=== PATIENT | female | born 1955 | race African-American/Black ===

== ENCOUNTER 2017-06-09 20:14 | Inpatient (IN) | payer MEDICARE ==
[2017-06-09] MEDS ORDERED: Morphine 4 MG/ML VIAL ONE (21:43)
[2017-06-09 21:50] LABS: ALT (SGPT) 18 U/L (8-55); AST (SGOT) 21 U/L (5-34); Alkaline Phosphatase 216 U/L (40-150); Anion Gap 16 mmol/L (10-20); BUN (Urea Nitrogen) 85 mg/dL (9.8-20.1); Bilirubin, Total 3.2 mg/dL (0.2-1.2); Calc. Creatinine Clearance 0 mL/min (70-130); Calcium 9.6 mg/dL (7.8-10.44); Carbon Dioxide 24 mmol/L (23-31); Chloride 103 mmol/L (98-107); Estimated GFR-MDRD 16; Globulin 4.7 g/dL (2.4-3.5); Protein, Total 8.6 g/dL (6.0-8.3)
[2017-06-09 21:51] LABS: #Eosinphils 0.1 thou/uL (0.0-0.7); #Monocytes 0.4 thou/uL (0.11-0.59); #Neutrophils 2.1 thou/uL (1.40-6.50); %Basophils 0.8 % (0.0-1.0); %Eosinophils 2.9 % (0.0-10.0); %Lymphocytes 26.6 % (21.0-51.0); %Monocytes 11.9 % (0.0-10.0); Anisocytosis MODERATE=16-30 cells (100X) (0-5/hpf); Hematocrit 32.1 % (36.0-47.0); Hypochromia SLIGHT = 6-15 cells (100X) (0-5/hpf); Mean Platelet Volume 11.9 fL (7.4-10.4); Microcytosis SLIGHT = 6-15 cells (100X) (0-5/hpf); Red Blood Cell (RBC) Count 3.53 mill/uL (4.20-5.40); Schistocytes SLIGHT = 2-5 cells (100X) (0-1/hpf); Tear Drops SLIGHT = 2-5 cells (100X) (0-1/hpf); White Blood Cell (WBC) Count 3.7 thou/uL (4.8-10.8)
--- NOTE | 2017-06-09 22:45 | CT ---
CT OF ABDOMEN AND PELVIS: Date: 06/09/17 COMPARISON: 04/22/14. HISTORY: Congestive heart failure, renal failure, lower abdominal pain and pelvic pain for 2 weeks. TECHNIQUE: Serial axial CT imaging is obtained at 5 mm intervals from the lung bases through pubic symphysis wit hout contrast. Coronal reformatted imaging obtained. FINDINGS: The lack of contrast media limits assessment of the imaged viscera, bowel, vascular structures, and f or lymphadenopathy. There is diffuse anasarca noted, with skin thickening and subcutaneous fat stranding seen throughout the imaged abdomen and pelvis, new when compared to the prior exam. There is a small new right pleura l effusion. There is increased linear and interstitial density in bilateral lung bases which may sign cole edema or infectious pneumonitis. The gallbladder is surgically absent. The liver demonstrates stable enlargement. The pancreas appears atrophic. Neither kidney is obstructed. Adrenal glands appear grossly unremarkable. There is new small volume free fluid in the pelvic cul-de-sac. There is new free fluid in the lower p marilyn. There is also new free fluid in the bilateral paracolic gutters and left upper quadrant. Limited assessment of the bowel demonstrates no evidence for obstruction. Osseous structures demonstrate no acute findings. There is lower lumbar spine facet hypertrophic agudelo ge and there are scattered degenerative changes with disc space narrowing and osteophyte formation se en throughout the imaged spine. The limited noncontrast enhanced appearance of the appendix appears grossly unremarkable. IMPRESSION: Interval development of anasarca with diffuse nonspecific ascites and new small right pleural effusio n. Linear density in the lung bases suggests interstitial pulmonary edema. POS: [facility]
[2017-06-09 23:22] LABS: Troponin I 0.045 ng/mL (< 0.028)
[2017-06-10] MEDS ORDERED: Nitroglycerin 2% Ointment 1 INCH/1 GM Packet ONE (01:04)
[2017-06-10] MEDS ORDERED: Furosemide 40 MG/4 ML VIAL ONE (01:04)
[2017-06-10 01:44] LABS: Troponin I 0.054 ng/mL (< 0.028)
[2017-06-10] MEDS ORDERED: Ondansetron HCl/PF 4 MG/2 ML Vial IVP PRN (03:23)
[2017-06-10] MEDS ORDERED: Ondansetron ODT 4 MG TAB SL PRN (03:23)
[2017-06-10] MEDS ORDERED: Acetaminophen 325 MG TAB PO PRN (03:23)
[2017-06-10 03:59] VITALS: BMI 51.7
[2017-06-10 04:58] LABS: Troponin I 0.036 ng/mL (< 0.028)
[2017-06-10] MEDS ORDERED: Ondansetron ODT 4 MG TAB PO PRN (07:23)
[2017-06-10] MEDS ORDERED: Zolpidem Tartrate 5 MG TAB PO PRN (07:23)
--- NOTE | 2017-06-10 08:14 | HP ---
PRIMARY CARE PROVIDER: Laura Aldrich, in [place] CHIEF COMPLAINT: Throbbing pain in right flank. HISTORY OF PRESENT ILLNESS: The patient referred to the [facility] by [facility]. The patient states she has had right flank pain. She described it as coming from her right mid back around into her right lower quadrant. She describes it as a throbbing and pulling pain, constant for 2 weeks, worse with motion. She has had no nausea or vomiting, no diarrhea. She has had constipation, which she relates to an impaction. This has resolved. She has had no fever o r chills. PAST MEDICAL HISTORY: Pertinent for hypertension; chronic kidney disease, stage 3; diastolic heart f ailure; gastroesophageal reflux disease. CURRENT MEDICATIONS: Lasix 80 mg in the morning and 40 in the evening, gabapentin 200 mg at bedtime, Coreg 3.125 mg twice a day, Flexeril 10 mg t.i.d. p.r.n., Nexium 40 mg a day, Lipitor 40 mg a day, a mlodipine 10 mg a day, aspirin 81 mg a day. ALLERGIES: No known drug allergies. PAST SURGICAL HISTORY: Cholecystectomy, tubal ligation, and . SOCIAL HISTORY: No alcohol, tobacco, or recreational drug use. CODE STATUS: Full. Surrogate decision maker not named at this time. FAMILY HISTORY: Positive for hypertension. No coronary artery disease. REVIEW OF SYSTEMS: General: She has a little dizziness at times. No headache or fainting. Eyes: She says she has had a history of retinal bleeding. She has cataracts and her vision is poor. Ears, nose, and throat: No ear pain or drainage. No nasal bleeding. No trouble swallowing. Cardiac: N o chest pain, orthopnea, or paroxysmal nocturnal dyspnea. Respiratory: She has chronic dyspnea on e xertion. She has been doing better since Dr. Frazier raised her Lasix to a total of 120 mEq a day from 80 mg a day. No wheezing, no cough. Gastrointestinal: See present illness. Genitourinary: She ma kes urine. No blood, no pain. 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 She has a variety of aches and pains, but her prominent pain now is the right flank pain. Neurological: No strokes, seizures, or focal weakness. Psychiatric: No anxiety or depression. Ski n: No bruises, bleeding, or rash. Heme/Lymph: No tender or swollen lymph nodes in axilla, inguinal , or cervical area. PHYSICAL EXAMINATION: GENERAL: She is an alert, cooperative, pleasant lady. VITAL SIGNS: Blood pressure was elevated at 163/80, temperature 98.4, pulse 80, respirations 20, O2 saturation 94% on room air. EXAMINATION OF HEAD, EYES, EARS, NOSE, AND THROAT: Pupils equal, reactive, and round. Extraocular m ovements are intact. Sclerae white. Tympanic membranes clear. Nose clear. Oral mucous membranes a re clear. Dental hygiene is fair. NECK: Supple, without jugular venous distention, adenopathy, or thyromegaly. CHEST: Clear to auscultation and percussion. HEART: Had a regular rate and rhythm. First and second heart sounds are clear. There are no apprec iated murmurs or gallops. ABDOMEN: Soft, bowel sounds are normal. There is no hepatosplenomegaly, no mass, no rebound. No te nderness. no bruits. EXTREMITIES: Reveal no cyanosis or clubbing. She does have 2-3+ stasis edema. SKIN: Warm and dry without bruises or rash. HEME/LYMPH: No tender or swollen lymph nodes in axilla, inguinal, or cervical area. PULSES: Carotid, radial, and femoral pulses were palpable and symmetric. Pedal pulses were obscured by edema. NEUROLOGICAL: Cranial nerves II-XII were intact. Moved all extremities. Toes downgoing. IMAGING: EKG: Regular sinus rhythm, poor R-wave progression in the precordial leads, no acute ST-T segment changes, reviewed by me. Abdominal CT: Small pleural effusions, gallbladder absent, and no hydronephrosis, no acute abnormality, reviewed by meTyron M.D. LABORATORY DATA: White count 3.7, hemoglobin 9.8, platelet count 194,000. Creatinine 3.58 and BUN 8 5. Electrolytes balanced. Bilirubin elevated at 3.2, alkaline phosphatase 216, BNP 1049, troponins 0.05 and 0.04. ADMITTING DIAGNOSES: 1. Right flank pain, probably musculoskeletal. 2. Chronic kidney disease, stage 3. 3. Hypertension. 4. Chronic diastolic heart failure. 5. Dyslipidemia. 6. Anemia of chronic kidney disease. PLAN: 1. Observation basis. 2. Selected home medicines. 3. LS spine x-ray. 4. Abdominal ultrasound. 5. Urinalysis to look for blood in her urine.
[2017-06-10 08:20] LABS: Bilirubin Negative (Negative); Blood, Urine Negative (Negative); Glucose, Urine (Dipstick) Negative (Negative); Ketone, Urine Negative (Negative); Nitrite Negative (Negative); Protein, Urine (Dipstick) 30 mg/dL (Neg-Trace); Urobilinogen 0.2 mg/dL (0.2-1.0)
[2017-06-10 08:23] LABS: Bacteria/HPF None Seen HPF (None Seen); Hyaline Casts/LPF 0-3 HYALINE CAST LPF (0-3 Hyaline); Squamous Epithelial 0-3 HPF (0-3); WBC/HPF 0-3 HPF (0-3)
[2017-06-10 09:09] LABS: RBC/HPF 0-3 HPF (0-3)
--- NOTE | 2017-06-10 10:17 | ULT ---
ABDOMINAL ULTRASOUND: HISTORY: Right flank pain. FINDINGS: The patient is post cholecystectomy. The aorta and IVC are not visualized due to overlying bowel gas . The liver is slightly enlarged measuring up to 20 cm. The liver is homogeneous with no mass identifi ed. The common duct is within normal range at 5 mm. The spleen is upper normal size at 12 cm. Both kidneys are imaged and appear unremarkable. No hydronephrosis. Pancreas is obscured. A tiny amount of free fluid is seen in Morison's pouch region. IMPRESSION: 1. Post-cholecystectomy. 2. Mild hepatomegaly. 3. Tiny amount of free fluid noted in the upper abdomen. POS: [facility]
--- NOTE | 2017-06-10 10:42 | RAD ---
LUMBAR SPINE THREE VIEWS: HISTORY: Flank pain. FINDINGS: The lumbar vertebrae maintain height. There are mild to moderate degenerative changes noted. Osteop hytes from the lumbar vertebrae are seen. There is slight anterolisthesis at L4-L5. There is loss o f disk space at L5-S1. Facet hypertrophy is noted throughout. Slight curvature to the left, in the mid lumbar spine, with apex at L3. IMPRESSION: Mild to moderate degenerative changes, as described. POS: [facility]
[2017-06-10] MEDS: HYDROcodone/Acetaminophen 7.5/325 mg Tablet PO PRN (14:03)
[2017-06-10] MEDS ORDERED: Cyclobenzaprine 10 MG TAB PO PRN (17:03)
[2017-06-10] MEDS: Furosemide 40 MG TAB PO SCH (19:26)
[2017-06-10] MEDS: Gabapentin 100 MG CAP PO SCH (20:34)
[2017-06-10] MEDS: Carvedilol 3.125 MG TAB PO SCH (20:34)
[2017-06-11] MEDS ORDERED: hydrOXYzine 25 MG TAB PO PRN (00:26)
[2017-06-11] MEDS ORDERED: cloNIDine 0.1 MG TAB PO PRN (00:26)
[2017-06-11] MEDS ORDERED: Amlodipine 10 MG TAB PO SCH (00:30)
[2017-06-11] MEDS: HYDROcodone/Acetaminophen 7.5/325 mg Tablet PO PRN (06:15)
[2017-06-11 08:04] LABS: Oxyhemoglobin 94.2 % (94.0-97.0); Sodium 140 mmol/L (135-148)
[2017-06-11 08:05] LABS: Mode 2L NC; Modified Allen's Test POSITIVE; Vent NO
[2017-06-11] MEDS: Carvedilol 3.125 MG TAB PO SCH ×2 (08:21→21:04)
[2017-06-11] MEDS: Furosemide 80 MG TAB PO SCH (08:21)
[2017-06-11] MEDS: Atorvastatin Calcium 40 MG TAB PO SCH (08:21)
--- NOTE | 2017-06-11 09:15 | PDOC.PN ---
- Subjective Encounter Start Date: 06/11/17 Encounter Start Time: 09:13 Subjective: sleepy but arousable - Objective Resuscitation Status: Resuscitation Status FULL:Full Resuscitation MAR Reviewed: Yes Vital Signs & Weight: Vital Signs (12 hours) Temp Pulse Resp BP Pulse Ox 06/11/17 08:23 66 12 138/69 97 06/11/17 08:00 97.7 F 66 12 06/11/17 07:03 97.7 F 75 20 132/73 100 06/11/17 04:14 97.9 F 75 18 153/81 H 92 L 06/11/17 00:43 90 06/10/17 23:22 98.4 F 90 18 179/84 H 94 L Weight Weight 247 lb I&O: 06/10/17 06/11/17 06/12/17 06:59 06:59 06:59 Intake Total 90 1040 Output Total 2450 Balance 90 -1410 Result Diagrams: 06/09/17 21:16 06/09/17 21:16 Additional Labs: Accuchecks 06/10/17 11:33 POC Glucose 148 H Phys Exam - Physical Examination Constitutional: NAD Neck: no JVD bilat rales Cardiovascular: RRR, no significant murmur Gastrointestinal: soft, non-tender, positive bowel sounds Musculoskeletal: edema present Dx/Plan (1) Acute respiratory failure with hypercapnia Code(s): J96.02 - ACUTE RESPIRATORY FAILURE WITH HYPERCAPNIA Status: Acute (2) Acute on chronic diastolic (congestive) heart failure Code(s): I50.33 - ACUTE ON CHRONIC DIASTOLIC (CONGESTIVE) HEART FAILURE Status : Acute (3) Acute on chronic kidney failure Code(s): N17.9 - ACUTE KIDNEY FAILURE, UNSPECIFIED; N18.9 - CHRONIC KIDNEY DISEASE, UNSPECIFIED Status: Acute Qualifiers: Chronic kidney disease stage: stage 4 (severe) (4) Anemia Code(s): D64.9 - ANEMIA, UNSPECIFIED Status: Chronic Qualifiers: Anemia type: unspecified type Qualified Code(s): D64.9 - Anemia, unspecified (5) CAD (coronary artery disease) Code(s): I25.10 - ATHSCL HEART DISEASE OF [place] CORONARY ARTERY W/O ANG PCTRS Status: Chronic Qualifiers: Coronary Disease-Associated Artery/Lesion type: [place] artery [place] vs. transplanted heart: [place] heart Associated angina: without angina Qualified Code(s): I25.10 - Atherosclerotic heart disease of [place] coronary artery without angina pectoris (6) DM2 (diabetes mellitus, type 2) Status: Chronic Qualifiers: Diabetes mellitus complication status: with kidney complications Chronic kidney disease stage: stage 4 (severe) (7) Dyslipidemia Code(s): E78.5 - HYPERLIPIDEMIA, UNSPECIFIED Status: Chronic (8) Hypertension Code(s): I10 - ESSENTIAL (PRIMARY) HYPERTENSION Status: Chronic Qualifiers: Hypertension type: essential hypertension Qualified Code(s): I10 - Essential (primary) hypertension - Plan DC all sedatives -: rpt cbc, bmp -: DC all sedatives * .
[2017-06-11 09:30] LABS: Hematocrit 24.9 % (36.0-47.0); Mean Platelet Volume 9.8 fL (7.4-10.4); Red Blood Cell (RBC) Count 2.76 mill/uL (4.20-5.40); White Blood Cell (WBC) Count 3.2 thou/uL (4.8-10.8)
[2017-06-11 09:45] LABS: Band 4 % (5-11); Bite Cells SLIGHT = 2-5 cells (100X) (0-1/hpf); Neutrophil 59 % (42-75); Polychromasia SLIGHT = 2-3 cells (100X) (0-2/hpf); Schistocytes MODERATE= 6-15 cells (100X) (0-1/hpf)
[2017-06-11 09:52] LABS: Anion Gap 12 mmol/L (10-20); BUN (Urea Nitrogen) 79 mg/dL (9.8-20.1); Calc. Creatinine Clearance 36 mL/min (70-130); Calcium 9.1 mg/dL (7.8-10.44); Carbon Dioxide 25 mmol/L (23-31); Chloride 104 mmol/L (98-107); Estimated GFR-MDRD 20
[2017-06-11 10:55] LABS: Fibrinogen 315 mg/dL (253-463)
[2017-06-11 10:56] LABS: PTT 31.7 SEC (22.9-36.1); Prothrombin Time 15.6 SEC (12.0-14.7)
[2017-06-11] MEDS: Gabapentin 100 MG CAP PO SCH (21:04)
[2017-06-11] MEDS: Furosemide 40 MG TAB PO SCH (21:04)
[2017-06-12] MEDS: Acetaminophen 325 MG TAB PO PRN ×2 (00:44→09:16)
[2017-06-12] MEDS: Amlodipine 10 MG TAB PO SCH (09:12)
[2017-06-12] MEDS: Furosemide 80 MG TAB PO SCH (09:13)
[2017-06-12] MEDS: Carvedilol 3.125 MG TAB PO SCH ×2 (09:13→20:45)
[2017-06-12] MEDS: Atorvastatin Calcium 40 MG TAB PO SCH (09:13)
--- NOTE | 2017-06-12 10:05 | PDOC.PN ---
- Subjective Encounter Start Date: 06/12/17 Encounter Start Time: 10:00 Subjective: ok, no sob - Objective MAR Reviewed: Yes Vital Signs & Weight: Vital Signs (12 hours) Temp Pulse Resp BP BP Pulse Ox 06/12/17 08:01 97.9 F 67 20 157/70 H 100 06/12/17 03:34 98.3 F 74 14 144/65 H 96 06/11/17 23:38 98.2 F 76 18 138/79 93 L Weight Weight 247 lb 9.6 oz I&O: 06/11/17 06/12/17 06/13/17 06:59 06:59 06:59 Intake Total 1190 Output Total 650 Balance 540 Result Diagrams: 06/11/17 10:39 06/11/17 09:22 Phys Exam - Physical Examination Constitutional: NAD Neck: no JVD Respiratory: clear to auscultation bilateral Cardiovascular: RRR, no significant murmur Gastrointestinal: soft, positive bowel sounds Musculoskeletal: edema present Dx/Plan (1) Acute respiratory failure with hypercapnia Code(s): J96.02 - ACUTE RESPIRATORY FAILURE WITH HYPERCAPNIA Status: Acute (2) Acute on chronic diastolic (congestive) heart failure Code(s): I50.33 - ACUTE ON CHRONIC DIASTOLIC (CONGESTIVE) HEART FAILURE Status : Acute (3) Acute on chronic kidney failure Code(s): N17.9 - ACUTE KIDNEY FAILURE, UNSPECIFIED; N18.9 - CHRONIC KIDNEY DISEASE, UNSPECIFIED Status: Acute Qualifiers: Chronic kidney disease stage: stage 4 (severe) (4) Anemia Code(s): D64.9 - ANEMIA, UNSPECIFIED Status: Chronic Qualifiers: Anemia type: unspecified type Qualified Code(s): D64.9 - Anemia, unspecified (5) CAD (coronary artery disease) Code(s): I25.10 - ATHSCL HEART DISEASE OF [place] CORONARY ARTERY W/O ANG PCTRS Status: Chronic Qualifiers: Coronary Disease-Associated Artery/Lesion type: [place] artery [place] vs. transplanted heart: [place] heart Associated angina: without angina Qualified Code(s): I25.10 - Atherosclerotic heart disease of [place] coronary artery without angina pectoris (6) DM2 (diabetes mellitus, type 2) Status: Chronic Qualifiers: Diabetes mellitus complication status: with kidney complications Chronic kidney disease stage: stage 4 (severe) (7) Dyslipidemia Code(s): E78.5 - HYPERLIPIDEMIA, UNSPECIFIED Status: Chronic (8) Hypertension Code(s): I10 - ESSENTIAL (PRIMARY) HYPERTENSION Status: Chronic Qualifiers: Hypertension type: essential hypertension Qualified Code(s): I10 - Essential (primary) hypertension - Plan anemia adverse, rpt cbc, cmp * .
[2017-06-12 10:37] LABS: #Eosinphils 0.1 thou/uL (0.0-0.7); #Monocytes 0.4 thou/uL (0.11-0.59); #Neutrophils 1.6 thou/uL (1.40-6.50); %Basophils 0.3 % (0.0-1.0); %Eosinophils 3.2 % (0.0-10.0); %Lymphocytes 31.8 % (21.0-51.0); Hematocrit 26.6 % (36.0-47.0); Red Blood Cell (RBC) Count 2.95 mill/uL (4.20-5.40); White Blood Cell (WBC) Count 3.2 thou/uL (4.8-10.8)
[2017-06-12 10:55] LABS: ALT (SGPT) 10 U/L (8-55); AST (SGOT) 13 U/L (5-34); Alkaline Phosphatase 191 U/L (40-150); Anion Gap 11 mmol/L (10-20); BUN (Urea Nitrogen) 74 mg/dL (9.8-20.1); Bilirubin, Total 2.8 mg/dL (0.2-1.2); Calc. Creatinine Clearance 35 mL/min (70-130); Calcium 8.9 mg/dL (7.8-10.44); Carbon Dioxide 27 mmol/L (23-31); Chloride 102 mmol/L (98-107); Estimated GFR-MDRD 19; Globulin 4.1 g/dL (2.4-3.5); Protein, Total 7.5 g/dL (6.0-8.3)
[2017-06-12 12:13] LABS: Bite Cells SLIGHT = 2-5 cells (100X) (0-1/hpf); Hypochromia SLIGHT = 6-15 cells (100X) (0-5/hpf); Polychromasia SLIGHT = 2-3 cells (100X) (0-2/hpf); Schistocytes MODERATE= 6-15 cells (100X) (0-1/hpf)
[2017-06-12] MEDS: Calcium Carbonate 500 MG ChewTAB PO SCH ×2 (15:48→20:46)
[2017-06-12] MEDS: Furosemide 40 MG TAB PO SCH (20:45)
[2017-06-12] MEDS: Gabapentin 100 MG CAP PO SCH (20:45)
[2017-06-12] MEDS: Docusate 100 MG CAP PO SCH (20:45)
[2017-06-13 04:28] VITALS: TEMP 97.7
--- NOTE | 2017-06-13 08:18 | DIS ---
TRANSFER OF CARE NOTE PRIMARY CARE PHYSICIAN: Tom Ayala DATE OF DISCHARGE: 06/13/2017 DISCHARGE DISPOSITION: Home. FINAL DIAGNOSES: 1. Left flank pain, musculoskeletal. 2. Chronic respiratory failure. 3. Hypercapnic. 4. Diabetes mellitus type 2 with chronic kidney disease stage 3. 5. Diastolic heart failure. 6. Hypertension. 7. Gastroesophageal reflux disease. DISCHARGE MEDICATIONS: Same as her home medicines, Lasix 80 mg in the morning and 40 in the evening, gabapentin 200 mg at bedtime, Coreg 3.125 mg twice a day, Lipitor 40 mg a day, aspirin 81 mg a day, amlodipine 10 mg. ALLERGIES: No known drug allergies. PENDING AT THE TIME OF DISCHARGE: Nothing. CODE STATUS: Full. DIET: Diabetic with no added salt. HOSPITAL COURSE: The patient referred from the Emergency Department with what was reported to be rig ht abdominal pain, but it was freely right flank pain. Abdominal CT noncontrast was unrevealing. Ab dominal ultrasound was unrevealing. LS spine films showed mild degenerative changes. The patient wa s a little lethargic on 06/11/2017. Blood gas showed a mild elevation of CO2 and a normal pH of 7.37 . Other pertinent laboratories, white count 3.7, hemoglobin 9.8, platelet count 194,000. Chemistries; her creatinine ranged from 3.58 to 2.87 with chronic kidney disease stage 3/4 numbers. The patient i s doing well. We attempted to get her into rehab for her pain, but she declined. Currently her opal l signs are stable. I checked her O2 sat this morning, it is 95 on room air. Her cardiorespiratory exam is unremarkable. She is being discharged home. CONSULTATIONS: None. PROCEDURES: None. FOLLOWUP: Follow up recommended with Laura Aldrich in 1 week.
[2017-06-13] MEDS: Atorvastatin Calcium 40 MG TAB PO SCH (08:56)
[2017-06-13] MEDS: Docusate 100 MG CAP PO SCH ×2 (08:56→09:02)
[2017-06-13] MEDS: Carvedilol 3.125 MG TAB PO SCH (09:00)
[2017-06-13] MEDS: Amlodipine 10 MG TAB PO SCH ×2 (09:00→09:01)
[2017-06-13] MEDS: Furosemide 80 MG TAB PO SCH (09:01)
[2017-06-13 09:02] VITALS: BP 135/72
[2017-06-13] MEDS: Calcium Carbonate 500 MG ChewTAB PO SCH (09:02)
== END 2017-06-13 11:38 | disposition home or self-care (01) | DRG 291 ==
LOC: ERS 20:14 → 2SW 06-10 00:11 → OBSVTOIN 06-11 13:06 → 2NO 06-12 17:44
PROVIDERS: ADMIT Internal Medicine; ATTEND Internal Medicine
DX: I11.0 Hypertensive heart disease with heart failure (principal); J96.22 Acute and chronic respiratory failure with hypercapnia; E11.22 Type 2 diabetes mellitus with diabetic chronic kidney disease; N17.9 Acute kidney failure, unspecified; I50.33 Acute on chronic diastolic (congestive) heart failure; N18.3 Chronic kidney disease, stage 3 (moderate); R10.31 Right lower quadrant pain; M54.89 Other dorsalgia; K21.9 Gastro-esophageal reflux disease without esophagitis; D63.1 Anemia in chronic kidney disease; E78.5 Hyperlipidemia, unspecified
CPT/HCPCS: 36415; 36416; 72100; 74176; 76700; 80048; 80053; 81001; 82553; 82805; 83605; 83880; 84484; 85025; 85049; 85300; 85362; 85379; 85384; 85610; 85730; 93005; 96374; 96375; G8978-GP-CL; G8979-GP-CK; G8987-GO-CK; G8988-GO-CI; J1940; J2270

== ENCOUNTER 2017-06-30 01:01 | Inpatient (IN) | payer MEDICARE ==
[2017-06-30] MEDS ORDERED: Ondansetron HCl/PF 4 MG/2 ML Vial IVP PRN ×2 (04:50→08:14)
[2017-06-30] MEDS ORDERED: Ondansetron ODT 4 MG TAB SL PRN (04:50)
[2017-06-30] MEDS ORDERED: Acetaminophen 325 MG TAB PO PRN (04:50)
[2017-06-30 05:22] VITALS: BMI 49.4
--- NOTE | 2017-06-30 08:07 | CT ---
PRELIMINARY REPORT/[facility]/EMERGENCY AFTER HOURS PROCEDURE: EXAM: CT Abdomen and Pelvis Without Intravenous Contrast EXAM DATE/TIME: Exam ordered 06/30/2017 1:31 AM CLINICAL HISTORY: 62 years old, female; Pain; Abdominal pain; Flank; Right; Prior surgery; Surgery type: Surgical histo ry of tonsillectomy, surgical history of cholecystectomy, surgical history of section, surgi [place] history of tubal ligation; Patient HX: F62 C/O ruq pain, unable to say when it started. Pt is a t ransfer from another facility for chf exacerbation. Pt was admitted 8 days ago for similar complaint. Pt denies f or chills. Pt reports that she has been taking her medications but reports diet over the holidays has not been appropriate for chf. Pt was given 100mcg fentanyl 40mg lasix; 80mg lasix iv; 8 mg zofran TECHNIQUE: Axial computed tomography images of the abdomen and pelvis without intravenous contrast. Coronal reformatted images were created and reviewed. COMPARISON: No relevant prior studies available. FINDINGS: Lower thorax: Small right pleural effusion. Mild peripheral septal lines may signify mild hydrostatic interstitial pulmonary edema/CHF. ABDOMEN: Liver: Hepatomegaly. Gallbladder and bile ducts: Prior cholecystectomy. No ductal dilation. Pancreas: Unremarkable. No ductal dilation. Spleen: Splenomegaly. Adrenals: Unremarkable. No mass. Kidneys and ureters: Congenital incomplete ascension of the right kidney. Kidneys otherwise unremarka ble. No obstructing stones. No hydronephrosis. Stomach and bowel: Unremarkable. No obstruction. No mucosal thickening. Appendix: Normal appendix. PELVIS: Bladder: Unremarkable. No stones. Reproductive: Unremarkable as visualized. ABDOMEN and PELVIS: Intraperitoneal space: Trace volume ascites. No free air. Bones/joints: No acute fracture. No dislocation. Soft tissues: Diffuse subcutaneous edema. No soft tissue gas or abscess. Vasculature: Unremarkable. No abdominal aortic aneurysm. Lymph nodes: Unremarkable. No enlarged lymph nodes. IMPRESSION: 1. Small right pleural effusion. 2. Mild peripheral septal lines may signify mild hydrostatic interstitial pulmonary edema/CHF. 3. Diffuse subcutaneous edema. No soft tissue gas or abscess. 4. Hepatomegaly. 5. Splenomegaly. 6. Trace volume ascites. Thank you for allowing us to participate in the care of your patient. Dictated and Authenticated by: Kevin Wright MD 06/30/2017 1:56 AM Central Time ([place] & [place]) FINAL REPORT CT ABDOMEN AND PELVIS WITHOUT CONTRAST: I agree with the preliminary report given by Dr. Kevin Wright of [facility]. POS: [facility]
[2017-06-30] MEDS ORDERED: Ondansetron ODT 4 MG TAB PO PRN (08:14)
[2017-06-30] MEDS ORDERED: Lorazepam 0.5 MG TAB PO PRN (08:14)
[2017-06-30] MEDS ORDERED: hydrALAZINE 20 MG/ML VIAL SLOW IVP PRN (08:14)
[2017-06-30] MEDS ORDERED: Milk Of Magnesia 30 ML UDCUP PO PRN (08:14)
[2017-06-30] MEDS ORDERED: Lorazepam 2 MG/ML VIAL SLOW IVP PRN (08:14)
[2017-06-30] MEDS ORDERED: HYDROcodone/Acetaminophen 5/325 mg Tablet PO PRN (08:14)
[2017-06-30] MEDS ORDERED: Cyclobenzaprine 10 MG TAB PO PRN (08:14)
--- NOTE | 2017-06-30 08:29 | RAD ---
PA AND LATERAL VIEWS CHEST: HISTORY: Shortness of breath, hypoxia with CHF exacerbation. FINDINGS: Comparison is made to exam of 01/27/17. The heart size is enlarged. The lungs are expanded without confluent areas of consolidation, pneumot horax, naldo pulmonary edema, or pleural effusions. IMPRESSION: Cardiomegaly. POS: [facility]
[2017-06-30] MEDS: Heparin 5,000 UNITS/ML VIAL SC SCH ×3 (09:22→20:49)
[2017-06-30] MEDS: Amlodipine 10 MG TAB PO SCH (09:26)
[2017-06-30] MEDS: Atorvastatin Calcium 40 MG TAB PO SCH (09:26)
[2017-06-30] MEDS: Carvedilol 3.125 MG TAB PO SCH ×2 (09:26→20:50)
[2017-06-30] MEDS: Docusate 100 MG CAP PO SCH ×2 (09:27→20:50)
[2017-06-30] MEDS: HYDROcodone/Acetaminophen 10/325 mg Tablet PO PRN (09:27)
[2017-06-30] MEDS: Famotidine 20 MG TAB PO SCH (09:27)
[2017-06-30] MEDS: diphenhydrAMINE 25 MG CAP PO PRN (11:02)
--- NOTE | 2017-06-30 12:27 | HP ---
PRIMARY CARE PHYSICIAN: Laura Aldrich, Nurse Practitioner. CHIEF COMPLAINT: Right-sided pain. HISTORY OF PRESENT ILLNESS: Ms. Gillis is a pleasant 62-year-old female that has a history of hyper tension as well as a history of diastolic heart failure. In fact, she was recently seen in our facil ity for a complaint of right-sided pain, which was attributed to acute on chronic diastolic heart shiraz lure. She was released and sent home. She says since then, she has started to have pain again, she says that she woke up around 11:00 in the morning with severe right-sided pain, which she said this s tarted suddenly. She says at this time, it is not associated with shortness of breath. She says олег t the pain is fairly constant and there are no associated symptoms such as nausea or vomiting. She s ays her last bowel movement was Saturday morning and it was normal, but she says she is a bit constip ated. She says that this pain starts in the right flank and radiates around her ribs and to the abdo pao area. She denies any heavy lifting or any trauma. She denies any falls. She does say that it seems to be worse whenever she tries to move or turn and she says that when she was placed on the be dside commode here in the hospital, the pain got extremely severe, otherwise no other symptoms. She does say that she is concerned that she could have some kind of problem with her kidneys and she says when she tries to urinate, she has to lean forward or place herself into particular position since u rine flow, otherwise the patient has no other associated symptoms. REVIEW OF SYSTEMS: Constitutional: There have been no fevers, chills, no night sweats, no weight lo ss. HEENT: No headaches, no dizziness, no visual changes, no sore throat, rhinorrhea, neck pain, no adenopathy. Pulmonary: No hemoptysis, no cough, no wheezing. Cardiovascular: She denies any ches t pain, no shortness of breath, no PND, no orthopnea. No lower extremity edema. Gastrointestinal: She has the pain primarily on the right flank, more so than right abdominal pain, no nausea, no vomit ing. She does admit to some constipation. Genitourinary: She admits to what sounds like some urina ry retention like symptoms, no dysuria, no frequency. Musculoskeletal: She does complain of pains in her hands and feet and legs, which she was diagnosed as having a neuropathy. Skin/Integument: No skin changes. No rash. Psychiatric: No symptoms of a nxiety or depression. PAST MEDICAL HISTORY: Significant for hypertension, chronic kidney disease stage 3, diastolic dysfun ction, and gastroesophageal reflux disease as well as morbid obesity. PAST SURGICAL HISTORY: She has had a cholecystectomy, bilateral tubal ligation, and . ALLERGIES: No known drug allergies. SOCIAL HISTORY: She is a nonsmoker, nondrinker. CODE STATUS: FULL CODE. FAMILY HISTORY: Significant for heart disease. No history of any coronary artery disease. CURRENT MEDICATIONS: She says these are the same as that on her previous discharge and include gabap entin 200 mg at bedtime, Lasix 80 mg in the morning and 40 in the evening, Nexium 40 mg twice a day, Flexeril 10 mg t.i.d., carvedilol 3.125 mg twice a day, Lipitor 40 mg daily, aspirin 81 mg daily, aml odipine 10 mg daily. PHYSICAL EXAMINATION: GENERAL: She is alert and oriented. She appears to be in no acute distress. VITAL SIGNS: Blood pressure was ranging from 173-213 systolic, heart rate 92, respiratory rate of 20 , temperature is 97.2. HEENT: Pupils are equal, round, and reactive. Extraocular muscles are intact. Her sclerae are anic teric. Throat, no erythema, no exudates. NECK: No adenopathy, no bruits. LUNGS: Clear to auscultation. I did not appreciate any wheezing or rales. CARDIOVASCULAR: She has a normal S1, S2. I do not appreciate an S3 or S4. No murmurs, clicks or ru bs. ABDOMEN: Soft, nontender, nondistended. Positive for bowel sounds. No rebound or guarding. EXTREMITIES: She has got some chronic venous stasis changes with some thick leathery like skin and b rawny edema. NEUROLOGIC: The exam is nonfocal. LABORATORY DATA AND IMAGING: White blood cell count 3.8, hemoglobin 8.2, hematocrit is 26.7, platele t count was 267. Her sodium was 139, potassium 4.3, chloride is 104, CO2 is 22, BUN of 57, creatinin e 2.41, glucose 148. She had a proBNP of 1878, alkaline phosphatase was 191. She had a CT scan of t he abdomen, which is reported as being negative for any acute abnormalities. Her chest x-ray, she self s got some cardiomegaly, but I did not appreciate any acute cardiopulmonary disease such as an infilt rate. In review of her records, I see that she has had a nuclear stress test back in August of this y ear showing a fixed apical defect and some global dyskinesia. She also had a perfusion scan, which w as low probability for pulmonary embolism. She has had an echocardiogram in December of this year and self d an EF of 55%-60% with some diastolic dysfunction. ASSESSMENT: This is a 62-year-old female that presents with right flank pain, the etiology of which is difficult to ascertain. It appears as if there could possibly be some urinary symptoms involved a s well; however, the pain does appear to get worse with movement, primarily of her upper extremities which leans towards the more musculoskeletal source of the pain. I doubt that this is related to con gestive heart failure exacerbation; however, it is possible as her proBNP is elevated and it could be related to passive venous congestion, but it is unusual for that to give such a degree of pain. The refore, we will evaluate her in the assumption that this could be a possible musculoskeletal source o f the pain. We will get an x-ray of the ribs in the event there is some unusual lytic lesion there t hat could be causing bone pain; therefore, we will get a rib series on that side and if her body habi tus permits, we will obtain an MRI of the thoracic and lumbar spine to rule out significant disk dise ase in this area and likely repeating a renal ultrasound given her symptoms which almost sounds like an obstructive picture. 1. Acute on chronic diastolic heart failure. We will continue treatment with IV Lasix and monitor h er I's and O's. 2. Hypertension, we will restart her usual antihypertensive medications and titrate the dose as lucila bazan.
[2017-06-30] MEDS: Furosemide 40 MG/4 ML VIAL SLOW IVP SCH (14:18)
[2017-06-30 16:16] LABS: Bilirubin Negative (Negative); Blood, Urine Negative (Negative); Clarity CLEAR (Clear); Glucose, Urine (Dipstick) Negative (Negative); Leukocyte Negative (Negative); Nitrite Negative (Negative); Protein, Urine (Dipstick) 100 mg/dL (Neg-Trace); Specific Gravity, Urine 1.014 (1.002-1.036)
[2017-06-30 16:19] LABS: Bacteria/HPF Rare-Few HPF (None Seen); Hyaline Casts/LPF 4-6 HYALINE CAST LPF (0-3 Hyaline); RBC/HPF 0-3 HPF (0-3); Squamous Epithelial 0-3 HPF (0-3); WBC/HPF None Seen HPF (0-3)
--- NOTE | 2017-06-30 16:28 | ULT ---
BILATERAL RENAL ULTRASOUND: HISTORY: Right flank pain. FINDINGS: The right kidney measures 11.2 cm in length and the left kidney measures 10.5 cm in length. No focal mass or hydronephrosis is seen on either side. No shadowing calculus is noted. The urinary bladder is grossly unremarkable with a pre-void volume of 205 mL. IMPRESSION: No evidence of urinary tract obstruction or other significant abnormalities. POS: [facility]
--- NOTE | 2017-06-30 18:35 | RAD ---
FOUR VIEW RIGHT RIB SERIES: INDICATIONS: Right-sided rib pain. FINDINGS: No displaced right-sided rib fracture is evident. The visualized right lung is clear. No pneumothor ax is evident. IMPRESSION: No displaced right-sided rib fracture. POS: FRANNY
[2017-06-30] MEDS: Gabapentin 100 MG CAP PO SCH (20:50)
[2017-07-01] MEDS: hydrOXYzine 25 MG TAB PO PRN ×2 (02:50→15:25)
[2017-07-01] MEDS: diphenhydrAMINE 25 MG CAP PO PRN (02:50)
[2017-07-01] MEDS: HYDROcodone/Acetaminophen 10/325 mg Tablet PO PRN (06:09)
[2017-07-01] MEDS: Furosemide 40 MG/4 ML VIAL SLOW IVP SCH ×2 (06:10→15:16)
[2017-07-01 06:16] LABS: #Eosinphils 0.1 thou/uL (0.0-0.7); #Lymphocytes 0.8 thou/uL (1.20-3.40); #Monocytes 0.3 thou/uL (0.11-0.59); #Neutrophils 1.9 thou/uL (1.40-6.50); %Basophils 0.6 % (0.0-1.0); %Eosinophils 3.2 % (0.0-10.0); %Lymphocytes 26.2 % (21.0-51.0); %Monocytes 10.8 % (0.0-10.0); %Neutrophils 59.2 % (42.0-75.0); Hemoglobin 8.5 g/dL (12.0-16.0); Mean Corpuscular HGB CONC 29.9 g/dL (32.0-36.0); Mean Corpuscular Hemoglobin 27.3 pg (27.0-31.0); Mean Corpuscular Volume 91.2 fl (81.0-99.0); Mean Platelet Volume 12.9 fL (7.4-10.4); Platelet Count 195 thou/uL (130-400); RBC Distribution Width 24.3 % (11.5-14.5); Red Blood Cell (RBC) Count 3.11 mill/uL (4.20-5.40); White Blood Cell (WBC) Count 3.2 thou/uL (4.8-10.8)
[2017-07-01 06:29] LABS: Anion Gap 13 mmol/L (10-20); BUN (Urea Nitrogen) 62 mg/dL (9.8-20.1); Calc. Creatinine Clearance 37 mL/min (70-130); Calcium 9.7 mg/dL (7.8-10.44); Carbon Dioxide 27 mmol/L (23-31); Chloride 103 mmol/L (98-107); Estimated GFR-MDRD 21; Glucose 132 mg/dL (80-115); Potassium 4.4 mmol/L (3.5-5.1); Sodium 139 mmol/L (136-145)
[2017-07-01] MEDS ORDERED: Naloxone HCl 0.4 mg/ml Vial ONE (07:53)
[2017-07-01 07:58] LABS: Actual Bicarbonate (HCO3a) 25.9 mEq/L (22-26); Analyzer IN Cardio OR; CO2 Tension 55.6 mmHg (35.0-45.0); Calcium, Ionized 1.2 mmol/L (1.12-1.30); Hematocrit-ABG 28.4 % (36.0-47.0); Hemoglobin (Hb) 7.8 g/dL (12.0-16.0); O2 Tension (PaO2) 89.2 mmHg (80.0-100.0); Puncture Site RRA; pH, Arterial 7.29 (7.35-7.45)
--- NOTE | 2017-07-01 08:08 | PDOC.PN ---
- Subjective Encounter Start Date: 07/01/17 Encounter Start Time: 08:06 Ms. Gillis was seen today in follow-up. A gracie finley was called this morning, due to patient becoming less responsive. She was sitting up at the side of the bed around 6:00AM , then later after being given one [place] 10mg, she become lethargic, and was not talking. - Objective Resuscitation Status: Resuscitation Status FULL:Full Resuscitation MAR Reviewed: Yes Vital Signs & Weight: Vital Signs (12 hours) Pulse Resp BP Pulse Ox 07/01/17 03:09 73 18 148/70 H 96 Weight Weight 241 lb 6.4 oz I&O: 06/30/17 07/01/17 07/02/17 06:59 06:59 06:59 Output Total 400 Balance -400 Result Diagrams: 07/01/17 05:56 07/01/17 05:56 Additional Labs: Accuchecks 06/30/17 06/30/17 16:50 10:52 POC Glucose 95 99 Phys Exam - Physical Examination HEENT: PERRLA Respiratory: no wheezing, no rales, no rhonchi, clear to auscultation bilateral Cardiovascular: RRR, no significant murmur Gastrointestinal: soft, non-tender, positive bowel sounds Musculoskeletal: no edema Neurological: moves all 4 limbs she was able to tell me she is at [facility],and squeeze my hands Dx/Plan (1) Altered mental status Code(s): R41.82 - ALTERED MENTAL STATUS, UNSPECIFIED Status: Acute (2) Right flank pain Code(s): R10.9 - UNSPECIFIED ABDOMINAL PAIN Status: Acute (3) Acute on chronic diastolic heart failure Code(s): I50.33 - ACUTE ON CHRONIC DIASTOLIC (CONGESTIVE) HEART FAILURE Status : Acute (4) DM2 (diabetes mellitus, type 2) Status: Chronic Qualifiers: Diabetes mellitus complication status: with kidney complications Chronic kidney disease stage: stage 4 (severe) (5) Hypertension Code(s): I10 - ESSENTIAL (PRIMARY) HYPERTENSION Status: Chronic Qualifiers: Hypertension type: essential hypertension Qualified Code(s): I10 - Essential (primary) hypertension - Plan * Decrease mental status- ? related to adverse reaction to [place]- Her respiratory status is not depressed. ABG obtain is not much changed from prior admissions- will avoid sedating medications, and monitor on Telemetry * She vomited once- so will trend her cardiac enzymes * Right flank pain- she was unable to do the MRI yesterday- will re-try later * CKD- stable- she is close to her baseline renal function * HTN - blood pressure is stable. * Acute on chronic diastolic heart failure- continue to diurese- BNP is better today
[2017-07-01] MEDS ORDERED: FLU VACC QS2017-18 36 mo. & older 0.5 ML SYRINGE IM ONE (09:00)
[2017-07-01 09:18] LABS: CKMB 0.4 ng/mL (0-6.6); Troponin I 0.014 ng/mL (< 0.028)
[2017-07-01] MEDS: Famotidine 20 MG TAB PO SCH (10:29)
[2017-07-01] MEDS: Carvedilol 3.125 MG TAB PO SCH ×2 (10:29→20:20)
[2017-07-01] MEDS: Atorvastatin Calcium 40 MG TAB PO SCH (10:29)
[2017-07-01] MEDS: Amlodipine 10 MG TAB PO SCH (10:29)
[2017-07-01] MEDS: Docusate 100 MG CAP PO SCH ×2 (10:29→20:20)
[2017-07-01] MEDS: Heparin 5,000 UNITS/ML VIAL SC SCH ×3 (10:30→20:20)
[2017-07-01] MEDS: Gabapentin 100 MG CAP PO SCH (20:19)
[2017-07-02] MEDS: Acetaminophen 325 MG TAB PO PRN ×2 (03:03→18:37)
[2017-07-02] MEDS: Furosemide 40 MG/4 ML VIAL SLOW IVP SCH ×2 (06:32→15:10)
[2017-07-02] MEDS: Carvedilol 3.125 MG TAB PO SCH ×2 (09:58→20:31)
[2017-07-02] MEDS: Famotidine 20 MG TAB PO SCH (09:58)
[2017-07-02] MEDS: Docusate 100 MG CAP PO SCH ×2 (09:58→20:31)
[2017-07-02] MEDS: Atorvastatin Calcium 40 MG TAB PO SCH (09:59)
[2017-07-02] MEDS: Heparin 5,000 UNITS/ML VIAL SC SCH ×3 (09:59→20:30)
[2017-07-02] MEDS: Amlodipine 10 MG TAB PO SCH (09:59)
--- NOTE | 2017-07-02 15:03 | PQF ---
CLINICAL DOCUMENTATION IMPROVEMENT CLARIFICATION FORM: ICD-10 Updated PLEASE DO AN ADDENDUM TO THE PROGRESS NOTE WITH ANY DOCUMENTATION UPDATES OR ADDITIONS AND CARRY THROUGH TO DC SUMMARY. THANK YOU. DATE: 07/02/17 ATTN: Dr. Chen Please exercise your independent, professional judgment in responding to the clarification form. Clinical indicators are provided on the bottom of this form for your review Please check appropriate box(s): [ ] Acute Respiratory Failure: [ ] with Hypoxia [ ] with Hypercapnia [ ] Acute On Chronic Respiratory Failure: [ ] with Hypoxia [ ] with Hypercapnia [ ] Acute Respiratory Failure due to: (etiology) [ ] Chronic Respiratory Failure only [ ] with Hypoxia [ ] with Hypercapnia [ ] Other diagnosis [ ] Unable to determine In addition, please specify: Present on Admission (POA): [ ] Yes [ ] No [ ] Unable to determine For continuity of documentation, please document condition throughout progress notes and discharge summary. Thank You. CLINICAL INDICATORS - SIGNS / SYMPTOMS / LABS ED RECORD:DOCTOR NOTES: HYPOXIC TO 80% ON RA ON ARRIVAL, IMPROVED TO 94 W/ 2L NC NURSES NOTE 07/01/17 @ 0828. SHE WAS FOUND TO HAVE 02 SAT 45% ON RA. SHE RECOVERED TO 95% ON 2L O2 VIA NC. STILL UNRESPONSIVE SO SNOW JAMA WAS CALLED. LAB: BLOOD GAS 07/01/17: ABG PH 7.29 PCO2 55.6 RISKS: H&P: MORBID OBESITY. ACUTE ON CHRONIC DIASTOLIC HEART FAILURE. HYPERTENSION. TREATMENTS: CPOE: IV LASIX 40 MG 0600, 1400 ORDER NRSG 06/30: O2 TO KEEP SATS > 92% Thank you, Lucie (This form is maintained as a part of the permanent medical record) 2015 [employer]. All Rights Reserved Lucie Sheldon RN, BSN [email or web address] Office: [phone] [facility]
[2017-07-02] MEDS: hydrOXYzine 25 MG TAB PO PRN (15:10)
[2017-07-02 15:46] LABS: Albumin 3.6 g/dL (3.4-4.8); Anion Gap 11 mmol/L (10-20); BUN (Urea Nitrogen) 62 mg/dL (9.8-20.1); BUN/Creatinine Ratio 20.39; Calc. Creatinine Clearance 34 mL/min (70-130); Calcium 9.3 mg/dL (7.8-10.44); Carbon Dioxide 27 mmol/L (23-31); Chloride 102 mmol/L (98-107); Estimated GFR-MDRD 19; Glucose 113 mg/dL (80-115); Magnesium 2.2 mg/dL (1.6-2.6); Potassium 4.7 mmol/L (3.5-5.1); Sodium 135 mmol/L (136-145)
[2017-07-02] MEDS: Calcium Carbonate 500 MG ChewTAB PO SCH (18:31)
[2017-07-02] MEDS: Gabapentin 100 MG CAP PO SCH (20:31)
[2017-07-02] MEDS ORDERED: Cyclobenzaprine 10 MG TAB PO PRN (21:54)
--- NOTE | 2017-07-02 21:55 | PDOC.PN ---
- Subjective Encounter Start Date: 07/02/17 Encounter Start Time: 13:00 Patient seen and examined. SOB slightly better. No overnight events - Objective Resuscitation Status: Resuscitation Status FULL:Full Resuscitation MAR Reviewed: Yes Vital Signs & Weight: Vital Signs (12 hours) Temp Pulse Pulse Pulse Resp BP BP 07/02/17 19:25 97.5 F L 71 18 07/02/17 17:05 98.1 F 66 20 07/02/17 12:54 79 85 178/77 H 136/62 07/02/17 11:45 97.7 F 79 16 BP Pulse Ox Pulse Ox Pulse Ox 07/02/17 19:25 153/70 H 100 07/02/17 17:05 124/78 96 07/02/17 12:54 100 85 L 07/02/17 11:45 139/62 100 Weight Weight 245 lb 3.2 oz I&O: 07/01/17 07/02/17 07/03/17 06:59 06:59 06:59 Intake Total 480 Output Total 400 650 Balance -400 -170 Result Diagrams: 07/03/17 04:43 07/03/17 04:43 Additional Labs: Accuchecks 07/02/17 07/02/17 07/02/17 20:27 17:38 11:52 POC Glucose 144 H 118 H 118 H 07/02/17 05:47 POC Glucose 219 H EKG Reviewed by me: Yes (Tele SR) Phys Exam - Physical Examination Constitutional: NAD Respiratory: no wheezing, no rhonchi Cardiovascular: RRR, no rub Gastrointestinal: soft, no distention Musculoskeletal: edema present Neurological: moves all 4 limbs Dx/Plan - Plan DVT proph w/heparin, DVT proph w/SCDs IMPRESSION: 1. Acute hypoxic/hypercapnic resp failure due to acute on chronic diastolic HF exacerbation 2. ESTHER/CKD 3 - prob due to Cardiorenal syndrome 3. CAD 4. DM2 5. Morbid Obesity BMI 49.5/HTN/Chronic Anemia PLAN: * Cont diuresis * AM labs * Consult Cardio/Nephro * Cont curent meds as below Review of Systems - Review of Systems Respiratory: SOB with Excertion. negative: Cough, Dry, Shortness of Breath, Hemoptysis, Pleuritic Pain, Sputum, Wheezing Cardiovascular: edema. negative: chest pain, palpitations, orthopnea, paroxysmal nocturnal dyspnea, light headedness Gastrointestinal: negative: Nausea, Vomiting, Abdominal Pain, Diarrhea, Constipation, Melena, Hematochezia - Medications/Allergies Allergies/Adverse Reactions: Allergies Allergy/AdvReac Type Severity Reaction Status Date / Time hydrocodone [From [place]] AdvReac Severe Verified 07/01/17 18:16 acetaminophen [From [place]] AdvReac Verified 07/01/17 18:16 Medications: Current Medications Acetaminophen (Tylenol) 650 mg PO Q4H PRN PRN Reason: Headache/Fever or Pain Last Admin: 07/02/17 18:37 Dose: 650 mg Amlodipine Besylate (Norvasc) 10 mg PO DAILY [facility] Last Admin: 07/02/17 09:59 Dose: 10 mg Aspirin (Aspirin Chewable) 81 mg PO DAILY [facility] Last Admin: 07/02/17 09:59 Dose: 81 mg Atorvastatin Calcium (Lipitor) 40 mg PO DAILY [facility] Last Admin: 07/02/17 09:59 Dose: 40 mg Calcium Carbonate (Tums) 1,000 mg PO TID-[facility] Last Admin: 07/02/17 18:31 Dose: 1,000 mg Carvedilol (Coreg) 3.125 mg PO BID [facility] Last Admin: 07/02/17 20:31 Dose: 3.125 mg Cyclobenzaprine HCl (Flexeril) 10 mg PO TID PRN PRN Reason: Muscle Spasm Last Admin: 06/30/17 09:27 Dose: 10 mg Diphenhydramine HCl (Benadryl) 25 mg PO Q6H PRN PRN Reason: Itching Last Admin: 07/01/17 02:50 Dose: 25 mg Docusate Sodium (Colace) 100 mg PO BID [facility] Last Admin: 07/02/17 20:31 Dose: 100 mg Famotidine (Pepcid) 20 mg PO DAILY [facility] Last Admin: 07/02/17 09:58 Dose: 20 mg Furosemide (Lasix) 40 mg SLOW IVP 0600,1400 [facility] Last Admin: 07/02/17 15:10 Dose: 40 mg Gabapentin (Neurontin) 200 mg PO HS [facility] Last Admin: 07/02/17 20:31 Dose: 200 mg Heparin Sodium (Porcine) (Heparin) 5,000 units SC TID [facility] Last Admin: 07/02/17 20:30 Dose: 5,000 units Hydralazine HCl (Apresoline) 10 mg SLOW IVP Q4H PRN PRN Reason: Systolic BP > 180 Hydroxyzine HCl (Atarax) 25 mg PO Q4H PRN PRN Reason: .ITCHING Last Admin: 07/02/17 15:10 Dose: 25 mg Lorazepam (Ativan) 0.5 mg PO Q4H PRN PRN Reason: Anxiety/Agitation Last Admin: 06/30/17 09:27 Dose: 0.5 mg Lorazepam (Ativan) 0.5 mg SLOW IVP Q4H PRN PRN Reason: Anxiety/Agitation Magnesium Hydroxide (Milk Of Magnesium) 30 ml PO DAILYPRN PRN PRN Reason: Constipation Ondansetron HCl (Zofran Odt) 4 mg PO Q6H PRN PRN Reason: Nausea/Vomiting Ondansetron HCl (Zofran) 4 mg IVP Q6H PRN PRN Reason: Nausea/Vomiting
[2017-07-03 05:27] LABS: Albumin 3.6 g/dL (3.4-4.8); Anion Gap 12 mmol/L (10-20); BUN (Urea Nitrogen) 63 mg/dL (9.8-20.1); BUN/Creatinine Ratio 20.06; Calc. Creatinine Clearance 33 mL/min (70-130); Calcium 8.9 mg/dL (7.8-10.44); Carbon Dioxide 26 mmol/L (23-31); Chloride 102 mmol/L (98-107); Estimated GFR-MDRD 18; Glucose 106 mg/dL (80-115); Magnesium 2.3 mg/dL (1.6-2.6); Phosphorus 3.7 mg/dL (2.3-4.7); Potassium 4.7 mmol/L (3.5-5.1); Sodium 135 mmol/L (136-145)
[2017-07-03 05:49] LABS: #Eosinphils 0.1 thou/uL (0.0-0.7); #Lymphocytes 0.9 thou/uL (1.20-3.40); #Monocytes 0.4 thou/uL (0.11-0.59); #Neutrophils 1.8 thou/uL (1.40-6.50); %Basophils 0.4 % (0.0-1.0); %Eosinophils 4.5 % (0.0-10.0); %Lymphocytes 26.8 % (21.0-51.0); %Monocytes 13.3 % (0.0-10.0); %Neutrophils 54.9 % (42.0-75.0); Hemoglobin 8.1 g/dL (12.0-16.0); Mean Corpuscular HGB CONC 30.2 g/dL (32.0-36.0); Mean Corpuscular Hemoglobin 27.5 pg (27.0-31.0); Mean Corpuscular Volume 91.1 fl (81.0-99.0); Mean Platelet Volume 9.7 fL (7.4-10.4); Platelet Count 198 thou/uL (130-400); Red Blood Cell (RBC) Count 2.94 mill/uL (4.20-5.40); White Blood Cell (WBC) Count 3.3 thou/uL (4.8-10.8)
[2017-07-03] MEDS: Furosemide 40 MG/4 ML VIAL SLOW IVP SCH ×2 (05:52→13:25)
--- NOTE | 2017-07-03 06:20 | CON ---
DATE OF CONSULTATION: 07/02/2017 NEPHROLOGY CONSULT NOTE CONSULTING PHYSICIAN: Dr. Chen. REASON FOR CONSULTATION: Acute kidney injury. REASON FOR ADMISSION: Right-sided pain. HISTORY OF PRESENT ILLNESS: This is a pleasant 62-year-old female with history of chronic ki dney disease stage 3, hypertension, diastolic dysfunction, who came to the hospital with chest pain a nd is admitted. She was found to have elevated creatinine. She does have a baseline creatinine of a round 2.4-3. She was found to have creatinine of 2.7, which increased to 3.04 today. Potassium is 4 .7, BUN is 62. The patient denies any symptoms. No shortness of breath or chest pain. No palpitati on. No fever or chills. No nausea or vomiting. PAST MEDICAL HISTORY: Positive for hypertension, chronic kidney disease stage 3, diastolic dysfuncti on, gastroesophageal reflux disease, morbid obesity. PAST SURGICAL HISTORY: Cholecystectomy, tubal ligation and . HOME MEDICATIONS: Include gabapentin, Lasix, Nexium, Flexeril, carvedilol, Lipitor, aspirin and amlo dipine. ALLERGIES: No known drug allergies. SOCIAL HISTORY: No smoking, alcohol, or illicit drug abuse reported. FAMILY HISTORY: No significant kidney disease. REVIEW OF SYSTEMS: The following complete review of systems was negative, unless otherwise mentioned in the HPI or below: Constitutional: Weight loss or gain, ability to conduct usual activities. Skin: Rash, itching. Eyes: Double vision, pain. ENT/Mouth: Nose bleeding, neck stiffness, pain, tenderness. Cardiovascular: Palpitations, dyspnea on exertion, orthopnea. Respiratory: Shortness of breath, wheezing, cough, hemoptysis, fever or night sweats. Gastrointestinal: Poor appetite, abdominal pain, heartburn, nausea, vomiting, constipation, or diarr hea. Genitourinary: Urgency, frequency, dysuria, nocturia. Musculoskeletal: Pain, swelling. Neurologic/Psychiatric: Anxiety, depression. Allergy/Immunologic: Skin rash, bleeding tendency. PHYSICAL EXAMINATION: GENERAL: This is a obese female in no apparent distress. VITAL SIGNS: Temperature 98.4, pulse 68, respiratory rate 18, blood pressure 178/77. HEENT: Atraumatic, normocephalic. Oral mucosa is moist. NECK: Supple, no masses. CARDIOVASCULAR: S1, S2 heard. Rate and rhythm regular normal. RESPIRATORY: Clear. ABDOMEN: Soft. MUSCULOSKELETAL: 2+ edema. DERMATOLOGIC: No skin rash. NEUROLOGIC: Alert and awake. PSYCHIATRIC: Mood and affect normal. LABORATORY: Potassium is 4.7, BUN is 62, creatinine is 3.04. ASSESSMENT AND PLAN: 1. Acute kidney injury most likely from cardiorenal syndrome. Agree with diuresis, monitor renal fu nction and electrolytes. 2. Edema, secondary to fluid overload. 3. Cardiorenal syndrome. 4. Hypertension. 5. Anemia. 6. Obesity. 7. Continue diuresis as tolerated. Avoid nephrotoxins. We will follow.
[2017-07-03] MEDS: Amlodipine 10 MG TAB PO SCH (08:20)
[2017-07-03] MEDS: Calcium Carbonate 500 MG ChewTAB PO SCH ×3 (08:20→17:14)
[2017-07-03] MEDS: Docusate 100 MG CAP PO SCH ×2 (08:21→20:58)
[2017-07-03] MEDS: Heparin 5,000 UNITS/ML VIAL SC SCH ×3 (08:21→20:59)
[2017-07-03] MEDS: Carvedilol 3.125 MG TAB PO SCH ×2 (08:21→20:58)
[2017-07-03] MEDS: Famotidine 20 MG TAB PO SCH (08:21)
[2017-07-03] MEDS: Atorvastatin Calcium 40 MG TAB PO SCH (08:21)
[2017-07-03] MEDS: hydrOXYzine 25 MG TAB PO PRN (08:24)
--- NOTE | 2017-07-03 20:05 | CON ---
DATE OF CONSULTATION: 07/03/2017 HISTORY: Any Gillis is a 62-year-old black female who has been evaluated by Dr. Dey in the past. She was first seen in 03/2014 when she had 2 positive blood cultures for Streptococcus mitis. Transesophageal echo revealed ejection fraction of 60% with no evidence of mass, thrombus or vegetations. She was not seen again until 08/2016. She presented with shortness of breath and increased edema. She underwent Lexiscan Cardiolite testing which revealed a fixed defect at the apex related to apical infarct versus thinning. There is generalized chamber dilatation with ejection fraction of 45%. Discussion was held regarding possible cardiac catheterization; however, the patient wished to proceed with a more conservative treatment with medical therapy. She was seen once in the office on 11/01/2016. It was felt that she had chronic diastolic heart failure. It was felt that she probably was not compliant with her fluid and salt restriction. She was to return 6 weeks after that visit for followup, but did not. She now is admitted with right-sided abdominal pain. She has had increased shortness of breath and increased peripheral edema, but no chest discomfort. She did have one unresponsive episode on the 07/01. She was not responding and only would respond to sternal rub. Pulse ox was 45% and oxygen come off, was placed back in 2 L. O2 saturation was 95%. It was felt this was probably due to [place]. She has been given intravenous furosemide and has diuresed, states that her breathing has improved. PAST MEDICAL HISTORY: Hypertension, hyperlipidemia, chronic kidney disease, diastolic dysfunction, GERD. OPERATIONS: Tonsillectomy, cholecystectomy, tubal ligation, and . MEDICATIONS: At home amlodipine 10 daily, aspirin 81 daily, atorvastatin 40 mg daily, Tums 1000 t.i.d., carvedilol 3.125 b.i.d., Flexeril 10 t.i.d., Nexium 40 b.i.d., furosemide 80 mg q.a.m. and 40 mg at bedtime, gabapentin 200 mg at bedtime, Atarax 10 mg t.i.d. ALLERGIES: None. SOCIAL HISTORY: She does not smoke or drink. REVIEW OF SYSTEMS: Twelve point review of systems is otherwise unremarkable. PHYSICAL EXAMINATION: VITAL SIGNS: 146/65, pulse 72. HEENT: PERRL. NECK: Supple. CHEST: Clear. CARDIAC: S1 and S2 are normal, without any S3, S4 or murmurs. ABDOMEN: Obese, normal bowel sounds, no tenderness. EXTREMITIES: Revealed 2+ brawny edema. NEUROLOGIC: Grossly intact. SKIN: Warm and dry. LABORATORY DATA: EKG revealed normal sinus rhythm with low voltage QRS, poor R- wave progression, most recent echocardiogram from 12/2016 which revealed ejection fraction of 55-60% with severe left atrial enlargement, mild mitral regurgitation, mild tricuspid regurgitation, elevated pulmonary artery pressure and diastolic dysfunction was present. Sodium 135, potassium 4.7, chloride 102 , carbon dioxide 26, BUN 63, creatinine 3.14. Cardiac enzymes are unremarkable. BNP 1464.7. IMPRESSION: 1. Acute on chronic diastolic heart failure. 2. Morbid obesity. 3. Hypertension. 4. Hyperlipidemia. 5. Chronic kidney disease. 6. Anemia. PLAN: The patient currently is being diuresed with intravenous diuretics and her dyspnea has improved. Certainly with her renal function as well as her cardiac diastolic dysfunction, she probably is nearing dialysis. One contributing cause to her peripheral edema is the high dose of amlodipine that she is on. SAHRA inhibitor and ARB drugs are contraindicated with her severe renal insufficiency. I would discontinue the amlodipine and place her on hydralazine instead for blood pressure control and hopefully this will have significant improvement in her peripheral edema. MEHRDADD
--- NOTE | 2017-07-03 20:49 | PDOC.PN ---
- Subjective Encounter Start Date: 07/03/17 Encounter Start Time: 10:30 Patient seen and examined. SOB on exertion +. No overnight events - Objective Resuscitation Status: Resuscitation Status FULL:Full Resuscitation MAR Reviewed: Yes Vital Signs & Weight: Vital Signs (12 hours) Temp Pulse Resp BP Pulse Ox 07/03/17 19:18 97 07/03/17 19:16 98.2 F 80 20 143/65 H 88 L 07/03/17 14:53 98.0 F 72 20 146/65 H 94 L 07/03/17 11:17 97.5 F L 76 20 154/70 H 99 Weight Weight 246 lb 6.4 oz I&O: 07/02/17 07/03/17 07/04/17 06:59 06:59 06:59 Intake Total 480 720 450 Output Total 650 900 700 Balance -170 -180 -250 Result Diagrams: 07/03/17 04:43 07/04/17 05:26 Additional Labs: Accuchecks 07/03/17 07/03/17 07/03/17 17:32 11:19 05:52 POC Glucose 116 H 115 H 136 H 07/02/17 20:27 POC Glucose 144 H EKG Reviewed by me: Yes (Tele SR) Phys Exam - Physical Examination Constitutional: NAD Respiratory: no wheezing, no rhonchi Cardiovascular: RRR, no rub Gastrointestinal: soft, non-tender, positive bowel sounds Musculoskeletal: edema present Neurological: moves all 4 limbs Dx/Plan - Plan DVT proph w/heparin, DVT proph w/SCDs IMPRESSION: 1. Acute hypoxic/hypercapnic resp failure due to Acute on chronic diastolic HF exacerbation 2. ESTHER/CKD 3 - prob due to Cardiorenal syndrome 3. CAD 4. DM2 - on sliding scale 5. Morbid Obesity BMI 49.5/HTN/Chronic Anemia PLAN: * AM labs * Cardio/Nephro consulted * Cont curent meds as below * Cont diuresis * Cont to monitor * Cardiac rehab Review of Systems - Review of Systems Constitutional: negative: fever, chills, sweats, weakness, malaise Gastrointestinal: negative: Nausea, Vomiting, Abdominal Pain, Diarrhea, Constipation, Melena, Hematochezia - Medications/Allergies Allergies/Adverse Reactions: Allergies Allergy/AdvReac Type Severity Reaction Status Date / Time hydrocodone [From [place]] AdvReac Severe Verified 07/01/17 18:16 acetaminophen [From [place]] AdvReac Verified 07/01/17 18:16 Medications: Current Medications Acetaminophen (Tylenol) 650 mg PO Q4H PRN PRN Reason: Headache/Fever or Pain Last Admin: 07/02/17 18:37 Dose: 650 mg Aspirin (Aspirin Chewable) 81 mg PO DAILY [facility] Last Admin: 07/03/17 08:21 Dose: 81 mg Atorvastatin Calcium (Lipitor) 40 mg PO DAILY [facility] Last Admin: 07/03/17 08:21 Dose: 40 mg Calcium Carbonate (Tums) 1,000 mg PO TID[facility] Last Admin: 07/03/17 17:14 Dose: 1,000 mg Carvedilol (Coreg) 3.125 mg PO BID [facility] Last Admin: 07/03/17 08:21 Dose: 3.125 mg Cyclobenzaprine HCl (Flexeril) 5 mg PO TID PRN PRN Reason: Muscle Spasm Stop: 07/04/17 21:55 Docusate Sodium (Colace) 100 mg PO BID [facility] Last Admin: 07/03/17 08:21 Dose: 100 mg Famotidine (Pepcid) 20 mg PO DAILY [facility] Last Admin: 07/03/17 08:21 Dose: 20 mg Furosemide (Lasix) 40 mg SLOW IVP 0600,1400 [facility] Last Admin: 07/03/17 13:25 Dose: 40 mg Gabapentin (Neurontin) 200 mg PO HS [facility] Last Admin: 07/02/17 20:31 Dose: 200 mg Heparin Sodium (Porcine) (Heparin) 5,000 units SC TID [facility] Last Admin: 07/03/17 13:25 Dose: 5,000 units Hydralazine HCl (Apresoline) 10 mg SLOW IVP Q4H PRN PRN Reason: Systolic BP > 180 Hydralazine HCl (Apresoline) 50 mg PO TID [facility] Hydroxyzine HCl (Atarax) 25 mg PO Q4H PRN PRN Reason: .ITCHING Last Admin: 07/03/17 08:24 Dose: 25 mg Ondansetron HCl (Zofran Odt) 4 mg PO Q6H PRN PRN Reason: Nausea/Vomiting Ondansetron HCl (Zofran) 4 mg IVP Q6H PRN PRN Reason: Nausea/Vomiting
[2017-07-03] MEDS: hydrALAZINE 25 MG TAB PO SCH (20:57)
[2017-07-03] MEDS: Gabapentin 100 MG CAP PO SCH (20:59)
--- NOTE | 2017-07-03 23:50 | PRG ---
DATE OF SERVICE: 07/03/2017 SUBJECTIVE: Patient was seen and examined at bedside and overnight events noted. Patient denies any shortness of breath or chest pain or palpitation. No history of nausea or vomiting or diarrhea or f ever or chills or cramps. OBJECTIVE: GENERAL: This is an obese female, in no apparent distress. VITAL SIGNS: Temperature 98.2, pulse 80, respiratory 18, blood pressure 143/65. MUSCULOSKELETAL: . HEENT: Atraumatic, normocephalic. Oral mucosa is moist. NECK: Supple. CARDIOVASCULAR: S1, S2 heard. Rate and rhythm regular. RESPIRATORY: Clear to auscultation. GASTROINTESTINAL: Abdomen is soft. MUSCULOSKELETAL: No tenderness. No edema. DERMATOLOGIC: No skin rash. NEUROLOGIC: Alert and awake and oriented x3. No focal neurologic deficits. Moving all the extremit ies. PSYCHIATRIC: Mood and affect normal. LABORATORY DATA: Potassium is 4.7, BUN is 63, creatinine is 3.1. ASSESSMENT AND PLAN: 1. Acute kidney injury on chronic kidney disease stage 4 secondary to cardiorenal syndrome on diures is. Creatinine is slightly worse. We will continue diuresis. 2. Edema significant. 3. Fluid overload. 4. Cardiorenal syndrome. 5. Hypertension. 6. Anemia. 7. Morbid obesity. 8. Continue dialysis. We will follow renal function. Replace electrolytes if needed.
[2017-07-04 06:28] LABS: Anion Gap 14 mmol/L (10-20); BUN (Urea Nitrogen) 66 mg/dL (9.8-20.1); Calc. Creatinine Clearance 33 mL/min (70-130); Calcium 9.6 mg/dL (7.8-10.44); Carbon Dioxide 24 mmol/L (23-31); Chloride 103 mmol/L (98-107); Estimated GFR-MDRD 18; Glucose 105 mg/dL (80-115); Sodium 136 mmol/L (136-145)
[2017-07-04] MEDS: Furosemide 40 MG/4 ML VIAL SLOW IVP SCH (07:29)
[2017-07-04] MEDS: Calcium Carbonate 500 MG ChewTAB PO SCH ×2 (09:21→12:17)
[2017-07-04] MEDS: Heparin 5,000 UNITS/ML VIAL SC SCH (09:23)
[2017-07-04] MEDS: Atorvastatin Calcium 40 MG TAB PO SCH (09:23)
[2017-07-04] MEDS: Famotidine 20 MG TAB PO SCH (09:23)
[2017-07-04] MEDS: hydrALAZINE 25 MG TAB PO SCH (09:23)
[2017-07-04] MEDS: Docusate 100 MG CAP PO SCH (09:23)
[2017-07-04] MEDS: Carvedilol 3.125 MG TAB PO SCH (09:23)
[2017-07-04 11:49] VITALS: BP 115/53; TEMP 98.1
--- NOTE | 2017-07-04 13:07 | DIS ---
DISCHARGE DISPOSITION: Home. FOLLOWUP: Follow up with primary care physician, Laura Aldrich in 1 week. Follow up with nephrology , Dr. Frazier in 1 week. Follow up with Dr. Eliseo Martínez, Cardiology, in 2-3 weeks. ALLERGIES: The patient is allergic to [place]. The patient was seen and examined on the day of discharge, denies any new complaints. No chest pain, shortness of breath, palpitations reported. INPATIENT TRAINING ASSISTANT: 1. Nephrology, Dr. Howell 2. Cardiology, Dr. Martínez BRIEF HOSPITAL COURSE: The patient is a 62-year-old female with chronic kidney dise ase stage 3, chronic diastolic heart failure, hypertension, diabetes and morbid obesity with a BMI of 49.5, presented to the hospital with generalized weakness with right-sided back pain. Her workup wa s consistent with acute on chronic diastolic heart failure with acute hypoxic and hypercapnic respira tory failure. She was seen by Cardiology, Dr. Martínez, as well as Nephrology, Dr. Howell. Amlodip ine has been discontinued due to worsening lower extremity swelling. The patient has been started on oral hydralazine. She also had a code green on the next day of admission due to increased somnolenc e from [place]. She had no further somnolence during this hospital stay. She was extensively counsele d on fluid restriction. Her repeat labs after 1 week is recommended. Primary care physician is dez wilson to follow. She has been cleared by Nephrology for discharge. FINAL DIAGNOSES: 1. Acute hypoxic and hypercapnic respiratory failure. 2. Acute on chronic diastolic heart failure exacerbation. 3. Acute kidney injury on chronic kidney disease stage 3, probably secondary to cardiorenal syndrome . 4. Coronary artery disease. 5. Diabetes mellitus type 2. 6. Morbid obesity with a BMI of 49.5. 7. Hypertension. 8. Chronic anemia. Plan of care was discussed with the patient. She stated understanding. After diuresis her weight on the day of discharge is 242 pounds. CODE STATUS: Full code.
--- NOTE | 2017-07-04 22:35 | PRG ---
DATE OF SERVICE: 07/04/2017 SUBJECTIVE: Patient was seen and examined at bedside and overnight events noted. Patient denies any shortness of breath or chest pain or palpitation. No history of nausea or vomiting or diarrhea or f ever or chills or cramps. OBJECTIVE: GENERAL: This is an obese female in no apparent distress. VITAL SIGNS: Temperature 98.1, pulse 74, respirations 18, blood pressure 115/53. HEENT: Atraumatic, normocephalic. Oral mucosa is moist. NECK: Supple. CARDIOVASCULAR: S1, S2 heard. Rate and rhythm regular. RESPIRATORY: Clear to auscultation. GASTROINTESTINAL: Abdomen is soft. MUSCULOSKELETAL: No tenderness. No edema. DERMATOLOGIC: No skin rash. NEUROLOGIC: Alert and awake and oriented x3. No focal neurologic deficits. Moving all the extremit ies. PSYCHIATRIC: Mood and affect normal. LABORATORY DATA: Potassium is 5.0, BUN is 66, creatinine is 3.1. ASSESSMENT AND PLAN: 1. Acute kidney injury on chronic kidney disease stage IV. Renal function is stable, close to basel ine. Continue on Lasix as tolerated. 2. Edema, better. 3. Fluid overload. 4. Cardiorenal syndrome. 5. Hypertension. 6. Anemia. 7. Morbid obesity. Okay to send home. Follow up with Dr. Frazier in 1 week.
== END 2017-07-04 14:04 | disposition home or self-care (01) | DRG 291 ==
LOC: ERS 01:01 → ERHOLD 02:16 → 2SW 02:23
PROVIDERS: ADMIT Internal Medicine Infectious Disease; ATTEND Internal Medicine Infectious Disease
DX: I13.0 Hypertensive heart and chronic kidney disease with heart failure and stage 1 through stage 4 chronic kidney disease, or unspecified chronic kidney disease (principal); I50.33 Acute on chronic diastolic (congestive) heart failure; J96.01 Acute respiratory failure with hypoxia; J96.02 Acute respiratory failure with hypercapnia; N17.9 Acute kidney failure, unspecified; Z68.42 Body mass index [BMI] 45.0-49.9, adult; E11.22 Type 2 diabetes mellitus with diabetic chronic kidney disease; N18.3 Chronic kidney disease, stage 3 (moderate); I25.10 Atherosclerotic heart disease of native coronary artery without angina pectoris; E66.01 Morbid (severe) obesity due to excess calories; D64.9 Anemia, unspecified; R40.0 Somnolence; T39.1X5A Adverse effect of 4-Aminophenol derivatives, initial encounter; E78.5 Hyperlipidemia, unspecified; K21.9 Gastro-esophageal reflux disease without esophagitis
CPT/HCPCS: 36415; 36416; 71010; 74176; 76770; 80048; 80069; 81001; 82553; 82805; 83735; 83880; 84484; 85025; 93005; 93010; 93798; G8987-GO-CI; G8988-GO-CI; G8989-GO-CI; J1644; J1940; J2310

== ENCOUNTER 2017-12-22 18:14 | Inpatient (IN) | payer MEDICARE ==
[2017-12-22 18:56] LABS: Mean Corpuscular HGB CONC 31.7 g/dL (32.0-36.0); Mean Corpuscular Hemoglobin 28.4 pg (27.0-31.0); Mean Corpuscular Volume 89.7 fL (78.0-98.0); Mean Platelet Volume 7.1 fL (7.4-10.4); Platelet Count 166 thou/uL (130-400); RBC Distribution Width 25.2 % (11.5-14.5); Red Blood Cell (RBC) Count 3.18 mill/uL (4.20-5.40); White Blood Cell (WBC) Count 3.2 thou/uL (4.8-10.8)
[2017-12-22 19:04] LABS: INR-International Normal Ratio 1.3; PTT 30.5 SEC (22.9-36.1); Prothrombin Time 16.2 SEC (12.0-14.7)
[2017-12-22 19:18] LABS: ALT (SGPT) 11 U/L (8-55); AST (SGOT) 17 U/L (5-34); Albumin 3.7 g/dL (3.4-4.8); Alkaline Phosphatase 562 U/L (40-150); Anion Gap 14 mmol/L (10-20); BUN (Urea Nitrogen) 65 mg/dL (9.8-20.1); Bilirubin, Total 2.4 mg/dL (0.2-1.2); CK (CPK) 36 U/L (29-168); Calc. Creatinine Clearance 0 mL/min (70-130); Calcium 9.4 mg/dL (7.8-10.44); Carbon Dioxide 17 mmol/L (23-31); Chloride 111 mmol/L (98-107); Estimated GFR-MDRD 20; Globulin 4.5 g/dL (2.4-3.5); Glucose 81 mg/dL (80-115); Potassium 6.2 mmol/L (3.5-5.1); Protein, Total 8.2 g/dL (6.0-8.3); Sodium 136 mmol/L (136-145)
[2017-12-22 19:21] LABS: CKMB 1.2 ng/mL (0-6.6); Troponin I Less than 0.010 ng/mL (< 0.028)
[2017-12-22 19:25] LABS: Acanthocytes SLIGHT = 1-5 cells (100X) (None Seen); Anisocytosis SLIGHT = 6-15 cells (100X) (0-5/hpf); Eosinophils 1 % (0-10); Hypochromia SLIGHT = 6-15 cells (100X) (0-5/hpf); Lymphocytes 39 % (21-51); MDiff Complete? YES; Monocytes 8 % (0-10); Neutrophil 52 % (42-75); PLT Morphology Comment Appears Adequate; Schistocytes SLIGHT = 2-5 cells (100X) (0-1/hpf)
[2017-12-22] MEDS ORDERED: Furosemide 40 MG/4 ML VIAL ONE (20:05)
--- NOTE | 2017-12-22 20:48 | ULT ---
VENOUS DOPPLER ULTRASOUND OF THE LEFT LOWER EXTREMITY: History: Left lower extremity pain and edema. Technique: Grayscale, color flow, and spectral doppler imaging of the deep venous system of the left lower extremity was performed. FINDINGS: The exam is limited because of severe edema in the left lower extremity. There is fairly good flow, compression, and augmentation noted in the left common femoral, femoral, p opliteal, proximal posterior tibial and anterior tibial veins, the saphenofemoral junction and portio ns of the greater saphenous vein in the proximal thigh. The posterior tibial vein is not well visualized in the mid and distal leg. IMPRESSION: No definite evidence of DVT in the left lower extremity. POS: MART
--- NOTE | 2017-12-22 20:52 | RAD ---
SINGLE VIEW OF THE CHEST: Comparison: 06-30-17 History: DVT in left lower extremity, tenderness and pain in the left lower extremity. Hypoglycemia. FINDINGS: Single view of the chest shows an enlarged but stable cardiomediastinal silhouette. There is no evide nce of consolidation, mass or pleural effusion. IMPRESSION: Cardiomegaly without evidence of acute cardiopulmonary disease. POS: C
[2017-12-22] MEDS ORDERED: Ondansetron HCl/PF 4 MG/2 ML Vial IVP PRN (22:38)
[2017-12-22] MEDS ORDERED: Acetaminophen 325 MG TAB PO PRN (22:38)
[2017-12-23] MEDS ORDERED: Dextrose 50% Abboject 50 ML SYRINGE SLOW IVP PRN (00:07)
[2017-12-23] MEDS ORDERED: Dextrose 5% in Water 1,000 ML IV PRN (00:07)
[2017-12-23] MEDS ORDERED: Insulin Regular 300 UNITS/3 ML VIAL SC PRN (00:07)
[2017-12-23 01:30] LABS: Anion Gap 13 mmol/L (10-20); BUN (Urea Nitrogen) 67 mg/dL (9.8-20.1); Calc. Creatinine Clearance 31 mL/min (70-130); Calcium 9.8 mg/dL (7.8-10.44); Carbon Dioxide 20 mmol/L (23-31); Chloride 110 mmol/L (98-107); Estimated GFR-MDRD 19; Glucose 96 mg/dL (80-115); Potassium 5.9 mmol/L (3.5-5.1); Sodium 137 mmol/L (136-145)
--- NOTE | 2017-12-23 01:46 | HP ---
The patient is from Dr. Maida Medina. PRIMARY CARE PHYSICIAN: Laura Aldrich NP CODE STATUS: FULL CODE. TIME OF EVALUATION: 2199. CHIEF COMPLAINT: leg cramps. HISTORY OF PRESENT ILLNESS: This is a 62-year-old female patient with past medical history of chronic kidney disease, not on hemodialysis, follows with Dr. Owens as an outpatient, the patient was transferred from [place] to rule out DVT given bilateral leg pain, the patient reported having that today she started having severe leg cramps that also new and she did have before, no clear tears, no alleviating factors, the patient reported that she had associated shortness of breath, but this has been for a long time, has been getting worse. It looks like in the past Dr. Owens has told her that she was not ready for dialysis yet. In the labs, the patient was found to be hyperkalemic. Initial treatment in ER has been given to bring down the potassium level. we will monitor an neprho will need o be consulted in am, for further management. REVIEW OF SYSTEMS: Constitutional: No fever, chills, generalized weakness. Respiratory: No cough, no sputum production, no shortness of breath. Cardiovascular: No chest pain or palpitation. No shortness of breath. Gastrointestinal: No nausea, no vomiting, no diarrhea, abdominal pain. Genitourinary: The patient has some decreased urinary output. Central nervous system: No dizziness, headache or feeling lightheaded. Extremities: Patient has chronic lymphedema with chronic changes and skin texture and color. All other systems were reviewed and were negative except for the findings mentioned above. PAST MEDICAL HISTORY: The patient had a history of chronic kidney disease, chronic bilateral leg lymphedema, sleep apnea, congestive heart failure, diabetes type 2, GERD. PAST SURGICAL HISTORY: Bilateral cataract surgery early this month, tonsillectomy, cholecystectomy, , and tubal ligation. PSYCHIATRIC HISTORY: No previous psych history. SOCIAL HISTORY: The patient lives at home with family with . No alcohol. No drugs. No smoking. FAMILY HISTORY: Father diabetes. ALLERGIES: No known drug allergies reported. MEDICATIONS DURING ADMISSION: Furosemide 40 mg 2 times a day, Coreg 3.125 mg twice a day, atorvastatin 40 mg once a day, aspirin 81 mg daily, Humalog 5 units subcutaneous 3 times a day with meals. PHYSICAL EXAMINATION: VITAL SIGNS: On presentation, blood pressure 153/101 with heart rate 78, respiratory rate was 16, temperature 98.3, oxygen saturation 95. GENERAL: Alert, oriented, in no acute distress. HEENT: Normal conjunctivae, moist oral mucosa, anicteric. NECK: No JVD. RESPIRATORY: Bilateral air entry. No rales. No wheezing. Symmetric expansion. CARDIOVASCULAR: Normal rate, regular rhythm, no murmurs, no gallop. No edema. The patient has bilateral leg edema. ABDOMEN: Soft, normal bowel sounds. MUSCULOSKELETAL: Baseline range of motion and strength. No tenderness. SKIN: Warm and intact. No pallor. No rash except for the bilateral lower extremities. The patient has chronic trophic changes in color and texture. NEUROLOGIC: Baseline sensory. No evidence of any new focal weakness. Baseline speech. Cranial nerve, sensory intact. PSYCHIATRIC: The patient is in good mood. No anxiety, oriented, ultimate judgement. LABORATORY DATA AND X-RAY FINDINGS: Labs are reviewed. White count 3.2, hemoglobin 9.0, MCV 89.7, platelet count 166. Coagulation: PT 16.2, INR 1.3, PTT 30.5. Chemistry: Sodium 136, potassium 6.2, chloride 111, carbon dioxide 17, anion gap 14, BUN 65, creatinine 2.92 in previous admission, was 2.98 and 2.7, so about the same level, GFR 20, glucose 81, calcium 9.4, total bilirubin 2.4, alkaline phosphatase 562, the rest is basically normal. Troponin normal. The patient's chest x-ray that was reported as cardiomegaly without evidence of acute cardiopulmonary disease. The vascular ultrasound was done to rule out DVT and it showed no definite evidence of DVT in the left lower extremity. EKG was reviewed and the patient has normal sinus rhythm with a rate of 77, conduction was normal, no evidence of any acute findings. ASSESSMENT AND PLAN: The patient will be placed in the hospital with the following medical condition. 1. Hyperkalemia. Potassium 6.1, this is new for this patient. The patient follows with Dr. Owens, will need to be seen for further decision regarding hemodialysis. Home medications have been reconciled. 2. Worsening chronic kidney disease, patient will follow up with Dr. Owens, outpatient developed hyperkalemia, might be getting close needs for hemodialysis. 3. 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 4. Leukopenia, this is chronic, white count 3.2, also hemoglobin 9.0. This could be secondary to chronic kidney disease, will defer to neuro for any further treatment for chronic anemia. 5. Metabolic acidosis is likely secondary to chronic kidney disease. We will treat underlying condition. 6. History of gastroesophageal reflux disease. We will reconcile home medications. 7. Diabetes type 2, seems to be controlled, reconcile home meds, a sliding scale for edema control. 8. Deep venous thrombosis prophylaxis. 9. Diabetic neuropathy, continue gabapentin. 10. Hypercholesterolemia, continue atorvastatin. MTDD
[2017-12-23 02:37] LABS: Bilirubin Negative (Negative); Blood, Urine Negative (Negative); Clarity CLEAR (Clear); Glucose, Urine (Dipstick) Negative (Negative); Leukocyte Negative (Negative); Nitrite Negative (Negative); Protein, Urine (Dipstick) 30 mg/dL (Neg-Trace); Specific Gravity, Urine 1.008 (1.002-1.036); pH, Urine 5.5 (5.0-9.0)
[2017-12-23 02:39] LABS: Bacteria/HPF None Seen HPF (None Seen); Hyaline Casts/LPF 0-3 HYALINE CAST LPF (0-3 Hyaline); RBC/HPF 0-3 HPF (0-3); Squamous Epithelial None Seen HPF (0-3); WBC/HPF None Seen HPF (0-3)
[2017-12-23 06:04] LABS: Band 3 % (5-11); Eosinophils 4 % (0-10); Hemoglobin 9.2 g/dL (12.0-16.0); Lymphocytes 22 % (21-51); MDiff Complete? YES; Mean Corpuscular HGB CONC 31.4 g/dL (32.0-36.0); Mean Corpuscular Hemoglobin 28.1 pg (27.0-31.0); Mean Corpuscular Volume 89.4 fL (78.0-98.0); Monocytes 14 % (0-10); Neutrophil 57 % (42-75); Platelet Count 174 thou/uL (130-400); RBC Distribution Width 25.4 % (11.5-14.5); Red Blood Cell (RBC) Count 3.25 mill/uL (4.20-5.40); Schistocytes SLIGHT = 2-5 cells (100X) (0-1/hpf); White Blood Cell (WBC) Count 3.4 thou/uL (4.8-10.8)
[2017-12-23 07:00] LABS: Anion Gap 15 mmol/L (10-20); BUN (Urea Nitrogen) 64 mg/dL (9.8-20.1); Calc. Creatinine Clearance 32 mL/min (70-130); Calcium 9.4 mg/dL (7.8-10.44); Carbon Dioxide 17 mmol/L (23-31); Chloride 110 mmol/L (98-107); Estimated GFR-MDRD 20; Glucose 95 mg/dL (80-115); Potassium 5.8 mmol/L (3.5-5.1); Sodium 136 mmol/L (136-145)
[2017-12-23] MEDS: Atorvastatin Calcium 40 MG TAB PO SCH (08:50)
[2017-12-23] MEDS: Carvedilol 3.125 MG TAB PO SCH ×2 (08:50→16:57)
[2017-12-23] MEDS: Aspirin 81 mg Enteric Coated Tablet PO SCH (08:50)
[2017-12-23] MEDS: Heparin 5,000 UNITS/ML VIAL SC SCH ×3 (08:50→19:59)
[2017-12-23] MEDS: Calcium Carbonate 500 MG ChewTAB PO SCH ×3 (08:50→16:56)
[2017-12-23] MEDS: hydrALAZINE 25 MG TAB PO SCH ×3 (08:51→19:59)
[2017-12-23] MEDS ORDERED: Dextrose 50% Abboject 50 ML SYRINGE SLOW IVP SCH (09:15)
[2017-12-23] MEDS ORDERED: Insulin Regular 300 UNITS/3 ML VIAL IVP SCH (09:15)
[2017-12-23] MEDS: Acetaminophen/Codeine 30-300mg Tablet PO PRN ×2 (10:08→15:10)
[2017-12-23] MEDS: Albuterol Sulfate 2.5 mg/3 ml Neb NEB SCH ×2 (10:29→13:04)
--- NOTE | 2017-12-23 16:54 | PDOC.PN ---
- Subjective Encounter Start Date: 12/23/17 Encounter Start Time: 09:20 Pt seen for followup re: hyperkalemia. Denies chest pain, shortness of breath, fevers or chills. c/o fran calf pain, worse on left. - Objective Resuscitation Status: Resuscitation Status FULL:Full Resuscitation MAR Reviewed: Yes Vital Signs & Weight: Vital Signs (12 hours) Temp Pulse Resp BP BP Pulse Ox 12/23/17 15:02 97.5 F L 76 18 155/71 H 96 12/23/17 13:04 82 16 92 L 12/23/17 11:40 97.6 F 83 16 158/72 H 96 12/23/17 10:29 77 14 94 L 12/23/17 07:47 97.6 F 84 18 180/84 H 98 12/23/17 05:48 160/87 H Weight Weight 219 lb 14.4 oz I&O: 12/22/17 12/23/17 12/24/17 06:59 06:59 06:59 Output Total 1150 Balance -1150 Result Diagrams: 12/23/17 03:25 12/23/17 05:05 Additional Labs: Accuchecks 12/23/17 12/23/17 12/22/17 10:45 06:26 23:07 POC Glucose 150 H 124 H 84 EKG Reviewed by me: Yes (Tele: NSR) Phys Exam - Physical Examination Morbid obesity HEENT: moist MMs, sclera anicteric, oral pharynx no lesions, 2+ tonsils Neck: no nodes, no JVD, supple, full ROM Respiratory: no wheezing, no rales, no rhonchi, clear to auscultation bilateral Cardiovascular: RRR, no rub S1, S2 Gastrointestinal: soft, non-tender, positive bowel sounds distention Musculoskeletal: edema present Fran calf tenderness+ Neurological: moves all 4 limbs Psychiatric: normal affect Deviation from normal: oriented to person and place, not to time Dx/Plan (1) Hyperkalemia Code(s): E87.5 - HYPERKALEMIA Status: Acute Comment: pt to receive kayexalate, insulin and D50 (2) Lower extremity pain, bilateral Code(s): M79.604 - PAIN IN RIGHT LEG; M79.605 - PAIN IN LEFT LEG Status: Acute Comment: etiology unclear, no evidence of DVT on dopplers (3) CKD (chronic kidney disease) Code(s): N18.9 - CHRONIC KIDNEY DISEASE, UNSPECIFIED Status: Chronic Qualifiers: Chronic kidney disease stage: stage 4 (severe) Qualified Code(s): N18.4 - Chronic kidney disease, stage 4 (severe) Comment: nephrology consulted for opinion and help with management (4) CAD (coronary artery disease) Code(s): I25.10 - ATHSCL HEART DISEASE OF [place] CORONARY ARTERY W/O ANG PCTRS Status: Chronic Qualifiers: Coronary Disease-Associated Artery/Lesion type: [place] artery [place] vs. transplanted heart: [place] heart Associated angina: without angina Qualified Code(s): I25.10 - Atherosclerotic heart disease of [place] coronary artery without angina pectoris Comment: stable (5) DM2 (diabetes mellitus, type 2) Status: Chronic Qualifiers: Diabetes mellitus complication status: with kidney complications Chronic kidney disease stage: stage 4 (severe) Comment: continue accuchecks, insulin sliding scale (6) Diastolic heart failure Code(s): I50.30 - UNSPECIFIED DIASTOLIC (CONGESTIVE) HEART FAILURE Status: Chronic Comment: stable (7) Dyslipidemia Code(s): E78.5 - HYPERLIPIDEMIA, UNSPECIFIED Status: Chronic Comment: continue statin (8) Hypertension Code(s): I10 - ESSENTIAL (PRIMARY) HYPERTENSION Status: Chronic Qualifiers: Hypertension type: essential hypertension Qualified Code(s): I10 - Essential (primary) hypertension Comment: Monitor vital signs, titrate antihypertensives as needed - Plan * . Review of Systems - Medications/Allergies Allergies/Adverse Reactions: Allergies Allergy/AdvReac Type Severity Reaction Status Date / Time hydrocodone [From [place]] AdvReac Severe Verified 12/22/17 23:14 acetaminophen [From [place]] AdvReac Verified 12/22/17 23:14 Medications: Current Medications Acetaminophen (Tylenol) 650 mg PO Q4H PRN PRN Reason: Headache/Fever or Pain Acetaminophen/Codeine Phosphate (Tylenol #3) 2 tab PO Q6H PRN PRN Reason: Moderate to Severe Pain (6-10) Acetaminophen/Codeine Phosphate (Tylenol #3) 1 tab PO Q6H PRN PRN Reason: Moderate Pain (4-6) Last Admin: 12/23/17 15:10 Dose: 1 tab Aspirin (Ecotrin) 81 mg PO DAILY [facility] Last Admin: 12/23/17 08:50 Dose: 81 mg Atorvastatin Calcium (Lipitor) 40 mg PO DAILY [facility] Last Admin: 12/23/17 08:50 Dose: 40 mg Calcium Carbonate (Tums) 1,000 mg PO TID-[facility] Last Admin: 12/23/17 11:39 Dose: 1,000 mg Carvedilol (Coreg) 3.125 mg PO BID-[facility] Last Admin: 12/23/17 08:50 Dose: 3.125 mg Cyclobenzaprine HCl (Flexeril) 10 mg PO TID PRN PRN Reason: Muscle Spasm Dextrose/Water (Dextrose 50%) 25 gm SLOW IVP PRN PRN PRN Reason: Hypoglycemia Gabapentin (Neurontin) 200 mg PO [facility] Glucagon (Glucagon) 1 mg IM PRN PRN PRN Reason: Hypoglycemia Heparin Sodium (Porcine) (Heparin) 5,000 units SC TID [facility] Last Admin: 12/23/17 15:10 Dose: 5,000 units Hydralazine HCl (Apresoline) 50 mg PO TID [facility] Last Admin: 12/23/17 15:09 Dose: 50 mg Hydroxyzine HCl (Atarax) 10 mg PO TIDPRN PRN PRN Reason: Itching Dextrose/Water (D5w) 1,000 mls @ 0 mls/hr IV .Q0M PRN; As Directed PRN Reason: Hypoglycemia Insulin Human Regular (Humulin R) 0 units SC .MILD SLIDING SCALE PRN PRN Reason: Mild Correctional Scale Ondansetron HCl (Zofran) 4 mg IVP Q6H PRN PRN Reason: Nausea/Vomiting Pantoprazole Sodium (Protonix) 40 mg PO BID [facility] Last Admin: 12/23/17 08:51 Dose: 40 mg Sodium Chloride (Flush - Normal Saline) 10 ml IVF PRN PRN PRN Reason: Saline Flush
[2017-12-23] MEDS: Gabapentin 100 MG CAP PO SCH (19:59)
[2017-12-24] MEDS: Acetaminophen/Codeine 30-300mg Tablet PO PRN ×3 (01:42→20:32)
[2017-12-24] MEDS: hydrOXYzine 10 MG TAB PO PRN ×3 (01:42→20:36)
[2017-12-24] MEDS: Carvedilol 3.125 MG TAB PO SCH ×2 (08:47→17:42)
[2017-12-24] MEDS: hydrALAZINE 25 MG TAB PO SCH ×3 (08:47→20:32)
[2017-12-24] MEDS: Atorvastatin Calcium 40 MG TAB PO SCH (08:47)
[2017-12-24] MEDS: Calcium Carbonate 500 MG ChewTAB PO SCH ×3 (08:47→17:42)
[2017-12-24] MEDS: Aspirin 81 mg Enteric Coated Tablet PO SCH (08:47)
[2017-12-24] MEDS: Heparin 5,000 UNITS/ML VIAL SC SCH ×3 (08:48→20:33)
--- NOTE | 2017-12-24 10:27 | PDOC.PN ---
- Subjective Encounter Start Date: 12/24/17 Encounter Start Time: 13:00 Subjective: Patient with continued pain from lower extremity swelling. No SOB/ CP. - Objective Resuscitation Status: Resuscitation Status FULL:Full Resuscitation MAR Reviewed: Yes Vital Signs & Weight: Vital Signs (12 hours) Temp Pulse Resp BP Pulse Ox 12/24/17 07:03 97.8 F 77 18 176/80 H 95 12/24/17 04:00 97.4 F L 85 17 177/78 H 92 L Weight Weight 220 lb 12.8 oz I&O: 12/23/17 12/24/17 12/25/17 06:59 06:59 06:59 Intake Total 970 Output Total 1150 1150 Balance -1150 -180 Result Diagrams: 12/23/17 03:25 12/24/17 12:06 Additional Labs: Accuchecks 12/24/17 12/23/17 12/23/17 06:23 20:54 16:52 POC Glucose 111 H 131 H 112 H 12/23/17 10:45 POC Glucose 150 H Phys Exam - Physical Examination Constitutional: NAD HEENT: moist MMs Respiratory: no wheezing, no rales, no rhonchi Cardiovascular: RRR, no significant murmur Gastrointestinal: soft, non-tender, positive bowel sounds Musculoskeletal: edema present bilateral LE severe lymphedema, tender to touch, no erythema or warmth Neurological: non-focal, moves all 4 limbs Psychiatric: normal affect, A&O x 3 Dx/Plan (1) Hyperkalemia Code(s): E87.5 - HYPERKALEMIA Status: Acute Comment: improved, recheck lab today and repeat Kayexelate if needed (2) Lower extremity pain, bilateral Code(s): M79.604 - PAIN IN RIGHT LEG; M79.605 - PAIN IN LEFT LEG Status: Acute Comment: etiology unclear, no evidence of DVT on dopplers (3) CKD (chronic kidney disease) Code(s): N18.9 - CHRONIC KIDNEY DISEASE, UNSPECIFIED Status: Chronic Qualifiers: Chronic kidney disease stage: stage 4 (severe) Qualified Code(s): N18.4 - Chronic kidney disease, stage 4 (severe) Comment: nephrology consulted for opinion and help with management (4) Leukopenia Code(s): D72.819 - DECREASED WHITE BLOOD CELL COUNT, UNSPECIFIED Status: Chronic Comment: uncertain eitiology, no evidence of infection at this time, present over the past 1 year at least (5) CKD (chronic kidney disease) stage 3, GFR 30-59 ml/min Status: Chronic (6) DM2 (diabetes mellitus, type 2) Status: Chronic Qualifiers: Diabetes mellitus complication status: with kidney complications Chronic kidney disease stage: stage 4 (severe) Comment: continue accuchecks, insulin sliding scale (7) Diastolic heart failure Code(s): I50.30 - UNSPECIFIED DIASTOLIC (CONGESTIVE) HEART FAILURE Status: Chronic Comment: stable (8) Dyslipidemia Code(s): E78.5 - HYPERLIPIDEMIA, UNSPECIFIED Status: Chronic Comment: continue statin (9) Hypertension Code(s): I10 - ESSENTIAL (PRIMARY) HYPERTENSION Status: Chronic Qualifiers: Hypertension type: essential hypertension Qualified Code(s): I10 - Essential (primary) hypertension Comment: Monitor vital signs, titrate antihypertensives as needed - Plan cont current plan of care, PT/OT, DVT proph w/heparin Patient appears to have significant bilateral lympedema. Will get -: LE arterial studies and then compression wraps. Dr. Owens managing -: renal failure with potassium. Appears stable below 6 at this time. -: Low potassium diet. * . - Discharge Day Encounter end time: 13:25
[2017-12-24 12:49] LABS: Anion Gap 17 mmol/L (10-20); BUN (Urea Nitrogen) 66 mg/dL (9.8-20.1); Calc. Creatinine Clearance 33 mL/min (70-130); Calcium 9.6 mg/dL (7.8-10.44); Carbon Dioxide 14 mmol/L (23-31); Chloride 111 mmol/L (98-107); Estimated GFR-MDRD 20; Glucose 123 mg/dL (80-115); Potassium 5.6 mmol/L (3.5-5.1); Sodium 136 mmol/L (136-145)
[2017-12-24] MEDS: Gabapentin 100 MG CAP PO SCH (20:31)
[2017-12-25] MEDS: Cyclobenzaprine 10 MG TAB PO PRN ×4 (00:16→19:45)
[2017-12-25 05:40] LABS: Anion Gap 13 mmol/L (10-20); BUN (Urea Nitrogen) 65 mg/dL (9.8-20.1); Calc. Creatinine Clearance 33 mL/min (70-130); Calcium 9.6 mg/dL (7.8-10.44); Carbon Dioxide 20 mmol/L (23-31); Chloride 110 mmol/L (98-107); Estimated GFR-MDRD 20; Glucose 100 mg/dL (80-115); Potassium 5.1 mmol/L (3.5-5.1); Sodium 138 mmol/L (136-145)
[2017-12-25] MEDS: Calcium Carbonate 500 MG ChewTAB PO SCH ×3 (09:05→16:29)
[2017-12-25] MEDS: Carvedilol 3.125 MG TAB PO SCH (09:05)
[2017-12-25] MEDS: Heparin 5,000 UNITS/ML VIAL SC SCH ×3 (09:05→19:46)
[2017-12-25] MEDS: hydrALAZINE 25 MG TAB PO SCH ×3 (09:05→19:45)
[2017-12-25] MEDS: Aspirin 81 mg Enteric Coated Tablet PO SCH (09:05)
[2017-12-25] MEDS: Atorvastatin Calcium 40 MG TAB PO SCH (09:05)
[2017-12-25] MEDS ORDERED: Carvedilol 3.125 MG TAB PO SCH (10:29)
--- NOTE | 2017-12-25 10:32 | PDOC.PN ---
- Subjective Encounter Start Date: 12/25/17 Encounter Start Time: 11:40 Subjective: Patient with persistent bilateral lower extremity pain. No CP/SOB. No N/V. - Objective Resuscitation Status: Resuscitation Status FULL:Full Resuscitation MAR Reviewed: Yes Vital Signs & Weight: Vital Signs (12 hours) Temp Pulse Resp BP Pulse Ox 12/25/17 07:33 98.7 F 79 16 168/78 H 98 12/25/17 04:00 97.6 F 74 14 137/65 96 12/24/17 23:40 98.2 F 74 20 150/67 H 97 Weight Weight 224 lb 1.6 oz I&O: 12/24/17 12/25/17 12/26/17 06:59 06:59 06:59 Intake Total 970 1920 Output Total 1150 900 Balance -180 1020 Result Diagrams: 12/23/17 03:25 12/25/17 04:45 Additional Labs: Accuchecks 12/25/17 12/24/17 12/24/17 06:19 20:15 17:08 POC Glucose 105 146 H 139 H 12/24/17 12:16 POC Glucose 129 H Phys Exam - Physical Examination Constitutional: NAD Obese HEENT: moist MMs Respiratory: no wheezing, no rales, no rhonchi Cardiovascular: RRR, no significant murmur Gastrointestinal: soft, non-tender, positive bowel sounds Severe bilateral lower extremity edema with sig TTP, no redness or open wounds Neurological: non-focal, moves all 4 limbs Psychiatric: normal affect, A&O x 3 Dx/Plan (1) Hyperkalemia Code(s): E87.5 - HYPERKALEMIA Status: Resolved (2) Lower extremity pain, bilateral Code(s): M79.604 - PAIN IN RIGHT LEG; M79.605 - PAIN IN LEFT LEG Status: Acute Comment: Appears to be from lymphedema, arterial dopplers NED done, will have wound care place compression wraps (3) CKD (chronic kidney disease) Code(s): N18.9 - CHRONIC KIDNEY DISEASE, UNSPECIFIED Status: Chronic Qualifiers: Chronic kidney disease stage: stage 4 (severe) Qualified Code(s): N18.4 - Chronic kidney disease, stage 4 (severe) Comment: Dr. Owens following (4) Leukopenia Code(s): D72.819 - DECREASED WHITE BLOOD CELL COUNT, UNSPECIFIED Status: Chronic Comment: uncertain eitiology, no evidence of infection at this time, present over the past 1 year at least (5) DM2 (diabetes mellitus, type 2) Status: Chronic Qualifiers: Diabetes mellitus complication status: with kidney complications Chronic kidney disease stage: stage 4 (severe) Comment: continue accuchecks, insulin sliding scale (6) Diastolic heart failure Code(s): I50.30 - UNSPECIFIED DIASTOLIC (CONGESTIVE) HEART FAILURE Status: Chronic Comment: stable (7) Dyslipidemia Code(s): E78.5 - HYPERLIPIDEMIA, UNSPECIFIED Status: Chronic Comment: continue statin (8) Hypertension Code(s): I10 - ESSENTIAL (PRIMARY) HYPERTENSION Status: Chronic Qualifiers: Hypertension type: essential hypertension Qualified Code(s): I10 - Essential (primary) hypertension Comment: BP running high, pulse ok, will increase Carvedilol. - Plan cont current plan of care, PT/OT, DVT proph w/heparin Can d/c home once ok with nephrology. -: Will need home health to help with compression wraps * . - Discharge Day Encounter end time: 11:50
[2017-12-25] MEDS ORDERED: Carvedilol 6.25 MG TAB PO SCH (10:45)
[2017-12-25 12:50] VITALS: BMI 45.2
[2017-12-25] MEDS: Carvedilol 6.25 MG TAB PO SCH (16:28)
[2017-12-25] MEDS: traMADol HCl 50 MG TAB PO PRN ×2 (16:44→21:59)
[2017-12-25] MEDS: Gabapentin 100 MG CAP PO SCH (19:45)
[2017-12-25] MEDS: hydrOXYzine 10 MG TAB PO PRN (19:49)
[2017-12-26] MEDS: traMADol HCl 50 MG TAB PO PRN ×4 (02:26→20:51)
[2017-12-26] MEDS: Cyclobenzaprine 10 MG TAB PO PRN ×2 (05:14→22:31)
[2017-12-26] MEDS: Calcium Carbonate 500 MG ChewTAB PO SCH ×3 (09:54→16:01)
[2017-12-26] MEDS: Aspirin 81 mg Enteric Coated Tablet PO SCH (09:55)
[2017-12-26] MEDS: Carvedilol 6.25 MG TAB PO SCH ×2 (09:55→16:01)
[2017-12-26] MEDS: hydrALAZINE 25 MG TAB PO SCH ×3 (09:55→20:52)
[2017-12-26] MEDS: Atorvastatin Calcium 40 MG TAB PO SCH (09:56)
[2017-12-26] MEDS: Heparin 5,000 UNITS/ML VIAL SC SCH ×3 (09:56→20:53)
--- NOTE | 2017-12-26 13:07 | ULT ---
BILATERAL LOWER EXTREMITY ARTERIAL DOPPLER ULTRASOUND: Date: 12/24/17 Bilateral lower extremity arterial ultrasound was performed. The patient has swollen legs bilaterally and weeping sores and is unable to tolerate the cuffs. Pressure measurements were therefore unable t o be evaluated. On the right, common femoral waveform is biphasic with good peak, although broadened spectrum. Poplit eal waveform is monophasic with a nice peak. Posterior tibial and dorsalis pedis waveforms are bipha sic with nice peaks. On the left, common femoral waveform is triphasic with normal peaked waveform. The popliteal and dors sher pedis waveforms are both slightly blunted with biphasic waveforms. IMPRESSION: Limited study due to inability to tolerate pressure cuffs. The waveforms on the right are diminished and may signify proximal iliac and superficial femoral disease. On the left, again pressure measureme nts are unable to be performed, and the waveforms are normal through the femoral artery, popliteal an d dorsalis pedis waveforms are slightly blunted which may be from a superficial femoral artery or pop liteal artery stenosis. Clinical correlation is encouraged.
[2017-12-26] MEDS ORDERED: Gabapentin 100 MG CAP PO SCH (16:00)
--- NOTE | 2017-12-26 16:04 | PDOC.PN ---
- Subjective Encounter Start Date: 12/26/17 Encounter Start Time: 16:02 CONTINUES TO HAVE SOME PAIN IN THE LEGS, LEFT GREATER THAN RIGHT. - Objective Resuscitation Status: Resuscitation Status FULL:Full Resuscitation Vital Signs & Weight: Vital Signs (12 hours) Temp Pulse Resp BP Pulse Ox 12/26/17 08:00 98.0 F 79 15 142/71 H 96 Weight Admit Weight 219 lb 14.4 oz Weight 221 lb 11.2 oz I&O: 12/25/17 12/26/17 12/27/17 06:59 06:59 06:59 Intake Total 1920 480 Output Total 900 900 Balance 1020 -420 Result Diagrams: 12/23/17 03:25 12/25/17 04:45 Additional Labs: Accuchecks 12/26/17 12/26/17 12/25/17 10:38 05:26 20:58 POC Glucose 99 114 H 135 H 12/25/17 16:36 POC Glucose 113 H Phys Exam - Physical Examination Constitutional: NAD MORBIDLY OBESE Respiratory: no wheezing, no rales, no rhonchi, clear to auscultation bilateral Cardiovascular: RRR, no significant murmur, no rub Gastrointestinal: soft, non-tender, no distention CHRONIC LE EDEMA WITH SOME EXCORIATION. Psychiatric: normal affect, A&O x 3 Dx/Plan (1) Lower extremity pain, bilateral Code(s): M79.604 - PAIN IN RIGHT LEG; M79.605 - PAIN IN LEFT LEG Status: Acute Comment: Appears to be from lymphedema. Could not tolerate the cuff for NED. Wound Care could not wrap. D/W Dr. Owens. Will go ahead and order the sed rate and uric acid. Add additional dose of gabapentin now. (2) CKD (chronic kidney disease) Code(s): N18.9 - CHRONIC KIDNEY DISEASE, UNSPECIFIED Status: Chronic Qualifiers: Chronic kidney disease stage: stage 4 (severe) Qualified Code(s): N18.4 - Chronic kidney disease, stage 4 (severe) Comment: Dr. Owens following (3) Leukopenia Code(s): D72.819 - DECREASED WHITE BLOOD CELL COUNT, UNSPECIFIED Status: Chronic Comment: uncertain eitiology, no evidence of infection at this time, present over the past 1 year at least - Plan * Hope to get the pain down adequately that she can discharge in the morning to have outpatient wound care.
[2017-12-26] MEDS: Gabapentin 100 MG CAP PO SCH (20:52)
[2017-12-27] MEDS: traMADol HCl 50 MG TAB PO PRN ×2 (02:18→10:37)
[2017-12-27 05:47] LABS: #Eosinphils 0.1 thou/uL (0.0-0.7); #Lymphocytes 0.8 thou/uL (1.20-3.40); #Monocytes 0.4 thou/uL (0.11-0.59); #Neutrophils 1.7 thou/uL (1.40-6.50); %Basophils 1.3 % (0.0-1.0); %Eosinophils 2.6 % (0.0-10.0); %Lymphocytes 26.4 % (21.0-51.0); %Neutrophils 55.7 % (42.0-75.0); Hemoglobin 7.9 g/dL (12.0-16.0); Mean Corpuscular HGB CONC 31.3 g/dL (32.0-36.0); Mean Corpuscular Hemoglobin 28.2 pg (27.0-31.0); Mean Corpuscular Volume 90.1 fL (78.0-98.0); Mean Platelet Volume 8.4 fL (7.4-10.4); Platelet Count 152 thou/uL (130-400); RBC Distribution Width 24.7 % (11.5-14.5); White Blood Cell (WBC) Count 3.1 thou/uL (4.8-10.8)
[2017-12-27 06:02] LABS: Albumin 3.1 g/dL (3.4-4.8); Anion Gap 11 mmol/L (10-20); BUN (Urea Nitrogen) 70 mg/dL (9.8-20.1); BUN/Creatinine Ratio 24.14; Calc. Creatinine Clearance 32 mL/min (70-130); Calcium 9.1 mg/dL (7.8-10.44); Carbon Dioxide 20 mmol/L (23-31); Chloride 111 mmol/L (98-107); Estimated GFR-MDRD 20; Glucose 105 mg/dL (80-115); Phosphorus 3.5 mg/dL (2.3-4.7); Sodium 137 mmol/L (136-145)
[2017-12-27] MEDS: Atorvastatin Calcium 40 MG TAB PO SCH (09:07)
[2017-12-27] MEDS: Carvedilol 6.25 MG TAB PO SCH (09:07)
[2017-12-27] MEDS: Calcium Carbonate 500 MG ChewTAB PO SCH ×2 (09:08→11:28)
[2017-12-27] MEDS: Cyclobenzaprine 10 MG TAB PO PRN (09:08)
[2017-12-27] MEDS: Aspirin 81 mg Enteric Coated Tablet PO SCH (09:08)
[2017-12-27] MEDS: hydrALAZINE 25 MG TAB PO SCH (09:08)
[2017-12-27] MEDS: Heparin 5,000 UNITS/ML VIAL SC SCH (09:08)
[2017-12-27 12:08] VITALS: BP 139/61; TEMP 98.1
--- NOTE | 2017-12-28 14:55 | EKG ---
Test Reason : Blood Pressure : / mmHG Vent. Rate : 077 BPM Atrial Rate : 077 BPM P-R Int : 196 ms QRS Dur : 070 ms QT Int : 394 ms P-R-T Axes : 044 009 118 degrees QTc Int : 445 ms Normal sinus rhythm Anterior infarct , age undetermined Abnormal ECG Confirmed by PK BANDA ([id number]), editor city BELKIS SIMPSON ([id number]) on 12/28/2017 2:54:40 PM Referred By: Confirmed By:PK BANDA
--- NOTE | 2017-12-31 00:12 | DIS ---
DATE OF ADMISSION: 12/22/2017 DATE OF DISCHARGE: 12/27/2017 DISCHARGE DIAGNOSES: 1. Lower extremity pain. 2. Chronic kidney disease stage 4. 3. Chronic leukopenia. 4. Diabetes mellitus. 5. Diastolic heart failure. 6. Dyslipidemia. 7. Hypertension. HISTORY OF PRESENT ILLNESS AND HOSPITAL COURSE: This patient is a 62-year-old female with chronic ki dney disease, followed by Dr. Owens. She is not quite ready for dialysis as of yet. The patient pr esented ultimately to the emergency department complaining of substantial lower extremity pain. She initially had an ultrasound of the lower extremities which revealed no DVT. The patient was placed i the [facility] and treated medically to manage her pain. She has subsequently had an attempt at ankl e brachial indices; however, patient could not perform these due to discomfort. She then had an balwinder rial Dopplers performed which were limited because the patient has not tolerated either. Ultimately, the patient was seen by Wound Care in order to attempt to get some compression wraps to help with he r chronic stasis dermatitis. Assuming her pain may be related to this. However, they felt that they were not able to do this given the need for the compression and inability to rule out significant pe ripheral vascular disease. 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 Owens felt олег t the patient could follow up with wound care as an outpatient. PHYSICAL EXAMINATION: VITAL SIGNS: On the day of discharge, temperature is 98.1, pulse is 57, respirations 16, O2 sat 90%- 100% on room air, blood pressure is 139/61. GENERAL: She was awake, alert, oriented, very pleasant, cooperative. HEART: Regular rate and rhythm. LUNGS: Clear bilaterally. ABDOMEN: Soft, nontender, nondistended, positive bowel sounds. EXTREMITIES: Warm, there is some chronic stasis dermatitis present in both lower extremities with mi ld generalized warmth but no specific lesions, some general tenderness to palpation in the left calf area. DISCHARGE INSTRUCTIONS: She will be discharged on a low sodium renal diet. Her activity level is as tolerated and she is encouraged to elevate her lower extremities as much as possible. [facility]. She will be on tramadol 50 mg p.o. q.4 hours p.r.n., aspirin 81 mg p.o. daily, atorvastatin 40 mg p.o. q. day, Coreg 3.125 b.i.d., Lasix 40 mg b.i.d., Humalog t.i.d. w ith meals 5 units. She is to follow up with Dr. Owens and return to the emergency department should she have any problems prior to her follow up time.
== END 2017-12-27 13:28 | disposition home or self-care (01) | DRG 641 ==
LOC: ERS 18:14 → 2NO 21:42
PROVIDERS: ADMIT Hospitalist; ATTEND Hospitalist
DX: E87.5 Hyperkalemia (principal); N18.4 Chronic kidney disease, stage 4 (severe); I50.32 Chronic diastolic (congestive) heart failure; I13.0 Hypertensive heart and chronic kidney disease with heart failure and stage 1 through stage 4 chronic kidney disease, or unspecified chronic kidney disease; Z68.42 Body mass index [BMI] 45.0-49.9, adult; N17.9 Acute kidney failure, unspecified; E87.2 Acidosis; E78.00 Pure hypercholesterolemia, unspecified; E66.01 Morbid (severe) obesity due to excess calories; E11.22 Type 2 diabetes mellitus with diabetic chronic kidney disease; E11.42 Type 2 diabetes mellitus with diabetic polyneuropathy; K21.9 Gastro-esophageal reflux disease without esophagitis; E78.5 Hyperlipidemia, unspecified; G47.30 Sleep apnea, unspecified; D64.9 Anemia, unspecified; I89.0 Lymphedema, not elsewhere classified; Z79.82 Long term (current) use of aspirin; Z79.4 Long term (current) use of insulin; Z79.899 Other long term (current) drug therapy
CPT/HCPCS: 36415; 36416; 71045; 80048; 80069; 81003; 81015; 82550; 82553; 84484; 84550; 85025; 85610; 85652; 85730; 93005; 93923; 94640; 96374; 96375; G8978-GP-CN; G8979-GP-CK; G8987-GO-CI; G8988-GO-CI; G8989-GO-CI; J1644; J1815; J1940; J2270; J7611

== ENCOUNTER 2018-07-26 15:57 | Inpatient (IN) | payer MEDICARE ==
[2018-07-26] MEDS ORDERED: Dextrose 50% Abboject 50 ML SYRINGE ONE ×3 (16:49→22:48)
[2018-07-26] MEDS ORDERED: Insulin Regular 300 UNITS/3 ML VIAL ONE (16:49)
[2018-07-26] MEDS ORDERED: Calcium Chloride 1 GM/10 ML Abboject SYRINGE ONE (16:49)
--- NOTE | 2018-07-26 17:19 | RAD ---
CHEST ONE VIEW: 07/26/18 HISTORY: Altered mental status. COMPARISON: 02/27/18. FINDINGS: The cardiac silhouette is magnified and enlarged. Pulmonary vasculature is engorged with patchy bilat eral perihilar infiltrate. Mediastinum is midline. No evidence of pneumothorax or free subdiaphragma tic gas. The hadoop analyst leads overlie the chest. IMPRESSION: CHF. POS: FRANNY
[2018-07-26] MEDS ORDERED: Dextrose 50% Abboject 50 ML SYRINGE SLOW IVP PRN (17:40)
[2018-07-26] MEDS ORDERED: Dextrose 5% in Water 1,000 ML IV PRN (17:40)
[2018-07-26] MEDS ORDERED: HumaLOG 300 UNITS/3 ML VIAL SC PRN ×2 (17:40)
[2018-07-26] MEDS ORDERED: traMADol HCl 50 MG TAB PO PRN (17:44)
[2018-07-26] MEDS ORDERED: Sodium Bicarbonate 150 MEQ in Dextrose 5% in Water 1,000 ML IV SCH ×2 (18:00→18:02)
[2018-07-26 19:07] LABS: Anion Gap 12 mmol/L (10-20); BUN (Urea Nitrogen) 63 mg/dL (9.8-20.1); Calc. Creatinine Clearance 0 mL/min (70-130); Calcium 9.6 mg/dL (7.8-10.44); Carbon Dioxide 15 mmol/L (23-31); Chloride 113 mmol/L (98-107); Estimated GFR-MDRD 23; Glucose 88 mg/dL (80-115); Potassium 4.4 mmol/L (3.5-5.1); Sodium 136 mmol/L (136-145)
--- NOTE | 2018-07-26 19:50 | HP ---
CHIEF COMPLAINT: Leg pain. HISTORY OF PRESENT ILLNESS: This is a 63-year-old female with history of chronic lymphedema, chronic kidney disease followed by Dr. Owens, congestive heart failure, type-2 diabetes, GERD, obstructive sleep apnea, who presents to the emergency room in [place] with a complaint of leg pain. The history is not obtainable from the patient; by review of the chart, she did receive 50 mg of IV Benadryl as well as morphine out at [place] and she is somnolent. She will awake to touch, answer questions and then falls back asleep within a minute. She can simply tell me that her legs have been hurting for days, the reason for presenting there. The patient was found to be hyperkalemic in [place] with a potassium of 5.7. She received Kayexalate 30 g, sodium chloride 500 mL, Benadryl 50 mg IV, morphine 8 mg IV, and transferred here for treatment. In the emergency room here, she received 10 units of IV insulin, D50 one amp, calcium chloride 1 g, hydralazine 20 mg for her blood pressure 166/111, and Hospitalist called for admission. All history will need to be obtained from the patient in the morning, there are no family members with her. PAST MEDICAL HISTORY: By chart review is for November 2017; 1. Chronic kidney disease stage 4, managed by Dr. Owens. 2. Chronic lower extremity lymphedema. 3. Obstructive sleep apnea. 4. Congestive heart failure. 5. Type-2 diabetes. 6. GERD. PAST SURGICAL HISTORY by chart review November 2017: 1. Bilateral cataracts. 2. Tonsillectomy. 3. Cholecystectomy. 4. and tubal ligation. MEDICATIONS: Medications are not reviewable with the patient. By review of her discharge summary dated December 27, 2017, they are; 1. Tramadol 50 mg q.4 hours p.r.n. 2. Aspirin 81 mg daily. 3. Atorvastatin 40 mg daily. 4. Coreg 3.125 mg b.i.d. 5. Lasix 40 mg b.i.d. 6. Humalog 5 units with meals 3 times daily. REVIEW OF SYSTEMS: The patient denies any chest pain, difficulty breathing, nausea, vomiting, or abdominal pain. All remaining review of systems, not obtainable. FAMILY HISTORY: By chart review, father with diabetes. SOCIAL HISTORY: By chart review, the patient is and lives with her , Jeremiah. No alcohol or tobacco. ALLERGIES: BY CHART REVIEW ARE HYDROCODONE, TRAMADOL, AND TYLENOL, ALTHOUGH THESE CANNOT BE CONFIRMED WITH THE PATIENT, AND BY REVIEW OF HER LAST HISTORY AND PHYSICAL FROM NOVEMBER, IT WAS NONE. PHYSICAL EXAMINATION: VITAL SIGNS: Current vital signs; blood pressure 163/77, pulse 76, respirations 14, temp 97.7, sats 93% on room air. GENERAL: The patient does awaken to touch and to voice, briefly opens her eyes, will engage for question and falls back asleep easily. HEENT: Pupils are equal and round. Oral mucosa is pink and dry. NECK: Supple, nontender. LYMPHATICS: No palpable cervical or supraclavicular lymphadenopathy. LUNGS: Clear to auscultation. No audible wheezing or rhonchi. Some bibasilar rales. HEART: Normal S1, S2. No significant murmurs. ABDOMEN: Soft with present bowel sounds. EXTREMITIES: Significant lymphedema distal to her knees and her bilateral lower extremities with hyperpigmentation. SKIN: Hyperpigmented in her lower extremities, some ulcerations of her left lower extremity consistent with skin breakdown from the chronic lymphedema. NEUROLOGIC: The patient is somnolent and unable to assess. PSYCH: Unable to adequately assess. DIAGNOSTIC STUDIES: Chest x-ray is personally reviewed, which shows volume overload, pulmonary vascular engorgement with bilateral perihilar infiltrates. Labs are reviewed. CBC; 4.9, 9.1, 30.0, 225. Renal panel; 137, 5.7, 111, 16, 65, 2.5 with a glucose of 90, calcium 9.2. EKG is personally reviewed, sinus rhythm, normal axis, normal intervals. No peaked T-waves. QT corrected is 466. IMPRESSION: 1. Hyperkalemia in the context of chronic kidney disease with unknown acute precipitant 2. Chronic kidney disease stage 4. 3. Volume overload as evidenced based on physical exam, chest x-ray, and chronic lower extremity lymphedema. 4. Hypertension, uncontrolled. 5. Diabetes mellitus, unknown control. 6. Obstructive sleep apnea. 7. Gastroesophageal reflux disease. 8. Anemia secondary to chronic kidney disease, stable. 9. Slightly prolonged QT interval with QTc of 466. PLAN: 1. Admission to the hospital. 2. Start a bicarb drip to address the hyperkalemia as well as the acidemia or acidosis. 3. The patient is volume overloaded. Consider IV lasix to manage this - she is not currently compromised. 4. Consultation with Dr. Owens - I discussed the plan with him by phone. 5. Monitoring her blood sugars as she did get IV insulin in the emergency room, as well as monitoring with meals. 6. High-protein renal diet. 7. Insulin sliding scale as needed. 8. Following mental status avoiding any further IV Benadryl and using what she was prescribed at her last discharge, which is tramadol for pain. 9. Wound Care consult to help manage her legs as well as Physical Therapy to work on her strength. 10. Avoid any medications that can prolong the QT interval, as well as monitor on telemetry. 11. DVT prophylaxis with heparin. 12. GI prophylaxis not indicated. 13. Code status, she reports is full; and her surrogate decision maker, she states is her sister. 14. I briefly discussed the plan of care, no questions or further needs at the end of evaluation. 15. The patient is at high risk, given age comorbidities and current presentation. Of note, blood sugar check after dictation was 54 - pt received 1 amp of D50. She was also started on the D5 with bicarb drip and will be checked hourly until stability is confirmed. She will be upgraded to the IM for close monitoring. Job ID: [id number] MTDD
[2018-07-27 00:58] VITALS: BMI 39.6
[2018-07-27] MEDS: Heparin 5,000 UNITS/ML VIAL SC SCH ×3 (01:20→20:59)
[2018-07-27] MEDS: Atorvastatin Calcium 40 MG TAB PO SCH ×2 (01:20→20:59)
[2018-07-27] MEDS ORDERED: hydrALAZINE 20 MG/ML VIAL SLOW IVP PRN (03:47)
[2018-07-27] MEDS ORDERED: Labetalol HCl 100 MG/20 ML VIAL SLOW IVP PRN (03:47)
[2018-07-27] MEDS ORDERED: Hydrocortisone 1% Cream 30 GM TUBE TOP PRN (03:48)
[2018-07-27] MEDS ORDERED: Loratadine 10 MG TAB PO PRN (03:48)
[2018-07-27 05:59] LABS: Anion Gap 14 mmol/L (10-20); BUN (Urea Nitrogen) 60 mg/dL (9.8-20.1); Calc. Creatinine Clearance 44 mL/min (70-130); Calcium 9.2 mg/dL (7.8-10.44); Carbon Dioxide 17 mmol/L (23-31); Chloride 111 mmol/L (98-107); Estimated GFR-MDRD 33; Glucose 89 mg/dL (80-115); Sodium 137 mmol/L (136-145)
--- NOTE | 2018-07-27 06:16 | PDOC.EVN ---
Event Note - Event Note Event Note: RN called - Pt does not have IV access. AM MD to address if patient needs either Midline or Central line.
[2018-07-27] MEDS ORDERED: cloNIDine 0.1 MG TAB PO PRN (08:26)
--- NOTE | 2018-07-27 08:48 | PDOC.PN ---
- Subjective Encounter Start Date: 07/27/18 (f/u hyperkalemia) Encounter Start Time: 08:46 Subjective: Pt awake and responsive this morning. Denies any cp/sob/n/v/abd pain -: Went to ER due to worsening itching and leg pain yesterday. She has been -: out of coreg and not taking statin, and furosemide only once daily. - Objective Resuscitation Status - Order Detail: 07/26/18 17:40 Resuscitation Status Routine Resuscitation Status: FULL: Full Resuscitation Vital Signs & Weight: Vital Signs (12 hours) Temp Pulse Resp BP Pulse Ox 07/27/18 08:45 98.0 F 71 18 172/76 H 97 07/27/18 04:00 82 99 07/27/18 03:30 225/99 H 07/27/18 00:45 96 07/27/18 00:40 98 F 73 16 195/90 H 96 Weight Weight 196 lb 3 oz I&O: 07/26/18 07/27/18 07/28/18 06:59 06:59 06:59 Intake Total 735 Output Total 250 Balance 485 Result Diagrams: 07/27/18 05:19 Additional Labs: Accuchecks 07/27/18 07/27/18 07/27/18 05:26 03:26 01:14 POC Glucose 93 99 116 H 07/26/18 07/26/18 07/26/18 23:51 22:02 20:48 POC Glucose 126 H 87 79 07/26/18 07/26/18 07/26/18 20:09 19:09 18:04 POC Glucose 83 72 54 L* 07/26/18 16:48 POC Glucose 82 EKG Reviewed by me: Yes (tele - sinus 60-90's) Phys Exam - Physical Examination Constitutional: NAD Respiratory: no wheezing, no rhonchi bibasilar rales Cardiovascular: RRR, no significant murmur Gastrointestinal: soft, non-tender, positive bowel sounds significant LE edema due to chronic lymphedema Neurological: non-focal Psychiatric: normal affect Deviation from normal: alert, responsive, answers questions appropriately Deviation from normal: open ulcers on left leg Dx/Plan (1) Hyperkalemia Code(s): E87.5 - HYPERKALEMIA Status: Resolved (2) Acute on chronic diastolic heart failure Code(s): I50.33 - ACUTE ON CHRONIC DIASTOLIC (CONGESTIVE) HEART FAILURE Status : Acute (3) Anemia Code(s): D64.9 - ANEMIA, UNSPECIFIED Status: Chronic Qualifiers: Chronic kidney disease stage: stage 4 (severe) (4) Prolonged QT interval Code(s): R94.31 - ABNORMAL ELECTROCARDIOGRAM [ECG] [EKG] Status: Acute (5) GERD (gastroesophageal reflux disease) Code(s): K21.9 - GASTRO-ESOPHAGEAL REFLUX DISEASE WITHOUT ESOPHAGITIS Status: Chronic Qualifiers: Esophagitis presence: esophagitis presence not specified Qualified Code(s) : K21.9 - Gastro-esophageal reflux disease without esophagitis (6) CKD (chronic kidney disease) Code(s): N18.9 - CHRONIC KIDNEY DISEASE, UNSPECIFIED Status: Chronic Qualifiers: Chronic kidney disease stage: stage 4 (severe) Qualified Code(s): N18.4 - Chronic kidney disease, stage 4 (severe) Comment: Dr. Owens following (7) Diabetes mellitus Code(s): E11.9 - TYPE 2 DIABETES MELLITUS WITHOUT COMPLICATIONS Status: Chronic (8) Dyslipidemia Code(s): E78.5 - HYPERLIPIDEMIA, UNSPECIFIED Status: Chronic Comment: continue statin (9) Hypertension Code(s): I10 - ESSENTIAL (PRIMARY) HYPERTENSION Status: Chronic Qualifiers: Hypertension type: essential hypertension Qualified Code(s): I10 - Essential (primary) hypertension Comment: BP running high, pulse ok, will increase Carvedilol. - Plan * Fluid overload secondary to pt taking furosemide only once daily. Currently she has no IV access - flight team to [facility] for [facility] * furosemide oral 80 mg bid * Hyperkalemia likely secondary to lower lasix dose and acidosis - discussed with Dr. Owens and pt is not a candidate for dialysis * start bicarb tabs and titrate * diurese * d/c IVF * Hypertension - continue carvedilol and start prn clonidine * continue statin, pain meds * wound care consult for legs * mental status today is clear - yesterday was c/w meds given in outside ER * * dvt prophy - heparin * gi prophy not indicated * code status full. * pt remains at high risk in current condition
[2018-07-27] MEDS: Aspirin Chewable 81 MG TAB PO SCH (10:10)
[2018-07-27] MEDS: Carvedilol 3.125 MG TAB PO SCH ×2 (10:10→15:56)
[2018-07-27] MEDS: Sodium Bicarbonate Tab 325 MG TAB PO SCH ×3 (11:34→21:00)
[2018-07-27] MEDS: Furosemide 40 MG TAB PO SCH ×2 (11:34→15:56)
[2018-07-28 06:40] LABS: Anion Gap 11 mmol/L (10-20); BUN (Urea Nitrogen) 60 mg/dL (9.8-20.1); Calc. Creatinine Clearance 32 mL/min (70-130); Carbon Dioxide 21 mmol/L (23-31); Chloride 111 mmol/L (98-107); Estimated GFR-MDRD 23; Glucose 141 mg/dL (80-115); Potassium 4.5 mmol/L (3.5-5.1); Sodium 138 mmol/L (136-145)
[2018-07-28] MEDS: Aspirin Chewable 81 MG TAB PO SCH (08:46)
[2018-07-28] MEDS: Sodium Bicarbonate Tab 325 MG TAB PO SCH ×2 (08:46→14:36)
[2018-07-28] MEDS: Heparin 5,000 UNITS/ML VIAL SC SCH (08:46)
[2018-07-28] MEDS: Carvedilol 3.125 MG TAB PO SCH ×2 (08:46→17:21)
[2018-07-28] MEDS: Furosemide 40 MG TAB PO SCH ×2 (08:46→14:36)
[2018-07-28 12:39] VITALS: TEMP 99.1
[2018-07-28 15:56] VITALS: BP 142/73
--- NOTE | 2018-07-29 07:28 | DIS ---
DATE OF ADMISSION: 07/27/2018 DATE OF DISCHARGE: 07/28/2018 DISCHARGE DISPOSITION: Home. FOLLOWUP VISITS: Follow up with primary care physician, Laura Aldrich in 1 week. Follow up with Dr. Maverick Owens, Nephrology in 1 to 2 weeks. ALLERGIES: THE PATIENT IS ALLERGIC TO HYDROCODONE. THE PATIENT WAS SEEN AND EXAMINED ON THE DAY OF DISCHARGE. DENIES ANY NEW COMPLAINTS. NO CHEST PAIN, SHORTNESS OF BREATH, OR PALPITATIONS REPORTED. BRIEF HOSPITAL COURSE: The patient is a 63-year-old female with chronic kidney disease and congestive heart failure, presented to the emergency room with leg pain. The patient has history of several ulceration of the dorsum of the lower left leg. This has been going on for the last 2 weeks per the patient's report. Initial vital signs in the emergency room showed temperature 97, respiration 20, pulse 80, blood pressure 164/76 with O2 saturation 96% on room air. She received 8 mg IV morphine, 50 mg of Benadryl with IV fluids in the emergency room. She was found to have potassium of 5.7 that responded to Kayexalate. Please refer to the history and physical for further details. The patient was admitted to the hospital with a diagnosis of hyperkalemia along with volume overload. Please note that the patient was not compliant with oral Lasix. She was started on IV diuretics with good response. The patient was also seen by Nephrology, Dr. Maverick Owens. Sodium bicarbonate was added to her regimen. She was extensively counseled on fluid restriction as well as importance of taking Lasix. Potassium on the day of discharge is 4.4. She was advised to follow up with Dr. Owens as outpatient. She has been cleared by consultants for discharge. FINAL DIAGNOSES: 1. Hyperkalemia secondary to metabolic acidosis and chronic kidney disease. 2. Acute on chronic diastolic heart failure exacerbation, improved. 3. Chronic anemia secondary to renal insufficiency. 4. Gastroesophageal reflux disease. 5. Prolonged QT interval. 6. Chronic kidney disease, stage 4. 7. Diabetes mellitus, type 2. 8. Dyslipidemia. 9. Hypertension. PLAN: Plan of care was discussed with the patient in detail. She stated understanding. Job ID: [id number]
== END 2018-07-28 19:50 | disposition home or self-care (01) | DRG 291 ==
LOC: ERS 15:57 → 2NO 07-27 00:15
PROVIDERS: ADMIT Family Medicine; ATTEND Family Medicine
DX: I13.0 Hypertensive heart and chronic kidney disease with heart failure and stage 1 through stage 4 chronic kidney disease, or unspecified chronic kidney disease (principal); I50.33 Acute on chronic diastolic (congestive) heart failure; N18.4 Chronic kidney disease, stage 4 (severe); E87.2 Acidosis; D63.1 Anemia in chronic kidney disease; K21.9 Gastro-esophageal reflux disease without esophagitis; I45.81 Long QT syndrome; E11.22 Type 2 diabetes mellitus with diabetic chronic kidney disease; E78.5 Hyperlipidemia, unspecified; E87.5 Hyperkalemia; G47.33 Obstructive sleep apnea (adult) (pediatric); I89.0 Lymphedema, not elsewhere classified; Z98.41 Cataract extraction status, right eye; Z98.42 Cataract extraction status, left eye; Z90.49 Acquired absence of other specified parts of digestive tract; Z90.89 Acquired absence of other organs; Z98.51 Tubal ligation status; Z79.82 Long term (current) use of aspirin; Z79.4 Long term (current) use of insulin; Z88.5 Allergy status to narcotic agent
CPT/HCPCS: 36415; 36416; 71045; 80048; 93005; 94760; 96365; 96366; 96375; 96376; J0360; J1644; J1815; J7070

== ENCOUNTER 2018-09-17 15:33 | Outpatient (CLI) | payer MEDICARE ==
--- NOTE | 2018-09-17 11:33 | HP ---
HISTORY OF PRESENT ILLNESS: Ms. Any Gillis is a very pleasant 63-year-old, who presents to the [facility]ound Center for evaluation of 2 wounds of the left lower leg. The patient states that the wounds have been present for 8 to 9 months. She states that initially she cleansed the wounds with hydrogen peroxide. She states that more recently she has been treating the wounds with a solution recommended by her sister, who is a registered nurse. She states that she then dresses the wounds with Kerlix followed by an Alexis bandage. The patient states that she has been prescribed compression garments in the past. She states that these garments, however, are worn out. The patient was referred to the Wound Center by Dr. Mari on 08/28/2018. PAST MEDICAL HISTORY: 1. Diabetes mellitus. 2. Hypertension. 3. Congestive heart failure. 4. History of bilateral deep venous thromboses, multiple episodes. 5. CVA with left hemiparesis. 6. Degenerative joint disease. 7. Gastroesophageal reflux disease. 8. Chronic kidney disease. 9. Anemia. 10. Coronary artery disease. 11. Obstructive sleep apnea. 12. Chronic leukopenia. PAST SURGICAL HISTORY: 1. Tonsillectomy/adenoidectomy. 2. x1. 3. Bilateral tubal ligation. 4. Hysterectomy. 5. Laparoscopic cholecystectomy. 6. Bilateral cataract surgery. MEDICATIONS: 1. Lasix. 2. Coreg. 3. Aspirin 81 mg. 4. Prilosec. 5. Tylenol. ALLERGIES: HYDROCODONE. SOCIAL HISTORY: Social history is negative for tobacco or EtOH use. FAMILY HISTORY: Family history significant for diabetes mellitus. The patient states that her mother, father, and maternal grandmother were all diagnosed with diabetes mellitus. Family history is negative for coronary artery disease. PHYSICAL EXAMINATION: VITAL SIGNS: Temperature 98.7, pulse 75, respirations 18, and blood pressure 147/69. Accu-Chek 116. GENERAL: A 63-year-old female, sitting on chair in examination room, in no acute distress. HEENT: Normocephalic and atraumatic. NECK: No nuchal rigidity. CHEST: Clear to auscultation. CV: Regular rate and rhythm. ABDOMEN: Soft. EXTREMITIES: Two wounds of the left lower leg are present, which measure approximately 0.7 x 0.8 cm and 0.4 x 0.3 cm. Granulation tissue is present within the margins of each wound. Nonviable tissue present within the margins of each wound was debrided with an excisional full-thickness debridement. No purulent drainage is associated with either wound. No erythema of the skin surrounding either wound is present. No maceration of the skin of the periwound of either wound is noted. A dorsalis pedis pulse is palpable on the left. Lymphedema of the right and left lower extremities is present on exam today. Circumferences of the left lower extremity at the ankle, calf, and knee are 33 cm, 48 cm and 50 cm. Circumferences of the right lower extremity at the ankle, calf, and knee are 33 cm, 50 cm, and 51.5 cm. ASSESSMENT AND PLAN: 1. Chronic venous hypertension with ulcers. Silverlon, Webril, and the L-3 [employer]CS Coban 2 Layer Compression System will be applied to the ulcerations of the left lower leg today. No antibiotics will be prescribed today based upon the appearance of the wounds. I will see Ms. Gillis again in 1 week. 2. Lymphedema tarda. Arrangements will be made for in-home lymphedema therapy with a pneumatic pump. 3. Diabetes mellitus. The patient's Accu-Chek in clinic today is 116. The patient has been told that for optimal wound healing, her blood glucoses should remain below 150. 4. Hypertension. 5. Congestive heart failure. 6. History of bilateral deep venous thromboses, multiple episodes. 7. Cerebrovascular accident with left hemiparesis. 8. Degenerative joint disease. 9. Gastroesophageal reflux disease. 10. Chronic kidney disease. 11. Anemia. 12. Coronary artery disease. 13. Obstructive sleep apnea. 14. Chronic leukopenia. Job ID: [id number]
[~2018-09-17 15:33] MED LIST: Sodium Chloride 0.9% 15 ML NEB ONE
== END 2018-09-17 15:34 | disposition home or self-care (01) ==
LOC: WCC 15:33
PROVIDERS: ATTEND Family Medicine
DX: I87.312 Chronic venous hypertension (idiopathic) with ulcer of left lower extremity (principal); E11.622 Type 2 diabetes mellitus with other skin ulcer; L97.929 Non-pressure chronic ulcer of unspecified part of left lower leg with unspecified severity; I89.0 Lymphedema, not elsewhere classified; I13.0 Hypertensive heart and chronic kidney disease with heart failure and stage 1 through stage 4 chronic kidney disease, or unspecified chronic kidney disease; I50.9 Heart failure, unspecified; E11.22 Type 2 diabetes mellitus with diabetic chronic kidney disease; N18.9 Chronic kidney disease, unspecified; D63.1 Anemia in chronic kidney disease; M19.90 Unspecified osteoarthritis, unspecified site; K21.9 Gastro-esophageal reflux disease without esophagitis; I25.10 Atherosclerotic heart disease of native coronary artery without angina pectoris; G47.33 Obstructive sleep apnea (adult) (pediatric); D72.819 Decreased white blood cell count, unspecified; I63.9 Cerebral infarction, unspecified; G81.92 Hemiplegia, unspecified affecting left dominant side; Z86.718 Personal history of other venous thrombosis and embolism
CPT/HCPCS: 11042; 36416; 99203; A4218; G0463

== ENCOUNTER 2018-09-24 10:53 | Outpatient (CLI) | payer MEDICARE ==
[~2018-09-24 10:53] MED LIST changes: +Lidocaine 2% PF 100 mg/5 ml Syringe ONE
--- NOTE | 2018-09-24 11:36 | PRG ---
DATE OF SERVICE: 09/24/2018 HISTORY: Ms. Any Gillis is a very pleasant 63-year-old, who presents to the Wound Center for evaluation of 2 wounds of the left lower leg. The patient previously stated that the wounds had been present for 8 to 9 months. She stated that initially she cleansed the wounds with hydrogen peroxide. She stated that more recently she had been treating the wounds with a solution recommended by her sister, who is a registered nurse. She stated that after cleansing, she had been dressing the wounds with Kerlix followed by an Alexis bandage. The patient stated that she had been prescribed compression garments in the past. She stated that the garments, however, were worn out. The patient was referred to the Wound Center by Dr. Mari on 08/28/2018. After being seen in the Wound Center, the ulcerations were treated with the application of Silverlon, Webril, and the 3M Coban 2 Layer Compression System. PHYSICAL EXAMINATION: VITAL SIGNS: Temperature 98.3, pulse 72, respirations 17, blood pressure 160/70. Accu-Chek 140. EXTREMITIES: Only one ulceration of the left lower leg remains. The dimensions of the wound are approximately 0.4 x 0.3 cm. Granulation tissue is present within the wound margins. Nonviable tissue present within the wound margins was debrided with an excisional full-thickness debridement with the use of a curette. No purulent drainage is associated with the wound. No erythema of the skin surrounding the wound is present. No maceration of the skin of the periwound is noted. A dorsalis pedis pulse is palpable on the left. Lymphedema of the left lower extremity is present on exam today. Hyperpigmentation of the skin of the left lower leg is present secondary to hemosiderin deposition. ASSESSMENT AND PLAN: 1. Chronic venous hypertension with ulcer. Silverlon, Webril, and the 3M Coban 2 Layer Compression System will be applied to the left lower leg ulceration today. I will see Ms. Gillis again in 1 week. 2. Lymphedema tarda. Arrangements will be made for in-home lymphedema therapy with a pneumatic pump. 3. Diabetes mellitus. The patient's Accu-Chek in clinic today is 140. The patient has been told that for optimal wound healing, her blood glucoses should remain below 150. 4. Hypertension. 5. Congestive heart failure. 6. History of bilateral deep venous thromboses, multiple episodes. 7. Cerebrovascular accident with left hemiparesis. 8. Degenerative joint disease. 9. Gastroesophageal reflux disease. 10. Chronic kidney disease. 11. Anemia. 12. Coronary artery disease. 13. Obstructive sleep apnea. 14. Chronic leukopenia. Job ID: [id number]
== END 2018-09-24 10:54 | disposition home or self-care (01) ==
LOC: WCC 10:53
PROVIDERS: ATTEND Family Medicine
DX: I87.312 Chronic venous hypertension (idiopathic) with ulcer of left lower extremity (principal); E11.622 Type 2 diabetes mellitus with other skin ulcer; L97.929 Non-pressure chronic ulcer of unspecified part of left lower leg with unspecified severity; I89.0 Lymphedema, not elsewhere classified; I69.354 Hemiplegia and hemiparesis following cerebral infarction affecting left non-dominant side; K21.9 Gastro-esophageal reflux disease without esophagitis; I13.0 Hypertensive heart and chronic kidney disease with heart failure and stage 1 through stage 4 chronic kidney disease, or unspecified chronic kidney disease; E11.22 Type 2 diabetes mellitus with diabetic chronic kidney disease; N18.9 Chronic kidney disease, unspecified; I50.9 Heart failure, unspecified; D63.1 Anemia in chronic kidney disease; I25.10 Atherosclerotic heart disease of native coronary artery without angina pectoris; G47.33 Obstructive sleep apnea (adult) (pediatric); D72.819 Decreased white blood cell count, unspecified; Z86.718 Personal history of other venous thrombosis and embolism
CPT/HCPCS: 11042; 36416; A4218; J2001

== ENCOUNTER 2018-10-06 15:39 | Outpatient (CLI) | payer MEDICARE ==
--- NOTE | 2018-10-06 14:39 | PRG ---
DATE OF SERVICE: 10/06/2018 HISTORY: Ms. Any Gillis is a very pleasant 63-year-old, who presents to the [facility] for evaluation of 2 wounds of the left lower leg. The patient stated at the time of her initial presentation to the Wound Center that the wounds had been present for 8 to 9 months. She stated that initially she cleansed the wounds with hydrogen peroxide. She stated that more recently she had been treating the wounds with a solution recommended by her sister, who is a registered nurse. She stated that after cleansing, she had been dressing the wounds with Kerlix followed by an Alexis bandage. The patient stated that she had been prescribed compression garments in the past. She stated that the garments, however, were worn out. The patient was referred to the Wound Center by Dr. Mari on 08/28/2018. After being seen in the Wound Center, the ulcerations were treated with the application of Silverlon, Webril, and the 3M Coban 2-Layer Compression System. PHYSICAL EXAMINATION: VITAL SIGNS: Temperature 98.1, pulse 75, respirations 20, blood pressure 174/79. Accu-Chek 133. EXTREMITIES: Only one ulceration of the left lower leg remains. The dimensions of the wound are approximately 0.2 x 0.3 cm. No purulent drainage is associated with the wound. No erythema of the skin surrounding the wound is present. No maceration of the skin of the periwound is noted. Lymphedema of the left lower extremity is present on today's exam. Hyperpigmentation of the skin of the left lower leg is present secondary to hemosiderin deposition. Circumferences of the left lower extremity at the ankle, calf, and knee are 34 cm, 52.5 cm, and 51.5 cm. Circumferences of the right lower extremity at the ankle, calf, and knee are 35 cm, 55 cm, and 51.5 cm. ASSESSMENT AND PLAN: 1. Chronic venous hypertension with ulcer, Silverlon, Webril, and the 3M Coban 2-Layer Compression System will be applied to the left lower leg ulceration today. Arrangements will be made for dressing changes 1 to 2 times per week after cleansing and irrigation with the assistance of Home Health. I will see Ms. Gillis again in 2 weeks. 2. Lymphedema tarda. Arrangements will be made for in-home lymphedema therapy with a pneumatic pump. 3. Diabetes mellitus. The patient's Accu-Chek in clinic today is 133. The patient has been told that for optimal wound healing, her blood glucoses should remain below 150. 4. Hypertension. 5. Congestive heart failure. 6. History of bilateral deep venous thromboses, multiple episodes. 7. Cerebrovascular accident with left hemiparesis. 8. Degenerative joint disease. 9. Gastroesophageal reflux disease. 10. Chronic kidney disease. 11. Anemia. 12. Coronary artery disease. 13. Obstructive sleep apnea. 14. Chronic leukopenia. Job ID: [id number]
[2018-10-06] MEDS ORDERED: Sodium Chloride 0.9% 15 ML NEB ONE (18:00)
== END 2018-10-06 15:40 | disposition home or self-care (01) ==
LOC: WCC 15:39
PROVIDERS: ATTEND Family Medicine
DX: I87.312 Chronic venous hypertension (idiopathic) with ulcer of left lower extremity (principal); E11.622 Type 2 diabetes mellitus with other skin ulcer; L97.929 Non-pressure chronic ulcer of unspecified part of left lower leg with unspecified severity; I13.0 Hypertensive heart and chronic kidney disease with heart failure and stage 1 through stage 4 chronic kidney disease, or unspecified chronic kidney disease; E11.22 Type 2 diabetes mellitus with diabetic chronic kidney disease; I50.9 Heart failure, unspecified; N18.9 Chronic kidney disease, unspecified; D63.1 Anemia in chronic kidney disease; I89.0 Lymphedema, not elsewhere classified; I63.9 Cerebral infarction, unspecified; G81.94 Hemiplegia, unspecified affecting left nondominant side; M19.90 Unspecified osteoarthritis, unspecified site; K21.9 Gastro-esophageal reflux disease without esophagitis; I25.10 Atherosclerotic heart disease of native coronary artery without angina pectoris; G47.33 Obstructive sleep apnea (adult) (pediatric); D72.819 Decreased white blood cell count, unspecified; Z86.718 Personal history of other venous thrombosis and embolism
CPT/HCPCS: 29581; 36416; A4218

== ENCOUNTER 2018-10-20 13:29 | Outpatient (CLI) | payer MEDICARE ==
[2018-10-20] MEDS ORDERED: Sodium Chloride 0.9% 15 ML NEB ONE (14:58)
--- NOTE | 2018-10-20 15:01 | PRG ---
DATE OF SERVICE: 10/20/2018 SUBJECTIVE: Ms. Any Gillis is a very pleasant 63-year-old, who presents to the [facility]ound Center for evaluation of 2 wounds of the left lower leg. The patient stated at the time of her initial presentation to the Wound Center that the wounds have been present for 8 to 9 months. She stated that initially she cleansed the wounds with hydrogen peroxide. She stated that more recently she had been treating the wounds with a solution recommended by her sister, who is a registered nurse. She stated that after cleansing, she had been dressing the wounds with Kerlix followed by an Alexis bandage. The patient stated that she had been prescribed compression garments in the past. She stated that the garments, however, were worn out. The patient was referred to the Wound Center by Dr. Mari on 08/28/2018. After being seen in the Wound Center, the ulcerations were treated with the application of Silverlon, Webril, and the 3M Coban 2 Layer Compression System. PHYSICAL EXAMINATION: VITAL SIGNS: Temperature 98.2, pulse 71, respirations 17, blood pressure 176/74. EXTREMITIES: Multiple ulcerations of the left lower leg are present, one of which measures approximately 0.7 x 0.7 cm. No purulent drainage is associated with the wound. No erythema of the skin surrounding the wound is present. No maceration of the skin of the periwound is noted. Lymphedema of the left lower extremity is present on today's exam. Hyperpigmentation of the skin of the left lower leg is present secondary to hemosiderin deposition. Circumferences of the left lower extremity at the foot, ankle, calf, and knee are 24.5 cm, 34 cm, 53.5 cm and 46 cm. ASSESSMENT AND PLAN: 1. Chronic venous hypertension with ulcerations. Medihoney, 4x4s, Webril, and the 3M Coban 2 Layer Compression System will be applied to the left lower leg ulcerations today. Arrangements will continue for dressing changes 1 to 2 times per week after cleansing and irrigation with the assistance of Home Health. I will see Ms. Gillis again on 10/30/2018. 2. Lymphedema tarda. Arrangements will continue for in-home lymphedema therapy with a pneumatic pump. 3. Diabetes mellitus. Accu-Cheks will be obtained at the time of the patient's clinic visits. The patient has been reminded that for optimal wound healing her blood glucoses should remain below 150. 4. Hypertension. 5. Congestive heart failure. 6. History of bilateral deep venous thromboses, multiple episodes. 7. Cerebrovascular accident with left hemiparesis. 8. Degenerative joint disease. 9. Gastroesophageal reflux disease. 10. Chronic kidney disease. 11. Anemia. 12. Coronary artery disease. 13. Obstructive sleep apnea. 14. Chronic leukopenia. Job ID: [id number]
== END 2018-10-20 13:30 | disposition home or self-care (01) ==
LOC: WCC 13:29
PROVIDERS: ATTEND Family Medicine
DX: I87.312 Chronic venous hypertension (idiopathic) with ulcer of left lower extremity (principal); E11.622 Type 2 diabetes mellitus with other skin ulcer; L97.929 Non-pressure chronic ulcer of unspecified part of left lower leg with unspecified severity; I89.0 Lymphedema, not elsewhere classified; I13.0 Hypertensive heart and chronic kidney disease with heart failure and stage 1 through stage 4 chronic kidney disease, or unspecified chronic kidney disease; I50.9 Heart failure, unspecified; E11.22 Type 2 diabetes mellitus with diabetic chronic kidney disease; N18.9 Chronic kidney disease, unspecified; D63.1 Anemia in chronic kidney disease; M19.90 Unspecified osteoarthritis, unspecified site; K21.9 Gastro-esophageal reflux disease without esophagitis; I25.10 Atherosclerotic heart disease of native coronary artery without angina pectoris; G47.33 Obstructive sleep apnea (adult) (pediatric); D72.819 Decreased white blood cell count, unspecified; I63.9 Cerebral infarction, unspecified; G81.94 Hemiplegia, unspecified affecting left nondominant side; Z86.718 Personal history of other venous thrombosis and embolism

== ENCOUNTER 2018-10-30 14:39 | Outpatient (CLI) | payer MEDICARE ==
--- NOTE | 2018-10-30 15:14 | PRG ---
DATE OF SERVICE: 10/30/2018 HISTORY: Ms. Any Gillis is a very pleasant 63-year-old, who presents to the [facility]ound Center for evaluation of 2 wounds of the left lower leg. The patient stated at the time of her initial presentation to the Wound Center, that the wounds have been present for 8 to 9 months. She stated that initially, she cleansed the wounds with hydrogen peroxide. She stated that more recently, she had been treating the wounds with a solution recommended by her sister, who is a registered nurse. She stated that after cleansing, she had been dressing the wounds with Kerlix, followed by an Alexis bandage. She stated that she had been prescribed compression garments in the past. She stated that the garments, however, were worn out. The patient was referred to the Wound Center by Dr. Mari on 08/28/2018. After being seen in the Wound Center, the ulcerations were treated with the application of Silverlon, Webril, and the 3M Coban 2 Layer Compression System. At the time of the patient's last visit, Medihoney, 4x4s, Webril and the 3M Coban 2 Layer Compression System were applied to the left lower leg ulcerations. PHYSICAL EXAMINATION: VITAL SIGNS: Temperature 97.6, pulse 73, respirations 21, blood pressure 195/133. Accu-Chek 115. EXTREMITIES: The ulcerations of the left lower leg noted at the time of the patient's last visit have all healed completely. Lymphedema of the left lower extremity is present on exam today. Hyperpigmentation of the skin of the left lower leg is present secondary to hemosiderin deposition. Circumferences of the left lower extremity at the ankle, calf, and knee are 35.5 cm, 53 cm, and 44 cm. Circumferences of the right lower extremity at the ankle, calf, and knee are 35 cm, 53.5 cm, and 52 cm. ASSESSMENT AND PLAN: 1. Chronic venous hypertension with ulcerations. As stated above, the ulcerations of the left lower leg have all healed completely. Webril and the 3M Coban 2 Layer compression System will be applied to the left foot and lower leg today. Arrangements will be made for dressing changes 1 to 2 times per week after cleansing and irrigation with the assistance of Home Health. I will see Ms. Gillis again on 12/04/2018. 2. Lymphedema tarda stage II. The patient has been treated with 3M Coban 2 Layer Compression System and elevation for over four weeks with little to no improvement. 3. Diabetes mellitus. The patient's Accu-Chek in clinic today is 115. 4. Hypertension. The patient has been asked to report to the emergency department immediately upon her discharge from clinic today. 5. Congestive heart failure. 6. History of bilateral deep venous thromboses, multiple episodes. 7. Cerebrovascular accident with left hemiparesis. 8. Degenerative joint disease. 9. Gastroesophageal reflux disease. 10. Chronic kidney disease. 11. Anemia. 12. Coronary artery disease. 13. Obstructive sleep apnea. 14. Chronic leukopenia. Job ID: [id number]
== END 2018-10-30 14:40 | disposition home or self-care (01) ==
LOC: WCC 14:39
PROVIDERS: ATTEND Family Medicine
DX: I87.302 Chronic venous hypertension (idiopathic) without complications of left lower extremity (principal); I13.0 Hypertensive heart and chronic kidney disease with heart failure and stage 1 through stage 4 chronic kidney disease, or unspecified chronic kidney disease; E11.22 Type 2 diabetes mellitus with diabetic chronic kidney disease; N18.9 Chronic kidney disease, unspecified; I89.0 Lymphedema, not elsewhere classified; K21.9 Gastro-esophageal reflux disease without esophagitis; I69.954 Hemiplegia and hemiparesis following unspecified cerebrovascular disease affecting left non-dominant side; I25.10 Atherosclerotic heart disease of native coronary artery without angina pectoris; D64.9 Anemia, unspecified; G47.33 Obstructive sleep apnea (adult) (pediatric); D72.819 Decreased white blood cell count, unspecified; Z87.2 Personal history of diseases of the skin and subcutaneous tissue; Z86.718 Personal history of other venous thrombosis and embolism
CPT/HCPCS: 82962; 97139; G0463; 36416; 99213

== ENCOUNTER 2018-11-05 10:30 | Inpatient (IN) | payer MEDICARE ==
[2018-11-05 15:17] LABS: Troponin I 0.024 ng/mL (< 0.028)
[2018-11-05] MEDS ORDERED: Bisacodyl 5 MG TAB PO PRN (15:51)
[2018-11-05 16:26] VITALS: BMI 37.4
[2018-11-05] MEDS ORDERED: Dextrose 5% in Water 1,000 ML IV PRN (16:26)
[2018-11-05] MEDS ORDERED: Dextrose 50% Abboject 50 ML SYRINGE SLOW IVP PRN (16:26)
--- NOTE | 2018-11-05 16:59 | HP ---
PRIMARY CARE PROVIDER: Dr. Pankaj Mari. PASTEURIZING MACHINE OPERATOR: Dr. Dey, but she has not seen him recently. MIXER HELPER: Dr. Maverick Owens. CHIEF COMPLAINT: Shortness of breath. HISTORY OF PRESENT ILLNESS: Ms. Gillis is a pleasant 63-year-old lady, who was seen at [facility] on November 05, 2018. She was hospitalized at this facility on July 27 to of this year for hyperkalemia secondary to metabolic acidosis and chronic kidney disease and acute on chronic diastolic heart failure. She reports that she has had bilateral lower extremity edema for several years. This has been getting worse. [facility] on her left lower extremity. She reports that she was 250 pounds in the past. She lost weight and was 177 pounds. She reports that she has recently been gaining weight. She reports that her shortness of breath has been worse since last night. She presented to the emergency room at [place]. Her oxygen saturations were found to be in the mid 80s. She received furosemide and aspirin and was transferred to [facility] for further management. The patient also has a history of chronic kidney disease, and her recent creatinine has been worse than usual. She denies any chest pain. She denies any lightheadedness. She ambulates with a walker at home and when she is outside, she uses a wheelchair. REVIEW OF SYSTEMS: All other systems reviewed and found to be negative. PAST MEDICAL HISTORY: Significant for hypertension, diastolic congestive heart failure, bilateral deep venous thromboses, multiple episodes; CVA with left hemiparesis; degenerative joint disease; gastroesophageal reflux disease; chronic kidney disease; anemia; coronary artery disease; obstructive sleep apnea and chronic leukopenia. SURGICAL HISTORY: Tonsillectomy, adenoidectomy, section x1, bilateral tubal ligation, hysterectomy, laparoscopic cholecystectomy, bilateral cataract surgery. FAMILY HISTORY: Congestive heart failure in her grandmother. SOCIAL HISTORY: No history of tobacco use, alcohol use, or recreational drug use. ALLERGIES: HYDROCODONE, TRAMADOL, AND ACETAMINOPHEN. CURRENT MEDICATIONS: These need to be clarified, but she appears to be taking furosemide 20 mg as needed and aspirin 325 mg daily. Past, she was on Lipitor, carvedilol, Humalog, Coreg, and sodium bicarbonate. PHYSICAL EXAMINATION: GENERAL: On examination, Ms. Gillis is awake and alert, not in acute distress. VITAL SIGNS: Blood pressure is 182/103, pulse 61, respiratory rate 20, and oxygen saturation 95% on 3 L of oxygen. She is afebrile. EYES: No scleral icterus, no conjunctival pallor. ENT: Moist mucosal membranes. No oropharyngeal erythema or exudates. NECK: Supple, nontender, trachea is midline. RESPIRATORY: Accessory muscles of breathing are not active. Chest wall movements are symmetric bilaterally. She has bibasilar crackles. CARDIOVASCULAR: S1 and S2 are heard, regular. Peripheral pulses palpable. No carotid bruit. No pericardial rub. ABDOMEN: Soft, nontender, bowel sounds heard, no hepatomegaly, no splenomegaly. NEUROLOGIC: Cranial nerves 2 through 12 are intact. MUSCULOSKELETAL: The patient is able to move all four extremities. She has bilateral lower extremity edema. She also has fluid seeping out of the posterior aspect of her left leg. SKIN: Bilateral lower extremity edema. LYMPHATIC: No cervical lymphadenopathy. PSYCHIATRIC: Normal mood, normal affect, the patient is oriented to person, place, and time. LABORATORY DATA: Ms. Gillis's labs and investigations were reviewed. She has leukopenia with 4,400 white cells, normocytic anemia with hemoglobin 9.3, normal platelet count, normal sodium, normal potassium, decreased carbon dioxide of 18, elevated blood urea nitrogen of 62, elevated creatinine 3.40, last known creatinine 2.94 on August 22, 2018; elevated BNP of 2240, it was 1324 in January 2018; normal AST, normal ALT, elevated total bilirubin of 1.9, normal albumin. I reviewed her electrocardiogram, which shows normal sinus rhythm, with T-wave flattening in leads I, II and III. I also reviewed her chest x-ray, which shows vascular congestion and cardiomegaly. ASSESSMENT AND PLAN: Ms. Gillis is a pleasant 63-year-old lady, who was seen at [facility] on November 05, 2018. Her problem list includes: 1. Shortness of breath: This is most likely secondary to congestive heart failure exacerbation. 2. Congestive heart failure exacerbation: Most likely exacerbation of known diastolic congestive heart failure. She will be admitted to the hospital for further management. She will receive intravenous diuretics. We will check 2D echocardiogram. We will also consult Cardiology Service for help with management. 3. Acute on chronic stage 4 kidney disease: We will monitor creatinine, since she will be receiving diuretics. We will also consult Nephrology for optimization of renal function. 4. Diabetes mellitus, type 2: We will start Accu-Cheks and insulin sliding scale. 5. Coronary artery disease: She has normal troponin I, she denies any chest pain. Coronary artery disease appears to be stable. Many thanks for allowing me to participate in your patient's care. Please feel free to contact me with any questions or concerns. LEVEL OF RISK: High. LEVEL OF COMPLEXITY: High. Job ID: [id number]
[2018-11-05] MEDS ORDERED: hydrALAZINE 20 MG/ML VIAL SLOW IVP PRN (17:26)
[2018-11-05 18:27] LABS: Troponin I 0.017 ng/mL (< 0.028)
[2018-11-05] MEDS: HumaLOG 300 UNITS/3 ML VIAL SC PRN (19:38)
[2018-11-05] MEDS: hydrOXYzine 10 MG TAB PO PRN (20:03)
[2018-11-05] MEDS: Heparin 5,000 UNITS/ML VIAL SC SCH (20:03)
[2018-11-05] MEDS: Carvedilol 3.125 MG TAB PO SCH (20:03)
[2018-11-06] MEDS: hydrOXYzine 10 MG TAB PO PRN ×2 (03:41→21:04)
[2018-11-06] MEDS: Acetaminophen/Codeine 30-300mg Tablet PO PRN ×3 (05:08→21:04)
[2018-11-06] MEDS: Furosemide 40 MG/4 ML VIAL SLOW IVP SCH ×2 (05:08→14:57)
[2018-11-06 06:26] LABS: Hemoglobin 9.4 g/dL (12.0-16.0); Mean Corpuscular HGB CONC 30.4 g/dL (32.0-36.0); Mean Corpuscular Hemoglobin 27.4 pg (27.0-31.0); Mean Platelet Volume 11.4 fL (7.4-10.4); Platelet Count 166 thou/uL (130-400); RBC Distribution Width 23.4 % (11.5-14.5); Red Blood Cell (RBC) Count 3.44 mill/uL (4.20-5.40); White Blood Cell (WBC) Count 5.1 thou/uL (4.8-10.8)
[2018-11-06 06:40] LABS: Anion Gap 12 mmol/L (10-20); BUN (Urea Nitrogen) 64 mg/dL (9.8-20.1); Calc. Creatinine Clearance 23 mL/min (70-130); Calcium 9.2 mg/dL (7.8-10.44); Carbon Dioxide 15 mmol/L (23-31); Chloride 115 mmol/L (98-107); Estimated GFR-MDRD 18; Glucose 113 mg/dL (80-115); Potassium 4.8 mmol/L (3.5-5.1); Sodium 137 mmol/L (136-145)
[2018-11-06] MEDS ORDERED: Sodium Chloride 0.9% 10 ML ONE (07:52)
[2018-11-06] MEDS: Famotidine 20 MG TAB PO SCH (08:33)
[2018-11-06] MEDS: Aspirin Chewable 81 MG TAB PO SCH (08:33)
[2018-11-06] MEDS: Heparin 5,000 UNITS/ML VIAL SC SCH ×3 (08:33→21:04)
[2018-11-06] MEDS: Carvedilol 3.125 MG TAB PO SCH ×2 (08:33→21:04)
[2018-11-06] MEDS: Atorvastatin Calcium 40 MG TAB PO SCH (08:33)
[2018-11-06 08:36] LABS: Band 5 % (5-11); Eosinophils 3 % (0-10); Hypochromia SLIGHT = 6-15 cells (100X) (0-5/hpf); Lymphocytes 27 % (21-51); MDiff Complete? YES; Monocytes 4 % (0-10); Neutrophil 60 % (42-75); Platelet Morphology Comment Appears Adequate; Polychromasia SLIGHT = 2-3 cells (100X) (0-2/hpf); Reflex for Review?? YES; Schistocytes MODERATE= 6-15 cells (100X) (0-1/hpf)
[2018-11-06] MEDS: HumaLOG 300 UNITS/3 ML VIAL SC PRN (11:37)
--- NOTE | 2018-11-06 12:31 | PDOC.PN ---
- Subjective Encounter Start Date: 11/06/18 Encounter Start Time: 11:45 Ms. Gillis was seen today in follow-up of CHF exacerbation. She says she is feeling better. - Objective MAR Reviewed: Yes Vital Signs & Weight: Vital Signs (12 hours) Temp Pulse Resp BP BP Pulse Ox 11/06/18 11:35 98.0 F 60 18 151/60 H 95 11/06/18 08:28 98.1 F 61 18 163/72 H 96 11/06/18 03:25 97.5 F L 62 20 145/67 H 96 Weight Weight 170 lb 1.6 oz I&O: 11/05/18 11/06/18 11/07/18 06:59 06:59 06:59 Intake Total 240 Output Total 550 Balance -310 Result Diagrams: 11/06/18 05:19 11/06/18 05:19 Additional Labs: Accuchecks 11/06/18 11/06/18 11/05/18 10:59 05:25 20:20 POC Glucose 177 H 123 H 163 H 11/05/18 16:34 POC Glucose 231 H Phys Exam - Physical Examination HEENT: PERRLA + faint rales at the bases Cardiovascular: RRR, no significant murmur, no rub Gastrointestinal: soft, non-tender, no distention, positive bowel sounds Musculoskeletal: pulses present, edema present + chronic venous stasis changes, massive edema Neurological: non-focal, normal sensation Dx/Plan (1) Acute on chronic diastolic (congestive) heart failure Code(s): I50.33 - ACUTE ON CHRONIC DIASTOLIC (CONGESTIVE) HEART FAILURE Status : Acute (2) DM2 (diabetes mellitus, type 2) Status: Chronic Qualifiers: Diabetes mellitus complication status: with kidney complications Chronic kidney disease stage: stage 4 (severe) Comment: continue accuchecks, insulin sliding scale (3) Hypertension Code(s): I10 - ESSENTIAL (PRIMARY) HYPERTENSION Status: Chronic Qualifiers: Hypertension type: essential hypertension Qualified Code(s): I10 - Essential (primary) hypertension Comment: BP running high, pulse ok, will increase Carvedilol. (4) Chronic kidney disease, stage 4 (severe) Code(s): N18.4 - CHRONIC KIDNEY DISEASE, STAGE 4 (SEVERE) Status: Acute - Plan * Acute on chronic diastolic heart failure- she has improved with IV Lasix * DM- blood glucose is stable * Chronic kidney disease stage 4- will consult her computer tech * HTN- blood pressure is stable * Ambulate as tolerated.
--- NOTE | 2018-11-06 18:05 | CON ---
DATE OF CONSULTATION: REASON FOR CONSULTATION: Congestive heart failure. HISTORY OF PRESENT ILLNESS: Ms. Gillis is a 63-year-old woman, who was seen and evaluated in the past. She recently presented with lower extremity edema and shortness of breath. She states her lower extremity edema was noted over the last 8 to 9 months. Her shortness of breath also began in the last several months. She has been seen and evaluated several years ago. She has not been back into the office for followup. I am concerned about compliance with Ms. Gillis. She has been discussed in the past to proceed with coronary angiography given recurrent symptoms of shortness of breath. The patient has deferred. In the meantime, her kidney function has worsened. PAST MEDICAL HISTORY: Diastolic dysfunction, noncompliance, tonsillectomy, , adenectomy, BTL, hysterectomy, cataract surgery. SOCIAL HISTORY: No current tobacco or alcohol use. ALLERGIES: TRAMADOL. MEDICATIONS: Unknown. REVIEW OF SYSTEMS: A 10-point review of system is reviewed and as above, otherwise negative. PHYSICAL EXAMINATION: GENERAL: Patient is a pleasant female, who is in no acute distress. The patient appears their stated age. VITAL SIGNS: Blood pressure 156/76, pulse 61, temperature 97.9. NEUROLOGIC: The patient is alert and oriented x3 with no focal neurologic deficits. HEENT: Sclerae without icterus. Mouth has moist mucous membranes with normal pallor. NECK: No JVD. Carotid upstroke brisk. No bruits bilaterally. LUNGS: Clear to auscultation with unlabored respirations. BACK: No scoliosis or kyphosis. CARDIAC: Regular rate and rhythm with normal S1 and S2. No S3 or S4 noted. No significant rubs, murmurs, thrills, or gallops noted throughout the precordium. PMI is not displaced. There is no parasternal heave. ABDOMEN: Soft, nontender, nondistended. No peritoneal signs present. No hepatosplenomegaly. No abnormal striae. EXTREMITIES: 3 to 4+ pitting edema noted bilaterally. SKIN: No gross abnormalities. PERTINENT LABORATORY DATA: Hemoglobin 9.4. Creatinine 3.11. IMPRESSION: 1. Acute on chronic diastolic heart failure. 2. Noncompliance. 3. ?obstructive sleep apnea. RECOMMENDATIONS: Ms. Gillis's symptoms are likely multifactorial. She likely has severe sleep apnea. She has not had a sleep study in the past. This likely is contributing to her lower extremity edema. Her lungs are relatively clear. I agree with Lasix therapy. No chest pain or pressure noted. We would not recommend a noninvasive stress study. Job ID: [id number]
[2018-11-07] MEDS: Furosemide 40 MG/4 ML VIAL SLOW IVP SCH (05:12)
[2018-11-07] MEDS: Furosemide 100 MG/10 ML VIAL SLOW IVP SCH ×2 (09:21→14:31)
[2018-11-07] MEDS: Heparin 5,000 UNITS/ML VIAL SC SCH ×3 (09:22→21:33)
[2018-11-07] MEDS: Carvedilol 3.125 MG TAB PO SCH ×2 (09:22→21:33)
[2018-11-07] MEDS: Aspirin Chewable 81 MG TAB PO SCH (09:23)
[2018-11-07] MEDS: Atorvastatin Calcium 40 MG TAB PO SCH (09:23)
[2018-11-07] MEDS: Famotidine 20 MG TAB PO SCH (09:23)
--- NOTE | 2018-11-07 11:13 | PDOC.PN ---
- Subjective Encounter Start Date: 11/07/18 Encounter Start Time: 10:45 Ms. Gillis was seen today in follow-up of CHF exacerbation. She says she is breathing better. she denies any chest pain. - Objective MAR Reviewed: Yes Vital Signs & Weight: Vital Signs (12 hours) Temp Pulse Resp BP BP Pulse Ox 11/07/18 07:37 98.4 F 55 L 16 164/74 H 94 L 11/07/18 03:20 97.5 F L 57 L 16 131/59 L 95 11/06/18 23:25 66 148/81 H Weight Weight 170 lb 1.6 oz I&O: 11/06/18 11/07/18 11/08/18 06:59 06:59 06:59 Intake Total 240 200 Output Total 550 1000 Balance -310 -800 Result Diagrams: 11/06/18 05:19 11/06/18 05:19 Additional Labs: Accuchecks 11/07/18 11/07/18 11/06/18 10:38 05:29 20:23 POC Glucose 133 H 121 H 156 H 11/06/18 11/06/18 16:46 10:59 POC Glucose 124 H 177 H Phys Exam - Physical Examination HEENT: PERRLA Respiratory: no wheezing, no rhonchi + rales at the bases Cardiovascular: RRR, no significant murmur, no rub Gastrointestinal: soft, non-tender, no distention, positive bowel sounds Musculoskeletal: pulses present, edema present + massive lower extremity edema, and venous stasis changes Dx/Plan (1) Acute on chronic diastolic (congestive) heart failure Code(s): I50.33 - ACUTE ON CHRONIC DIASTOLIC (CONGESTIVE) HEART FAILURE Status : Acute (2) DM2 (diabetes mellitus, type 2) Status: Chronic Qualifiers: Diabetes mellitus complication status: with kidney complications Chronic kidney disease stage: stage 4 (severe) Comment: continue accuchecks, insulin sliding scale (3) Hypertension Code(s): I10 - ESSENTIAL (PRIMARY) HYPERTENSION Status: Chronic Qualifiers: Hypertension type: essential hypertension Qualified Code(s): I10 - Essential (primary) hypertension Comment: BP running high, pulse ok, will increase Carvedilol. (4) Chronic kidney disease, stage 4 (severe) Code(s): N18.4 - CHRONIC KIDNEY DISEASE, STAGE 4 (SEVERE) Status: Acute - Plan * Acute on chronic diastolic heart failure-continue IV Lasix and the dosea has been increased to 80mg * Echo results noted, she continues to have preserved EF * HTN- blood pressure is a bit labile * DM- blood glucose is stable * Probable JAQUAN- agree with outpatient sleep study . * CKD-4 continue to monitor renal function while she is being diuresed
[2018-11-07] MEDS: hydrOXYzine 10 MG TAB PO PRN ×2 (11:44→21:33)
--- NOTE | 2018-11-07 13:50 | PDOC.CTH ---
Cardiology Progress Note - Subjective Feels better overall. Less edema and less SOB - Objective Vital Signs Temp Pulse Resp BP BP Pulse Ox 11/07/18 11:47 98.6 F 56 L 16 155/69 H 98 11/07/18 07:37 98.4 F 55 L 16 164/74 H 94 L 11/07/18 03:20 97.5 F L 57 L 16 131/59 L 95 Weight 170 lb 1.6 oz 11/06/18 11/07/18 11/08/18 06:59 06:59 06:59 Intake Total 240 200 Output Total 550 1000 Balance -310 -800 - Physical Examination General/Neuro: NAD Neck: carotid US brisk, no JVD present Lungs: unlabored respirations Heart: RRR Abdomen: NT/ND, soft Extremities: + femoral B - Telemetry Telemetry Rhythm: RRR - Labs Result Diagrams: 11/06/18 05:19 11/06/18 05:19 Troponin/CKMB Troponin I 0.017 ng/mL (< 0.028) 11/05/18 17:53 - Assessment/Plan SOB Edema JAQUAN HTN CKD non-compliance Edema likely MF; see above No current symptoms suggesting angina. No further recommendations. Recommend outpatient fu (although has not fu in 2 yrs) in the next 2-[address] Marítnez front worker and available for questions if they arise.
[2018-11-07] MEDS: Acetaminophen/Codeine 30-300mg Tablet PO PRN (21:33)
[2018-11-07] MEDS ORDERED: Loperamide HCl 2 MG CAP PO PRN (21:42)
[2018-11-08] MEDS: hydrOXYzine 10 MG TAB PO PRN (04:53)
[2018-11-08] MEDS: Furosemide 100 MG/10 ML VIAL SLOW IVP SCH (04:53)
[2018-11-08] MEDS: Carvedilol 3.125 MG TAB PO SCH (08:31)
[2018-11-08] MEDS: Atorvastatin Calcium 40 MG TAB PO SCH (08:31)
[2018-11-08] MEDS: Heparin 5,000 UNITS/ML VIAL SC SCH (08:31)
[2018-11-08] MEDS: Aspirin Chewable 81 MG TAB PO SCH (08:31)
[2018-11-08] MEDS: Famotidine 20 MG TAB PO SCH (08:31)
[2018-11-08] MEDS: HumaLOG 300 UNITS/3 ML VIAL SC PRN (10:28)
--- NOTE | 2018-11-08 10:39 | PDOC.PN ---
- Subjective Encounter Start Date: 11/08/18 Encounter Start Time: 10:37 Ms. Gillis was seen today in follow-up. She does not have any complaints. She is breathing better. She denies chest pain. - Objective MAR Reviewed: Yes Vital Signs & Weight: Vital Signs (12 hours) Temp Pulse Resp BP BP Pulse Ox 11/08/18 07:00 98.4 F 64 17 169/74 H 100 11/08/18 05:27 98 11/08/18 03:17 97.7 F 63 20 147/67 H 98 Weight Weight 170 lb 1.6 oz I&O: 11/07/18 11/08/18 11/09/18 06:59 06:59 06:59 Intake Total 200 250 Output Total 1000 1500 Balance -800 -1250 Result Diagrams: 11/06/18 05:19 11/06/18 05:19 Additional Labs: Accuchecks 11/08/18 11/07/18 11/07/18 05:41 20:10 16:57 POC Glucose 194 H 169 H 129 H 11/07/18 10:38 POC Glucose 133 H Phys Exam - Physical Examination HEENT: PERRLA Respiratory: no wheezing, no rales, no rhonchi, clear to auscultation bilateral Cardiovascular: RRR, no significant murmur, no rub Gastrointestinal: soft, non-tender, no distention, positive bowel sounds Musculoskeletal: pulses present, edema present brawny edema in both lower extremities, Neurological: non-focal Dx/Plan (1) Acute on chronic diastolic (congestive) heart failure Code(s): I50.33 - ACUTE ON CHRONIC DIASTOLIC (CONGESTIVE) HEART FAILURE Status : Acute (2) DM2 (diabetes mellitus, type 2) Status: Chronic Qualifiers: Diabetes mellitus complication status: with kidney complications Chronic kidney disease stage: stage 4 (severe) Comment: continue accuchecks, insulin sliding scale (3) Hypertension Code(s): I10 - ESSENTIAL (PRIMARY) HYPERTENSION Status: Chronic Qualifiers: Hypertension type: essential hypertension Qualified Code(s): I10 - Essential (primary) hypertension Comment: BP running high, pulse ok, will increase Carvedilol. (4) Chronic kidney disease, stage 4 (severe) Code(s): N18.4 - CHRONIC KIDNEY DISEASE, STAGE 4 (SEVERE) Status: Acute - Plan * Acute on chronic diastolic heart failure- She is close to her baseline * She has been cleared for discharge by Dr. Dey * Will discharge home.
[2018-11-08 11:58] VITALS: BP 105/52; TEMP 98.1
--- NOTE | 2018-11-09 05:12 | DIS ---
DATE OF ADMISSION: 11/05/2018 DATE OF DISCHARGE: 11/08/2018 PRIMARY CARE PHYSICIAN: Pankaj Mari MD. DISCHARGE DIAGNOSES: 1. Jlgky-vy-rmwergl diastolic heart failure. 2. Gksom-hj-juvaetw respiratory failure due to rlpyp-mq-tujorlk diastolic heart failure. 3. Chronic kidney disease stage 4. 4. Diabetes mellitus type 2. 5. Coronary artery disease. 6. Obesity. 7. Presumed obstructive sleep apnea. DISCHARGE MEDICATIONS: Include: 1. Lasix 40 mg twice daily. 2. Carvedilol 3.125 mg twice daily. 3. Aspirin 81 mg daily. 4. NovoLog insulin 5 units t.i.d. with meals. 5. Pepcid 20 mg daily. 6. Lipitor 40 mg daily. PROCEDURES DONE DURING ADMISSION: The patient had an echocardiogram and this demonstrated an estimated ejection fraction of 50% to 55%. There was a restrictive filling pattern suggestive of restrictive diastolic function. There was bhubojsy-mk-fvrdvi tricuspid regurg and moderate mitral regurgitation. CODE STATUS: Full code. ALLERGIES: GABAPENTIN. HOSPITAL COURSE: Ms. Gillis is a very pleasant 63-year-old female, who presented to the emergency room complaining of shortness of breath. She also noted increasing lower extremity edema. She has a history of diastolic heart failure, but has not been to see her porcelain slusher in quite some time. She was admitted with hqfge-xj-yeasslk diastolic heart failure and started on IV Lasix. She diuresed well with this. Her porcelain slusher was consulted. There was some contemplation on examining her with regard to ischemic heart disease. However, with her creatinine at 3.1, the decision was made not to proceed to cardiac catheterization as this would likely push her over into the need for dialysis. Therefore, the plan would be to maximize her medical management. Also, she had been instructed to obtain a sleep study to check for obstructive sleep apnea, which she had not done as an outpatient. This was again reinforced during this hospital stay. I explained to her that this could be potentiating her volume overload and lower extremity edema as well as it could lead to right heart failure and worsening blood pressure. The patient voiced understanding and stated that she would look into getting this done as an outpatient. Therefore once the patient was stable, she was able to be discharged home and is to have close outpatient followup with Dr. Mari and then also with Dr. Dey in approximately 2 to 3 weeks. Job ID: [id number]
== END 2018-11-08 13:07 | disposition home or self-care (01) | DRG 291 ==
LOC: ERS 10:30 → ERHOLD 12:24 → 2NO 16:12
PROVIDERS: ADMIT Internal Medicine; ATTEND Internal Medicine
DX: I13.0 Hypertensive heart and chronic kidney disease with heart failure and stage 1 through stage 4 chronic kidney disease, or unspecified chronic kidney disease (principal); I50.23 Acute on chronic systolic (congestive) heart failure; J96.20 Acute and chronic respiratory failure, unspecified whether with hypoxia or hypercapnia; N17.9 Acute kidney failure, unspecified; N18.4 Chronic kidney disease, stage 4 (severe); K21.9 Gastro-esophageal reflux disease without esophagitis; M19.91 Primary osteoarthritis, unspecified site; G47.33 Obstructive sleep apnea (adult) (pediatric); D64.9 Anemia, unspecified; E11.22 Type 2 diabetes mellitus with diabetic chronic kidney disease; I25.10 Atherosclerotic heart disease of native coronary artery without angina pectoris; E66.9 Obesity, unspecified; Z68.34 Body mass index [BMI] 34.0-34.9, adult; Z86.73 Personal history of transient ischemic attack (TIA), and cerebral infarction without residual deficits; Z90.710 Acquired absence of both cervix and uterus; Z90.49 Acquired absence of other specified parts of digestive tract; Z98.51 Tubal ligation status; Z88.6 Allergy status to analgesic agent; Z88.8 Allergy status to other drugs, medicaments and biological substances
CPT/HCPCS: 36415; 36416; 80048; 85025; 85060; 93306; 93798; 99285; J0360; J1644; J1940

== ENCOUNTER 2018-12-21 07:09 | Inpatient (IN) | payer MEDICARE ==
[2018-12-21 08:09] LABS: Bilirubin Negative (Negative); Blood, Urine Moderate (Negative); Clarity CLOUDY (Clear); Glucose, Urine (Dipstick) Negative (Negative); Leukocyte Negative (Negative); Nitrite Negative (Negative); Protein, Urine (Dipstick) 300 mg/dL (Neg-Trace)
[2018-12-21 08:11] LABS: Bacteria/HPF None Seen HPF (None Seen); Hyaline Casts/LPF 4-6 HYALINE CAST LPF (0-3 Hyaline); Pathc Cast-AUWi Flag 0.68 (0-2.49); RBC/HPF 0-3 HPF (0-3); Squamous Epithelial 0-3 HPF (0-3); WBC/HPF 0-3 HPF (0-3)
--- NOTE | 2018-12-21 08:21 | RAD ---
EXAM: XR Chest 1 View Portable PROVIDED CLINICAL HISTORY: Malaise, pain COMPARISON: 11/05/2018 FINDINGS: Examination is rotated. Cardiomegaly persists. Prominence of the pulmonary vasculature and pulmonary interstitium. Suboptimal evaluation of the left lung base. Given this limitation, no gross focal consolidation, pleural fluid or pneumothorax apparent. IMPRESSION: Cardiomegaly and findings suggesting congestive failure.
[2018-12-21 08:35] LABS: Band 25 % (5-11); Hemoglobin 8.8 g/dL (12.0-16.0); Lymphocytes 3 % (21-51); MDiff Complete? YES; Mean Corpuscular HGB CONC 31.2 g/dL (32.0-36.0); Mean Corpuscular Hemoglobin 27.8 pg (27.0-31.0); Mean Corpuscular Volume 89.1 fL (78.0-98.0); Mean Platelet Volume 10.2 fL (7.4-10.4); Metamyelocyte 1 % (0-0); Monocytes 1 % (0-10); Neutrophil 70 % (42-75); Platelet Count 183 thou/uL (130-400); RBC Distribution Width 22.7 % (11.5-14.5); Red Blood Cell (RBC) Count 3.16 mill/uL (4.20-5.40); Schistocytes SLIGHT = 2-5 cells (100X) (0-1/hpf); White Blood Cell (WBC) Count 17.3 thou/uL (4.8-10.8)
[2018-12-21 08:37] LABS: ALT (SGPT) 19 U/L (8-55); AST (SGOT) 22 U/L (5-34); Albumin 3.6 g/dL (3.4-4.8); Alkaline Phosphatase 303 U/L (40-150); Anion Gap 16 mmol/L (10-20); BUN (Urea Nitrogen) 86 mg/dL (9.8-20.1); Bilirubin, Total 2.8 mg/dL (0.2-1.2); CK (CPK) 65 U/L (29-168); Calc. Creatinine Clearance 0 mL/min (70-130); Calcium 9.1 mg/dL (7.8-10.44); Carbon Dioxide 14 mmol/L (23-31); Chloride 113 mmol/L (98-107); Estimated GFR-MDRD 15; Globulin 4.2 g/dL (2.4-3.5); Glucose 145 mg/dL (80-115); Lipase Less than 4 U/L (8-78); Magnesium 2.4 mg/dL (1.6-2.6); Potassium 5.7 mmol/L (3.5-5.1); Protein, Total 7.8 g/dL (6.0-8.3); Sodium 137 mmol/L (136-145)
[2018-12-21 08:59] LABS: CKMB 0.8 ng/mL (0-6.6)
[2018-12-21] MEDS ORDERED: Senokot S 8.6-50 MG TAB PO PRN (09:12)
[2018-12-21] MEDS ORDERED: Bisacodyl 5 MG TAB PO PRN (09:12)
[2018-12-21] MEDS ORDERED: Acetaminophen 325 MG TAB PO PRN (09:12)
[2018-12-21] MEDS ORDERED: Ondansetron PF 4 MG/2 ML Vial IVP PRN (09:12)
[2018-12-21] MEDS ORDERED: Benzonatate 100 MG CAP PO PRN (09:13)
[2018-12-21] MEDS ORDERED: hydrALAZINE 20 MG/ML VIAL SLOW IVP PRN (09:13)
[2018-12-21] MEDS ORDERED: Diabetic Tussin 200 MG/10 ML UDCUP PO PRN (09:13)
[2018-12-21] MEDS ORDERED: cloNIDine 0.1 MG TAB PO PRN (09:13)
[2018-12-21] MEDS ORDERED: Sodium Chloride 0.65% Nasal 44 ML BOT EA NARE PRN (09:13)
[2018-12-21] MEDS ORDERED: Furosemide 100 MG/10 ML VIAL SLOW IVP SCH (09:15)
[2018-12-21] MEDS ORDERED: Dextrose 50% Abboject 50 ML SYRINGE SLOW IVP PRN (09:16)
[2018-12-21] MEDS ORDERED: Dextrose 5% in Water 1,000 ML IV PRN (09:16)
[2018-12-21] MEDS ORDERED: HumaLOG 300 UNITS/3 ML VIAL SC PRN (09:16)
--- NOTE | 2018-12-21 09:17 | CT ---
EXAM: CT Abdomen Pelvis WO Con PROVIDED CLINICAL HISTORY: Abdominal pain. Generalized malaise and shortness of breath. Trouble urinating, foul-smelling urine. COMPARISON: 06/30/2017 FINDINGS: There is mild bibasilar atelectasis. The heart is mildly enlarged. Postcholecystectomy changes are again noted. The liver remains enlarged measuring 19 cm in craniocaudal dimensions. The right kidney is rotated. No renal or ureteral calculi are seen, and there is no hydronephrosis. The spleen, pancreas, and bilateral adrenal glands demonstrate grossly normal nonenhanced CT appearan ce. Focus of gas is seen within the urinary bladder which could be related to recent catheterization, but clinical correlation is recommended. Uterus and adnexal structures demonstrate a grossly normal nonenhanced CT appearance for patient's ag e. Diffuse atherosclerotic vascular calcifications are identified. Small amount of intraperitoneal free fluid is seen in the abdomen. The appendix is visualized and normal in caliber. There is diffuse subcutaneous edema much greater involving the abdominal wall. There is skin thickeni ng involving the pannus of the lower abdominal wall, but this was also present on the prior exam and not significantly changed from that exam. Degenerative changes are noted in the spine. IMPRESSION: 1. Mild hepatomegaly. 2. Small amount of ascites. 3. Diffuse subcutaneous edema greater involving the lower abdominal wall with skin thickening also pr esent in this region. This was also present on the prior exam. 4. Cholecystectomy. 5. Focus of gas within urinary bladder which may be related to recent catheterization, but clinical c orrelation is recommended. 6. Mild cardiomegaly.
[2018-12-21] MEDS ORDERED: Piperacillin/Tazobactam 4.5 GM VIAL ONE (09:26)
[2018-12-21] MEDS ORDERED: Furosemide 40 MG/4 ML VIAL ONE ×2 (09:26→10:06)
[2018-12-21] MEDS ORDERED: traMADol HCl 50 MG TAB PO PRN ×2 (09:53→12:15)
[2018-12-21] MEDS ORDERED: Vancomycin HCl 1 GM in Premix Bag 1 BAG IVPB SCH ×3 (10:30→11:00)
[2018-12-21] MEDS ORDERED: Vancomycin HCl 750 MG in Sodium Chloride 0.9% 250 ML 250 ML IVPB SCH (10:30)
[2018-12-21] MEDS ORDERED: Vancomycin HCl 500 MG in Sodium Chloride 0.9% 100 ML IVPB SCH (10:30)
[2018-12-21] MEDS ORDERED: Vancomycin HCl 1.25 GM in Sodium Chloride 0.9% 250 ML 250 ML IVPB SCH (10:30)
--- NOTE | 2018-12-21 11:16 | HP ---
PRIMARY CARE PHYSICIAN: Pankaj Mari MD. CHIEF COMPLAINT: Generalized weakness and malaise. HISTORY OF PRESENTING ILLNESS: Ms. Gillis is a 63-year-old female with past medical history of chronic diastolic congestive heart failure and chronic kidney disease as well as diabetes, hypertension, and dyslipidemia, who presented to the emergency room with above-mentioned complaint. History is mainly obtained with the patient herself, who is somewhat of a poor historian because she is feeling very weak. Electronic medical records have been reviewed extensively and case has been discussed with admitting ER physician, Dr. Cramer. The patient was recently admitted to our facility last month when she was admitted and treated for acute on chronic diastolic congestive heart failure. She had undergone a Cardiology evaluation at that time. Dr. Dey has seen the patient and recommended medical management. The patient has chronic kidney disease and has not been started on dialysis and follows up with Dr. Owens. Her echo done last month showed baccfqze-xk-ybvhlz tricuspid regurgitation and diastolic dysfunction. Upon presentation to the emergency room today, the patient reported that she has been having weakness and pain all over her body and she is itching really bad. She denies any fever, chills, cough, or chest pain. She has some shortness of breath and having difficulty lying flat. Denies any sick contacts since the discharge. Denies any abdominal pain, diarrhea, vomiting, or constipation. She does feel nauseated. Upon presentation to the emergency room, she was hemodynamically stable little bit hypertensive with a blood pressure of 160/79, saturating 96% on room air. Her evaluation revealed pulmonary vascular congestion based on the chest x-ray and her BNP was elevated to more than 4000. She was also found to have hyperkalemia and a GFR of 15. Other interesting finding was a leukocytosis with left shift and bandemia. Her WBC count is 17.3 with 25% bands. No clear source of infection is identified. Her lactic acid is normal. She did undergo a CT scan of her abdomen and pelvis, which showed abdominal wall edema, but no focus of infection. She was given empiric antibiotics namely vancomycin and Zosyn and is now being admitted for further workup. PAST MEDICAL HISTORY: 1. Chronic diastolic congestive heart failure, stage B. 2. Diabetes mellitus. 3. Hypertension. 4. History of bilateral DVT. Multiple episodes as per the prior H and P. 5. History of cerebrovascular accident with left-sided hemiparesis. 6. Degenerative joint disease. 7. Gastroesophageal reflux disease. 8. Chronic kidney disease, stage 4. 9. Chronic anemia. 10. Coronary artery disease. 11. Suspected sleep apnea. PAST SURGICAL HISTORY: 1. Tonsillectomy. 2. Adenoidectomy. 3. section. 4. Bilateral tubal ligation. 5. Hysterectomy. 6. Laparoscopic cholecystectomy. 7. Bilateral cataract surgery. FAMILY HISTORY: Congestive heart failure in a grandmother. SOCIAL HISTORY: She lives at home with the , who is a primary care provider. He is not available at bedside at this time. The patient has very limited mobility. She has no history of drug, tobacco, or alcohol abuse. ALLERGIES: HYDROCODONE, TRAMADOL, AND ACETAMINOPHEN. HOME MEDICATIONS: Further need to be clarified, but according to the most recent discharge summary from 11/08/2018, she was discharged on the following medications; 1. Lasix 40 mg b.i.d. 2. Carvedilol 3.125 mg b.i.d. 3. Aspirin 81 mg daily. 4. NovoLog 5 units t.i.d. 5. Pepcid 20. 6. Lipitor 40. REVIEW OF SYSTEMS: A 14-point review of system is done, it is negative except for those mentioned in history and physical. LABORATORY DATA: WBC 17.3 with 70% neutrophils, hemoglobin 8.8, bands 25%. Serum chemistry shows sodium 137, potassium 5.7, chloride 113, bicarb 14, BUN 86, creatinine 3.67, blood sugar 145, lactic acid 1.6, alkaline phosphatase 303, total bilirubin 2.8. BNP is 4885. Troponin 0.072 with CK-MB of 0.8. Chest x-ray by my review shows pulmonary vascular congestion and cardiomegaly. CT scan of the abdomen and pelvis done without contrast shows abdominal wall edema without any specific focus of infection. She has a small amount of ascites as well. A 12-lead EKG shows normal sinus rhythm with first-degree AV block and nonspecific changes as per my evaluation. PHYSICAL EXAMINATION: VITAL SIGNS: Upon presentation, blood pressure 137/72, pulse of 72, respirations 18, temperature 98.4, saturating 95% on room air. GENERAL: She appears chronically ill. She is lying in bed and appears lethargic. She is awake, alert, and oriented when woken up, but complains of having pain all over her body. HEENT: Mucous membranes slightly dry. No oropharyngeal exudate or erythema. Head is normocephalic and atraumatic. Pupils are equal and reactive to light and accommodation. Extraocular movement intact. NECK: Supple without any lymphadenopathy, JVD, or bruit. CHEST: Chest evaluation showed bibasilar crackles without any significant wheezes, though the exam is suboptimal because of the patient's positioning. Rate and rhythm are regular without any murmurs, rubs, or gallops. ABDOMEN: Soft, nontender, nondistended without any guarding, rigidity, or rebound. EXTREMITIES: Free of any cyanosis, clubbing, or edema. She has chronic thickening of the skin of her legs with chronic venous stasis changes and hyperpigmentation. NEUROLOGICAL: Examination is nonfocal. SKIN: Free of any rashes or bruises. Feels warm and dry to touch. PSYCHIATRIC: Normal affect. IMPRESSION AND PLAN: Acute on chronic kidney disease. The patient has worsening of her renal failure and that I believe is the leading cause of her presentation. We will consult Nephrology, Dr. Cheung, supervisor network control operators, per her sales technician home theater, Dr. Owens. In my opinion, the patient would benefit from starting on dialysis given the fact that she has worsening heart failure as well and will be not having adequate response to diuretics. We will avoid any nephrotoxic medication and treat symptomatically and supportively. 1. Acute on chronic diastolic congestive heart failure. We will give her bigger dose of Lasix in the hopes that her chronically diseased kidneys would respond to it. I's and O's will be monitored and she will be on a heart healthy diet. Suspect cardiorenal syndrome, so the best option for her would be to start on dialysis with fluid removal with dialysis. 2. Leukocytosis with left shift and bandemia. No clear source is identified at this time. She will be treated with empiric IV antibiotic for hospital-acquired infections with vancomycin and Zosyn. Blood culture, urine cultures have been obtained and we will follow the results. If her symptoms do not improve, we would have to rule out spontaneous bacterial peritonitis and the small amount of ascites that she has. Pneumonia also cannot be ruled out. 3. Diabetes mellitus, uncontrolled. We will start her on insulin sliding scale and continue with her NovoLog t.i.d. and Accu-Cheks a.c. and at bedtime. 4. Suspected sleep apnea with morbid obesity with body mass index of 38. 5. History of coronary artery disease. She has indeterminate range troponin likely due to acute congestive heart failure and type 2 myocardial infarction. We will restart her aspirin and carvedilol and continue to trend serial cardiac enzymes. Restart Lipitor as well. 6. Deep venous thrombosis and gastrointestinal prophylaxis. DISPOSITION: Ms. Gillis is currently being readmitted for SIRS criteria as well as acute on chronic congestive heart failure and acute on chronic kidney disease with worsening renal failure. Estimated length of stay at this time is at least 2 to 3 midnights. Further management will depend upon her clinical course. Job ID: [id number]
[2018-12-21 11:46] VITALS: BMI 39.2
[2018-12-21] MEDS: HumaLOG 300 UNITS/3 ML VIAL SC SCH ×2 (12:19→16:32)
[2018-12-21] MEDS: Ondansetron ODT 4 MG TAB SL PRN (12:19)
[2018-12-21] MEDS: Piperacillin/Tazobactam 3.375 GM in Sodium Chloride 0.9% 100 ML IVPB SCH ×2 (14:31→20:53)
[2018-12-21] MEDS: diphenhydrAMINE 30 GM TUBE TOP PRN ×2 (14:32→16:32)
[2018-12-21] MEDS: HumaLOG 300 UNITS/3 ML VIAL SC PRN (14:32)
[2018-12-21 15:27] LABS: Troponin I 0.067 ng/mL (< 0.028)
[2018-12-21] MEDS ORDERED: Metolazone 5 MG TAB PO SCH (16:45)
[2018-12-21] MEDS: Famotidine 20 MG TAB PO SCH (20:53)
[2018-12-21] MEDS: Heparin 5,000 UNITS/ML VIAL SC SCH (20:53)
[2018-12-21] MEDS: Carvedilol 3.125 MG TAB PO SCH (20:53)
[2018-12-21] MEDS: Morphine 4 MG/ML VIAL SLOW IVP PRN (20:57)
[2018-12-21 21:02] LABS: Troponin I 0.032 ng/mL (< 0.028)
--- NOTE | 2018-12-21 23:10 | CON ---
DATE OF CONSULTATION: 12/21/2018 REASON FOR CONSULTATION: Advanced kidney disease. IMPRESSION: 1. Advanced chronic kidney disease stage 5 with uremic symptoms. 2. Hypervolemia in the context of problem #1. 3. Severe anemia likely anemia of chronic kidney disease. 4. Failure to thrive related to problem #1. PLAN: 1. The patient at that point is going to require renal replacement therapy (hemodialysis). 2. The patient to be placed on parenteral loop diuretic augmented with Zaroxolyn. 3. Surgical consult for dialysis access placement. 4. N.p.o. after midnight in preparation for dialysis catheter placement and initiation of dialysis within the next 24 hours. 5. Renally dose all medications and avoid potentially nephrotoxic agents. 6. Further management will be dependent on the clinical course. HISTORY OF PRESENT ILLNESS: History is that of 63-year-old female patient with advanced chronic kidney disease, who has been in and out of hospital on a frequent basis, presented today with generalized malaise and not feeling very well, and obviously fluid overloaded. Clinical evaluation of this patient revealed the patient with likely uremic symptomatologies. As a result of these findings, decision has been taken to involve Renal in the management of this case. PAST MEDICAL HISTORY: Significant for advanced chronic kidney disease stage 5, chronic diastolic congestive heart failure, type 2 diabetes, hypertension, obesity, history of bilateral DVT, degenerative joint disease, reflux disease, coronary artery disease. MEDICATIONS: Reviewed and as documented on [employer]. ALLERGIES: TO HYDROCODONE, TRAMADOL, AND TYLENOL. FAMILY HISTORY: Significant for heart disease. SOCIAL HISTORY: The patient lives at home with her . No alcohol. No tobacco. No illicit drug use. REVIEW OF SYSTEMS: As documented in the body of the history. All other systems were reviewed and found not to be significantly related to present illness. PHYSICAL EXAMINATION: GENERAL: The patient is found to be ill looking, noted with the following vital signs. VITAL SIGNS: Afebrile. Temperature 97.7, pulse 62, respiratory rate of 18, O2 saturation of 95% with blood pressure 139/87 to 197/86. HEENT: Remarkable for moist oral mucosa. NECK: Supple. CARDIOVASCULAR SYSTEM: Distended/elevated jugular venous pressure. First and second heart sounds. RESPIRATORY SYSTEM: Clear to auscultation anteriorly. DIGESTIVE SYSTEM: Reviewed and obese abdomen. EXTREMITIES: Showed evidence of chronic lymphedema. NEURO: Alert, lethargic, groggy, but no lateralizing sign. LYMPHATICS: No peripheral lymphadenopathy. SUMMARY: A 63-year-old female patient with advanced chronic kidney disease, who presented here with likely uremic symptoms. Thank you for this consultation. We will follow with you. Job ID: [id number]
[2018-12-21] MEDS ORDERED: hydrOXYzine 10 MG TAB PO SCH (23:45)
--- NOTE | 2018-12-22 00:19 | CON ---
DATE OF CONSULTATION: HISTORY OF PRESENT ILLNESS: Any Gillis is a 63-year-old black female from [place], apparently followed by Dr. Maverick Owens, Nephrology, admitted by Hospitalist for complaints of dyspnea. She has chronic kidney disease secondary to diabetic hypertensive nephropathy. Her creatinine is 3.67, BUN 86, GFR 15. She was recently admitted for summer problems. Dr. Dey saw her last hospitalization on 11/07/2018. Echocardiogram on 11/07/2018, revealed diastolic dysfunction, moderate to severe tricuspid regurgitation, and mitral regurgitation. The patient is dyspneic, severely fluid overloaded, has chronic venous stasis disease, probably some component of lymphedema. She has history of morbid obesity, sleep apnea, hypertension, chronic kidney disease, noncompliance. Dr. Cheung is seeing the patient in consultation, asked me to see her regarding placement of hemodialysis catheter. At this point, we will plan placement of hemodialysis catheter and a central line and to facilitate dialysis, and later in the week, she is more stable, plan primary fistula. We will obtain ultrasound vein mapping in both arms for primary fistula placement. ALLERGIES: GABAPENTIN, TRAMADOL. SOCIAL HISTORY: Tobacco, none. Alcohol, none. HOME MEDICATIONS: Include, 1. Insulin. 2. Carvedilol. 3. Atorvastatin. 4. Aspirin. 5. Lasix. 6. Pepcid. PAST SURGICAL HISTORY: Tonsillectomy, cholecystectomy, C-sections. PAST MEDICAL HISTORY: Morbid obesity, diabetes mellitus, hypertension, elevated cholesterol, diastolic dysfunction, history of bilateral DVT, history of stroke with left-sided hemiparesis, degenerative joint disease, GERD, sleep apnea. The patient denies having had a hysterectomy. PHYSICAL EXAMINATION: VITAL SIGNS: Height is 4 feet and 11 inches, 193 pounds, 39 BMI, 97.7, 66, 197/86. HEAD, EARS, EYES, NOSE, AND THROAT: Unremarkable. LUNGS: Rhonchi at bases. CARDIAC: Regular rate and rhythm. ABDOMEN: Soft, obese. EXTREMITIES: Edematous. Chronic lymphedema, hyperpigmentation of the left wrist. ASSESSMENT AND PLAN: 1. End-stage renal disease. Plan placement of hemodialysis catheter and central line, IV sedation, local anesthesia tomorrow. She understands risks and benefits, consents. We will plan later placement of primary physician when she is medically more stable. 2. Morbid obesity. 3. Sleep apnea. 4. Hypertension. 5. Diabetes mellitus, insulin dependent. 6. History of prior stroke. 7. Cardiac diastolic dysfunction. Echocardiogram results as noted above. Of note, in August 2016, she did have a nuclear stress test. Cardiolite showed a fixed apical defect ischemia versus artifact. Global hypokinesis. Ejection fraction 45%. Job ID: [id number]
[2018-12-22] MEDS: Ondansetron ODT 4 MG TAB SL PRN ×2 (00:52→14:56)
[2018-12-22] MEDS: Piperacillin/Tazobactam 3.375 GM in Sodium Chloride 0.9% 100 ML IVPB SCH ×4 (02:44→20:41)
[2018-12-22] MEDS: Carvedilol 3.125 MG TAB PO SCH ×2 (05:19→20:38)
[2018-12-22] MEDS ORDERED: Propofol 500 MG/50 ML VIAL ONE (06:15)
[2018-12-22] MEDS ORDERED: Fentanyl 100 MCG/2 ML VIAL ONE (06:15)
[2018-12-22 06:25] LABS: Albumin 3.4 g/dL (3.4-4.8); Anion Gap 17 mmol/L (10-20); BUN (Urea Nitrogen) 87 mg/dL (9.8-20.1); BUN/Creatinine Ratio 24.37; Calc. Creatinine Clearance 23 mL/min (70-130); Calcium 9.1 mg/dL (7.8-10.44); Carbon Dioxide 14 mmol/L (23-31); Chloride 115 mmol/L (98-107); Estimated GFR-MDRD 16; Glucose 95 mg/dL (80-115); Iron 21 ug/dL (50-170); Iron Binding Capacity, Total 208 mcg/dL (265-497); Phosphorus 4.7 mg/dL (2.3-4.7); Potassium 4.2 mmol/L (3.5-5.1); Sodium 142 mmol/L (136-145)
[2018-12-22 06:44] LABS: Ferritin 177.18 ng/mL (10-291)
[2018-12-22] MEDS ORDERED: Heparin 10,000 UNITS/1 ML VIAL ONE (06:44)
[2018-12-22] MEDS ORDERED: Sodium Chloride 0.9% 10 ML ONE (06:44)
[2018-12-22] MEDS ORDERED: Lidocaine 2% PF 5 ML VIAL ONE (06:44)
[2018-12-22] MEDS ORDERED: Bupivacaine/Epinephrine 0.25% 30 ML VIAL ONE (06:44)
[2018-12-22 06:45] LABS: #Lymphocytes 0.6 thou/uL (1.20-3.40); #Monocytes 0.5 thou/uL (0.11-0.59); #Neutrophils 9.2 thou/uL (1.40-6.50); %Eosinophils 0.2 % (0.0-10.0); %Lymphocytes 5.5 % (21.0-51.0); %Neutrophils 89.4 % (42.0-75.0); Hemoglobin 8.4 g/dL (12.0-16.0); Mean Corpuscular HGB CONC 30.3 g/dL (32.0-36.0); Mean Corpuscular Hemoglobin 27.6 pg (27.0-31.0); Mean Corpuscular Volume 91.1 fL (78.0-98.0); Mean Platelet Volume 10.6 fL (7.4-10.4); Platelet Count 154 thou/uL (130-400); RBC Distribution Width 22.6 % (11.5-14.5); Red Blood Cell (RBC) Count 3.03 mill/uL (4.20-5.40); White Blood Cell (WBC) Count 10.2 thou/uL (4.8-10.8)
[2018-12-22 06:57] LABS: HBSAB Concentration 1.35 mIU/mL; HBSAg Index 0.22 S/CO (0-0.99); Hep B Core Total Ab Non-Reactive (NonReactive); Hep B Core Total Index 0.06 S/CO (0-0.79); Hep B Surf AB Non-Reactive (NonReactive); Hep B Surf Ag Non-Reactive S/CO (NonReactive); Hep C IgG Ab Non-Reactive (NonReactive); Hep C Index 0.07 S/CO (0-0.79)
[2018-12-22] MEDS ORDERED: Furosemide 80 MG TAB PO SCH (07:30)
[2018-12-22 07:33] LABS: Bite Cells SLIGHT = 2-5 cells (100X) (0-1/hpf); Hypochromia SLIGHT = 6-15 cells (100X) (0-5/hpf); MDiff Complete? YES; Platelet Morphology Comment Appears Adequate; Polychromasia SLIGHT = 2-3 cells (100X) (0-2/hpf); Schistocytes MODERATE= 6-15 cells (100X) (0-1/hpf)
[2018-12-22] MEDS ORDERED: Ondansetron HCl/PF 4 MG/2 ML Vial IVP PRN (08:06)
[2018-12-22] MEDS ORDERED: Promethazine HCl 25 MG/ML VIAL IM PRN (08:06)
[2018-12-22] MEDS ORDERED: Promethazine HCl 25 MG/ML VIAL SLOW IVP PRN (08:06)
[2018-12-22] MEDS ORDERED: Metolazone 5 MG TAB PO SCH (08:30)
--- NOTE | 2018-12-22 08:37 | RAD ---
EXAM: Single view of the chest HISTORY: Central line placement COMPARISON: 12/21/2018 FINDINGS: Single view of the chest shows an enlarged but stable cardiomediastinal silhouette. A righ t IJ dialysis catheter is seen with its tip in the superior vena cava. A left IJ central venous catheter seen with its tip in the superior vena cava. No pneumothorax is seen. There is no evidence of consolidation, mass, or pleural effusion. The bones are unremarkable. IMPRESSION: Status post central line placement without evidence of complication.
[2018-12-22] MEDS ORDERED: Vancomycin HCl 1 GM in Premix Bag 1 BAG IVPB SCH (09:00)
[2018-12-22] MEDS ORDERED: Heparin 10,000 UNITS/ 10 ML VIAL ONE (10:00)
[2018-12-22] MEDS ORDERED: PROPOFOL 200 MG/20 ML VIAL ONE (10:50)
--- NOTE | 2018-12-22 11:52 | OP ---
DATE OF PROCEDURE: 12/22/2018 PREOPERATIVE DIAGNOSES: End-stage renal disease, morbid obesity, metabolic syndrome, diabetes, hypertension, need of acute dialysis as soon as possible, and poor IV access. POSTOPERATIVE DIAGNOSES: End-stage renal disease, morbid obesity, metabolic syndrome, diabetes, hypertension, need of acute dialysis as soon as possible, and poor IV access. PROCEDURES PERFORMED: Right internal jugular cuffed tunneled hemodialysis catheter, AngioDynamics pre-curved; left IJ central line; ultrasound and fluoroscopy used. ANESTHESIA: Intravenous sedation, local 0.5% Marcaine with epinephrine 30 mL mixed with 2% Xylocaine 10 mL. DESCRIPTION OF PROCEDURE: The patient was taken to the operating room, where under intravenous sedation, neck and chest were prepared with ChloraPrep and draped in routine fashion. Local anesthetic was infiltrated in the skin and subcutaneous tissue about each of the operative site. Using ultrasound guidance, the right and left internal jugular veins were cannulated with trocar catheters, and a J-wire was threaded. Trocar catheter was removed. Skin was incised at the J-wire entry site and enlarged sharply with an 11 blade. Stab incision was made over the right chest for the planned exit site of the hemodialysis cuff tunneled dialysis catheter. Using Seldinger technique, a central line was placed on the left securing the catheter with 3-0 nylon and a Biopatch sterile dressing. Each port aspirated and blood flushed with saline solution. On the right side, the tunneling device was used to tunnel the pre-curved AngioDynamics hemodialysis catheter between the two incisions and placed the fabric cuff beneath the skin exit site securing the catheter with two interrupted sutures of 3-0 nylon. Sterile dressing was applied. Small and medium size dilators were placed over the J-wire into the internal jugular vein and removed. Dilator and Peel-Away sheath were placed over the J-wire into the superior vena cava, and the dilator and J-wire were removed, and catheter was placed over the Peel-Away sheath, and the Peel-Away sheath removed. Fluoroscopic images revealed good line placement. Platysma was approximated with 4-0 Monocryl, skin with subdermal 4-0 Monocryl, and [place] glue applied. Sterile dressings were applied. Each port was aspirated and blood flushed with saline solution and then heparinized saline solution 1000 units heparin per mL indicating the volume of the port. Job ID: [id number]
[2018-12-22] MEDS: HumaLOG 300 UNITS/3 ML VIAL SC SCH ×3 (14:54→17:18)
[2018-12-22] MEDS: Furosemide 100 MG/10 ML VIAL SLOW IVP SCH ×2 (15:18→17:03)
[2018-12-22] MEDS ORDERED: Tuberculin PPD 0.1 ML VIAL I-DERMAL SCH (15:30)
[2018-12-22] MEDS: Heparin 5,000 UNITS/ML VIAL SC SCH ×2 (17:01→20:38)
[2018-12-22] MEDS: hydrOXYzine 10 MG TAB PO SCH ×2 (17:02→20:38)
[2018-12-22] MEDS: Aspirin Chewable 81 MG TAB PO SCH (17:02)
[2018-12-22] MEDS: Atorvastatin Calcium 40 MG TAB PO SCH (17:02)
--- NOTE | 2018-12-22 18:24 | PRG ---
DATE OF SERVICE: SUBJECTIVE: The patient is seen and examined today at dialysis, status post dialysis catheter placement. Noted with the following vital signs. OBJECTIVE: VITAL SIGNS: Afebrile, temperature 98.2, pulse 53, respiratory rate of 20, O2 saturations are 95% with blood pressure of 128/58. HEENT: Unremarkable. CARDIOVASCULAR SYSTEM: First and second heart sounds were heard. RESPIRATORY: Clear to auscultation anteriorly. DIGESTIVE SYSTEM: Revealed obese abdomen. EXTREMITIES: Showed chronic lymph edema. IMPRESSION: 1. End-stage renal disease, initiated on dialysis today. 2. Hypervolemia, undergoing ultrafiltration with dialysis. 3. Anemia of chronic kidney disease, to be initiated on erythropoiesis-stimulating agent. PLAN: 1. The patient started on dialysis today with ultrafiltration as tolerated by hemodynamics. 2. Erythropoiesis-stimulating agent in addition to iron infusion. 3. Outpatient dialysis placement to be initiated. manager home healthcare consult to be placed for PPD and preparation for outpatient dialysis placement. 4. Renally dose all medications. 5. Discontinue all diuretics. 6. Further management to be dependent on the clinical course. Job ID: [id number]
[2018-12-22] MEDS ORDERED: EPOETIN ALFA-EPBX (ESRD) 10,000 UNIT/ML VIAL SC SCH (20:00)
[2018-12-22] MEDS: Famotidine 20 MG TAB PO SCH (20:38)
[2018-12-22] MEDS ORDERED: Calcium Carbonate 500 MG ChewTAB PO PRN (21:18)
--- NOTE | 2018-12-22 21:24 | PDOC.PN ---
- Subjective Encounter Start Date: 12/22/18 Encounter Start Time: 07:15 -: old records requested/rev Patient seen and examined. No new complaints. No overnight events today pt is planned for HD access and then HD, Niece in room and updated plan - Objective MAR Reviewed: Yes Vital Signs & Weight: Vital Signs (12 hours) Temp Pulse Pulse Pulse Resp BP BP 12/22/18 16:00 97.5 F L 59 L 16 12/22/18 13:50 69 60 128/58 L 130/58 L BP Pulse Ox 12/22/18 16:00 138/66 95 12/22/18 13:50 Weight Admit Weight 193 lb 14.4 oz Weight 193 lb 14.4 oz Result Diagrams: 12/22/18 05:17 12/22/18 05:17 Additional Labs: Accuchecks 12/22/18 12/22/18 12/22/18 16:40 13:47 06:14 POC Glucose 115 H 103 111 H EKG Reviewed by me: Yes Phys Exam - Physical Examination Constitutional: NAD HEENT: PERRLA, moist MMs, sclera anicteric Neck: no JVD, supple Respiratory: no wheezing, no rales, no rhonchi Cardiovascular: RRR, no significant murmur, no rub Gastrointestinal: soft, non-tender, no distention, positive bowel sounds Musculoskeletal: pulses present, edema present Neurological: non-focal, normal sensation Lymphatic: no nodes Psychiatric: normal affect Skin: no rash, normal turgor Dx/Plan (1) Bacteremia due to Gram-positive bacteria Code(s): R78.81 - BACTEREMIA Status: Acute (2) Acute on chronic diastolic ACC/AHA stage C congestive heart failure Code(s): I50.33 - ACUTE ON CHRONIC DIASTOLIC (CONGESTIVE) HEART FAILURE Status : Acute (3) ESRD (end stage renal disease) Code(s): N18.6 - END STAGE RENAL DISEASE Status: Acute (4) Uremia Code(s): N19 - UNSPECIFIED KIDNEY FAILURE Status: Acute (5) Anemia of renal disease Code(s): N18.9 - CHRONIC KIDNEY DISEASE, UNSPECIFIED; D63.1 - ANEMIA IN CHRONIC KIDNEY DISEASE Status: Chronic (6) CAD (coronary artery disease) Code(s): I25.10 - ATHSCL HEART DISEASE OF [place] CORONARY ARTERY W/O ANG PCTRS Status: Chronic Qualifiers: Comment: stable (7) DM2 (diabetes mellitus, type 2) Status: Chronic Comment: continue accuchecks, insulin sliding scale (8) Dyslipidemia Code(s): E78.5 - HYPERLIPIDEMIA, UNSPECIFIED Status: Chronic Comment: continue statin (9) GERD (gastroesophageal reflux disease) Code(s): K21.9 - GASTRO-ESOPHAGEAL REFLUX DISEASE WITHOUT ESOPHAGITIS Status: Chronic Qualifiers: (10) Hypertension Code(s): I10 - ESSENTIAL (PRIMARY) HYPERTENSION Status: Chronic Qualifiers: (11) Obesity (BMI 30-39.9) Code(s): E66.9 - OBESITY, UNSPECIFIED Status: Chronic (12) Physical deconditioning Code(s): R53.81 - OTHER MALAISE Status: Chronic - Plan cont current plan of care, plan discussed w/ family, continue antibiotics * today plan for HD access and then HD as per nephrology * pt's current symptoms related with uremia, she is needing HD * as her blood culture positive, will consult ID, unclear contaminant or real * will await identification of organism * will need outpt HD arrangement * currently on antibiotics. Review of Systems - Review of Systems ENT: negative: Ear Pain, Ear Discharge, Nose Pain, Nose Discharge, Nose Congestion, Mouth Pain, Mouth Swelling, Throat Pain, Throat Swelling, Other Respiratory: negative: Cough, Dry, Shortness of Breath, Hemoptysis, SOB with Excertion, Pleuritic Pain, Sputum, Wheezing Cardiovascular: negative: chest pain, palpitations, orthopnea, paroxysmal nocturnal dyspnea, edema, light headedness, other Gastrointestinal: negative: Nausea, Vomiting, Abdominal Pain, Diarrhea, Constipation, Melena, Hematochezia, Other Genitourinary: negative: Dysuria, Frequency, Incontinence, Hematuria, Retention , Other Musculoskeletal: negative: Neck Pain, Shoulder Pain, Arm Pain, Back Pain, Hand Pain, Leg Pain, Foot Pain, Other - Medications/Allergies Allergies/Adverse Reactions: Allergies Allergy/AdvReac Type Severity Reaction Status Date / Time gabapentin Allergy Verified 11/05/18 16:58 tramadol Allergy Verified 12/21/18 12:05 Medications: Current Medications Acetaminophen (Tylenol) 1,000 mg PO Q6H PRN PRN Reason: Moderate to Severe Pain (6-10) Aspirin (Aspirin Chewable) 81 mg PO DAILY [facility] Last Admin: 12/22/18 17:02 Dose: 81 mg Atorvastatin Calcium (Lipitor) 40 mg PO DAILY [facility] Last Admin: 12/22/18 17:02 Dose: 40 mg Benzonatate (Tessalon) 100 mg PO Q6H PRN PRN Reason: Cough Bisacodyl (Dulcolax) 10 mg PO DAILYPRN PRN PRN Reason: Constipation Calcium Carbonate (Tums) 1,000 mg PO DAILYPRN PRN PRN Reason: Heartburn or Indigestion Carvedilol (Coreg) 3.125 mg PO BID [facility] Last Admin: 12/22/18 20:38 Dose: 3.125 mg Clonidine (Catapres) 0.1 mg PO Q4H PRN PRN Reason: SBP > 160____ Dextrose/Water (Dextrose 50%) 25 gm SLOW IVP PRN PRN PRN Reason: Hypoglycemia Epoetin Zack-epbx (Retacrit) 10,000 unit SC Q7D [facility] Last Admin: 12/22/18 20:24 Dose: Not Given Famotidine (Pepcid) 20 mg PO Q24HR [facility] Last Admin: 12/22/18 20:38 Dose: 20 mg Glucagon (Glucagon) 1 mg IM PRN PRN PRN Reason: Hypoglycemia Guaifenesin (Robitussin Sf) 200 mg PO Q4H PRN PRN Reason: Cough Heparin Sodium (Porcine) (Heparin) 5,000 units SC BID [facility] Last Admin: 12/22/18 20:38 Dose: Not Given Hydralazine HCl (Apresoline) 10 mg SLOW IVP Q4H PRN PRN Reason: SBP > 180 and HR < 70 Last Admin: 12/21/18 16:31 Dose: 10 mg Hydroxyzine HCl (Atarax) 10 mg PO BID [facility] Last Admin: 12/22/18 20:38 Dose: 10 mg Dextrose/Water (D5w) 1,000 mls @ 0 mls/hr IV .Q0M PRN PRN Reason: Hypoglycemia Vancomycin HCl 1.25 gm/ Sodium (Chloride) 250 mls @ 166.667 mls/hr IVPB WILLCALL [facility] Vancomycin HCl 1 gm/ Device 200 mls @ 200 [facility]ls/[facility] Vancom[facility] HCl 750 mg/ Sodium (Chloride) 250 mls @ 250 mls/hr IVPB WILLCALL [facility] Vancomycin HCl 500 mg/ Sodium (Chloride) 100 mls @ 100 mls/hr IVPB WILLCALL [facility] Piperacillin Sod/Tazobactam (Sod 3.375 gm/ Sodium Chloride) 100 mls @ 200 mls/ hr IVPB 0300,0900,1500,2100 [facility] Last Admin: 12/22/18 20:41 Dose: 100 mls Ferric Sodium Gluconate Complex 125 mg/ Sodium Chloride 110 mls @ 110 mls/hr IVPB DAILY [facility] Insulin Human Lispro (Humalog) 5 units SC TID-WM [facility] Last Admin: 12/22/18 17:18 Dose: Not Given Insulin Human Lispro (Humalog) 0 units SC .MODERATE SLIDING SC PRN PRN Reason: Moderate Correctional Scale Last Admin: 12/21/18 14:32 Dose: 2 unit Insulin Human Lispro (Humalog) 0 units SC .BEDTIME SLIDING SC PRN PRN Reason: Bedtime Correctional Scale Miscellaneous Medication (Pharmacy To Dose) 0 each IVPB PRN PRN PRN Reason: PHARMTODOSE Morphine Sulfate (Morphine) 2 mg SLOW IVP Q4H PRN PRN Reason: Pain Last Admin: 12/21/18 20:57 Dose: 2 mg Nitroglycerin (Nitrostat) 0.4 mg SL Q5MIN PRN PRN Reason: Chest Pain Read Ppd Test Site 0 each PO ONE [facility] Stop: 12/24/18 09:01 Ondansetron HCl (Zofran Odt) 4 mg SL Q6H PRN PRN Reason: Nausea/Vomiting Last Admin: 12/22/18 14:56 Dose: 4 mg Ondansetron HCl (Zofran) 4 mg IVP Q6H PRN PRN Reason: Nausea/Vomiting Senna/Docusate Sodium (Senokot S) 2 tab PO BID PRN PRN Reason: Constipation Sodium Chloride ([place] Nasal [place] 0.65%) 0 ml EA NARE QIDPRN PRN PRN Reason: Nasal Congestion Sodium Chloride (Flush - Normal Saline) 10 ml IVF Q12HR [facility] Last Admin: 12/22/18 20:42 Dose: 10 ml Sodium Chloride (Flush - Normal Saline) 10 ml IVF PRN PRN PRN Reason: Saline Flush Tramadol HCl (Ultram) 50 mg PO Q6H PRN PRN Reason: Moderate Pain (4-6) Zinc Acetate/Diphenhydramine (Benadryl 2% Cream) 1 gm TOP QID PRN PRN Reason: itiching Last Admin: 12/21/18 16:32 Dose: 1 applic
--- NOTE | 2018-12-22 21:51 | CON ---
DATE OF CONSULTATION: 12/22/2018 REASON FOR CONSULTATION: Bacteremia. HISTORY OF PRESENT ILLNESS: A 63-year-old patient whom I had seen few years ago when she presented with a history of obesity, diastolic CHF and stage 3 renal insufficiency associated with type 2 diabetes and bacteremia. The organism was streptococcus mitis oralis and had a transesophageal echocardiogram, which was normal and the patient had abdomen and pelvis CT, which did not show any inflammatory process. She had 2 admissions in 2017 for decompensated CHF and then the 3rd one with a left flank pain, which was felt to be musculoskeletal. In 2018, she was admitted twice with decompensated CHF. In July 2018, she presented with volume overload and hyperkalemia associated with progression of her renal disease and finally in October 2018, she came in with decompensated diastolic CHF. At that time, her echo showed an EF of 50% to 55% with restrictive filling pattern. This time, she presented with general malaise, pain in the mid abdominal area and worsening dyspnea. She also noticed some foul odor in her urine, but denied any fever or chills. No headaches, no visual symptoms, change beyond her usual poor vision. No sore throat, odynophagia, dysphagia. She has chronic low back pain. No diarrhea, hematemesis or melena. We have 2 sets of blood cultures now with gram-positive rods, yet to be identified. She appears chronically ill. She had a catheter inserted in the right IJ position and a triple-lumen catheter in the left IJ and had 1 course of dialysis this morning. PAST MEDICAL HISTORY: Type 2 diabetes, end-stage renal disease, diastolic heart failure, GERD, hypertension, DVT 10 years prior to this admission, venous insufficiency, lymphedema. PAST SURGICAL HISTORY: Cataracts, tonsillectomy, cholecystectomy, , tubal ligation. SOCIAL HISTORY: Lives with family members in [place]. Never smoker. ALLERGIES: GABAPENTIN, TRAMADOL, HYDROCODONE. CURRENT MEDICATIONS: 1. Tylenol. 2. Aspirin. 3. Lipitor. 4. Tessalon. 5. Dulcolax. 6. Coreg. 7. Catapres. 8. Pepcid. 9. Apresoline. 10. Atarax. 11. Insulin. 12. Zaroxolyn. 13. Morphine. 14. Zofran. 15. Zosyn. 16. Vancomycin. PHYSICAL EXAMINATION: VITAL SIGNS: T-max 98.1, blood pressure 120/50, pulse is 59, respirations 16, and O2 saturation 95. SKIN: With lower extremity lymphedema and stasis dermatitis. No lymphadenopathy. Ocular movements are conjugate. Oral cavity, no remarkable findings. NECK: Supple, no jugular vein distention. LUNGS: With faint basilar crackles. No wheezing. HEART: S1 and S2. Systolic ejection murmur at the aortic area. No S3. ABDOMEN: Soft, not distended or tender. No ascites. No bladder distention. The abdominal folds are kind of prominent. She has degenerative joint disease in knees and ankles. Pulses are diminished in dorsalis pedis. She has 2+ edema in lower extremities. She is able to move extremities, but she is diffusely weak. She is awake, oriented, follows commands. LABORATORY DATA: Sodium 142, creatinine 3.57. Baseline was 1.87 in July, potassium 4.2, carbon dioxide was 14, calcium 9.1, iron 21, AST 22, ALT 19, alkaline phosphatase 303, CK 65. BNP 4800, albumin 3.6. Urinalysis was fairly unremarkable except for moderate blood. Hepatitis serology nonreactive. IMAGING: Chest x-ray with central line placement. No evidence of complication. Stable cardiomediastinal silhouette. Abdomen and pelvis CT from November with mild hepatomegaly, small amount of ascites, diffuse subcutaneous edema, cholecystectomy. ASSESSMENT: Type 2 diabetes with progression of renal failure, volume overload, which has led to admission and initiation of dialytic therapy. Now, she has 2/2 sets of blood cultures with gram-positive rods, yet to be identified, susceptibility tested. She did have neutrophilia with bandemia on admission and some abdominal pain. Right now, the abdominal tenderness has resolved and is not clear, if this was related to her uremic symptoms. She already had an abdomen and pelvis CT with no contrast administered, which would limit the sensitivity of the test. We will wait for the final identification of the organism to determine, if this needs to be treated or not or if it represents contamination of the sample. It is possible that all her symptomatology is related to the advancement of the uremic symptoms rather than true inflammatory process. Job ID: [id number]
[2018-12-23] MEDS: Nitroglycerin 0.4 MG TAB (25 Tab Bottle) SL PRN ×2 (03:25→03:38)
[2018-12-23] MEDS: Piperacillin/Tazobactam 3.375 GM in Sodium Chloride 0.9% 100 ML IVPB SCH ×4 (04:02→21:27)
[2018-12-23 05:53] LABS: Anion Gap 17 mmol/L (10-20); BUN (Urea Nitrogen) 65 mg/dL (9.8-20.1); Calc. Creatinine Clearance 26 mL/min (70-130); Calcium 8.6 mg/dL (7.8-10.44); Carbon Dioxide 15 mmol/L (23-31); Chloride 111 mmol/L (98-107); Estimated GFR-MDRD 18; Glucose 120 mg/dL (80-115); Phosphorus 4.5 mg/dL (2.3-4.7); Potassium 4.2 mmol/L (3.5-5.1); Sodium 139 mmol/L (136-145)
[2018-12-23 06:13] LABS: #Basophils 0.2 thou/uL (0.0-0.2); #Lymphocytes 0.6 thou/uL (1.20-3.40); #Monocytes 0.6 thou/uL (0.11-0.59); #Neutrophils 7.1 thou/uL (1.40-6.50); %Eosinophils 0.6 % (0.0-10.0); %Lymphocytes 6.8 % (21.0-51.0); %Monocytes 6.6 % (0.0-10.0); Anisocytosis SLIGHT = 6-15 cells (100X) (0-5/hpf); Hemoglobin 7.8 g/dL (12.0-16.0); MDiff Complete? YES; Mean Corpuscular HGB CONC 30.4 g/dL (32.0-36.0); Mean Corpuscular Hemoglobin 28.5 pg (27.0-31.0); Mean Corpuscular Volume 93.9 fL (78.0-98.0); Mean Platelet Volume 10.7 fL (7.4-10.4); Platelet Count 137 thou/uL (130-400); RBC Distribution Width 23.1 % (11.5-14.5); Red Blood Cell (RBC) Count 2.72 mill/uL (4.20-5.40); Schistocytes MODERATE= 6-15 cells (100X) (0-1/hpf); White Blood Cell (WBC) Count 8.4 thou/uL (4.8-10.8)
--- NOTE | 2018-12-23 08:48 | ULT ---
BILATERAL UPPER EXTREMITY VEIN MAPPING: Date: 12/23/18 HISTORY: End-stage renal disease. Vein mapping for dialysis access. FINDINGS: RIGHT UPPER EXTREMITY CEPHALIC VEIN Proximal Arm: 3.3 mm Mid Arm: 4.2 mm Distal Arm: 3.3 mm Antecubital Fossa: 4.2 mm Proximal Forearm: 2.2 mm Mid Forearm: 1.2 mm Distal Forearm: 1.5 mm BASILIC VEIN Proximal Arm: 4.3 mm Mid Arm: 2.7 mm Distal Arm: 2.4 mm Antecubital Fossa: 3.4 mm Proximal Forearm: 1.6 mm Mid Forearm: 0.9 mm Distal Forearm: 0.6 mm LEFT UPPER EXTREMITY CEPHALIC VEIN Proximal Arm: 3.7 mm Mid Arm: 4.3 mm Distal Arm: 3.9 mm Antecubital Fossa: 2.5 mm Proximal Forearm: 1.3 mm Mid Forearm: 4.8 mm Distal Forearm: 2.5 mm BASILIC VEIN Proximal Arm: 5.0 mm Mid Arm: 4.8 mm Distal Arm: 4.6 mm Antecubital Fossa: 4.6 mm Proximal Forearm: 2.4 mm Mid Forearm: 1.2 mm Distal Forearm: 2.2 mm RIGHT BRACHIAL ARTERY: 3.5 mm RIGHT RADIAL ARTERY: 1.5 mm RIGHT ULNAR ARTERY: 1.5 mm LEFT BRACHIAL ARTERY: 3.4 mm LEFT RADIAL ARTERY: 1.5 mm LEFT ULNAR ARTERY: 1.8 mm IMPRESSION: Vein mapping as described above. POS: [facility]
[2018-12-23] MEDS: HumaLOG 300 UNITS/3 ML VIAL SC SCH ×3 (09:14→18:08)
[2018-12-23] MEDS: Aspirin Chewable 81 MG TAB PO SCH (09:15)
[2018-12-23] MEDS: Atorvastatin Calcium 40 MG TAB PO SCH (09:15)
[2018-12-23] MEDS: Acetaminophen 500 MG TAB PO PRN ×2 (09:15→18:09)
[2018-12-23] MEDS: hydrOXYzine 10 MG TAB PO SCH ×2 (09:15→21:27)
[2018-12-23] MEDS: Heparin 5,000 UNITS/ML VIAL SC SCH ×2 (09:16→21:27)
[2018-12-23] MEDS: Carvedilol 3.125 MG TAB PO SCH ×2 (09:16→21:26)
[2018-12-23] MEDS ORDERED: CEFAZOLIN 2 GM in Premix Bag 1 BAG IVPB SCH (09:30)
[2018-12-23] MEDS: Iron, Sodium Ferric Gluconate 125 MG in Sodium Chloride 0.9% 100 ML IVPB SCH (10:42)
[2018-12-23 10:51] LABS: Vancomycin, Trough 8.1 ug/mL
[2018-12-23] MEDS ORDERED: Vancomycin HCl 1 GM in Premix Bag 1 BAG IVPB SCH ×2 (11:30→12:00)
--- NOTE | 2018-12-23 11:51 | PDOC.PN ---
- Subjective Encounter Start Date: 12/23/18 Encounter Start Time: 10:15 Patient seen and examined. No new complaints. No overnight events - Objective MAR Reviewed: Yes Vital Signs & Weight: Vital Signs (12 hours) Temp Pulse Resp BP Pulse Ox 12/23/18 11:41 98.6 F 61 16 121/63 92 L 12/23/18 09:12 99 F 63 16 131/63 94 L 12/23/18 08:00 94 L 12/23/18 04:00 97.2 F L 60 20 153/70 H 98 12/23/18 00:00 97.6 F 61 18 114/57 L 93 L Weight Admit Weight 193 lb 14.4 oz Weight 193 lb 14.4 oz Result Diagrams: 12/23/18 04:43 12/23/18 04:43 Additional Labs: Accuchecks 12/23/18 12/23/18 12/22/18 10:37 06:19 21:27 POC Glucose 163 H 127 H 170 H 12/22/18 12/22/18 16:40 13:47 POC Glucose 115 H 103 EKG Reviewed by me: Yes Phys Exam - Physical Examination Constitutional: NAD HEENT: PERRLA, moist MMs, sclera anicteric Neck: no JVD, supple Respiratory: no wheezing, no rales, no rhonchi Cardiovascular: RRR, no significant murmur, no rub Gastrointestinal: soft, non-tender, no distention, positive bowel sounds Musculoskeletal: pulses present, edema present Neurological: non-focal Lymphatic: no nodes Psychiatric: normal affect Skin: no rash, normal turgor Dx/Plan (1) Bacteremia due to Gram-positive bacteria Code(s): R78.81 - BACTEREMIA Status: Acute (2) Acute on chronic diastolic ACC/AHA stage C congestive heart failure Code(s): I50.33 - ACUTE ON CHRONIC DIASTOLIC (CONGESTIVE) HEART FAILURE Status : Acute (3) ESRD (end stage renal disease) Code(s): N18.6 - END STAGE RENAL DISEASE Status: Acute (4) Uremia Code(s): N19 - UNSPECIFIED KIDNEY FAILURE Status: Acute (5) Anemia of renal disease Code(s): N18.9 - CHRONIC KIDNEY DISEASE, UNSPECIFIED; D63.1 - ANEMIA IN CHRONIC KIDNEY DISEASE Status: Chronic (6) CAD (coronary artery disease) Code(s): I25.10 - ATHSCL HEART DISEASE OF [place] CORONARY ARTERY W/O ANG PCTRS Status: Chronic Qualifiers: Comment: stable (7) DM2 (diabetes mellitus, type 2) Status: Chronic Comment: continue accuchecks, insulin sliding scale (8) Dyslipidemia Code(s): E78.5 - HYPERLIPIDEMIA, UNSPECIFIED Status: Chronic Comment: continue statin (9) GERD (gastroesophageal reflux disease) Code(s): K21.9 - GASTRO-ESOPHAGEAL REFLUX DISEASE WITHOUT ESOPHAGITIS Status: Chronic Qualifiers: (10) Hypertension Code(s): I10 - ESSENTIAL (PRIMARY) HYPERTENSION Status: Chronic Qualifiers: (11) Obesity (BMI 30-39.9) Code(s): E66.9 - OBESITY, UNSPECIFIED Status: Chronic (12) Physical deconditioning Code(s): R53.81 - OTHER MALAISE Status: Chronic - Plan cont current plan of care, continue antibiotics * HD as per nephrology * outpt HD arrangement * medication reviewed as below * symptomatic treatment * pt will need AVF, US venous mapping done * discharge planning. Review of Systems - Review of Systems ENT: negative: Ear Pain, Ear Discharge, Nose Pain, Nose Discharge, Nose Congestion, Mouth Pain, Mouth Swelling, Throat Pain, Throat Swelling, Other Respiratory: negative: Cough, Dry, Shortness of Breath, Hemoptysis, SOB with Excertion, Pleuritic Pain, Sputum, Wheezing Cardiovascular: negative: chest pain, palpitations, orthopnea, paroxysmal nocturnal dyspnea, edema, light headedness, other Gastrointestinal: negative: Nausea, Vomiting, Abdominal Pain, Diarrhea, Constipation, Melena, Hematochezia, Other Genitourinary: negative: Dysuria, Frequency, Incontinence, Hematuria, Retention , Other Musculoskeletal: negative: Neck Pain, Shoulder Pain, Arm Pain, Back Pain, Hand Pain, Leg Pain, Foot Pain, Other - Medications/Allergies Allergies/Adverse Reactions: Allergies Allergy/AdvReac Type Severity Reaction Status Date / Time gabapentin Allergy Verified 11/05/18 16:58 tramadol Allergy Verified 12/21/18 12:05 Medications: Current Medications Acetaminophen (Tylenol) 1,000 mg PO Q6H PRN PRN Reason: Moderate to Severe Pain (6-10) Last Admin: 12/23/18 09:15 Dose: 1,000 mg Aspirin (Aspirin Chewable) 81 mg PO DAILY [facility] Last Admin: 12/23/18 09:15 Dose: 81 mg Atorvastatin Calcium (Lipitor) 40 mg PO DAILY [facility] Last Admin: 12/23/18 09:15 Dose: 40 mg Benzonatate (Tessalon) 100 mg PO Q6H PRN PRN Reason: Cough Bisacodyl (Dulcolax) 10 mg PO DAILYPRN PRN PRN Reason: Constipation Calcium Carbonate (Tums) 1,000 mg PO DAILYPRN PRN PRN Reason: Heartburn or Indigestion Last Admin: 12/22/18 21:52 Dose: 1,000 mg Carvedilol (Coreg) 3.125 mg PO BID [facility] Last Admin: 12/23/18 09:16 Dose: 3.125 mg Clonidine (Catapres) 0.1 mg PO Q4H PRN PRN Reason: SBP > 160____ Dextrose/Water (Dextrose 50%) 25 gm SLOW IVP PRN PRN PRN Reason: Hypoglycemia Epoetin Zack-epbx (Retacrit) 10,000 unit SC Q7D [facility] Last Admin: 12/22/18 20:24 Dose: Not Given Famotidine (Pepcid) 20 mg PO Q24HR [facility] Last Admin: 12/22/18 20:38 Dose: 20 mg Glucagon (Glucagon) 1 mg IM PRN PRN PRN Reason: Hypoglycemia Guaifenesin (Robitussin Sf) 200 mg PO Q4H PRN PRN Reason: Cough Heparin Sodium (Porcine) (Heparin) 5,000 units SC BID [facility] Last Admin: 12/23/18 09:16 Dose: 5,000 units Hydralazine HCl (Apresoline) 10 mg SLOW IVP Q4H PRN PRN Reason: SBP > 180 and HR < 70 Last Admin: 12/21/18 16:31 Dose: 10 mg Hydroxyzine HCl (Atarax) 10 mg PO BID [facility] Last Admin: 12/23/18 09:15 Dose: 10 mg Dextrose/Water (D5w) 1,000 mls @ 0 mls/hr IV .Q0M PRN PRN Reason: Hypoglycemia Vancomycin HCl 1.25 gm/ Sodium (Chloride) 250 mls @ 166.667 mls/hr IVPB WILLCALL [facility] Vancomycin HCl 1 gm/ Device 200 mls @ 200 mls/hr IVPB WILLCALL [facility] Vancomycin HCl 750 mg/ Sodium (Chloride) 250 mls @ 250 mls/hr IVPB [facility] Vancomycin HCl 500 mg/ Sodium (Chloride) 100 mls @ 100 mls/hr IVPB [facility] Piperacillin Sod/Tazobactam (Sod 3.375 gm/ Sodium Chloride) 100 mls @ 200 mls/ hr IVPB 0300,0900,1500,2100 [facility] Last Admin: 12/23/18 09:16 Dose: 100 mls Ferric Sodium Gluconate Complex 125 mg/ Sodium Chloride 110 mls @ 110 mls/hr IVPB DAILY [facility] Last Admin: 12/23/18 10:42 Dose: 110 mls Cefazolin Sodium/Dextrose 2 gm (/ Device) 50 mls @ 100 mls/hr IVPB ONCALL-[facility] Vancomycin HCl 1 gm/ Device 200 mls @ 200 mls/hr IVPB NOW [facility] Stop: 12/23/18 15:00 Insulin Human Lispro (Humalog) 5 units SC TID-[facility] Last Admin: 12/23/18 09:14 Dose: Not Given Insulin Human Lispro (Humalog) 0 units SC .MODERATE SLIDING SC PRN PRN Reason: Moderate Correctional Scale Last Admin: 12/21/18 14:32 Dose: 2 unit Insulin Human Lispro (Humalog) 0 units SC .BEDTIME SLIDING SC PRN PRN Reason: Bedtime Correctional Scale Miscellaneous Medication (Pharmacy To Dose) 0 each IVPB PRN PRN PRN Reason: PHARMTODOSE Morphine Sulfate (Morphine) 2 mg SLOW IVP Q4H PRN PRN Reason: Pain Last Admin: 12/21/18 20:57 Dose: 2 mg Nitroglycerin (Nitrostat) 0.4 mg SL Q5MIN PRN PRN Reason: Chest Pain Last Admin: 12/23/18 03:25 Dose: 1 tab Read Ppd Test Site 0 each PO ONE [facility] Stop: 12/24/18 09:01 Ondansetron HCl (Zofran Odt) 4 mg SL Q6H PRN PRN Reason: Nausea/Vomiting Last Admin: 12/22/18 14:56 Dose: 4 mg Ondansetron HCl (Zofran) 4 mg IVP Q6H PRN PRN Reason: Nausea/Vomiting Senna/Docusate Sodium (Senokot S) 2 tab PO BID PRN PRN Reason: Constipation Sodium Chloride ([place] Nasal [place] 0.65%) 0 ml EA NARE QIDPRN PRN PRN Reason: Nasal Congestion Sodium Chloride (Flush - Normal Saline) 10 ml IVF Q12HR [facility] Last Admin: 12/23/18 09:16 Dose: 10 ml Sodium Chloride (Flush - Normal Saline) 10 ml IVF PRN PRN PRN Reason: Saline Flush Tramadol HCl (Ultram) 50 mg PO Q6H PRN PRN Reason: Moderate Pain (4-6) Zinc Acetate/Diphenhydramine (Benadryl 2% Cream) 1 gm TOP QID PRN PRN Reason: itiching Last Admin: 12/21/18 16:32 Dose: 1 applic
[2018-12-23] MEDS ORDERED: Heparin 10,000 UNITS/ 10 ML VIAL ONE (12:00)
--- NOTE | 2018-12-23 20:49 | PRG ---
DATE OF SERVICE: 12/23/2018 SUBJECTIVE: The patient is seen and examined, seems to be doing much better. on dialysis today with ultrafiltration of about 3 L. Noted with the following vital signs. OBJECTIVE: VITAL SIGNS: Afebrile, temperature 97.9, pulse 63, respiratory rate of 16, O2 saturation of 94% with blood pressure 135/62. HEENT: Unremarkable. Moist oral mucosa. NECK: Supple. No conjunctival injection or icterus. CARDIOVASCULAR SYSTEM: First and second heart sounds were heard. RESPIRATORY SYSTEM: Clear to auscultation. DIGESTIVE SYSTEM: Revealed an obese abdomen. EXTREMITIES: Showed chronic lymphedema, which has improved since initiating this patient on dialysis. IMPRESSION: 1. End-stage renal disease with uremic symptoms on presentation, much improved. 2. Anemia of chronic kidney disease, on iron infusion and erythropoiesis-stimulating agent. 3. Morbid obesity. 4. Hypervolemia with respiratory failure, improving. PLAN: 1. We will continue with current dialysis regimen. 2. manager crisis consult for outpatient dialysis placement. Job ID: [id number]
[2018-12-23] MEDS: Famotidine 20 MG TAB PO SCH (21:26)
[2018-12-24] MEDS: Piperacillin/Tazobactam 3.375 GM in Sodium Chloride 0.9% 100 ML IVPB SCH ×4 (02:34→21:30)
[2018-12-24] MEDS: Carvedilol 3.125 MG TAB PO SCH ×2 (05:30→21:29)
[2018-12-24 05:49] LABS: #Monocytes 0.5 thou/uL (0.11-0.59); #Neutrophils 4.3 thou/uL (1.40-6.50); %Eosinophils 0.8 % (0.0-10.0); %Lymphocytes 16.6 % (21.0-51.0); %Monocytes 8.1 % (0.0-10.0); %Neutrophils 74.5 % (42.0-75.0); Anisocytosis MODERATE=16-30 cells (100X) (0-5/hpf); Hemoglobin 7.7 g/dL (12.0-16.0); MDiff Complete? YES; Mean Corpuscular HGB CONC 31.1 g/dL (32.0-36.0); Mean Corpuscular Hemoglobin 27.8 pg (27.0-31.0); Mean Corpuscular Volume 89.3 fL (78.0-98.0); Mean Platelet Volume 13.1 fL (7.4-10.4); Platelet Count 157 thou/uL (130-400); Platelet Morphology Comment Appears Adequate; Poikilocytosis SLIGHT = 6-15 cells (100X) (0-5/hpf); RBC Distribution Width 22.1 % (11.5-14.5); Red Blood Cell (RBC) Count 2.78 mill/uL (4.20-5.40); Schistocytes MODERATE= 6-15 cells (100X) (0-1/hpf); White Blood Cell (WBC) Count 5.8 thou/uL (4.8-10.8)
[2018-12-24 06:03] LABS: Anion Gap 14 mmol/L (10-20); BUN (Urea Nitrogen) 47 mg/dL (9.8-20.1); BUN/Creatinine Ratio 15.11; Calc. Creatinine Clearance 26 mL/min (70-130); Calcium 8.6 mg/dL (7.8-10.44); Carbon Dioxide 24 mmol/L (23-31); Chloride 105 mmol/L (98-107); Estimated GFR-MDRD 18; Glucose 117 mg/dL (80-115); Phosphorus 3.3 mg/dL (2.3-4.7); Potassium 3.5 mmol/L (3.5-5.1); Sodium 139 mmol/L (136-145)
[2018-12-24] MEDS: HumaLOG 300 UNITS/3 ML VIAL SC SCH ×3 (07:26→17:51)
[2018-12-24] MEDS: Acetaminophen 500 MG TAB PO PRN (08:45)
[2018-12-24] MEDS ORDERED: Heparin 10,000 UNITS/ 10 ML VIAL ONE (08:45)
[2018-12-24] MEDS ORDERED: PROPOFOL 200 MG/20 ML VIAL ONE (08:45)
[2018-12-24] MEDS ORDERED: READ PPD TEST SITE PO SCH (09:00)
[2018-12-24 09:17] LABS: Vancomycin, Trough 12.6 ug/mL
--- NOTE | 2018-12-24 10:32 | PDOC.PN ---
- Subjective Encounter Start Date: 12/24/18 Encounter Start Time: 07:20 pt seen in HD room, she is tolerating her HD, Patient seen and examined. No new complaints. No overnight events - Objective MAR Reviewed: Yes Vital Signs & Weight: Vital Signs (12 hours) Temp Pulse Resp BP Pulse Ox 12/24/18 07:53 98.6 F 60 20 132/67 93 L 12/24/18 03:32 97.9 F 62 16 137/65 95 12/24/18 00:13 98 F 65 16 109/63 95 Weight Admit Weight 193 lb 14.4 oz Weight 193 lb 14.4 oz I&O: 12/23/18 12/24/18 12/25/18 06:59 06:59 06:59 Intake Total 508 Output Total 500 Balance 8 Result Diagrams: 12/24/18 05:08 12/24/18 05:08 Additional Labs: Accuchecks 12/24/18 12/23/18 12/23/18 06:22 20:22 17:04 POC Glucose 124 H 142 H 120 H 12/23/18 10:37 POC Glucose 163 H EKG Reviewed by me: Yes Phys Exam - Physical Examination Constitutional: NAD HEENT: PERRLA, moist MMs, sclera anicteric Neck: no JVD, supple centrla line Respiratory: no wheezing, no rales, no rhonchi tunneled HD catheter+ Cardiovascular: RRR, no significant murmur, no rub Gastrointestinal: soft, non-tender, no distention, positive bowel sounds Musculoskeletal: pulses present chronic skin changes Neurological: non-focal, normal sensation Lymphatic: no nodes Psychiatric: normal affect, A&O x 3 Skin: no rash, normal turgor Dx/Plan (1) Bacteremia due to Gram-positive bacteria Code(s): R78.81 - BACTEREMIA Status: Acute Comment: cornebacterium, suspecting contamination (2) Acute on chronic diastolic ACC/AHA stage C congestive heart failure Code(s): I50.33 - ACUTE ON CHRONIC DIASTOLIC (CONGESTIVE) HEART FAILURE Status : Acute (3) ESRD (end stage renal disease) Code(s): N18.6 - END STAGE RENAL DISEASE Status: Acute Comment: started HD this admission (4) Uremia Code(s): N19 - UNSPECIFIED KIDNEY FAILURE Status: Acute Comment: Improving (5) Anemia of renal disease Code(s): N18.9 - CHRONIC KIDNEY DISEASE, UNSPECIFIED; D63.1 - ANEMIA IN CHRONIC KIDNEY DISEASE Status: Chronic (6) CAD (coronary artery disease) Code(s): I25.10 - ATHSCL HEART DISEASE OF [place] CORONARY ARTERY W/O ANG PCTRS Status: Chronic Qualifiers: Comment: stable (7) DM2 (diabetes mellitus, type 2) Status: Chronic Comment: continue accuchecks, insulin sliding scale (8) Dyslipidemia Code(s): E78.5 - HYPERLIPIDEMIA, UNSPECIFIED Status: Chronic Comment: continue statin (9) GERD (gastroesophageal reflux disease) Code(s): K21.9 - GASTRO-ESOPHAGEAL REFLUX DISEASE WITHOUT ESOPHAGITIS Status: Chronic Qualifiers: (10) Hypertension Code(s): I10 - ESSENTIAL (PRIMARY) HYPERTENSION Status: Chronic Qualifiers: (11) Obesity (BMI 30-39.9) Code(s): E66.9 - OBESITY, UNSPECIFIED Status: Chronic (12) Physical deconditioning Code(s): R53.81 - OTHER MALAISE Status: Chronic - Plan cont current plan of care, continue antibiotics, 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 * will need Home health on discharge Review of Systems - Review of Systems ENT: negative: Ear Pain, Ear Discharge, Nose Pain, Nose Discharge, Nose Congestion, Mouth Pain, Mouth Swelling, Throat Pain, Throat Swelling, Other Respiratory: negative: Cough, Dry, Shortness of Breath, Hemoptysis, SOB with Excertion, Pleuritic Pain, Sputum, Wheezing Cardiovascular: negative: chest pain, palpitations, orthopnea, paroxysmal nocturnal dyspnea, edema, light headedness, other Gastrointestinal: negative: Nausea, Vomiting, Abdominal Pain, Diarrhea, Constipation, Melena, Hematochezia, Other Genitourinary: negative: Dysuria, Frequency, Incontinence, Hematuria, Retention , Other Musculoskeletal: negative: Neck Pain, Shoulder Pain, Arm Pain, Back Pain, Hand Pain, Leg Pain, Foot Pain, Other Skin: negative: Rash, Lesions, Garry, Bruising, Other - Medications/Allergies Allergies/Adverse Reactions: Allergies Allergy/AdvReac Type Severity Reaction Status Date / Time gabapentin Allergy Verified 11/05/18 16:58 tramadol Allergy Verified 12/21/18 12:05 Medications: Current Medications Acetaminophen (Tylenol) 1,000 mg PO Q6H PRN PRN Reason: Moderate to Severe Pain (6-10) Last Admin: 12/24/18 08:45 Dose: 1,000 mg Aspirin (Aspirin Chewable) 81 mg PO DAILY [facility] Last Admin: 12/23/18 09:15 Dose: 81 mg Atorvastatin Calcium (Lipitor) 40 mg PO DAILY [facility] Last Admin: 12/23/18 09:15 Dose: 40 mg Benzonatate (Tessalon) 100 mg PO Q6H PRN PRN Reason: Cough Bisacodyl (Dulcolax) 10 mg PO DAILYPRN PRN PRN Reason: Constipation Calcium Carbonate (Tums) 1,000 mg PO DAILYPRN PRN PRN Reason: Heartburn or Indigestion Last Admin: 12/22/18 21:52 Dose: 1,000 mg Carvedilol (Coreg) 3.125 mg PO BID [facility] Last Admin: 12/24/18 05:30 Dose: 3.125 mg Clonidine (Catapres) 0.1 mg PO Q4H PRN PRN Reason: SBP > 160____ Dextrose/Water (Dextrose 50%) 25 gm SLOW IVP PRN PRN PRN Reason: Hypoglycemia Epoetin Zack-epbx (Retacrit) 10,000 unit SC Q7D [facility] Last Admin: 12/22/18 20:24 Dose: Not Given Famotidine (Pepcid) 20 mg PO Q24HR [facility] Last Admin: 12/23/18 21:26 Dose: 20 mg Glucagon (Glucagon) 1 mg IM PRN PRN PRN Reason: Hypoglycemia Guaifenesin (Robitussin Sf) 200 mg PO Q4H PRN PRN Reason: Cough Heparin Sodium (Porcine) (Heparin) 5,000 units SC BID [facility] Last Admin: 12/23/18 21:27 Dose: 5,000 units Hydralazine HCl (Apresoline) 10 mg SLOW IVP Q4H PRN PRN Reason: SBP > 180 and HR < 70 Last Admin: 12/21/18 16:31 Dose: 10 mg Hydroxyzine HCl (Atarax) 10 mg PO BID [facility] Last Admin: 12/23/18 21:27 Dose: 10 mg Dextrose/Water (D5w) 1,000 mls @ 0 mls/hr IV .Q0M PRN PRN Reason: Hypoglycemia Vancomycin HCl 1.25 gm/ Sodium (Chloride) 250 mls @ 166.667 mls/hr IVPB WILLCALL NINO Vancomycin HCl 1 gm/ Device 200 mls @ 200 mls/hr IVPB WILLCALL NINO Vancomycin HCl 750 mg/ Sodium (Chloride) 250 mls @ 250 mls/hr IVPB WILLCALL [facility] Last Admin: 12/24/18 10:19 Dose: 250 mls Vancomycin HCl 500 mg/ Sodium (Chloride) 100 mls @ 100 mls/hr IVPB [facility]INO Piperacillin Sod/Tazobactam (Sod 3.375 gm/ Sodium Chloride) 100 mls @ 200 mls/ hr IVPB 0300,0900,1500,2100 [facility] Last Admin: 12/24/18 02:34 Dose: 100 mls Ferric Sodium Gluconate Complex 125 mg/ Sodium Chloride 110 mls @ 110 mls/hr IVPB DAILY [facility] Last Admin: 12/23/18 10:42 Dose: 110 mls Cefazolin Sodium/Dextrose 2 gm (/ Device) 50 mls @ 100 mls/hr IVPB ONCALL-OR [facility] Insulin Human Lispro (Humalog) 5 units SC TID-[facility] Last Admin: 12/24/18 07:26 Dose: Not Given Insulin Human Lispro (Humalog) 0 units SC .MODERATE SLIDING SC PRN PRN Reason: Moderate Correctional Scale Last Admin: 12/21/18 14:32 Dose: 2 unit Insulin Human Lispro (Humalog) 0 units SC .BEDTIME SLIDING SC PRN PRN Reason: Bedtime Correctional Scale Miscellaneous Medication (Pharmacy To Dose) 0 each IVPB PRN PRN PRN Reason: PHARMTODOSE Morphine Sulfate (Morphine) 2 mg SLOW IVP Q4H PRN PRN Reason: Pain Last Admin: 12/21/18 20:57 Dose: 2 mg Nitroglycerin (Nitrostat) 0.4 mg SL Q5MIN PRN PRN Reason: Chest Pain Last Admin: 12/23/18 03:25 Dose: 1 tab Ondansetron HCl (Zofran Odt) 4 mg SL Q6H PRN PRN Reason: Nausea/Vomiting Last Admin: 12/22/18 14:56 Dose: 4 mg Ondansetron HCl (Zofran) 4 mg IVP Q6H PRN PRN Reason: Nausea/Vomiting Senna/Docusate Sodium (Senokot S) 2 tab PO BID PRN PRN Reason: Constipation Sodium Chloride ([place] Nasal [place] 0.65%) 0 ml EA NARE QIDPRN PRN PRN Reason: Nasal Congestion Sodium Chloride (Flush - Normal Saline) 10 ml IVF Q12HR [facility] Last Admin: 12/23/18 21:27 Dose: 10 ml Sodium Chloride (Flush - Normal Saline) 10 ml IVF PRN PRN PRN Reason: Saline Flush Tramadol HCl (Ultram) 50 mg PO Q6H PRN PRN Reason: Moderate Pain (4-6) Zinc Acetate/Diphenhydramine (Benadryl 2% Cream) 1 gm TOP QID PRN PRN Reason: itiching Last Admin: 12/21/18 16:32 Dose: 1 applic
[2018-12-24] MEDS: Heparin 5,000 UNITS/ML VIAL SC SCH ×2 (11:09→21:29)
[2018-12-24] MEDS: hydrOXYzine 10 MG TAB PO SCH ×2 (11:10→21:30)
[2018-12-24] MEDS ORDERED: Heparin 1,000 UNITS/ML VIAL ONE (11:11)
[2018-12-24] MEDS: Atorvastatin Calcium 40 MG TAB PO SCH (11:56)
[2018-12-24] MEDS: Iron, Sodium Ferric Gluconate 125 MG in Sodium Chloride 0.9% 100 ML IVPB SCH (11:56)
[2018-12-24] MEDS ORDERED: Protamine Sulfate 50 MG/5 ML VIAL ONE ×2 (16:42→16:51)
[2018-12-24] MEDS ORDERED: Lidocaine 2% PF 5 ML VIAL ONE ×2 (16:42→16:51)
[2018-12-24] MEDS ORDERED: Bupivacaine HCl 0.5%/Epinephrine 1:200,000/PF 30 ml Vial ONE ×2 (16:42→16:51)
[2018-12-24] MEDS ORDERED: Heparin 5,000 UNITS/ML VIAL ONE ×3 (16:42→16:51)
[2018-12-24] MEDS ORDERED: Fentanyl 100 MCG/2 ML VIAL ONE (16:58)
[2018-12-24] MEDS ORDERED: Midazolam HCl 2 mg/2 ml Vial ONE (16:58)
[2018-12-24] MEDS ORDERED: PACU-Morphine 4MG/ML VIAL SLOW IVP PRN (18:27)
[2018-12-24] MEDS ORDERED: Meperidine HCl/PF 25 MG/ML VIAL SLOW IVP PRN (18:27)
[2018-12-24] MEDS ORDERED: Ondansetron HCl/PF 4 MG/2 ML Vial IVP PRN (18:27)
[2018-12-24] MEDS ORDERED: HYDROmorphone 2 MG/ML VIAL SLOW IVP PRN (18:27)
[2018-12-24] MEDS ORDERED: Promethazine HCl 25 MG/ML VIAL IM PRN (18:27)
[2018-12-24] MEDS ORDERED: Promethazine HCl 25 MG/ML VIAL SLOW IVP PRN (18:27)
[2018-12-24] MEDS ORDERED: Morphine Sulfate 2 MG/ML SYRINGE SLOW IVP PRN (18:27)
[2018-12-24] MEDS: Aspirin Chewable 81 MG TAB PO SCH (19:58)
--- NOTE | 2018-12-24 20:19 | PRG ---
DATE OF SERVICE: 12/24/2018 SUBJECTIVE: The patient is seen and examined. OBJECTIVE: VITAL SIGNS: Noted with the following vital signs; afebrile, temperature 98.2, pulse 65, respiratory rate of 16, O2 saturation of 95%, blood pressure 146/65. HEENT: Unremarkable. Moist oral mucosa. No conjunctival injection or icterus. NECK: Supple. CARDIOVASCULAR SYSTEM: First and second heart sounds were heard. RESPIRATORY SYSTEM: Clear to auscultation. DIGESTIVE SYSTEM: Revealed a benign abdomen with positive bowel sounds. EXTREMITIES: No peripheral edema. SKIN: No new gross rash. LYMPHATICS: No peripheral lymphadenopathy. IMPRESSION: 1. End-stage renal disease, on hemodialysis. 2. Anemia of chronic kidney disease. 3. Hypovolemia, responding to dialysis. PLAN: 1. The patient will continue with dialysis prescription as documented. 2. Outpatient dialysis placement is being coordinated by the director of casework. 3. Further management to be dependent on the clinical course. Job ID: [id number]
--- NOTE | 2018-12-24 21:07 | OP ---
DATE OF PROCEDURE: 12/24/2018 PREOPERATIVE DIAGNOSIS: End-stage renal disease. Left handed, desires fistula right arm. POSTOPERATIVE DIAGNOSIS: End-stage renal disease. Left handed, desires fistula right arm. PROCEDURE PERFORMED: Right arm primary fistula, perforating branch antecubital vein to proximal radial artery outflow cephalic vein, only retrograde antecubital vein preserved. Note, the cephalic vein upper arm accepted a 4 mm coronary dilator, although there were some restrictions in the cephalic vein above the antecubital fossa that were dilated. She had a good Doppler signal at the end of the case and the cephalic vein outflow. She may need intervention to facilitate maturation in the future. ANESTHESIA: (refused regional) local 0.5% Marcaine with epinephrine 30 mL mixed with 2% Xylocaine 10 mL, 15 mL mixture used. Note, the patient preoperatively desired fistula in her right arm, even though veins in the left arm were probably better slightly. Nonetheless, right arm fistula was performed. DESCRIPTION OF PROCEDURE: The patient was taken to the operating room where under general anesthesia, right upper extremity was prepared with ChloraPrep and draped in routine fashion. Longitudinal incision was made in the proximal volar forearm below the antecubital fossa, carried down through the skin and subcutaneous tissue. The antecubital vein dissected free. There was no communication to the basilic vein. Perforating branch dissected free and branches were divided between the clips and spatulated over branch point and interrogated with coronary dilators with the above results. It was flushed with heparinized solution. The patient was given 6000 units heparin intravenously. Proximal radial artery clamped proximally and distally and longitudinal arteriotomy made sharply, elongated with Young scissors and the end perforating branch of antecubital vein to side proximal artery anastomosis created with continuous suture of 6-0 Prolene. Good hemostasis noted after the anastomosis. Vascular control released. There was good Doppler signals and cephalic vein outflow. The patient given 25 mg of protamine. The subcutaneous tissue was approximated with 3-0 Monocryl, skin with subdermal 4-0 Monocryl and [place] glue applied. Job ID: [id number]
[2018-12-24] MEDS: Famotidine 20 MG TAB PO SCH (21:29)
[2018-12-25] MEDS: Piperacillin/Tazobactam 3.375 GM in Sodium Chloride 0.9% 100 ML IVPB SCH (04:32)
[2018-12-25] MEDS: Morphine 4 MG/ML VIAL SLOW IVP PRN ×2 (05:45→12:43)
[2018-12-25 05:50] LABS: Albumin 2.9 g/dL (3.4-4.8); Anion Gap 15 mmol/L (10-20); BUN (Urea Nitrogen) 28 mg/dL (9.8-20.1); BUN/Creatinine Ratio 9.49; Calc. Creatinine Clearance 27 mL/min (70-130); Calcium 7.8 mg/dL (7.8-10.44); Carbon Dioxide 22 mmol/L (23-31); Chloride 103 mmol/L (98-107); Estimated GFR-MDRD 20; Glucose 100 mg/dL (80-115); Phosphorus 2.8 mg/dL (2.3-4.7); Potassium 3.7 mmol/L (3.5-5.1); Sodium 136 mmol/L (136-145)
[2018-12-25 06:02] LABS: Anisocytosis SLIGHT = 6-15 cells (100X) (0-5/hpf); Eosinophils 7 % (0-10); Hemoglobin 7.6 g/dL (12.0-16.0); Lymphocytes 28 % (21-51); MDiff Complete? YES; Mean Corpuscular HGB CONC 31.8 g/dL (32.0-36.0); Mean Corpuscular Hemoglobin 28.3 pg (27.0-31.0); Mean Corpuscular Volume 88.9 fL (78.0-98.0); Monocytes 6 % (0-10); Myelocyte 1 % (0-0); Neutrophil 58 % (42-75); Nucleated RBC 2 % (0); Platelet Count 168 thou/uL (130-400); Platelet Morphology Comment Appears Adequate; RBC Distribution Width 21.9 % (11.5-14.5); Red Blood Cell (RBC) Count 2.69 mill/uL (4.20-5.40); Schistocytes MODERATE= 6-15 cells (100X) (0-1/hpf); White Blood Cell (WBC) Count 6.6 thou/uL (4.8-10.8)
[2018-12-25] MEDS ORDERED: Cepastat Lozenges 1 LOZ PO PRN (06:43)
[2018-12-25] MEDS ORDERED: Zolpidem Tartrate 5 MG TAB PO PRN (06:43)
[2018-12-25] MEDS ORDERED: Loperamide HCl 2 MG CAP PO PRN (06:43)
[2018-12-25] MEDS: HumaLOG 300 UNITS/3 ML VIAL SC SCH ×2 (07:48→14:47)
[2018-12-25] MEDS ORDERED: Carvedilol 6.25 MG TAB PO SCH (09:00)
[2018-12-25] MEDS ORDERED: Heparin 1,000 UNITS/ML VIAL ONE (11:11)
--- NOTE | 2018-12-25 12:23 | PDOC.PN ---
- Subjective Encounter Start Date: 12/25/18 Encounter Start Time: 07:45 pt seen in dialysis room, she has no complaints, Patient seen and examined. No overnight events - Objective MAR Reviewed: Yes Vital Signs & Weight: Vital Signs (12 hours) Temp Pulse Resp BP Pulse Ox 12/25/18 04:00 98.5 F 62 16 121/60 96 Weight Admit Weight 193 lb 14.4 oz Weight 193 lb 14.4 oz I&O: 12/24/18 12/25/18 12/26/18 06:59 06:59 06:59 Intake Total 508 Output Total 500 Balance 8 Result Diagrams: 12/25/18 05:03 12/25/18 05:03 Additional Labs: Accuchecks 12/25/18 12/24/18 05:46 20:47 POC Glucose 106 163 H EKG Reviewed by me: Yes Phys Exam - Physical Examination Constitutional: NAD HEENT: PERRLA, moist MMs, sclera anicteric Neck: no JVD, supple Respiratory: no wheezing, no rales, no rhonchi Cardiovascular: RRR, no significant murmur, no rub Gastrointestinal: soft, non-tender, no distention, positive bowel sounds Musculoskeletal: pulses present, edema present chronic skin changes Neurological: non-focal, normal sensation Lymphatic: no nodes Psychiatric: normal affect Skin: no rash, normal turgor Dx/Plan (1) Acute on chronic diastolic ACC/AHA stage C congestive heart failure Code(s): I50.33 - ACUTE ON CHRONIC DIASTOLIC (CONGESTIVE) HEART FAILURE Status : Acute (2) Bacteremia due to Gram-positive bacteria Code(s): R78.81 - BACTEREMIA Status: Resolved Comment: cornebacterium, suspecting contamination (3) ESRD (end stage renal disease) Code(s): N18.6 - END STAGE RENAL DISEASE Status: Acute Comment: started HD this admission (4) Uremia Code(s): N19 - UNSPECIFIED KIDNEY FAILURE Status: Acute Comment: Improving (5) Anemia of renal disease Code(s): N18.9 - CHRONIC KIDNEY DISEASE, UNSPECIFIED; D63.1 - ANEMIA IN CHRONIC KIDNEY DISEASE Status: Chronic (6) CAD (coronary artery disease) Code(s): I25.10 - ATHSCL HEART DISEASE OF [place] CORONARY ARTERY W/O ANG PCTRS Status: Chronic Qualifiers: Comment: stable (7) DM2 (diabetes mellitus, type 2) Status: Chronic Comment: continue accuchecks, insulin sliding scale (8) Dyslipidemia Code(s): E78.5 - HYPERLIPIDEMIA, UNSPECIFIED Status: Chronic Comment: continue statin (9) GERD (gastroesophageal reflux disease) Code(s): K21.9 - GASTRO-ESOPHAGEAL REFLUX DISEASE WITHOUT ESOPHAGITIS Status: Chronic Qualifiers: (10) Hypertension Code(s): I10 - ESSENTIAL (PRIMARY) HYPERTENSION Status: Chronic Qualifiers: (11) Obesity (BMI 30-39.9) Code(s): E66.9 - OBESITY, UNSPECIFIED Status: Chronic (12) Physical deconditioning Code(s): R53.81 - OTHER MALAISE Status: Chronic - Plan cont current plan of care, social worker masters * will dc antibiotics as culture result is due to contaminant * await outpt HD arrangement * medication reviewed as below * symptomatic treatment * tried to call sister to update plan but no response. * add nephrovite Review of Systems - Review of Systems ENT: negative: Ear Pain, Ear Discharge, Nose Pain, Nose Discharge, Nose Congestion, Mouth Pain, Mouth Swelling, Throat Pain, Throat Swelling, Other Respiratory: negative: Cough, Dry, Shortness of Breath, Hemoptysis, SOB with Excertion, Pleuritic Pain, Sputum, Wheezing Cardiovascular: negative: chest pain, palpitations, orthopnea, paroxysmal nocturnal dyspnea, edema, light headedness, other Gastrointestinal: negative: Nausea, Vomiting, Abdominal Pain, Diarrhea, Constipation, Melena, Hematochezia, Other Genitourinary: negative: Dysuria, Frequency, Incontinence, Hematuria, Retention , Other Musculoskeletal: negative: Neck Pain, Shoulder Pain, Arm Pain, Back Pain, Hand Pain, Leg Pain, Foot Pain, Other - Medications/Allergies Allergies/Adverse Reactions: Allergies Allergy/AdvReac Type Severity Reaction Status Date / Time gabapentin Allergy Verified 11/05/18 16:58 tramadol Allergy Verified 12/21/18 12:05 Medications: Current Medications Acetaminophen (Tylenol) 1,000 mg PO Q6H PRN PRN Reason: Moderate to Severe Pain (6-10) Last Admin: 12/24/18 08:45 Dose: 1,000 mg Aspirin (Aspirin Chewable) 81 mg PO DAILY [facility]INO Last Admin: 12/24/18 19:58 Dose: 81 mg Atorvastatin Calcium (Lipitor) 40 mg PO DAILY [facility] Last Admin: 12/24/18 11:56 Dose: 40 mg Benzonatate (Tessalon) 100 mg PO Q6H PRN PRN Reason: Cough Bisacodyl (Dulcolax) 10 mg PO DAILYPRN PRN PRN Reason: Constipation Calcium Carbonate (Tums) 1,000 mg PO DAILYPRN PRN PRN Reason: Heartburn or Indigestion Last Admin: 12/22/18 21:52 Dose: 1,000 mg Carvedilol (Coreg) 6.25 mg PO BID [facility] Clonidine (Catapres) 0.1 mg PO Q4H PRN PRN Reason: SBP > 160____ Dextrose/Water (Dextrose 50%) 25 gm SLOW IVP PRN PRN PRN Reason: Hypoglycemia Epoetin Zack-epbx (Retacrit) 10,000 unit SC Q7D [facility] Last Admin: 12/22/18 20:24 Dose: Not Given Famotidine (Pepcid) 20 mg PO Q24HR [facility] Last Admin: 12/24/18 21:29 Dose: 20 mg Glucagon (Glucagon) 1 mg IM PRN PRN PRN Reason: Hypoglycemia Guaifenesin (Robitussin Sf) 200 mg PO Q4H PRN PRN Reason: Cough Heparin Sodium (Porcine) (Heparin) 5,000 units SC BID [facility] Last Admin: 12/24/18 21:29 Dose: 5,000 units Hydralazine HCl (Apresoline) 10 mg SLOW IVP Q4H PRN PRN Reason: SBP > 180 and HR < 70 Last Admin: 12/21/18 16:31 Dose: 10 mg Hydroxyzine HCl (Atarax) 10 mg PO BID [facility] Last Admin: 12/24/18 21:30 Dose: 10 mg Dextrose/Water (D5w) 1,000 mls @ 0 mls/hr IV .Q0M PRN PRN Reason: Hypoglycemia Ferric Sodium Gluconate Complex 125 mg/ Sodium Chloride 110 mls @ 110 mls/hr IVPB DAILY [facility] Last Admin: 12/24/18 11:56 Dose: 110 mls Cefazolin Sodium/Dextrose 2 gm (/ Device) 50 mls @ 100 mls/hr IVPB ONCALL-OR [facility] Insulin Human Lispro (Humalog) 5 units SC TID-[facility] Last Admin: 12/25/18 07:48 Dose: Not Given Insulin Human Lispro (Humalog) 0 units SC .MODERATE SLIDING SC PRN PRN Reason: Moderate Correctional Scale Last Admin: 12/21/18 14:32 Dose: 2 unit Insulin Human Lispro (Humalog) 0 units SC .BEDTIME SLIDING SC PRN PRN Reason: Bedtime Correctional Scale Loperamide HCl (Imodium) 2 mg PO PRN PRN PRN Reason: Diarrhea/Loose Stools Morphine Sulfate (Morphine) 2 mg SLOW IVP Q4H PRN PRN Reason: Pain Last Admin: 12/25/18 05:45 Dose: 2 mg Nitroglycerin (Nitrostat) 0.4 mg SL Q5MIN PRN PRN Reason: Chest Pain Last Admin: 12/23/18 03:25 Dose: 1 tab Ondansetron HCl (Zofran Odt) 4 mg SL Q6H PRN PRN Reason: Nausea/Vomiting Last Admin: 12/22/18 14:56 Dose: 4 mg Ondansetron HCl (Zofran) 4 mg IVP Q6H PRN PRN Reason: Nausea/Vomiting Senna/Docusate Sodium (Senokot S) 2 tab PO BID PRN PRN Reason: Constipation Sodium Chloride ([place] Nasal [place] 0.65%) 0 ml EA NARE QIDPRN PRN PRN Reason: Nasal Congestion Sodium Chloride (Flush - Normal Saline) 10 ml IVF Q12HR [facility] Last Admin: 12/24/18 21:39 Dose: 10 ml Sodium Chloride (Flush - Normal Saline) 10 ml IVF PRN PRN PRN Reason: Saline Flush Last Admin: 12/25/18 05:46 Dose: 10 ml Throat Lozenges (Cepastat Lozenges) 1 tay PO Q2H PRN PRN Reason: Sore Throat Tramadol HCl (Ultram) 50 mg PO Q6H PRN PRN Reason: Moderate Pain (4-6) Vitamin B Complex/Vit C/Folic Acid (Nephro-Jayjay Tablet) 1 tab PO DAILY [facility] Zinc Acetate/Diphenhydramine (Benadryl 2% Cream) 1 gm TOP QID PRN PRN Reason: itiching Last Admin: 12/21/18 16:32 Dose: 1 applic Zolpidem Tartrate (Ambien) 5 mg PO HSPRN PRN PRN Reason: Insomnia
[2018-12-25] MEDS: hydrOXYzine 10 MG TAB PO SCH ×2 (12:51→21:21)
[2018-12-25] MEDS: Aspirin Chewable 81 MG TAB PO SCH (12:51)
[2018-12-25] MEDS: Folic Acid/Vit B Comp W-C PO SCH (12:51)
[2018-12-25] MEDS: diphenhydrAMINE 30 GM TUBE TOP PRN ×2 (12:52→21:21)
[2018-12-25] MEDS: Carvedilol 6.25 MG TAB PO SCH ×2 (12:52→21:21)
[2018-12-25] MEDS: Iron, Sodium Ferric Gluconate 125 MG in Sodium Chloride 0.9% 100 ML IVPB SCH (12:52)
[2018-12-25] MEDS: Atorvastatin Calcium 40 MG TAB PO SCH (12:52)
[2018-12-25] MEDS: Heparin 5,000 UNITS/ML VIAL SC SCH ×2 (12:55→21:21)
--- NOTE | 2018-12-25 13:40 | PRG ---
DATE OF SERVICE: Any Gillis is doing well today. Her right arm fistula has a good thrill and bruit. She has soreness as expected. She may have a small hematoma, but there is no indication for intervention. At this point, she should exercise her arm. I will see her as needed. Her left IJ central line should be removed prior to discharge. She should follow up in my office in about 4 weeks. Job ID: [id number]
[2018-12-25] MEDS: HumaLOG 300 UNITS/3 ML VIAL SC PRN ×2 (14:24→18:03)
[2018-12-25] MEDS ORDERED: Sodium Chloride 0.9% 250 ML IV ONE (16:00)
--- NOTE | 2018-12-25 20:53 | PRG ---
DATE OF SERVICE: 12/25/2018 SUBJECTIVE: The patient was seen and examined with no new complaint. Noted with the following vital signs. OBJECTIVE: VITAL SIGNS: Afebrile. Temperature 98.7, pulse 64, respiratory rate of 18, O2 saturations are 92%, and blood pressure 109/53. HEENT: Unremarkable. CARDIOVASCULAR SYSTEM: First and second heart sounds were heard. RESPIRATORY SYSTEM: Clear to auscultation. DIGESTIVE SYSTEM: Revealed a benign abdomen. EXTREMITIES: Showed improved peripheral edema. IMPRESSION: 1. End-stage renal disease, on hemodialysis. 2. Uremia, resolved. PLAN: 1. manager lighting is working actively on outpatient dialysis placement. 2. We will continue current dialysis regimen. 3. Erythropoiesis-stimulating agent to be continued. Job ID: [id number]
[2018-12-25] MEDS: Famotidine 20 MG TAB PO SCH (21:21)
[2018-12-26] MEDS ORDERED: Carvedilol 6.25 MG TAB PO SCH (09:10)
[2018-12-26] MEDS: Atorvastatin Calcium 40 MG TAB PO SCH (09:40)
[2018-12-26] MEDS: Heparin 5,000 UNITS/ML VIAL SC SCH ×2 (09:40→21:00)
[2018-12-26] MEDS: diphenhydrAMINE 30 GM TUBE TOP PRN (09:40)
--- NOTE | 2018-12-26 09:40 | EKG ---
Test Reason : WEAKNESS Blood Pressure : / mmHG Vent. Rate : 080 BPM Atrial Rate : 080 BPM P-R Int : 238 ms QRS Dur : 076 ms QT Int : 394 ms P-R-T Axes : 011 004 -44 degrees QTc Int : 454 ms Sinus rhythm with 1st degree A-V block Nonspecific T wave abnormality Abnormal ECG Confirmed by CARROLL PEGUERO, COLLETTE ([id number]), electronic news gathering editor BELKIS SIMPSON ([id number]) on 12/26/2018 9:40:14 AM Referred By: Confirmed By:COLLETTE HODGES MD
[2018-12-26] MEDS: Aspirin Chewable 81 MG TAB PO SCH (09:41)
[2018-12-26] MEDS: hydrOXYzine 10 MG TAB PO SCH ×2 (09:41→20:58)
[2018-12-26] MEDS: Folic Acid/Vit B Comp W-C PO SCH (09:41)
[2018-12-26] MEDS: Carvedilol 3.125 MG TAB PO SCH ×2 (09:41→20:57)
[2018-12-26] MEDS: Iron, Sodium Ferric Gluconate 125 MG in Sodium Chloride 0.9% 100 ML IVPB SCH (09:42)
--- NOTE | 2018-12-26 10:02 | PRG ---
DATE OF SERVICE: 12/26/2018 SUBJECTIVE: The patient was seen and examined, noted with the following vital signs. OBJECTIVE: VITAL SIGNS: Afebrile, temperature 97.7, pulse 64, respiratory rate of 16, O2 saturation of 94%, and blood pressure 199/64 to 108/55. HEENT: Examination unremarkable. CARDIOVASCULAR SYSTEM: First and second heart sounds were heard. RESPIRATORY SYSTEM: Clear to auscultation. DIGESTIVE SYSTEM: Revealed a benign abdomen with positive bowel sounds. EXTREMITIES: No peripheral edema. SKIN: No new gross rash. LYMPHATICS: No peripheral lymphadenopathy. IMPRESSION: 1. End-stage renal disease, on hemodialysis. 2. Anemia of chronic kidney disease. 3. Relative hypotension. PLAN: 1. The patient is already on dialysis schedule and has been transitioned over to Saturday, , and Saturday schedule. 2. Continue erythropoiesis-stimulating agents. 3. Adjust antihypertensive medications, Coreg down to optimize hemodynamics. 4. Further management to be dependent on the clinical course. Job ID: [id number]
[2018-12-26] MEDS: Carvedilol 6.25 MG TAB PO SCH (11:14)
--- NOTE | 2018-12-26 11:16 | PDOC.PN ---
- Subjective Encounter Start Date: 12/26/18 Encounter Start Time: 07:45 Patient seen and examined. No new complaints. No overnight events - Objective Resuscitation Status - Order Detail: 12/26/18 07:38 Resuscitation Status Routine Resuscitation Status: FULL: Full Resuscitation MAR Reviewed: Yes Vital Signs & Weight: Vital Signs (12 hours) Temp Pulse Pulse Resp BP BP Pulse Ox 12/26/18 08:50 63 115/67 12/26/18 07:35 97.7 F 64 16 99/64 94 L 12/26/18 05:40 96 12/26/18 04:00 97.9 F 70 16 108/55 L 97 12/25/18 23:57 97.7 F 70 16 125/58 L 94 L Pulse Ox 12/26/18 08:50 96 12/26/18 07:35 12/26/18 05:40 12/26/18 04:00 12/25/18 23:57 Weight Admit Weight 193 lb 14.4 oz Weight 193 lb 14.4 oz I&O: 12/25/18 12/26/18 12/27/18 06:59 06:59 06:59 Intake Total 1016 Output Total 4000 Balance -2984 Result Diagrams: 12/25/18 05:03 12/25/18 05:03 Additional Labs: Accuchecks 12/26/18 12/25/18 12/25/18 06:12 20:12 15:38 POC Glucose 144 H 121 H 165 H 12/25/18 14:18 POC Glucose 151 H EKG Reviewed by me: Yes Phys Exam - Physical Examination Constitutional: NAD HEENT: PERRLA, moist MMs, sclera anicteric Neck: no JVD, supple Respiratory: no wheezing, no rales, no rhonchi Cardiovascular: RRR, no significant murmur, no rub Gastrointestinal: soft, non-tender, no distention, positive bowel sounds Musculoskeletal: pulses present chronic skin changes Neurological: non-focal, normal sensation, moves all 4 limbs Lymphatic: no nodes Psychiatric: normal affect, A&O x 3 Skin: no rash, normal turgor Dx/Plan (1) Acute on chronic diastolic ACC/AHA stage C congestive heart failure Code(s): I50.33 - ACUTE ON CHRONIC DIASTOLIC (CONGESTIVE) HEART FAILURE Status : Acute (2) Bacteremia due to Gram-positive bacteria Code(s): R78.81 - BACTEREMIA Status: Resolved Comment: cornebacterium, suspecting contamination (3) ESRD (end stage renal disease) Code(s): N18.6 - END STAGE RENAL DISEASE Status: Acute Comment: started HD this admission (4) Uremia Code(s): N19 - UNSPECIFIED KIDNEY FAILURE Status: Acute Comment: Improving (5) Anemia of renal disease Code(s): N18.9 - CHRONIC KIDNEY DISEASE, UNSPECIFIED; D63.1 - ANEMIA IN CHRONIC KIDNEY DISEASE Status: Chronic (6) CAD (coronary artery disease) Code(s): I25.10 - ATHSCL HEART DISEASE OF [place] CORONARY ARTERY W/O ANG PCTRS Status: Chronic Qualifiers: Comment: stable (7) DM2 (diabetes mellitus, type 2) Status: Chronic Comment: continue accuchecks, insulin sliding scale (8) Dyslipidemia Code(s): E78.5 - HYPERLIPIDEMIA, UNSPECIFIED Status: Chronic Comment: continue statin (9) GERD (gastroesophageal reflux disease) Code(s): K21.9 - GASTRO-ESOPHAGEAL REFLUX DISEASE WITHOUT ESOPHAGITIS Status: Chronic Qualifiers: (10) Hypertension Code(s): I10 - ESSENTIAL (PRIMARY) HYPERTENSION Status: Chronic Qualifiers: (11) Obesity (BMI 30-39.9) Code(s): E66.9 - OBESITY, UNSPECIFIED Status: Chronic (12) Physical deconditioning Code(s): R53.81 - OTHER MALAISE Status: Chronic - Plan cont current plan of care, adoption social worker * await final approval for HD schedule * medication reviewed as below * symptomatic treatment. Review of Systems - Review of Systems ENT: negative: Ear Pain, Ear Discharge, Nose Pain, Nose Discharge, Nose Congestion, Mouth Pain, Mouth Swelling, Throat Pain, Throat Swelling, Other Respiratory: negative: Cough, Dry, Shortness of Breath, Hemoptysis, SOB with Excertion, Pleuritic Pain, Sputum, Wheezing Cardiovascular: negative: chest pain, palpitations, orthopnea, paroxysmal nocturnal dyspnea, edema, light headedness, other Gastrointestinal: negative: Nausea, Vomiting, Abdominal Pain, Diarrhea, Constipation, Melena, Hematochezia, Other Genitourinary: negative: Dysuria, Frequency, Incontinence, Hematuria, Retention , Other Musculoskeletal: negative: Neck Pain, Shoulder Pain, Arm Pain, Back Pain, Hand Pain, Leg Pain, Foot Pain, Other Skin: negative: Rash, Lesions, Garry, Bruising, Other - Medications/Allergies Allergies/Adverse Reactions: Allergies Allergy/AdvReac Type Severity Reaction Status Date / Time gabapentin Allergy Verified 11/05/18 16:58 tramadol Allergy Verified 12/21/18 12:05 Medications: Current Medications Acetaminophen (Tylenol) 1,000 mg PO Q6H PRN PRN Reason: Moderate to Severe Pain (6-10) Last Admin: 12/24/18 08:45 Dose: 1,000 mg Aspirin (Aspirin Chewable) 81 mg PO DAILY [facility] Last Admin: 12/26/18 09:41 Dose: 81 mg Atorvastatin Calcium (Lipitor) 40 mg PO DAILY [facility] Last Admin: 12/26/18 09:40 Dose: 40 mg Benzonatate (Tessalon) 100 mg PO Q6H PRN PRN Reason: Cough Bisacodyl (Dulcolax) 10 mg PO DAILYPRN PRN PRN Reason: Constipation Calcium Carbonate (Tums) 1,000 mg PO DAILYPRN PRN PRN Reason: Heartburn or Indigestion Last Admin: 12/22/18 21:52 Dose: 1,000 mg Carvedilol (Coreg) 3.125 mg PO BID [facility] Last Admin: 12/26/18 09:41 Dose: 3.125 mg Clonidine (Catapres) 0.1 mg PO Q4H PRN PRN Reason: SBP > 160____ Dextrose/Water (Dextrose 50%) 25 gm SLOW IVP PRN PRN PRN Reason: Hypoglycemia Epoetin Zack-epbx (Retacrit) 10,000 unit SC Q7D [facility] Last Admin: 12/22/18 20:24 Dose: Not Given Famotidine (Pepcid) 20 mg PO Q24HR [facility] Last Admin: 12/25/18 21:21 Dose: 20 mg Glucagon (Glucagon) 1 mg IM PRN PRN PRN Reason: Hypoglycemia Guaifenesin (Robitussin Sf) 200 mg PO Q4H PRN PRN Reason: Cough Heparin Sodium (Porcine) (Heparin) 5,000 units SC BID [facility] Last Admin: 12/26/18 09:40 Dose: 5,000 units Hydralazine HCl (Apresoline) 10 mg SLOW IVP Q4H PRN PRN Reason: SBP > 180 and HR < 70 Last Admin: 12/21/18 16:31 Dose: 10 mg Hydroxyzine HCl (Atarax) 10 mg PO BID [facility] Last Admin: 12/26/18 09:41 Dose: 10 mg Dextrose/Water (D5w) 1,000 mls @ 0 mls/hr IV .Q0M PRN PRN Reason: Hypoglycemia Ferric Sodium Gluconate Complex 125 mg/ Sodium Chloride 110 mls @ 110 mls/hr IVPB DAILY [facility] Last Admin: 12/26/18 09:42 Dose: 110 mls Cefazolin Sodium/Dextrose 2 gm (/ Device) 50 mls @ 100 mls/hr IVPB ONCALL-OR NINO Insulin Human Lispro (Humalog) 0 units SC .MODERATE SLIDING SC PRN PRN Reason: Moderate Correctional Scale Last Admin: 12/25/18 18:03 Dose: 2 unit Insulin Human Lispro (Humalog) 0 units SC .BEDTIME SLIDING SC PRN PRN Reason: Bedtime Correctional Scale Loperamide HCl (Imodium) 2 mg PO PRN PRN PRN Reason: Diarrhea/Loose Stools Morphine Sulfate (Morphine) 2 mg SLOW IVP Q4H PRN PRN Reason: Pain Last Admin: 12/25/18 12:43 Dose: 2 mg Nitroglycerin (Nitrostat) 0.4 mg SL Q5MIN PRN PRN Reason: Chest Pain Last Admin: 12/23/18 03:25 Dose: 1 tab Ondansetron HCl (Zofran Odt) 4 mg SL Q6H PRN PRN Reason: Nausea/Vomiting Last Admin: 12/22/18 14:56 Dose: 4 mg Ondansetron HCl (Zofran) 4 mg IVP Q6H PRN PRN Reason: Nausea/Vomiting Senna/Docusate Sodium (Senokot S) 2 tab PO BID PRN PRN Reason: Constipation Sodium Chloride ([place] Nasal [place] 0.65%) 0 ml EA NARE QIDPRN PRN PRN Reason: Nasal Congestion Sodium Chloride (Flush - Normal Saline) 10 ml IVF Q12HR [facility] Last Admin: 12/26/18 09:41 Dose: 10 ml Sodium Chloride (Flush - Normal Saline) 10 ml IVF PRN PRN PRN Reason: Saline Flush Last Admin: 12/25/18 05:46 Dose: 10 ml Throat Lozenges (Cepastat Lozenges) 1 tay PO Q2H PRN PRN Reason: Sore Throat Tramadol HCl (Ultram) 50 mg PO Q6H PRN PRN Reason: Moderate Pain (4-6) Vitamin B Complex/Vit C/Folic Acid (Nephro-Jayjay Tablet) 1 tab PO DAILY [facility] Last Admin: 12/26/18 09:41 Dose: 1 tab Zinc Acetate/Diphenhydramine (Benadryl 2% Cream) 1 gm TOP QID PRN PRN Reason: itiching Last Admin: 12/26/18 09:40 Dose: 1 applic Zolpidem Tartrate (Ambien) 5 mg PO HSPRN PRN PRN Reason: Insomnia
[2018-12-26] MEDS: Famotidine 20 MG TAB PO SCH (21:00)
[2018-12-27] MEDS ORDERED: traMADol HCl 50 MG TAB PO PRN (05:49)
[2018-12-27] MEDS ORDERED: ALPRAZolam 0.5 MG TAB PO SCH (06:15)
[2018-12-27] MEDS: Aspirin Chewable 81 MG TAB PO SCH (09:37)
[2018-12-27] MEDS: Heparin 5,000 UNITS/ML VIAL SC SCH (09:37)
[2018-12-27] MEDS: Carvedilol 3.125 MG TAB PO SCH (09:37)
[2018-12-27] MEDS: Folic Acid/Vit B Comp W-C PO SCH (09:37)
[2018-12-27] MEDS: Atorvastatin Calcium 40 MG TAB PO SCH (09:38)
[2018-12-27] MEDS: hydrOXYzine 10 MG TAB PO SCH (09:38)
--- NOTE | 2018-12-27 10:58 | DIS ---
DATE OF ADMISSION: 12/21/2018 DATE OF DISCHARGE: 12/27/2018 PRIMARY CARE PHYSICIAN: Dr. Lira. DISCHARGE DISPOSITION: Home. PRIMARY DISCHARGE DIAGNOSES: Acute on chronic diastolic congestive heart failure, ACC/AHA stage C; acute on chronic kidney failure converted to end-stage renal disease, uremia, hemodialysis started this admission; contaminated positive blood culture. SECONDARY DISCHARGE DIAGNOSES: Chronic physical deconditioning, obesity with BMI 37, hypertension, gastroesophageal reflux disease, dyslipidemia, diabetes type 2, coronary artery disease, anemia of renal disease, chronic diastolic heart failure, chronic kidney disease. PRIMARY PROCEDURE/OPERATION: Tunneled hemodialysis catheter placement by Dr. Franco, AV fistula placement by Dr. Franco, dialysis while in hospital by Dr. Cheung. RADIOLOGICAL INVESTIGATION: Abdomen and pelvis CT scan, chest x-ray, marking ultrasound. SIGNIFICANT LABORATORY DATA: Hemoglobin 7.7, creatinine 2.95. Hepatitis profile negative. Blood culture was positive for Corynebacterium, which was contaminated. Urine culture negative. DISCHARGE MEDICATIONS: 1. Tylenol No. 3 one tablet b.i.d. p.r.n. 2. Coreg 6.25 mg b.i.d. 3. Atarax 10 mg b.i.d. p.r.n. 4. Aspirin 81 mg daily. 5. Lipitor 40 mg p.o. at bedtime. 6. Procrit 10,000 units subcu with dialysis. 7. Pepcid 20 mg daily. 8. Ferrous sulfate 325 mg daily. 9. Nephro-Jayjay one tablet daily. 10. Glipizide 2.5 mg daily. CONTRAINDICATION: None. CODE STATUS: Full code. INPATIENT ENTERPRISE SERVICES MANAGER: 1. Dr. Cheung. 2. Dr. Franco. 3. Dr. Ortiz. TEST RESULTS PENDING ON DISCHARGE: None. ALLERGIES: GABAPENTIN, TRAMADOL. DISCHARGE PLAN: Posthospital, the patient will follow up with Dr. Franco in 3 to 4 weeks. The patient has appointment with Dr. Lira on January 02, 2019, at 1:00 p.m. The patient will follow up with Dr. Dey on January 23, 2019 at 10:00 a.m. The patient will follow up with Dr. Cheung. HOSPITAL COURSE: A 63-year-old female with above-mentioned medical problem, who was admitted by Dr. Marichuy Mackey. Please see her H and P for further details. The patient was having increasing shortness of breath, increasing lower extremity edema. She was diagnosed with acute on chronic diastolic heart failure. Her renal function was also gradually getting worse. She has underlying chronic kidney disease and she has approached to ESRD. She was also having uremia symptoms during this admission. Nephrology recommended dialysis to be started and that is why Dr. Franco was consulted. Dr. Franco did temporary tunneled hemodialysis catheter and AV fistula during this admission. Subsequently, the patient was started on dialysis under Nephrology guidance. While in hospital, the patient also had positive blood culture and that is why she was receiving antibiotic therapy with vancomycin and Zosyn. Dr. Ortiz was consulted for positive blood culture and he was attributing positive blood culture to be contaminant. We discontinued antibiotic therapy and continued with dialysis while in hospital. This patient had arrangement with hemodialysis as an outpatient basis. Nephrology, General surgery, and ID team cleared her for discharge. I have seen and examined the patient at bedside today. PHYSICAL EXAMINATION: VITAL SIGNS: Currently temperature 98.1, pulse 66, respiratory rate 20, saturation 94% on room air, blood pressure 132/64. Weight 183 pounds. GENERAL: The patient is currently alert, oriented, no acute distress. HEENT: Head; normocephalic, atraumatic. LUNGS: Clear to auscultation without any rhonchi or rales. CARDIAC: S1, S2. Regular without any murmur. ABDOMEN: Soft and benign. EXTREMITIES: Chronic skin changes and edema. NEUROLOGIC: Nonfocal examination. REVIEW OF SYSTEMS: Reviewed and negative. All new medication prescription given and the patient is medically stable for discharge today. Job ID: [id number]
[2018-12-27] MEDS: Iron, Sodium Ferric Gluconate 125 MG in Sodium Chloride 0.9% 100 ML IVPB SCH (15:12)
[2018-12-27 16:03] VITALS: BP 136/68; TEMP 97.9
== END 2018-12-27 18:11 | disposition home or self-care (01) | DRG 264 ==
LOC: ERS 07:09 → 2SE 09:12
PROVIDERS: ADMIT Internal Medicine; ATTEND Internal Medicine
PROC: 0JH63XZ Insertion of Tunneled Vascular Access Device into Chest Subcutaneous Tissue and Fascia, Percutaneous Approach (ICD-10-PCS; 2018-12-22)
PROC: 02HV33Z Insertion of Infusion Device into Superior Vena Cava, Percutaneous Approach (ICD-10-PCS; 2018-12-22)
PROC: 5A1D70Z Performance of Urinary Filtration, Intermittent, Less than 6 Hours Per Day (ICD-10-PCS; 2018-12-22)
PROC: 031B0ZF Bypass Right Radial Artery to Lower Arm Vein, Open Approach (ICD-10-PCS; principal; 2018-12-24)
DX: I13.2 Hypertensive heart and chronic kidney disease with heart failure and with stage 5 chronic kidney disease, or end stage renal disease (principal); I50.33 Acute on chronic diastolic (congestive) heart failure; N18.6 End stage renal disease; J96.90 Respiratory failure, unspecified, unspecified whether with hypoxia or hypercapnia; N17.9 Acute kidney failure, unspecified; N18.4 Chronic kidney disease, stage 4 (severe); K21.9 Gastro-esophageal reflux disease without esophagitis; E78.5 Hyperlipidemia, unspecified; E11.22 Type 2 diabetes mellitus with diabetic chronic kidney disease; D63.1 Anemia in chronic kidney disease; I25.10 Atherosclerotic heart disease of native coronary artery without angina pectoris; M19.90 Unspecified osteoarthritis, unspecified site; E87.70 Fluid overload, unspecified; E86.1 Hypovolemia; E66.01 Morbid (severe) obesity due to excess calories; E87.5 Hyperkalemia; Z99.2 Dependence on renal dialysis; Z68.37 Body mass index [BMI] 37.0-37.9, adult; Z86.718 Personal history of other venous thrombosis and embolism; Z79.01 Long term (current) use of anticoagulants; Z86.73 Personal history of transient ischemic attack (TIA), and cerebral infarction without residual deficits; Z90.49 Acquired absence of other specified parts of digestive tract; Z98.51 Tubal ligation status; Z90.710 Acquired absence of both cervix and uterus; Z98.42 Cataract extraction status, left eye; Z98.41 Cataract extraction status, right eye; Z88.8 Allergy status to other drugs, medicaments and biological substances
CPT/HCPCS: 36415; 36416; 51701; 71045; 74176; 80053; 80069; 80202; 81003; 81015; 82550; 82553; 82728; 83540; 83550; 83605; 83690; 83735; 83880; 83970; 84484; 85025; 86580; 86704; 86706; 86803; 87040; 87086; 87340; 90935; 93005; 93970; 94760; 96365; 96375; A4353; C1752; C1769; G0257; G0365; J0360; J0670; J0690; J1642; J1644; J1940; J2001; J2250; J2270; J2543; J2704; J2720; J2916; J3010; J3370; J3490; J7050; Q0162; Q5105

== ENCOUNTER 2019-02-17 07:19 | Day surgery (SDC) | payer MEDICARE ==
[2019-02-16 16:40] VITALS: BMI 39.2
[2019-02-17 08:35] VITALS: BP 131/96; TEMP 98.5
[2019-02-17] MEDS ORDERED: Prevnar 13-Val Conj/PF 0.5 ML SYRINGE IM ONE (09:00)
--- NOTE | 2019-02-17 09:55 | SPC ---
EXAM: [facility]/AV S PROVIDED CLINICAL HISTORY: Nonmaturing right upper extremity arteriovenous dialysis fistula in a patient with end-stage renal di sease. COMPARISON: None TECHNIQUE: After informed consent was obtained, the patient was placed on the angiography table in the supine po sition. The right upper extremity was meticulously prepped and draped in the usual sterile fashion. The skin and subcutaneous tissues were infiltrated with buffered 1% lidocaine for local anesthesia. U tilizing ultrasound guidance, the right upper extremity arterial venous dialysis fistula at the level of the proximal venous outflow was accessed utilizing micropuncture technique, and a 4 [place] i ntroducer sheath was placed. A fistulogram and venogram to the SVC were performed. Manual compression was applied to the venous ou tflow in attempt to reflux the arteriovenous anastomosis. However, this was unsuccessful after multiple attempts. As result a tourniquet was placed on the proximal right upper extremity, and manua l compression was again performed with reflux of the arteriovenous anastomosis. Introducer sheath was removed, and hemostasis was achieved with direct pressure. A dry sterile dressi ng was placed at puncture site. The patient tolerated the procedure well and without immediate complication. The patient was transferred to radiology nurses holding for further monitoring prior to discharge. Fluoroscopy: Total fluoroscopy time-1.2 minutes Total dose-9014 mGy square centimeter. FINDINGS: Patient has a right upper extremity arteriovenous dialysis fistula with cephalic vein outflow which i s patent. There are multiple small collateral vessels along the course of the venous outflow at the level of the humeral diaphysis. The arteriovenous anastomosis is patent, and there is brisk flow and washout from the arteriovenous dialysis fistula. A tunneled right internal jugular vein hemodialysis catheter is noted in place which does mildly limit evaluation at the distal SVC, but the SVC does appear patent. No focal stenosis is seen along the course of the venous outflow. IMPRESSION: Patent right upper extremity arteriovenous dialysis fistula with cephalic vein outflow. There are sev eral small collateral vessels seen along the cephalic vein outflow at the level of the humeral diaphysis. The arteriovenous anastomosis is patent.
[2019-02-17] MEDS ORDERED: Iopamidol 300 61% 100 ML VIAL FS ONE (11:04)
== END 2019-02-17 09:35 | disposition home or self-care (01) ==
LOC: SPEC 07:19
PROVIDERS: ATTEND Specialist
PROC: B51W1ZZ Fluoroscopy of Dialysis Shunt/Fistula using Low Osmolar Contrast (ICD-10-PCS; principal; 2019-02-17)
DX: T82.598A Other mechanical complication of other cardiac and vascular devices and implants, initial encounter (principal); I13.2 Hypertensive heart and chronic kidney disease with heart failure and with stage 5 chronic kidney disease, or end stage renal disease; E11.22 Type 2 diabetes mellitus with diabetic chronic kidney disease; N18.6 End stage renal disease; I50.9 Heart failure, unspecified; D63.1 Anemia in chronic kidney disease; I25.10 Atherosclerotic heart disease of native coronary artery without angina pectoris; M19.90 Unspecified osteoarthritis, unspecified site; G47.33 Obstructive sleep apnea (adult) (pediatric); M10.9 Gout, unspecified; E78.5 Hyperlipidemia, unspecified; Z99.2 Dependence on renal dialysis; Z86.73 Personal history of transient ischemic attack (TIA), and cerebral infarction without residual deficits; Z88.8 Allergy status to other drugs, medicaments and biological substances; Z79.82 Long term (current) use of aspirin; Z79.899 Other long term (current) drug therapy
CPT/HCPCS: 36901; Q9967

== ENCOUNTER 2019-05-07 18:43 | Emergency (ER) | payer MEDICARE ==
[2019-05-07] MEDS ORDERED: Lidocaine Viscous Sol 2% 15 ml UD Cup ONE (19:41)
[2019-05-07] MEDS ORDERED: Mag-Al 1200 mg/1200 mg/30 ML UDCUP ONE (19:41)
[2019-05-07 20:27] LABS: %Eosinophils 1.8 % (0.0-10.0); %Monocytes 8.9 % (0.0-10.0); Hemoglobin 10.9 g/dL (12.0-16.0); Mean Corpuscular HGB CONC 30.8 g/dL (32.0-36.0); Mean Corpuscular Hemoglobin 29.4 pg (27.0-31.0); Mean Corpuscular Volume 95.3 fL (78.0-98.0); Mean Platelet Volume 11.7 fL (7.4-10.4); Platelet Count 179 thou/uL (130-400); RBC Distribution Width 17.1 % (11.5-14.5); White Blood Cell (WBC) Count 6.4 thou/uL (4.8-10.8)
[2019-05-07 20:28] LABS: #Eosinphils 0.1 thou/uL (0.0-0.7); #Lymphocytes 1.3 thou/uL (1.20-3.40); #Monocytes 0.6 thou/uL (0.11-0.59); #Neutrophils 4.3 thou/uL (1.40-6.50); %Basophils 0.3 % (0.0-1.0)
[2019-05-07 20:34] LABS: ALT (SGPT) 39 U/L (8-55); AST (SGOT) 38 U/L (5-34); Albumin 4.2 g/dL (3.4-4.8); Alkaline Phosphatase 317 U/L (40-110); Anion Gap 22 mmol/L (10-20); BUN (Urea Nitrogen) 64 mg/dL (9.8-20.1); Bilirubin, Total 1.2 mg/dL (0.2-1.2); Calc. Creatinine Clearance 0 mL/min (70-130); Calcium 9.9 mg/dL (7.8-10.44); Carbon Dioxide 25 mmol/L (23-31); Chloride 95 mmol/L (98-107); Estimated GFR-MDRD 7; Globulin 4.6 g/dL (2.4-3.5); Glucose 120 mg/dL (80-115); Potassium 5.4 mmol/L (3.5-5.1); Protein, Total 8.8 g/dL (6.0-8.3); Sodium 137 mmol/L (136-145)
[2019-05-07] MEDS ORDERED: HYDROcodone/Acetaminophen 10/325 mg Tablet ONE (21:20)
[2019-05-07] MEDS ORDERED: Ondansetron ODT 4 MG TAB ONE (22:04)
== END 2019-05-07 23:00 | disposition home or self-care (01) ==
LOC: ERS 18:43
DX: E87.5 Hyperkalemia (principal); R11.2 Nausea with vomiting, unspecified; G47.30 Sleep apnea, unspecified; I11.0 Hypertensive heart disease with heart failure; I50.9 Heart failure, unspecified; E11.9 Type 2 diabetes mellitus without complications; K21.9 Gastro-esophageal reflux disease without esophagitis; Z86.718 Personal history of other venous thrombosis and embolism; Z79.01 Long term (current) use of anticoagulants; Z79.899 Other long term (current) drug therapy; Z79.82 Long term (current) use of aspirin
CPT/HCPCS: 36415; 93005; 94760; Q0162

== ENCOUNTER 2019-05-22 07:06 | Observation (INO) | payer MEDICARE ==
--- NOTE | 2019-05-22 07:55 | RAD ---
RADIOGRAPH CHEST 1 VIEW: DATE: 05/22/2019 TIME: 7:30 AM HISTORY: 64-year-old female with dyspnea and chest pain COMPARISON: 12/22/2018 FINDINGS: Right IJ double lumen dialysis catheter remains with distal tips at SVC and confluence of brachioceph alic veins. Left IJ central line has been removed. No pneumothorax. Pulmonary venous congestion. Questionable mild pulmonary interstitial edema at the lung bases medially minimally worse than on maxine or study. Cardiomegaly similar to prior study. Lateral costophrenic angles are not effaced IMPRESSION: 1. Cardiomegaly, pulmonary venous congestion, and minimal or mild pulmonary interstitial edema are ev idence for very mild congestive heart failure and/or fluid volume overload. 2. Right-sided hemodialysis catheter.
[2019-05-22 08:28] LABS: Hemoglobin 10.7 g/dL (12.0-16.0); Mean Corpuscular Volume 93.9 fL (78.0-98.0); Mean Platelet Volume 10.8 fL (7.4-10.4); Platelet Count 231 thou/uL (130-400); RBC Distribution Width 16.4 % (11.5-14.5); Red Blood Cell (RBC) Count 3.55 mill/uL (4.20-5.40); White Blood Cell (WBC) Count 6.1 thou/uL (4.8-10.8)
[2019-05-22 08:37] LABS: ALT (SGPT) 17 U/L (8-55); AST (SGOT) 16 U/L (5-34); Albumin 4.1 g/dL (3.4-4.8); Alkaline Phosphatase 226 U/L (40-110); Anion Gap 15 mmol/L (10-20); BUN (Urea Nitrogen) 84 mg/dL (9.8-20.1); CK (CPK) 20 U/L (29-168); Calc. Creatinine Clearance 0 mL/min (70-130); Calcium 9.3 mg/dL (7.8-10.44); Carbon Dioxide 32 mmol/L (23-31); Chloride 96 mmol/L (98-107); Estimated GFR-MDRD 4; Globulin 4.2 g/dL (2.4-3.5); Glucose 151 mg/dL (80-115); Lipase 21 U/L (8-78); Potassium 5.2 mmol/L (3.5-5.1); Protein, Total 8.3 g/dL (6.0-8.3); Sodium 138 mmol/L (136-145)
[2019-05-22 08:59] LABS: Band 2 % (5-11); Bite Cells SLIGHT = 2-5 cells (100X) (0-1/hpf); CKMB 0.9 ng/mL (0-6.6); Eosinophils 2 % (0-10); Lymphocytes 39 % (21-51); MDiff Complete? YES; Monocytes 8 % (0-10); Neutrophil 49 % (42-75); Platelet Morphology Comment Appears Adequate; Polychromasia SLIGHT = 2-3 cells (100X) (0-2/hpf); Schistocytes SLIGHT = 2-5 cells (100X) (0-1/hpf)
[2019-05-22 11:49] LABS: Troponin I 0.045 ng/mL (< 0.028)
[2019-05-22] MEDS ORDERED: Dextrose 50% Abboject 50 ML SYRINGE SLOW IVP PRN (11:59)
[2019-05-22] MEDS ORDERED: Dextrose 5% in Water 1,000 ML IV PRN (11:59)
[2019-05-22] MEDS ORDERED: HumaLOG 300 UNITS/3 ML VIAL SC PRN (11:59)
[2019-05-22] MEDS ORDERED: Meclizine HCl 12.5 MG TAB PO PRN (12:00)
[2019-05-22] MEDS ORDERED: Heparin 10,000 UNITS/ 10 ML VIAL ONE (13:23)
--- NOTE | 2019-05-22 13:34 | MRI ---
Exam: Brain MRI without contrast HISTORY: Dizziness COMPARISON: None FINDINGS: Calvarial marrow signal intensity: Appropriate T1 signal Gradient echo sequence: No hemorrhage Brain parenchyma: No mass, mass effect or midline shift. Brain volume, age-appropriate. Cortical leong-white matter differentiation: Stable malacic and gliotic small the medial left occipita l lobe. Remainder the cerebrum demonstrates preservation of cortical leong-white matter differentiation. Restricted diffusion: Central arterial flow voids are maintained. Absent restricted diffusion White matter signal intensities: Minimal scattered T2, FLAIR white matter hyperintensities due to ch ronic small vessel ischemic changes Sinuses: Adequate aeration of the paranasal sinuses and mastoid air cells. IMPRESSION: 1. Absent restricted diffusion. No acute infarct 2. Encephalomalacia and gliosis involving the medial left occipital lobe due to remote insult.
[2019-05-22 13:56] VITALS: BMI 38.7
[2019-05-22] MEDS ORDERED: Acetaminophen 325 MG TAB PO PRN (14:50)
[2019-05-22] MEDS ORDERED: Ondansetron PF 4 MG/2 ML Vial IVP PRN (14:50)
[2019-05-22] MEDS: Heparin 5,000 UNITS/ML VIAL SC SCH ×2 (15:45→20:34)
[2019-05-22 16:09] LABS: Troponin I 0.061 ng/mL (< 0.028)
[2019-05-22] MEDS ORDERED: Ondansetron ODT 4 MG TAB PO PRN (16:57)
[2019-05-22] MEDS ORDERED: hydrOXYzine 10 MG TAB PO PRN (16:57)
--- NOTE | 2019-05-22 18:04 | HP ---
PRESENTING COMPLAINT: Dizziness and chest pain. HISTORY OF PRESENT ILLNESS: The patient with past medical history of chronic diastolic congestive heart failure; diabetes mellitus; hypertension; history of bilateral legs DVT; history of CVA with left-sided hemiparesis; degenerative joint disease; gastroesophageal reflux disease; end-stage renal disease, on hemodialysis Saturday, Saturday, Saturday; chronic anemia; coronary artery disease; sleep apnea; presented with dizziness. As per patient, she feels dizzy which she describes as a spinning feeling ongoing from one week. Moving head and activity cause her symptoms to get worse. She has also been complaining of left-sided chest pain started from today, 03/10, mildly radiating to back. Denies any aggravating or relieving factors. Denies any shortness of breath, wheezing, runny nose, stuffy nose, sore throat, headache. Denies nausea or vomiting today, but had nausea and vomiting yesterday. Denies diarrhea or constipation. Complains of chronic swelling of the feet, but says that today the swelling is better. Denies any fever or urinary complaints. The patient though mildly passes urine. The patient is admitted for chest pain workup and dizziness workup. REVIEW OF SYSTEMS: As mentioned above. PAST MEDICAL HISTORY: As mentioned above. PAST SURGICAL HISTORY: 1. History of tonsillectomy. 2. History of adenoidectomy. 3. History of . 4. History of bilateral tubal ligation. 5. History of hysterectomy. 6. History of cholecystectomy, laparoscopic. 7. Bilateral cataract surgery. FAMILY HISTORY: Mother and grandmother had congestive heart failure. SOCIAL HISTORY: Denies smoking, alcohol abuse, or drug abuse at present. ALLERGIES: TO HYDROCODONE, TRAMADOL, AND ACETAMINOPHEN. PHYSICAL EXAMINATION: VITAL SIGNS: Blood pressure 140/80, pulse 76, temperature 98.6, oxygen saturation 99%. GENERAL: A morbidly obese lady, lying in bed comfortably, not in any distress, however, looks weak. HEENT: Conjunctivae normal. Oral mucosa moist. NECK: Supple. No JVD. No lymphadenopathy. CHEST: Decreased air entry, bilateral lower lung figueroa. HEART: Heart sounds normal. ABDOMEN: Soft, benign, nontender. No visceromegaly. Negative edema. EXTREMITIES: Feet, no rash. No cyanosis. LABORATORY DATA: CBC unremarkable except hemoglobin 10.7, platelets 231. CMP unremarkable except potassium 5.2, creatinine 11.33, alkaline phosphatase 226. Troponin 0.50. Lipase 21. DIAGNOSTIC DATA: Chest x-ray, cardiomegaly, pulmonary venous congestion, and minimal mild pulmonary interstitial edema, evidence of mild congestive heart failure, fluid volume overload, and right-sided hemodialysis catheter. IMPRESSION: 1. Chest pain with LV strain pattern and questionable ischemic changes in the leads. We will get Cardiology evaluation. We will get serial troponins. Continue to monitor clinically. Continue aspirin and statins. Continue pain medication as needed. 2. Ongoing dizziness, which she describes as vertigo. We will get a CT scan, and if symptoms persist, we may get an MRI brain. Continue neuro checks and tele monitoring. I will add meclizine as needed. 3. End-stage renal disease, on hemodialysis. The patient missed hemodialysis last Saturday, and chest x-ray shows fluid overload with mild congestion. We will get Nephrology evaluation for dialysis. 4. Hypertension. Continue monitoring blood pressure. 5. Diabetes mellitus. Continue monitoring blood sugars. 6. Degenerative joint disease. Continue pain medication as needed. 7. Chronic anemia, currently stable. Denies any active bleeding. 8. History of obstructive sleep apnea, not on CPAP machine at home. 9. Deep venous thrombosis and gastrointestinal prophylaxis. Plan discussed with the patient and nursing staff. Job ID: [id number]
[2019-05-22] MEDS: Carvedilol 3.125 MG TAB PO SCH (20:32)
[2019-05-22] MEDS: Acetaminophen/Codeine 30-300mg Tablet PO PRN (20:33)
[2019-05-22] MEDS ORDERED: Nystatin Powder 15 GM BOT TOP PRN (23:52)
[2019-05-23] MEDS: Acetaminophen/Codeine 30-300mg Tablet PO PRN ×2 (03:59→13:55)
[2019-05-23 06:09] LABS: #Eosinphils 0.1 thou/uL (0.0-0.7); #Lymphocytes 1.1 thou/uL (1.20-3.40); #Monocytes 0.4 thou/uL (0.11-0.59); #Neutrophils 1.7 thou/uL (1.40-6.50); %Basophils 1.3 % (0.0-1.0); %Eosinophils 3.5 % (0.0-10.0); %Lymphocytes 34.1 % (21.0-51.0); %Monocytes 10.7 % (0.0-10.0); %Neutrophils 50.6 % (42.0-75.0); Hemoglobin 10.1 g/dL (12.0-16.0); Mean Corpuscular HGB CONC 31.3 g/dL (32.0-36.0); Mean Corpuscular Hemoglobin 29.9 pg (27.0-31.0); Mean Corpuscular Volume 95.3 fL (78.0-98.0); Mean Platelet Volume 10.6 fL (7.4-10.4); Platelet Count 211 thou/uL (130-400); RBC Distribution Width 16.3 % (11.5-14.5); Red Blood Cell (RBC) Count 3.39 mill/uL (4.20-5.40); White Blood Cell (WBC) Count 3.3 thou/uL (4.8-10.8)
[2019-05-23 06:24] LABS: Anion Gap 15 mmol/L (10-20); BUN (Urea Nitrogen) 43 mg/dL (9.8-20.1); Calc. Creatinine Clearance 11 mL/min (70-130); Calcium 9.3 mg/dL (7.8-10.44); Carbon Dioxide 27 mmol/L (23-31); Chloride 102 mmol/L (98-107); Estimated GFR-MDRD 7; Glucose 155 mg/dL (80-115); Potassium 5.1 mmol/L (3.5-5.1); Sodium 139 mmol/L (136-145)
[2019-05-23] MEDS ORDERED: Famotidine 20 MG TAB PO SCH (09:00)
[2019-05-23] MEDS ORDERED: Non-Formulary Item 1 EACH (Omeprazole [Omeprazole] 20 MG) PO SCH (09:00)
[2019-05-23] MEDS ORDERED: Aspirin Chewable 81 MG TAB PO SCH (09:00)
[2019-05-23] MEDS: Heparin 5,000 UNITS/ML VIAL SC SCH ×2 (09:10→16:44)
[2019-05-23] MEDS: Carvedilol 3.125 MG TAB PO SCH (09:10)
[2019-05-23 11:28] VITALS: BP 127/69; TEMP 97.6
[2019-05-23 11:53] LABS: Troponin I 0.029 ng/mL (< 0.028)
[2019-05-23] MEDS ORDERED: Atorvastatin Calcium 40 MG TAB PO SCH (21:00)
--- NOTE | 2019-05-23 21:03 | DIS ---
DATE OF ADMISSION: 05/22/2019 DATE OF DISCHARGE: 05/23/2019 PRIMARY DISCHARGE DIAGNOSES: Chest pain, dizziness. SECONDARY DISCHARGE DIAGNOSES: History of congestive heart failure with diastolic dysfunction, end-stage renal disease, on hemodialysis; diabetes mellitus type 2, hypertension, history of old left occipital cerebrovascular accident, coronary artery disease, obstructive sleep apnea, history of deep venous thrombosis in bilateral lower extremities. PROCEDURES DONE DURING HOSPITALIZATION: Chest x-ray done showed cardiomegaly with pulmonary vascular congestion. MRI brain showed no acute infarct. There was encephalomalacia and gliosis involving the medial left occipital lobe due to remote infarct. H and H 10 and 32, platelet count is 211, MCV is 95 with 49% neutrophils. Discharge BUN and creatinine are 43 and 6.9. Troponin I indeterminate peaking up to 0.06. Admitting BUN and creatinine was 84 and 11.3, serum bicarb was 32 on the day of admission. DISCHARGE MEDICATIONS: 1. Carvedilol 3.125 mg twice daily. 2. Tylenol No. 3 p.r.n. twice daily. 3. Hydroxyzine 10 mg twice daily p.r.n. for itching. 4. Omeprazole 20 mg daily. 5. Aspirin 81 mg p.o. daily. 6. Atorvastatin 40 mg p.o. daily. ALLERGIES: NO KNOWN DRUG ALLERGIES. DISCHARGE PLAN: The patient to follow up with her primary care physician, Dr. Madiha Izquierdo in 1 week. BRIEF COURSE DURING HOSPITALIZATION: The patient initially came in with complaints of dizziness and chest pain. The patient had 3 sets of troponin done, which were indeterminate, likely due to end-stage renal disease. The patient did not want to pursue any further workup including a stress test here. Her chest pain completely resolved. She had volume overload and had hemodialysis done, which resolved her congestion and shortness of breath on arrival. The patient likely had mild acute on chronic CHF exacerbation with diastolic dysfunction. The patient has refused coronary angiogram in the past and did the same during this hospitalization as well. She is wanting to go home and has been advised to follow up with her primary care physician in 1 week. She normally ambulates with a rolling walker per patient. Please note, I have seen and examined the patient on the day of discharge. Job ID: [id number] [facility]ERTiffanie
== END 2019-05-23 15:40 | disposition home or self-care (01) ==
LOC: ERS 07:06 → 2SW 13:43
PROVIDERS: ADMIT Internal Medicine; ATTEND Emergency Medicine
DX: R07.9 Chest pain, unspecified (principal); R42 Dizziness and giddiness; I13.2 Hypertensive heart and chronic kidney disease with heart failure and with stage 5 chronic kidney disease, or end stage renal disease; E11.22 Type 2 diabetes mellitus with diabetic chronic kidney disease; N18.6 End stage renal disease; I50.32 Chronic diastolic (congestive) heart failure; D63.1 Anemia in chronic kidney disease; M19.90 Unspecified osteoarthritis, unspecified site; K21.9 Gastro-esophageal reflux disease without esophagitis; I25.10 Atherosclerotic heart disease of native coronary artery without angina pectoris; I69.354 Hemiplegia and hemiparesis following cerebral infarction affecting left non-dominant side; G47.33 Obstructive sleep apnea (adult) (pediatric); E87.70 Fluid overload, unspecified; E66.01 Morbid (severe) obesity due to excess calories; Z68.38 Body mass index [BMI] 38.0-38.9, adult; Z79.899 Other long term (current) drug therapy; Z88.5 Allergy status to narcotic agent; Z88.6 Allergy status to analgesic agent; Z99.2 Dependence on renal dialysis
CPT/HCPCS: 70551; 71045; 80048; 80053; 82550; 82553; 82962; 83690; 84484 ×3; 85025 ×2; 93005; 96372 ×2; 97139; 99285; G0378 ×3; 36415; 36416; 90935; G0257; J1644

== ENCOUNTER 2019-06-04 10:13 | Day surgery (SDC) | payer MEDICARE ==
--- NOTE | 2019-05-22 13:41 | HP ---
HISTORY OF PRESENT ILLNESS: Any Gillis is a 64-year-old female, morbidly obese, dialyzes Saturday, Saturday, Saturday at [facility]. She is 187 pounds, 4 feet 11 inches, 36 BMI. On 12/22/2018, the patient had a right arm fistula proximal radial artery inflow, outflow cephalic vein with retrograde antecubital vein preserved, no communication evident to the basilic vein. This was so developed. She subsequently underwent a fistulogram 02/17/2019 that revealed patent fistula into the upper arm with some collaterals. Attempts to access have been unsuccessful. The fistula is deep and she has abundant fatty tissue over the fistula, and plan at this time is cephalic vein transposition fistula under regional anesthesia as an outpatient. The patient has seen Dr. Ma and has bilateral carpal tunnel, needs to visit her primary care physician to arrange followup with physician to perform a bilateral cuff tunnel. I have explained to her why she should not trial her catheter for long-term access so as to avoid line bacteremia. In 2016, cardiac nuclear stress test, 45% ejection fraction with fixed defect at the apex without significant reversibility. The patient arrives in my office in a wheelchair. ALLERGIES: GABAPENTIN. SOCIAL HISTORY: Tobacco, none. Alcohol, none. The patient lives at home. Her family takes her to dialysis. PAST SURGICAL HISTORY: Tonsillectomy, cholecystectomy, C-sections, recent right arm fistula, and hemodialysis catheter right IJ. PAST MEDICAL HISTORY: Obesity, diabetes mellitus, hypertension, cholesterol, diastolic dysfunction, history of bilateral DVT, history of stroke with left-sided hemiparesis, DJD, GERD, sleep apnea, and right arm fistula was described. PHYSICAL EXAMINATION: VITAL SIGNS: Weight 187 pounds, 4 feet 11 inches, 36 BMI. Blood pressure 137/61, pulse 83, and temperature 96.3 degrees. HEAD, EARS, EYES, NOSE AND THROAT: Unremarkable. LUNGS: Clear to auscultation. CARDIAC: Rhythm without murmur or gallop. ABDOMEN: Soft, obese, and nontender. EXTREMITIES: Mild edema in right upper extremity. Fatty upper arm. Good thrill and bruit in her fistula. ASSESSMENT: Dysfunctional dialysis fistula. Right upper arm. PLAN: Transposition to provide access. She understands risks and benefits, consents. Job ID: [id number]
[2019-06-03 12:27] VITALS: BMI 37.3
--- NOTE | 2019-06-03 18:58 | HP ---
HISTORY OF PRESENT ILLNESS: The patient is a 64-year-old female with chronic renal failure on dialysis, who has a 9-month history of pain and tingling in both hands in the median nerve distribution right greater than left, there has been no injury. Symptoms on the right became worse after having a fistula performed on the right arm in November of this year. This fistula apparently has failed and is going to be revised in the near future by Dr. Franco. She describes pain and tingling, which is persistent despite rest, restriction of activities, lifestyle adjustments, and splinting. PAST MEDICAL HISTORY: As noted above. The patient has history of renal insufficiency, diabetes, coronary artery disease, reflux, and arthritis. CURRENT MEDICATIONS: Include: 1. Aspirin. 2. Lipitor. 3. Carvedilol. 4. Hydroxyzine. 5. Pepcid. 6. Tylenol No. 3. ALLERGIES: GABAPENTIN. FAMILY HISTORY: Otherwise unremarkable. SOCIAL HISTORY: Otherwise unremarkable. REVIEW OF SYSTEMS: Otherwise unremarkable. PHYSICAL EXAMINATION: GENERAL: Shows healthy, somewhat chronically ill-appearing female. HEENT: Unremarkable. NECK: Supple. CHEST: Clear. HEART: Regular rate and rhythm. ABDOMEN: Soft and nontender. PELVIC: Deferred. RECTAL: Deferred. BREASTS: Deferred. EXTREMITIES: Pertinent findings related to her wrist. There is some questionable thenar atrophy on the left, none on the right. There is full range of motion bilaterally. There is no bony tenderness. There is a positive Tinel sign, right greater than left and positive Phalen test, right greater than left. There is subjective numbness in median nerve distribution, right greater than left. There is good capillary refill. Pulses are trace. DIAGNOSTIC STUDIES: Electrodiagnostic studies performed by Dr. Ma reveal moderately severe bilateral carpal tunnel syndrome. IMPRESSION: 1. Bilateral carpal tunnel syndrome, right symptomatic more than left. 2. Chronic renal failure. 3. History of hypertension. 4. History of diabetes. PLAN: Endoscopic possible open right carpal tunnel release with probable staged left carpal tunnel release when she has recovered from surgery on the right side. The nature of the surgery, length of recovery, and potential complications, such as infection, loss of motion, incomplete relief, nerve injury, recurrence, and need for additional treatment and repeat surgery were discussed in detail. Job ID: [id number]
[2019-06-04] MEDS ORDERED: Fentanyl 100 MCG/2 ML VIAL ONE (11:59)
[2019-06-04] MEDS ORDERED: Lidocaine 1% PF 5 ML VIAL ONE (12:42)
[2019-06-04] MEDS ORDERED: Dexamethasone 20 MG/5 ML VIAL ONE (12:42)
[2019-06-04] MEDS ORDERED: Ondansetron PF 4 MG/2 ML Vial ONE (12:42)
[2019-06-04] MEDS ORDERED: PROPOFOL 200 MG/20 ML VIAL ONE (12:42)
[2019-06-04] MEDS ORDERED: HYDROcodone/Acetaminophen 5/325 mg Tablet ONE (14:49)
--- NOTE | 2019-06-04 15:49 | OP ---
DATE OF PROCEDURE: 06/04/2019 ANESTHESIA: General. PREOPERATIVE DIAGNOSIS: Right carpal tunnel syndrome. POSTOPERATIVE DIAGNOSIS: Right carpal tunnel syndrome. PROCEDURE PERFORMED: Right endoscopic carpal tunnel release. DESCRIPTION OF PROCEDURE: After satisfactory anesthesia was induced in a supine position, the patient was prepped and draped in routine manner. A 2 cm transverse incision was made in the proximal wrist flexion crease, carried down to subcutaneous tissues and bleeding points were controlled with Bovie cautery. Using sharp and blunt dissection, a distally-based flap at the deep forearm fascia was developed and retracted distally. Palmaris longus tendon was retracted radially. Proximal edge of the deep forearm fascia was split under direct visualization with small scissors to make sure there was no proximal impingement median nerve. Synovial elevator was introduced beneath the transverse carpal ligament. The synovium was cleaned from the under surface. Carpal tunnel dilators were inserted. The 37coinse endoscopic carpal tunnel system was introduced beneath the transverse carpal ligament in line with the ring finger. The distal edge of the ligament was easily identified and divided in a distal to proximal direction by pulling the trigger of the assembly and engaging this with a knife and withdrawing the scope proximally. This was done in several stages to make sure there was complete division of the transverse carpal ligament, which was documented with video printer. After withdrawing the scope, a carpal tunnel dilator could be inserted into the carpal tunnel and there was markedly improved passage and subcutaneous position of the instrument. The scope was reintroduced into the carpal tunnel, and there was wide separation of the 2 leaves of the transverse carpal ligament. The tourniquet was released after 5 minutes. There was no excessive bleeding, and the scope was withdrawn. The wound was then thoroughly irrigated and closed with a running subcuticular 3-0 nylon. A sterile dressing was applied, and the patient immobilized in a Velcro wrist splint. She was awakened and taken to recovery room in stable condition. There were no apparent intraoperative complications. The estimated blood loss was negligible. The patient will be discharged home in satisfactory condition, instructed on ice elevation, given written wound care instructions. She was given a prescription for Buras 5 for pain, 24 tablets. She will be rechecked in my office in 2 weeks or sooner if there are any problems prior to that time. Job ID: [id number]
== END 2019-06-04 15:29 | disposition home or self-care (01) ==
LOC: SDC 10:13
PROVIDERS: ATTEND Orthopaedic Surgery
PROC: 01N54ZZ Release Median Nerve, Percutaneous Endoscopic Approach (ICD-10-PCS; principal; 2019-06-04)
DX: G56.03 Carpal tunnel syndrome, bilateral upper limbs (principal); I12.9 Hypertensive chronic kidney disease with stage 1 through stage 4 chronic kidney disease, or unspecified chronic kidney disease; E11.22 Type 2 diabetes mellitus with diabetic chronic kidney disease; N18.9 Chronic kidney disease, unspecified; M19.90 Unspecified osteoarthritis, unspecified site; K21.9 Gastro-esophageal reflux disease without esophagitis; G47.30 Sleep apnea, unspecified; I69.354 Hemiplegia and hemiparesis following cerebral infarction affecting left non-dominant side; I25.10 Atherosclerotic heart disease of native coronary artery without angina pectoris; E66.01 Morbid (severe) obesity due to excess calories; Z68.37 Body mass index [BMI] 37.0-37.9, adult; Z79.2 Long term (current) use of antibiotics; Z79.82 Long term (current) use of aspirin; Z79.899 Other long term (current) drug therapy; Z88.8 Allergy status to other drugs, medicaments and biological substances; Z99.2 Dependence on renal dialysis
CPT/HCPCS: 36416; J0690; J1100; J2001; J2405; J2704; J3010

== ENCOUNTER 2019-08-25 10:02 | Day surgery (SDC) | payer MEDICARE ==
[2019-07-27 09:12] VITALS: BMI 37.3
[~2019-08-25 10:02] MED LIST changes: +Bupivacaine HCl 0.5%/Epinephrine 1:200,000/PF 30 ml Vial ONE; +EPHEDRINE 25 MG/5 ML SYRINGE ONE; +Lidocaine 1% PF 5 ML VIAL ONE; -Lidocaine 2% PF 100 mg/5 ml Syringe ONE; +Ondansetron PF 4 MG/2 ML Vial ONE; +PHENYLEPHRINE-NS 100 MCG/ML 10 ML SYRINGE ONE; -Sodium Chloride 0.9% 15 ML NEB ONE
[2019-08-25] MEDS ORDERED: Fentanyl 100 MCG/2 ML VIAL ONE ×2 (10:52→11:26)
[2019-08-25 11:20] LABS: #Eosinphils 0.2 thou/uL (0.0-0.7); #Lymphocytes 1.9 thou/uL (1.20-3.40); #Monocytes 0.6 thou/uL (0.11-0.59); #Neutrophils 3.5 thou/uL (1.40-6.50); %Basophils 0.8 % (0.0-1.0); %Eosinophils 3.1 % (0.0-10.0); %Lymphocytes 30.1 % (21.0-51.0); %Monocytes 9.9 % (0.0-10.0); %Neutrophils 56.2 % (42.0-75.0); Hemoglobin 10.7 g/dL (12.0-16.0); Mean Corpuscular HGB CONC 31.4 g/dL (32.0-36.0); Mean Corpuscular Hemoglobin 30.7 pg (27.0-31.0); Mean Corpuscular Volume 97.8 fL (78.0-98.0); Mean Platelet Volume 11.2 fL (7.4-10.4); Platelet Count 212 thou/uL (130-400); RBC Distribution Width 16.3 % (11.5-14.5); Red Blood Cell (RBC) Count 3.47 mill/uL (4.20-5.40); White Blood Cell (WBC) Count 6.3 thou/uL (4.8-10.8)
[2019-08-25] MEDS ORDERED: Midazolam HCl 2 mg/2 ml Vial ONE (11:26)
[2019-08-25 11:37] LABS: Anion Gap 15 mmol/L (10-20); BUN (Urea Nitrogen) 44 mg/dL (9.8-20.1); Calc. Creatinine Clearance 15 mL/min (70-130); Calcium 9.6 mg/dL (7.8-10.44); Carbon Dioxide 28 mmol/L (23-31); Chloride 98 mmol/L (98-107); Estimated GFR-MDRD 10; Glucose 125 mg/dL (80-115); Potassium 4.6 mmol/L (3.5-5.1); Sodium 136 mmol/L (136-145)
[2019-08-25] MEDS ORDERED: Propofol 500 MG/50 ML VIAL ONE ×2 (11:43→11:44)
[2019-08-25] MEDS ORDERED: Norepinephrine 4 MG/4 ML VIAL ONE (11:43)
[2019-08-25] MEDS ORDERED: Lidocaine 1% w/Epinephrine 1:100K 20 ML VIAL ONE (11:50)
[2019-08-25] MEDS ORDERED: Ioversol 68 % 50 ML VIAL ONE (11:50)
[2019-08-25] MEDS ORDERED: Heparin 5,000 UNITS/ML VIAL ONE (11:50)
[2019-08-25] MEDS ORDERED: Protamine Sulfate 50 MG/5 ML VIAL ONE (11:50)
[2019-08-25] MEDS ORDERED: Bupivacaine PF 0.5% 30 ML VIAL ONE (11:50)
[2019-08-25] MEDS ORDERED: Heparin 10,000 UNITS/ 10 ML VIAL ONE (14:47)
--- NOTE | 2019-08-25 16:16 | OP ---
DATE OF PROCEDURE: 08/25/2019 PREOPERATIVE DIAGNOSES: 1. Morbid obesity. 2. End-stage renal disease. 3. Unable to access cephalic vein fistula. ANESTHESIA: Regional and TIVA. DESCRIPTION OF PROCEDURE: The patient was taken to the operating room where under intravenous sedation and regional anesthesia, right upper extremity was prepared with ChloraPrep and draped in routine fashion. An incision was made from the proximal volar forearm to the deltopectoral groove on the anterior upper arm, unroofing the cephalic vein with a thick adipose layer using cautery for hemostasis and clips. Branches of the cephalic vein, divided between 4-0 silk ties, 3-0 silk ties, and clips. It was mobilized circumferentially from the proximal volar forearm to the deltopectoral groove. I then created a flap of tissue laterally to bring this cephalic vein to the surface. This mobilized easily of length. The cephalic vein above the antecubital fossa was dilated nicely, but more proximally was on the smaller side. It was hoped that ligation of large collaterals distally would help mature it. At a branch point, I then injected heparinized saline solution into the vein, occluding its outflow, dilating it. This branch was then ligated. The vein was placed in the new pocket laterally and the pocket secured with continuous suture of 3-0 Monocryl and the subcutaneous tissues of the incision approximated with 3-0 Monocryl and skin with kaitlynn after obtaining good hemostasis. Sterile dressing applied. The patient tolerated the procedure well. Job ID: [id number]
== END 2019-08-25 15:05 | disposition home or self-care (01) ==
LOC: SDC 10:02
PROVIDERS: ATTEND Specialist
PROC: 05WY07Z Revision of Autologous Tissue Substitute in Upper Vein, Open Approach (ICD-10-PCS; principal; 2019-08-25)
DX: N18.6 End stage renal disease (principal); E66.01 Morbid (severe) obesity due to excess calories; Z68.37 Body mass index [BMI] 37.0-37.9, adult; Z79.82 Long term (current) use of aspirin; Z79.899 Other long term (current) drug therapy
CPT/HCPCS: 36416; 80048; 85025; J0670; J0690; J1644; J2001; J2250; J2405; J2704; J2720; J3010; Q9967; S0020

== ENCOUNTER 2020-05-13 07:34 | Observation (INO) | payer MEDICARE ==
--- NOTE | 2020-05-13 08:23 | RAD ---
EXAM: CHEST ONE VIEW HISTORY: Dyspnea. Face and chest pain. COMPARISON: 02/17/2020 FINDINGS: Right-sided tunneled hemodialysis catheter remains in place. Tip overlies region of the right atrium. Cardiac silhouette is enlarged. There is mild increase in central pulmonary vasculature. Linear atelectasis is present in the region of the lingula and left lung base. No consolidation or pleural f luid is evident. No other interval change. IMPRESSION: Cardiomegaly with mild congestion of the central pulmonary vasculature.
[2020-05-13] MEDS ORDERED: Labetalol HCl 100 MG/20 ML VIAL ONE (08:26)
[2020-05-13 08:33] LABS: #Eosinphils 0.2 thou/uL (0.0-0.7); #Lymphocytes 1.7 thou/uL (1.20-3.40); #Monocytes 0.5 thou/uL (0.11-0.59); %Basophils 0.6 % (0.0-1.0); %Eosinophils 3.1 % (0.0-10.0); %Lymphocytes 31.4 % (21.0-51.0); %Monocytes 9.3 % (0.0-10.0); %Neutrophils 55.6 % (42.0-75.0); Hemoglobin 9.5 g/dL (12.0-16.0); Mean Corpuscular HGB CONC 30.5 g/dL (32.0-36.0); Mean Corpuscular Hemoglobin 28.7 pg (27.0-31.0); Mean Corpuscular Volume 94.1 fL (78.0-98.0); Mean Platelet Volume 10.3 fL (7.4-10.4); Platelet Count 195 thou/uL (130-400); RBC Distribution Width 17.2 % (11.5-14.5); Red Blood Cell (RBC) Count 3.31 mill/uL (4.20-5.40); White Blood Cell (WBC) Count 5.4 thou/uL (4.8-10.8)
[2020-05-13 08:52] LABS: ALT (SGPT) 7 U/L (8-55); AST (SGOT) 15 U/L (5-34); Alkaline Phosphatase 193 U/L (40-110); Anion Gap 22 mmol/L (10-20); BUN (Urea Nitrogen) 114 mg/dL (9.8-20.1); Bilirubin, Total 1.1 mg/dL (0.2-1.2); Calc. Creatinine Clearance 0 mL/min (70-130); Calcium 8.9 mg/dL (7.8-10.44); Carbon Dioxide 19 mmol/L (23-31); Chloride 100 mmol/L (98-107); Estimated GFR-MDRD 5; Globulin 4.3 g/dL (2.4-3.5); Glucose 178 mg/dL (80-115); Magnesium 2.4 mg/dL (1.6-2.6); Phosphorus 7.3 mg/dL (2.3-4.7); Potassium 4.7 mmol/L (3.5-5.1); Protein, Total 8.3 g/dL (6.0-8.3); Sodium 136 mmol/L (136-145)
[2020-05-13 08:54] LABS: Hypochromia SLIGHT = 6-15 cells (100X) (0-5/hpf); MDiff Complete? YES; Platelet Morphology Comment Appears Adequate; Polychromasia SLIGHT = 2-3 cells (100X) (0-2/hpf); Schistocytes SLIGHT = 2-5 cells (100X) (0-1/hpf)
[2020-05-13 09:15] LABS: CKMB 1.5 ng/mL (0-6.6)
[2020-05-13] MEDS ORDERED: hydrOXYzine 25 MG TAB ONE (09:49)
[2020-05-13] MEDS ORDERED: hydrOXYzine 10 MG TAB PO SCH (10:00)
--- NOTE | 2020-05-13 10:08 | PDOC.HHP ---
Hospitalist HPI - History of Present Illness Chest pain History of Present Illness: PCP: Dr. Mari The patient is a 65-year-old female with a past medical history significant for ESRD (M/W/F) followed by Dr. Frazier, CAD, CHF, DVT, JAQUAN (noncompliant), DM 2, HTN that presents to the emergency department via EMS for the above complaint. The patient reports that she woke up this morning at approximately 4 AM with a persistent nonproductive cough. She reports the cough is so persistent that she felt like she was short of breath and developed chest pain. She reports that the chest pain was located substernally, radiating to her bilateral face, constant, exacerbated only by nothing. Patient reports that she was supposed to schedule cardiac bypass surgery in approximately 2 weeks at [facility] with an unknown CV surgeon. She reports that she needed preop clearance for a new hemodialysis access, therefore she underwent cardiac clearance. Her pen tender told her that she has two-vessel disease and would need bypass surgery. At this time she has not scheduled her surgery. She denies any heart palpitations, lightheadedness or swelling to her lower extremities. Cough, denies any wheezing or hemoptysis. She had a DVT in the past, and was discontinued from Coumadin. She had her hemodialysis port to her right chest replaced this past week. She reports that her last hemodialysis treatment was on Saturday. She denies any abdominal pain, nausea, diarrhea. She says that she makes very little urine. She is tested Covid negative in the last week. ED Course: VITAL SIGNS SatMay 13, 2020 07:42 KEVIN Francois Morgan BP: 147/124, Pulse: 101, Resp: 20, Pain: 8, O2 sat: 97 on (Room Air), Time: 05/13/2020 07:42. VITAL SIGNS SatMay 13, 2020 07:48 KEVIN Francois Morgan Pulse: 98, Time: 05/13/2020 07:48. VITAL SIGNS SatMay 13, 2020 08:42 KEVIN Francois Morgan BP: 170/97, MAP: 121, Pulse: 77, Resp: 20, Temp: 98.1 (Oral), O2 sat: 98 on (Room Air), Time: 05/13/2020 08:42. VITAL SIGNS SatMay 13, 2020 08:16 KEVIN Francois Morgan BP: 183/91, MAP: 121, Pulse: 85, Resp: 21, Pain: 8, O2 sat: 97 on (Room Air), Time: 05/13/2020 08:16. Medication administration: hydrOXYzine HCl oral 10 mg Oral Acknowledged 09:53 05/13/2020 labetalol intravenous 20 mg IV Push Given 08:28 05/13/2020 Hospitalist ROS - Review of Systems Constitutional: denies: fever, chills All other systems reviewed; all pertinent +/- noted in HPI/Subj - Medication Medications: Zofran ODT SatMay 13, 2020 07:48 KEVIN Francois Morgan TABLET,DISINTEGRATING : Strength - 4 mg : ORAL Patient Dose: 1 tab(s) Oral every 6 hours PRN. carvedilol SatMay 13, 2020 07:48 KEVIN Francois Morgan tablet : Strength - 6.25 mg : ORAL Patient Dose: 1 tab(s) Oral 2 times a day. traMADol SatMay 13, 2020 07:48 KEVIN Francois Morgan tablet : Strength - 50 mg : ORAL Patient Dose: 1 tab(s) Oral 2 times a day.PRN. pantoprazole oral SatMay 13, 2020 07:48 KEVIN Francois Morgan tablet,delayed release (DR/EC) : Strength - 40 mg : ORAL Patient Dose: 1 tab(s) Oral once a day. aspirin oral SatMay 13, 2020 07:48 KEVIN Francois Morgan tablet : Strength - 325 mg : ORAL Patient Dose: 1 tab(s) Oral once a day. hydrOXYzine HCl oral SatMay 13, 2020 09:54 KEVIN Francois Morgan TABLET : Strength - 25 mg : ORAL Patient Dose: 10 mg Oral once a day PRN. Allergies: No known drug allergies Hospitalist History - Past Medical History Source: patient, family, RN notes reviewed Cardiac: reports: CAD, CHF, HTN Pulmonary: reports: deep vein thrombosis, Other (Obstructive sleep apnea, noncompliant) Gastrointestinal: reports: GERD Heme/Onc: reports: Other (Anemia of chronic disease) Renal/: reports: Chronic renal failure (Saturday with Dr Frazier) Endocrine: reports: Diabetes (Type II ost-[id number]) - Past Surgical History Past Surgical History: reports: Cholecystectomy, Cataract Removal, , Tubal Ligation, Tonsillectomy, Other (HemoSplit right upper chest) - Family History Family History: reports: cardiac disorder (Grandmother), diabetes mellitus (Father, mother, sister) - Social History Smoking Status: Never smoker Alcohol: reports: None Drugs: reports: none Living Situation: With Family Occupation: disabled Activity level: uses cane/walker - Exam General Appearance: NAD, awake alert. negative: ill appearing Eye: PERRL, anicteric sclera ENT: normocephalic atraumatic Neck: supple, symmetric, no JVD Heart: RRR, no murmur, no gallops, no rubs, normal peripheral pulses Heart - other findings: Right upper chest HemoSplit Respiratory: CTAB, no wheezes, no rales, no ronchi, normal chest expansion, no tachypnea Gastrointestinal: soft, non-tender, normal bowel sounds, no bruit, no guarding, no rigidity Extremities: no cyanosis, no edema Skin: no rashes Neurological: no focal deficits Psychiatric: normal affect, A&O x 3 Hospitalist Results - Labs Result Diagrams: 05/13/20 08:11 05/13/20 08:11 Lab results: WBC 5.4 thou/uL (4.8-10.8) 05/13/20 08:11 Hgb 9.5 g/dL (12.0-16.0) L 05/13/20 08:11 Hct 31.2 % (36.0-47.0) L 05/13/20 08:11 MCV 94.1 fL (78.0-98.0) 05/13/20 08:11 Plt Count 195 thou/uL (130-400) 05/13/20 08:11 Neutrophils % 55.6 % (42.0-75.0) 05/13/20 08:11 Sodium 136 mmol/L (136-145) 05/13/20 08:11 Potassium 4.7 mmol/L (3.5-5.1) 05/13/20 08:11 Chloride 100 mmol/L (98-107) 05/13/20 08:11 Carbon Dioxide 19 mmol/L (23-31) L 05/13/20 08:11 BUN 114 mg/dL (9.8-20.1) H 05/13/20 08:11 Creatinine 9.83 mg/dL (0.6-1.1) H 05/13/20 08:11 Glucose 178 mg/dL (80-115) H 05/13/20 08:11 Calcium 8.9 mg/dL (7.8-10.44) 05/13/20 08:11 Total Bilirubin 1.1 mg/dL (0.2-1.2) 05/13/20 08:11 AST 15 U/L (5-34) 05/13/20 08:11 ALT 7 U/L (8-55) L 05/13/20 08:11 Alkaline Phosphatase 193 U/L (40-110) H 05/13/20 08:11 CK-MB (CK-2) 1.5 ng/mL (0-6.6) 05/13/20 08:11 Troponin I 0.067 ng/mL (< 0.028) H 05/13/20 08:11 B-Natriuretic Peptide 885.0 pg/mL (0-100) H 05/13/20 08:11 Serum Total Protein 8.3 g/dL (6.0-8.3) 05/13/20 08:11 Albumin 4.0 g/dL (3.4-4.8) 05/13/20 08:11 - EKG Interpretation EK lead EKG interpreted by Emergency Department Physician at time of study, 12 lead EKG shows, sinus tachycardia, Rate (beats per minute): 106, with no ectopics, Conduction normal, ST segments normal, T waves, flattened, Areas affected: lateral leads, [place] normal, Clinical impression:, non-specific EKG - Radiology Interpretation Chest x-ray Status: report reviewed by me Additional Comment: IMPRESSION: Cardiomegaly with mild congestion of the central pulmonary vasculature. Hospitalist H&P A/P - Problem (1) Chest pain Code(s): R07.9 - CHEST PAIN, UNSPECIFIED Status: Acute (2) End stage renal disease Code(s): N18.6 - END STAGE RENAL DISEASE Status: Chronic (3) CAD (coronary artery disease) Code(s): I25.10 - ATHSCL HEART DISEASE OF [place] CORONARY ARTERY W/O ANG PCTRS Status: Chronic (4) Acute on chronic diastolic ACC/AHA stage C congestive heart failure Code(s): I50.33 - ACUTE ON CHRONIC DIASTOLIC (CONGESTIVE) HEART FAILURE Status: Chronic (5) HTN (hypertension) Code(s): I10 - ESSENTIAL (PRIMARY) HYPERTENSION Status: Chronic (6) DM2 (diabetes mellitus, type 2) Status: Chronic (7) History of DVT (deep vein thrombosis) Code(s): Z86.718 - PERSONAL HISTORY OF OTHER VENOUS THROMBOSIS AND EMBOLISM Status: Chronic (8) JAQUAN (obstructive sleep apnea) Code(s): G47.33 - OBSTRUCTIVE SLEEP APNEA (ADULT) (PEDIATRIC) Status: Chronic (9) Anemia, chronic disease Code(s): D63.8 - ANEMIA IN OTHER CHRONIC DISEASES CLASSIFIED ELSEWHERE Status: Chronic - Plan Plan: 65/F with PMH CAD, CHF and ESRD presents for cough and chest pain. Admit to telemetry floor, observation status. Expected length of stay less than 2 midnights. Presented hypertensive, tachycardic, NL RR, SPO2, afebrile. EKG sinus tachycardia, no ST elevation CXR cardiomegaly with mild congestion of pulmonary vasculature. Troponin 0.067, CK-MB 1.5, BNP 885, mag 2.4 Potassium 4.7, phosphorus 7.3 Day BC 5.4, Hgb 9.5, HCT 31.2, platelets 195 #Chest pain Heart score 6 [place] PE score 1.5, low risk. Known CAD Supposed to schedule CABG at [facility]. Trend troponins, check TSH. Consult cardiology. Continue aspirin and Nitropaste. #End-stage renal disease Followed by Dr. Frazier Schedule is Last treatment was Saturday. Dr. Howell consulted by ER MD, agreed to dialyze. #CAD Continue home dose of Coreg and aspirin when reconciled by nursing. #Acute on chronic diastolic ACC/AHA stage C congestive heart failure Chronic. Previous comparable BNP [id number] Followed by unknown pen tender at [facility]. #HTN Presented 170/97 Did not take home medications. Was given labetalol in the ER. We will restart home medications when reconciled by nursing. #DM2 [id number]. Takes unknown dosage of glyburide. We will start Accu-Cheks AC/at bedtime. Moderate ISS. #History of DVT Previously on Coumadin, DC'd by physician. #JAQUAN Noncompliant. #Anemia chronic disease Chronic, appears stable. SCDs for DVT prophylaxis. Protonix for GI prophylaxis. Full code Medical decision maker is her niece, Marivel Davidson at [phone]. Discussed the case with Dr. Lauren.
[2020-05-13] MEDS ORDERED: Ondansetron ODT 4 MG TAB PO PRN (10:49)
[2020-05-13] MEDS ORDERED: Senokot S 8.6-50 MG TAB PO PRN (10:49)
[2020-05-13] MEDS ORDERED: Calcium Carbonate 500 MG ChewTAB PO PRN (10:49)
[2020-05-13] MEDS ORDERED: Ondansetron PF 4 MG/2 ML Vial IVP PRN (10:49)
[2020-05-13] MEDS ORDERED: Dextrose 5% in Water 1,000 ML IV PRN (11:20)
[2020-05-13] MEDS ORDERED: Dextrose 50% Abboject 50 ML SYRINGE SLOW IVP PRN (11:20)
[2020-05-13] MEDS ORDERED: HumaLOG 300 UNITS/3 ML VIAL SC PRN (11:20)
[2020-05-13 11:41] LABS: Troponin I 0.113 ng/mL (< 0.028)
--- NOTE | 2020-05-13 14:12 | CON ---
DATE OF CONSULTATION: REASON FOR CONSULTATION: Atypical chest pain. HISTORY OF PRESENT ILLNESS: Ms. Gillis is a 65-year-old woman who I have seen and evaluated in the past. She recently has been having chest pain. By her account, she has had significant coughing episodes. She states she has only had pain with coughing. She has not had any further episodes of pain. She has not had a rapid COVID test performed. If so, it is pending. She is currently pain-free on dialysis. PAST MEDICAL HISTORY: End-stage renal disease, diastolic dysfunction, noncompliance, tonsillectomy, , adenoidectomy, BTL, hysterectomy, cataract surgery. SOCIAL HISTORY: No current tobacco or alcohol use. ALLERGIES: TRAMADOL. REVIEW OF SYSTEMS: A 10-point review of systems is reviewed as above, otherwise negative. PHYSICAL EXAMINATION: GENERAL: Patient is a pleasant woman who is in no acute distress. The patient appears their stated age. VITAL SIGNS: Blood pressure 160/70, pulse 80, respirations 20. NEUROLOGIC: The patient is alert and oriented x3 with no focal neurologic deficits. HEENT: Sclerae without icterus. Mouth has moist mucous membranes with normal pallor. NECK: No JVD. Carotid upstroke brisk. No bruits bilaterally. LUNGS: Clear to auscultation with unlabored respirations. BACK: No scoliosis or kyphosis. CARDIAC: Regular rate and rhythm with normal S1 and S2. No S3 or S4 noted. No significant rubs, murmurs, thrills, or gallops noted throughout the precordium. PMI is not displaced. There is no parasternal heave. ABDOMEN: Soft, nontender, nondistended. No peritoneal signs present. No hepatosplenomegaly. No abnormal striae. EXTREMITIES: 2+ femoral and 2+ dorsalis pedis pulses. No cyanosis, clubbing, or edema. SKIN: No gross abnormalities. PERTINENT LABORATORY DATA: Hemoglobin 9.5, hematocrit 31.2, platelet count of 195. Creatinine 9.83, CO2 of 19, BUN 114. EKG showed normal sinus rhythm and nonspecific ST-T wave changes. IMPRESSION: 1. Chest pain. 2. End-stage renal disease. 3. Diastolic dysfunction. 4. Noncompliance. RECOMMENDATIONS: Ms. Gillis's symptoms are not consistent with angina. Her symptoms are only present with cough. Her troponin is mildly elevated at 0.1, likely related to end-stage renal disease. At this point, I would recommend close observation. I would recommend echo Doppler to assess her LVEF. Otherwise, I have no further recommendations. Job ID: [id number]
[2020-05-13] MEDS ORDERED: Heparin 10,000 UNITS/ 10 ML VIAL ONE (14:52)
[2020-05-13] MEDS: Nitroglycerin 2% Ointment 1 INCH/1 GM Packet TOP SCH ×2 (16:26→20:35)
[2020-05-13 16:37] LABS: Troponin I 0.156 ng/mL (< 0.028)
[2020-05-13] MEDS: Acetaminophen 325 MG TAB PO PRN ×2 (16:41→23:14)
[2020-05-13 16:52] VITALS: BMI 43.0
[2020-05-13] MEDS: hydrOXYzine 10 MG TAB PO PRN (18:25)
--- NOTE | 2020-05-13 19:28 | CON ---
DATE OF CONSULTATION: 05/13/2020 CONSULTING PHYSICIAN: Dr. Lauren. REASON FOR CONSULTATION: End-stage renal disease evaluation and care. REASON FOR ADMISSION: Chest pain. HISTORY OF PRESENT ILLNESS: This is a 65-year-old female with history of end-stage renal disease, CHF, CAD, DVT, came to the hospital with chest pain. She gets dialysis on Saturday, Saturday, and Saturday. Missed dialysis on Saturday and last dialysis was on Saturday. She was COVID tested negative last week. She is complaining of cough. No shortness of breath. No nausea, vomiting, or diarrhea. No fever or chills. PAST MEDICAL HISTORY: Positive for; 1. Coronary artery disease. 2. CHF. 3. Hypertension. 4. DVT. 5. GERD. 6. Anemia of chronic disease. 7. Type 2 diabetes. PAST SURGICAL HISTORY: 1. Dialysis access placement. 2. Tubal ligation. 3. Cataract surgery. 4. . 5. Cholecystectomy. 6. Tonsillectomy. HOME MEDICATIONS: Reviewed. ALLERGIES: NO KNOWN DRUG ALLERGIES. SOCIAL HISTORY: No smoking, alcohol, or illicit drug abuse. FAMILY HISTORY: No history of kidney disease. REVIEW OF SYSTEMS: CONSTITUTIONAL: Negative for weight loss or gain, ability to conduct usual activities. SKIN: Negative for rash, itching. EYES: Negative for double vision, pain. ENT/MOUTH: Negative for nose bleeding, neck stiffness, pain, tenderness. CARDIOVASCULAR: Negative for palpitations, dyspnea on exertion, orthopnea. RESPIRATORY: Negative for shortness of breath, wheezing, cough, hemoptysis, fever or night sweats. GASTROINTESTINAL: Negative for poor appetite, abdominal pain, heartburn, nausea, vomiting, constipation, or diarrhea. GENITOURINARY: Negative for urgency, frequency, dysuria, nocturia. MUSCULOSKELETAL: Negative for pain, swelling. NEUROLOGIC/PSYCHIATRIC: Negative for anxiety, depression. ALLERGY/IMMUNOLOGIC: Negative for skin rash, bleeding tendency. PHYSICAL EXAMINATION: GENERAL: This is a well-built female, in no apparent distress. VITAL SIGNS: Temperature 97.8, pulse 71, respiration 18, blood pressure 115/67. HEENT: Atraumatic, normocephalic. Oral mucosa moist. NECK: Supple. CV: S1, S2. Rate and rhythm regular. RESPIRATORY: Clear. GI: Abdomen is soft. MUSCULOSKELETAL: No tenderness. No edema. DERMATOLOGIC: No skin rash. NEUROLOGIC: Alert and awake. PSYCHIATRIC: Normal mood and affect. LABORATORY DATA: Hemoglobin is 9.5. Potassium is 4.7, BUN is 114, creatinine is 9.8. ASSESSMENT AND PLAN: 1. End-stage renal disease. Plan to have dialysis today and continue dialysis on Saturday, Saturday, and Saturday. 2. Edema with fluid overload. We will remove fluid. 3. History of hypertension. 4. Anemia of chronic disease. 5. Hyperphosphatemia. 6. Morbid obesity. PLAN: Plan to have dialysis as tolerated. We will follow. Job ID: [id number]
[2020-05-13] MEDS: Atorvastatin Calcium 40 MG TAB PO SCH (20:34)
[2020-05-13] MEDS: Furosemide 40 MG TAB PO SCH (20:35)
[2020-05-13] MEDS ORDERED: Heparin 5,000 UNITS/ML VIAL SC SCH (21:00)
[2020-05-14] MEDS: Guaifenesin DM 100-10/5 ML UDCUP PO PRN ×2 (00:57→12:06)
[2020-05-14] MEDS: hydrOXYzine 10 MG TAB PO PRN ×2 (05:46→20:37)
[2020-05-14] MEDS: Nitroglycerin 2% Ointment 1 INCH/1 GM Packet TOP SCH ×3 (05:48→20:38)
[2020-05-14 05:51] LABS: #Eosinphils 0.1 thou/uL (0.0-0.7); #Lymphocytes 1.4 thou/uL (1.20-3.40); #Monocytes 0.7 thou/uL (0.11-0.59); #Neutrophils 3.1 thou/uL (1.40-6.50); %Basophils 0.9 % (0.0-1.0); %Eosinophils 2.6 % (0.0-10.0); %Lymphocytes 26.5 % (21.0-51.0); %Monocytes 12.6 % (0.0-10.0); %Neutrophils 57.4 % (42.0-75.0); Hemoglobin 9.7 g/dL (12.0-16.0); Mean Corpuscular HGB CONC 31.3 g/dL (32.0-36.0); Mean Corpuscular Hemoglobin 29.4 pg (27.0-31.0); Mean Corpuscular Volume 93.9 fL (78.0-98.0); Mean Platelet Volume 8.4 fL (7.4-10.4); Platelet Count 182 thou/uL (130-400); RBC Distribution Width 17.1 % (11.5-14.5); Red Blood Cell (RBC) Count 3.28 mill/uL (4.20-5.40); White Blood Cell (WBC) Count 5.4 thou/uL (4.8-10.8)
[2020-05-14 06:12] LABS: Anion Gap 17 mmol/L (10-20); BUN (Urea Nitrogen) 62 mg/dL (9.8-20.1); Calc. Creatinine Clearance 13 mL/min (70-130); Calcium 8.7 mg/dL (7.8-10.44); Carbon Dioxide 24 mmol/L (23-31); Chloride 100 mmol/L (98-107); Cholesterol 127 mg/dl (< 200 Desired); Estimated GFR-MDRD 8; Glucose 121 mg/dL (80-115); HDL Cholesterol 64 mg/dL (>60 Neg Risk); LDL Cholesterol, Calculated 49 mg/dL; Potassium 4.4 mmol/L (3.5-5.1); Sodium 137 mmol/L (136-145); Triglycerides 70 mg/dL (Less than 150)
--- NOTE | 2020-05-14 07:12 | PDOC.HOSPP ---
- Subjective Encounter Date: 05/14/20 Encounter Time: 08:48 Subjective: Patient seen and examined. No new complaints. No overnight events. She feels good. S/p HD with Dr. Howell yesterday. Denies any chest pain, SOB, abdominal pain, N/V/D. Eating breakfast. Discussed nephrology rec to continue usual HD schedule on M/W/ and cardiology rec to obtain echocardiogram. Possible d/c this evening. P atient understands and agrees with plan of care. - Objective Vital Signs & Weight: Vital Signs (12 hours) Temp Pulse Resp BP BP BP Pulse Ox 05/14/20 04:00 97.4 F L 76 20 115/72 98 05/14/20 01:13 99 05/14/20 00:10 78 20 126/79 99 05/13/20 20:00 97.4 F L 77 20 121/64 96 Weight Weight 213 lb 3.2 oz I&O: 05/13/20 05/14/20 05/15/20 06:59 06:59 06:59 Intake Total 240 Balance 240 Result Diagrams: 05/14/20 05:00 05/14/20 05:00 Additional Labs: Accuchecks 05/14/20 05/13/20 05/13/20 05:25 20:30 17:03 POC Glucose 123 H 213 H 98 Hospitalist ROS - Review of Systems Constitutional: denies: fever, chills Respiratory: denies: cough, shortness of breath, hemoptysis Cardiovascular: denies: chest pain, palpitations, light headedness Gastrointestinal: denies: nausea, vomiting, abdominal pain, diarrhea, melena, hematochezia Genitourinary: denies: dysuria, hematuria Neurological: denies: weakness, change in speech All other systems reviewed; all pertinent +/- noted in HPI/Subj - Medication Medications: Active Medications Generic Name Dose Route Start Last Admin Trade Name Freq PRN Reason Stop Dose Admin Acetaminophen 650 mg 05/13/20 10:49 05/13/20 23:14 Acetaminophen 325 Mg Tab PO 650 mg Q4H PRN Administration Headache/Fever/Mild Pain (1-3) Atorvastatin Calcium 40 mg 05/13/20 21:00 05/13/20 20:34 Atorvastatin Calcium 40 Mg Tab PO 40 mg HS NINO Administration Furosemide 40 mg 05/13/20 21:00 05/13/20 20:35 Furosemide 40 Mg Tab PO 40 mg BID NINO Administration Guaifenesin/Dextromethorphan 15 ml 05/14/20 00:40 05/14/20 00:57 Guaifenesin Dm 100-10/5 Ml Udcup PO 15 ml Q4H PRN Administration Cough Hydroxyzine HCl 10 mg 05/13/20 17:44 05/14/20 05:46 Hydroxyzine 10 Mg Tab PO 10 mg BIDPRN PRN Administration Rash/Topical Irritation Insulin Human Lispro 0 units 05/13/20 11:20 05/13/20 20:40 Humalog 300 Units/3 Ml Vial SC 2 unit .BEDTIME SLIDING SC PRN Administration Bedtime Correctional Scale Nitroglycerin 0.5 inch 05/13/20 14:00 05/14/20 05:48 Nitroglycerin 2% Ointment 1 Inch/1 Gm Packet TOP Not Given Q8HR NINO - Exam General Appearance: NAD, awake alert. negative: ill appearing Eye: anicteric sclera ENT: normocephalic atraumatic Neck: supple, symmetric Heart: RRR, no murmur, no gallops, no rubs, normal peripheral pulses Heart - other findings: R[place]st hemosplit Respiratory: CTAB, no wheezes, no rales, no ronchi, normal chest expansion, no tachypnea Gastrointestinal: soft, non-tender, non-distended, normal bowel sounds, no palpable masses Extremities: no edema Psychiatric: normal affect, A&O x 3 Hosp A/P (1) Chest pain Code(s): R07.9 - CHEST PAIN, UNSPECIFIED Status: Acute (2) End stage renal disease Code(s): N18.6 - END STAGE RENAL DISEASE Status: Chronic (3) CAD (coronary artery disease) Code(s): I25.10 - ATHSCL HEART DISEASE OF [place] CORONARY ARTERY W/O ANG PCTRS Status: Chronic (4) Acute on chronic diastolic ACC/AHA stage C congestive heart failure Code(s): I50.33 - ACUTE ON CHRONIC DIASTOLIC (CONGESTIVE) HEART FAILURE Status: Chronic (5) HTN (hypertension) Code(s): I10 - ESSENTIAL (PRIMARY) HYPERTENSION Status: Chronic (6) DM2 (diabetes mellitus, type 2) Status: Chronic (7) History of DVT (deep vein thrombosis) Code(s): Z86.718 - PERSONAL HISTORY OF OTHER VENOUS THROMBOSIS AND EMBOLISM Status: Chronic (8) JAQUAN (obstructive sleep apnea) Code(s): G47.33 - OBSTRUCTIVE SLEEP APNEA (ADULT) (PEDIATRIC) Status: Chronic (9) Anemia, chronic disease Code(s): D63.8 - ANEMIA IN OTHER CHRONIC DISEASES CLASSIFIED ELSEWHERE Status: Chronic - Plan 65/F with PMH CAD, CHF and ESRD presents for cough and chest pain. Admit to telemetry floor, observation status. Expected length of stay less than 2 midnights. Presented hypertensive, tachycardic, NL RR, SPO2, afebrile. EKG sinus tachycardia, no ST elevation CXR cardiomegaly with mild congestion of pulmonary vasculature. Troponin 0.067, CK-MB 1.5, BNP 885, mag 2.4 Potassium 4.7, phosphorus 7.3 WBC 5.4, Hgb 9.5, HCT 31.2, platelets 195 #Chest pain Heart score 6 Wells PE score 1.5, low risk. Known CAD Supposed to schedule CABG at [facility]. Troponins flat, likely from ESRD. Cardiology recs appreciated. echo pend. Continue aspirin. #End-stage renal disease Followed by Dr. Frazier Schedule is Last treatment was Saturday. s/p HD treatment yesterday. Nephrology recs appreciated continue usual HD schedule MWF #CAD Continue home dose of Coreg and aspirin. #Acute on chronic diastolic ACC/AHA stage C congestive heart failure Chronic. Previous comparable BNP [id number] Followed by unknown roaster helper at [facility]. #HTN BP this am was 115/72 Restart home meds. #DM2 [id number]. Takes unknown dosage of glyburide. We will start Accu-Cheks AC/at bedtime. Moderate ISS. #History of DVT Previously on Coumadin, DC'd by physician. #JAQUAN Noncompliant. #Anemia chronic disease Chronic, appears stable. SCDs for DVT prophylaxis. Protonix for GI prophylaxis. Full code Medical decision maker is her niece, Marivel Davidson at [phone]. Discussed the case with Dr. Lauren.
[2020-05-14] MEDS: Calcium Carbonate 500 MG ChewTAB PO SCH ×3 (08:57→17:27)
[2020-05-14] MEDS: Carvedilol 6.25 MG TAB PO SCH ×2 (08:57→17:27)
[2020-05-14] MEDS: Furosemide 40 MG TAB PO SCH ×2 (08:57→20:37)
[2020-05-14] MEDS: Aspirin 81 mg Enteric Coated Tablet PO SCH (08:57)
[2020-05-14] MEDS: HumaLOG 300 UNITS/3 ML VIAL SC PRN (12:00)
[2020-05-14] MEDS: Acetaminophen 325 MG TAB PO PRN (13:59)
--- NOTE | 2020-05-14 14:34 | PDOC.CPN ---
- Subjective Date: 05/14/20 Time: 12:45 Interval history: Patient without overnight complaints. Only complaint is cough. Denies any CP or SOB. - Review of Systems General: denies: fever/chills, weight/appetite/sleep changes, night sweats, fatigue Respiratory: reports: cough. denies: congestion, shortness of breath, exercise intolerance Cardiovascular: denies: chest pain, palpitation, edema, paroxysmal nocturnal dyspnea, orthopnea Gastrointestinal: denies: nausea, vomiting, diarrhea, constipation, abd pain, GI bleeding Musculoskeletal: denies: pain, tenderness, stiffness, swelling, arthritis/arthralgias Neurological: denies: numbness, syncope, seizure, weakness - Objective Allergies/Adverse Reactions: Allergies Allergy/AdvReac Type Severity Reaction Status Date / Time No Known Allergies Allergy Verified 05/13/20 18:26 Visit Medications: Current Medications Acetaminophen (Acetaminophen 325 Mg Tab) 650 mg PO Q4H PRN PRN Reason: Headache/Fever/Mild Pain (1-3) Last Admin: 05/14/20 13:59 Dose: 650 mg Documented by: Aspirin (Aspirin 81 Mg Enteric Coated Tablet) 81 mg PO DAILY [facility] Last Admin: 05/14/20 08:57 Dose: 81 mg Documented by: Atorvastatin Calcium (Atorvastatin Calcium 40 Mg Tab) 40 mg PO HS [facility] Last Admin: 05/13/20 20:34 Dose: 40 mg Documented by: Calcium Carbonate (Calcium Carbonate 500 Mg Chewtab) 1,000 mg PO Q4H PRN PRN Reason: Heartburn or Indigestion Calcium Carbonate (Calcium Carbonate 500 Mg Chewtab) 500 mg PO TID-[facility] Last Admin: 05/14/20 12:00 Dose: 500 mg Documented by: Carvedilol (Carvedilol 6.25 Mg Tab) 6.25 mg PO BID-[facility] Last Admin: 05/14/20 08:57 Dose: 6.25 mg Documented by: Dextrose/Water (Dextrose 50% Abboject 50 Ml Syringe) 25 gm SLOW IVP PRN PRN PRN Reason: Hypoglycemia Furosemide (Furosemide 40 Mg Tab) 40 mg PO BID [facility] Last Admin: 05/14/20 08:57 Dose: 40 mg Documented by: Glucagon (Glucagon 1 Mg/Ml Vial) 1 mg IM PRN PRN PRN Reason: Hypoglycemia Guaifenesin/Dextromethorphan (Guaifenesin Dm 100-10/5 Ml Udcup) 15 ml PO Q4H PRN PRN Reason: Cough Last Admin: 05/14/20 12:06 Dose: 15 ml Documented by: Hydroxyzine HCl (Hydroxyzine 10 Mg Tab) 10 mg PO BIDPRN PRN PRN Reason: Rash/Topical Irritation Last Admin: 05/14/20 05:46 Dose: 10 mg Documented by: Dextrose/Water (D5w) 1,000 mls @ 0 mls/hr IV .Q0M PRN PRN Reason: Hypoglycemia Insulin Human Lispro (Humalog 300 Units/3 Ml Vial) 0 units SC .MODERATE SLIDING SC PRN PRN Reason: Moderate Correctional Scale Last Admin: 05/14/20 12:00 Dose: 2 unit Documented by: Insulin Human Lispro (Humalog 300 Units/3 Ml Vial) 0 units SC .BEDTIME SLIDING SC PRN PRN Reason: Bedtime Correctional Scale Last Admin: 05/13/20 20:40 Dose: 2 unit Documented by: Nitroglycerin (Nitroglycerin 2% Ointment 1 Inch/1 Gm Packet) 0.5 inch TOP Q8HR [facility] Last Admin: 05/14/20 13:59 Dose: 0.5 inch Documented by: Ondansetron HCl (Ondansetron Odt 4 Mg Tab) 4 mg PO Q6H PRN PRN Reason: Nausea/Vomiting Ondansetron HCl (Ondansetron Pf 4 Mg/2 Ml Vial) 4 mg IVP Q6H PRN PRN Reason: Nausea/Vomiting Pantoprazole Sodium (Pantoprazole 40 Mg Tab) 40 mg PO DAILY [facility] Last Admin: 05/14/20 08:57 Dose: 40 mg Documented by: Senna/Docusate Sodium (Senokot S 8.6-50 Mg Tab) 2 tab PO BIDPRN PRN PRN Reason: Constipation Sodium Chloride (Flush - Normal Saline 10 Ml Syringe) 10 ml IVF PRN PRN PRN Reason: Saline Flush Vital Signs & Weight: Vital Signs Temp Pulse Resp BP BP Pulse Ox 05/14/20 12:00 98.0 F 94 17 142/87 H 17 L 05/14/20 07:30 98.1 F 83 17 105/59 L 94 L 05/14/20 04:00 97.4 F L 76 20 115/72 98 Weight 213 lb 3.2 oz - Physical Exam General: alert & oriented x3, appears well, no apparent distress HEENT: mucus membranes moist Neck: supple neck Cardiac: regular rate and rhythm Lungs: normal breath sounds, no wheeze, rales, rhonchi Neuro: grossly intact Abdomen: soft Extremities: 1+ LE edema, other: (bilateral lymphedema) Musculoskeletal: no pain - Labs Result Diagrams: 05/14/20 05:00 05/14/20 05:00 Troponin/CKMB CK-MB (CK-2) 1.5 ng/mL (0-6.6) 05/13/20 08:11 Troponin I 0.156 ng/mL (< 0.028) H 05/13/20 15:54 - Assessment/Plan Assessment/Plan: 1. Cough 2. ESRD 3. Diastolic dysfunction ECHO taken. Pending read. No complaint of CP. No arrhythmias. Patient did not actually cough once while I was in room. COVID test pending. No changes on my part.
--- NOTE | 2020-05-14 18:02 | PRG ---
DATE OF SERVICE: 05/14/2020 SUBJECTIVE: Patient was seen and examined at bedside and overnight events noted. Patient denies any shortness of breath or chest pain or palpitation. No history of nausea or vomiting or diarrhea or fever or chills or cramps. OBJECTIVE: GENERAL: This is a well-built female, in no apparent distress. VITAL SIGNS: Temperature , pulse 94, respiratory rate 18, blood pressure 142/87. HEENT: Atraumatic, normocephalic. Oral mucosa is moist. Neck: Supple. Cardiovascular: S1, S2 heard. Rate and rhythm regular. Respiratory: Clear to auscultation. Gastrointestinal: Abdomen is soft. Musculoskeletal: No tenderness. No edema. Dermatologic: No skin rash. Neurologic: Alert and awake and oriented x3. No focal neurologic deficits. Moving all the extremities. Psychiatric: Mood and affect normal. LABORATORY DATA: Potassium 4.4, BUN is 62, and creatinine is 6.5. ASSESSMENT AND PLAN: 1. End-stage renal disease. We will continue dialysis on Saturday, Saturday, Saturday . 2. Anemia of chronic disease. 3. Hyperphosphatemia. 4. Hypertension. 5. Continue dialysis as tolerated, Saturday, Saturday, Saturday. Job ID: [id number]
[2020-05-14 20:31] LABS: SARS-CoV-2 MS2 Positive; SARS-CoV-2 N Gene Negative; SARS-CoV-2 S Gene Negative; SARS-CoV-2 by NAA Not Detected (NotDetected); SARS-CoV-2 orf1ab Negative
[2020-05-14] MEDS: Atorvastatin Calcium 40 MG TAB PO SCH (20:37)
[2020-05-15] MEDS: Nitroglycerin 2% Ointment 1 INCH/1 GM Packet TOP SCH (06:01)
[2020-05-15] MEDS: Aspirin 81 mg Enteric Coated Tablet PO SCH (08:21)
[2020-05-15] MEDS: Furosemide 40 MG TAB PO SCH (08:21)
[2020-05-15] MEDS: Carvedilol 6.25 MG TAB PO SCH (08:21)
[2020-05-15] MEDS: Calcium Carbonate 500 MG ChewTAB PO SCH ×2 (08:21→11:43)
[2020-05-15] MEDS: HumaLOG 300 UNITS/3 ML VIAL SC PRN (11:43)
[2020-05-15 12:40] VITALS: BP 132/87; TEMP 97.9
--- NOTE | 2020-05-15 13:29 | PDOC.DS.DS ---
Provider - Provider Date of Admission: 05/13/20 10:21 Date of Discharge: 05/15/20 Admitting Provider: Brian Lauren MD Consultations: Cardiology (Dr. Dey), Nephrology (Dr. Howell) Primary Care Physician: [facility] Course - Hospital Course Hospital Course: Discharge diagnosis: 1. Chest pain 2. Chest pain most likely secondary to musculoskeletal etiology 3. COVID-19 PCR test negative Hospital course: Patient is a pleasant 65-year-old lady who was admitted to the hospital on May 13, 2020 for atypical chest pain. She was seen by cardiology service. She was also seen by nephrology service for maintenance hemodialysis. Her chest pain resolved shortly following admission. Cardiology service felt that this was atypical for angina. She also had a 2D echocardiogram, which showed left ventricle ejection fraction of 50 to 55%, mild concentric left ventricular hypertrophy, technically difficult study with poor endocardial definition, restrictive filling pattern suggesting restrictive diastolic function, severely dilated left atrium, mild mitral regurgitation and moderate tricuspid regurgitation. Patient is being discharged home in stable condition. No change was made to her preadmission home medications. Many thanks for allowing me to participate in your patient's care. Please feel free to contact me with any questions or concerns. Resuscitation Status: 05/13/20 10:49 Resuscitation Status Routine Co-Sign Provider: Resuscitation Status: FULL: Full Resuscitation Discussed with: patient - Labs Lab Results: 05/14/20 05:00 05/14/20 05:00 Abnormal Lab Results - Last 48 hrs 05/13/20 15:54: Troponin I 0.156 H 05/14/20 05:00: BUN 62 H, Creatinine 6.53 H 05/14/20 05:00: RBC 3.28 L, Hgb 9.7 L, Hct 30.8 L, MCHC 31.3 L, RDW 17.1 H, Monocytes % 12.6 H, Monocytes # 0.7 H - Physical Exam Vitals: Vital Signs (12 hours) Temp Pulse Resp BP Pulse Ox 05/15/20 12:00 97.9 F 70 16 132/87 95 05/15/20 08:00 97.7 F 75 16 131/93 H 95 05/15/20 03:20 97.4 F L 88 16 128/92 H 97 Weight Weight 213 lb 1 oz Physical Exam: The patient was seen and examined on the day of discharge. Patient denies chest pain or shortness of breath. Vital signs are stable. S1 and S2 are heard. Lungs are clear to auscultation bilaterally. Plan - Discharge Medications Home Medications: Medication Instructions Recorded Confirmed Type Carvedilol 6.25 tab PO BID-WM 12/21/18 05/13/20 History hydrOXYzine [Atarax] 10 mg PO BID PRN 12/21/18 05/13/20 History Aspirin Chewable [Aspirin Chewable 81 mg PO DAILY #30 tab 12/25/18 05/13/20 Rx Tablet] Atorvastatin Calcium [Lipitor] 40 mg PO DAILY 05/13/20 05/13/20 History Calcium Carbonate [Tums] 1 tab PO TID- 05/13/20 05/13/20 History Furosemide [Lasix] 40 mg PO BID 05/13/20 05/13/20 History glipiZIDE [Glipizide] 5 mg PO DAILY 05/13/20 05/13/20 History traMADol HCl [Tramadol HCl] 50 mg PO BID PRN 05/13/20 05/13/20 History Allergies: No Known Allergies Allergy (Verified 05/13/20 18:26) - Discharge Instructions Nourishment:: Diabetic Diet, Heart Healthy Diet, Renal Diet - Follow up Plan Referrals: [facility] [Primary Care Provider] - 3 Days (Please call the office on Saturday to schedule a follow up appointment with your primary care doctor through the [facility].) El Dey MD [Active] - 14 Days (Expect a call from the office requesting a scheduled visit within the next 1-2 weeks) Stephen Howell MD [Active] - 14 Days (Please call the office to schedule an appointment within the next two weeks) Disposition: HOME Quality - Care Measures CORE MEASURES:: N/A
--- NOTE | 2020-05-15 14:37 | PRG ---
DATE OF SERVICE: 05/15/2020 SUBJECTIVE: Patient was seen and examined at bedside and overnight events noted. Patient denies any shortness of breath or chest pain or palpitation. No history of nausea or vomiting or diarrhea or fever or chills or cramps. OBJECTIVE: GENERAL: This is a well-built female, in no apparent distress. VITAL SIGNS: Temperature 97.9. Heart rate 70. Respiratory rate 16. Blood pressure 132/87. HEENT: Atraumatic, normocephalic. Oral mucosa is moist. NECK: Supple. CARDIOVASCULAR: S1, S2 heard. Rate and rhythm regular. RESPIRATORY: Clear to auscultation. GASTROINTESTINAL: Abdomen is soft. MUSCULOSKELETAL: No tenderness. No edema. DERMATOLOGIC: No skin rash. NEUROLOGIC: Alert and awake and oriented x3. No focal neurologic deficits. Moving all the extremities. PSYCHIATRIC: Mood and affect normal. LABORATORY DATA: Not done today. ASSESSMENT AND PLAN: 1. End-stage renal disease. Continue dialysis on Saturday, Saturday, and Saturday. 2. Anemia of chronic disease. 3. Hypertension. 4. Edema. 5. Hyperphosphatemia. Continue dialysis on Saturday, Saturday, and Saturday. Job ID: [id number]
== END 2020-05-15 14:50 | disposition home or self-care (01) ==
LOC: ERS 07:34 → ERHOLD 10:21 → 2NO 16:24
PROVIDERS: ADMIT Student in an Organized Health Care Education/Training Program; ATTEND Internal Medicine
DX: R07.89 Other chest pain (principal); I13.2 Hypertensive heart and chronic kidney disease with heart failure and with stage 5 chronic kidney disease, or end stage renal disease; E11.22 Type 2 diabetes mellitus with diabetic chronic kidney disease; N18.6 End stage renal disease; I50.33 Acute on chronic diastolic (congestive) heart failure; D63.1 Anemia in chronic kidney disease; I25.10 Atherosclerotic heart disease of native coronary artery without angina pectoris; G47.33 Obstructive sleep apnea (adult) (pediatric); K21.9 Gastro-esophageal reflux disease without esophagitis; E87.70 Fluid overload, unspecified; E83.39 Other disorders of phosphorus metabolism; E66.01 Morbid (severe) obesity due to excess calories; Z68.41 Body mass index [BMI] 40.0-44.9, adult; Z86.718 Personal history of other venous thrombosis and embolism; Z79.82 Long term (current) use of aspirin; Z79.84 Long term (current) use of oral hypoglycemic drugs; Z79.899 Other long term (current) drug therapy; Z88.5 Allergy status to narcotic agent; Z91.19 Patient's noncompliance with other medical treatment and regimen; Z99.2 Dependence on renal dialysis; Z20.828 Contact with and (suspected) exposure to other viral communicable diseases
CPT/HCPCS: 71045; 80048; 80061; 82553; 82962 ×3; 83735; 83880; 84100; 84484 ×2; 85025; 93005; 93306; 94760; 96374; 99285; U0003; 36415; 36416; 80053; 84443; 87635; G0378; J1644

== ENCOUNTER 2020-06-27 17:07 | Emergency (ER) | payer MEDICARE ==
[2020-06-27 17:39] LABS: #Eosinphils 0.1 thou/uL (0.0-0.7); #Lymphocytes 1.1 thou/uL (1.20-3.40); #Monocytes 0.4 thou/uL (0.11-0.59); #Neutrophils 2.9 thou/uL (1.40-6.50); %Basophils 1.1 % (0.0-1.0); %Eosinophils 2.2 % (0.0-10.0); %Lymphocytes 23.7 % (21.0-51.0); %Monocytes 8.2 % (0.0-10.0); Hemoglobin 10.5 g/dL (12.0-16.0); Mean Corpuscular HGB CONC 31.5 g/dL (32.0-36.0); Mean Corpuscular Volume 95.3 fL (78.0-98.0); Mean Platelet Volume 9.9 fL (7.4-10.4); Platelet Count 171 thou/uL (130-400); RBC Distribution Width 18.4 % (11.5-14.5); Red Blood Cell (RBC) Count 3.52 mill/uL (4.20-5.40); White Blood Cell (WBC) Count 4.5 thou/uL (4.8-10.8)
[2020-06-27 17:58] LABS: ALT (SGPT) 11 U/L (8-55); AST (SGOT) 12 U/L (5-34); Alkaline Phosphatase 179 U/L (40-110); Anion Gap 21 mmol/L (10-20); BUN (Urea Nitrogen) 103 mg/dL (9.8-20.1); Bilirubin, Total 1.2 mg/dL (0.2-1.2); Calc. Creatinine Clearance 0 mL/min (70-130); Calcium 8.4 mg/dL (7.8-10.44); Carbon Dioxide 22 mmol/L (23-31); Chloride 102 mmol/L (98-107); Globulin 4.3 g/dL (2.4-3.5); Glucose 112 mg/dL (80-115); Potassium 3.8 mmol/L (3.5-5.1); Protein, Total 8.3 g/dL (6.0-8.3); Sodium 141 mmol/L (136-145)
--- NOTE | 2020-06-27 21:42 | RAD ---
PORTABLE CHEST: Date: 06-27-2020 PROVIDED CLINICAL HISTORY: Cough FINDINGS: Comparison 05-13-2020. The cardiac silhouette appears enlarged. Right IJ dialysis catheter is again noted in similar positio n. Prominence of the pulmonary vasculature. No focal consolidation, pleural fluid, or pneumothorax ap parent. IMPRESSION: Cardiomegaly and prominence of the pulmonary vasculature. POS: SEPIDEH
[2020-06-28 04:20] LABS: SARS-CoV-2 MS2 Positive; SARS-CoV-2 N Gene Negative; SARS-CoV-2 S Gene Negative; SARS-CoV-2 by NAA Not Detected (NotDetected); SARS-CoV-2 orf1ab Negative
== END 2020-06-27 22:50 | disposition home or self-care (01) ==
LOC: ERS 17:07
DX: R60.0 Localized edema (principal); Z20.828 Contact with and (suspected) exposure to other viral communicable diseases; E11.9 Type 2 diabetes mellitus without complications; K21.9 Gastro-esophageal reflux disease without esophagitis; I11.0 Hypertensive heart disease with heart failure; I50.9 Heart failure, unspecified
CPT/HCPCS: 71045; 80053; 85025; 94760; 99284; U0003; 36415; 87635

== ENCOUNTER 2020-07-15 14:42 | Inpatient (IN) | payer MEDICARE ==
[~2020-07-15 14:42] MED LIST changes: -Bupivacaine HCl 0.5%/Epinephrine 1:200,000/PF 30 ml Vial ONE; -EPHEDRINE 25 MG/5 ML SYRINGE ONE; +Heparin 10,000 UNITS/ 10 ML VIAL ONE; -Lidocaine 1% PF 5 ML VIAL ONE; -Ondansetron PF 4 MG/2 ML Vial ONE; -PHENYLEPHRINE-NS 100 MCG/ML 10 ML SYRINGE ONE
[2020-07-15 16:30] LABS: CKMB 1.3 ng/mL (0-6.6)
[2020-07-15] MEDS ORDERED: Senokot S 8.6-50 MG TAB PO PRN (16:57)
[2020-07-15] MEDS ORDERED: Acetaminophen 325 MG TAB PO PRN (16:57)
[2020-07-15] MEDS ORDERED: traMADol HCl 50 MG TAB PO PRN (16:58)
--- NOTE | 2020-07-15 17:47 | CON ---
DATE OF CONSULTATION: REASON FOR CONSULTATION: End-stage renal disease, on maintenance hemodialysis. HISTORY OF PRESENT ILLNESS: This is a very pleasant 65-year-old female, who presented to the hospital with unstable angina. She is due for dialysis on Saturday, Saturday, and Saturday. The patient denies any nausea, vomiting, or chest pain. PAST MEDICAL HISTORY: Significant for congestive heart failure, hypertension, diabetes mellitus, GERD, chronic lymphedema, tonsillectomy, cholecystectomy, and tubal ligation. MEDICATIONS: Home medications list reviewed. Hospital medication list reviewed. REVIEW OF SYSTEMS: Fifteen-point review of systems was performed and negative except for positives noted above. HEENT: Eyes intact, no diplopia. Ears: No hearing loss or earache. Nose: No discharge or bleeding. CHEST: No cough or phlegm. ABDOMEN: No nausea or vomiting. GENITOURINARY: No hematuria. No Fry catheter. MUSCULOSKELETAL: No low back pain. No joint swelling or pain. NEUROLOGICAL: No syncope. No seizures. SKIN: No complaints of rash or itching. PSYCHIATRIC: No depression. CONSTITUTIONAL: No weight loss or loss of appetite. PHYSICAL EXAMINATION: GENERAL: On exam, the patient is awake and alert. VITAL SIGNS: Afebrile, pulse 85, breathing at 16, and blood pressure 130/85. HEENT: Head normocephalic and atraumatic. Eyes intact, no ulcers. Nose intact, no ulcers. Ears intact, no ulcers. NECK: Supple. No JVD. CHEST: Symmetrical and clear. CARDIOVASCULAR: Shows S1 and S2, no rub, no murmur. GASTROINTESTINAL: Abdomen is soft, bowel sounds positive. EXTREMITIES: Lower extremities have 4+ edema. SKIN: Shows no rash or petechiae. MUSCULOSKELETAL: Shows no joint swelling or stiffness. GENITOURINARY: Shows no Fry or CVA tenderness. NEUROLOGIC: Motor intact. Cranial nerves intact. LABORATORY DATA: Reviewed. ASSESSMENT AND PLAN: 1. Stage 6 chronic kidney disease. Plan dialysis. 2. Hypertension, stable. 3. Anemia, stable. 4. Medications based on glomerular filtration rate are appropriate. Job ID: [id number]
--- NOTE | 2020-07-15 18:18 | HP ---
CHIEF COMPLAINT: Chest pain and cough. HISTORY OF PRESENT ILLNESS: A 65-year-old female with end-stage renal disease, on hemodialysis on Saturday, Saturday, Saturday, followed with Dr. Frazier, presenting with chest pain that woke her up last night. She has a known coronary artery disease and plan for CABG in the future. Chest pain is one day of duration. When I interviewed her, she said that she also had several episodes of emesis this morning x3. She is transferred from [facility] and troponin was 0.16. EKG showed aflutter, 93 beats per minute. No ectopy. Nonspecific intraventricular conduction delay. She received 324 mg aspirin by mouth via EMS. she does not miss her dialysis. Her last dialysis was on Saturday and she is getting dialysis as I am interviewing her in the dialysis unit here. She appears well. She is admitted on May 11 for similar complaints and discharged on . Cardiology evaluated her. No aggressive intervention at that time. Echo done in May showed an EF of 55% with left ventricular hypertrophy and severe dilated left atrium, moderate tricuspid regurgitation. The patient states her chest pain is 3/10 currently. No radiation quality. When the chest pain happened this morning, she also had the emesis. REVIEW OF SYSTEMS: A 13-point review of systems reviewed. Pertinent addressed in the history of present illness. Rest are negative. ALLERGIES: SHE HAS NO KNOWN DRUG ALLERGIES. PAST MEDICAL HISTORY: End-stage renal disease, on dialysis on Saturday, Saturday, Saturday with [facility], congestive heart failure, coronary artery disease, type 2 diabetes mellitus, GERD, history of hypertension, history of DVT roughly 10 years ago was on Coumadin, chronic bilateral lower extremity edema/chronic venous stasis. PAST SURGICAL HISTORY: 1. Bilateral cataract surgery. 2. Cholecystectomy. 3. . 4. Tubal ligation. 5. Right arm AV fistula. SOCIAL HISTORY: No alcohol or drug use. Lives with the family. MEDICATIONS: 1. Tramadol 50 mg twice a day. 2. Atarax 10 mg twice a day. 3. Glipizide 5 mg daily. 4. Lasix 40 mg twice a day. 5. Coreg 6.25 mg twice a day. 6. Calcium carbonate one tab t.i.d. 7. Lipitor 40 mg daily. 8. Aspirin 81 mg daily. PHYSICAL EXAMINATION: VITAL SIGNS: Temperature is 97.6, pulse is 127, blood pressure 161/106, saturating 94% on room air. GENERAL: The patient is alert and oriented. She is mildly tachycardic, but appear very nontoxic looking. HEENT: Pupils are equal, round, and reactive to light. CARDIOVASCULAR: She has a 2/6 systolic ejection murmur, tachycardia. LUNGS: Anterior auscultation. No adventitious lung sounds. ABDOMEN: Soft, nontender, nondistended. Good bowel sounds. EXTREMITIES: She has chronic venous and chronic lower extremity edema causing quite disfigured legs. LABORATORY DATA: Labs currently pending. IMAGING DATA: EKG, aflutter with a rate of 93 beats per minute. Chest x-ray, no infiltrate, no pneumothorax, atelectasis and cardiomegaly. IMPRESSION AND PLAN: 1. This 65-year-old female with a history of coronary artery disease, end-stage renal disease on hemodialysis, presenting with chest pain. 2. She has a stable angina. Troponin is not elevated from the baseline of 0.1 from previous admits. The patient denies currently any significant chest pain. She also mentioned that she had episodes of emesis this morning, so it could be GERD and pleuritic chest pain. She does not require any emergent cardiac workup. We will place a consult for Cardiology evaluation in the morning as ER physician mentioned that she has unstable angina and with her history, I am not sure this is unstable. She would probably benefit with the her dialysis today. We will also provide her Pepcid to treat her GERD symptoms. Continue with her medications including Coreg and Lipitor along with aspirin. Serial troponins. If troponin elevated from this baseline of 0.16, then she may need further aggressive cardiac evaluation. She was seen in May by and no plan for any cardiac intervention at that time. Her echo also done during May 2020, which showed an EF of 55% with an LVH and severe left atrial dilatation. Again, she will be getting her dialysis this evening and if Cardiology feels that she does not require any cardiac intervention urgently, she may be able to follow up in the outpatient clinic and to be discharged tomorrow. Heparin for DVT prophylaxis Job ID: [id number] [facility]
[2020-07-15 22:10] VITALS: BMI 40.4
[2020-07-15] MEDS: Carvedilol 6.25 MG TAB PO SCH (22:41)
[2020-07-15] MEDS: Furosemide 40 MG TAB PO SCH (23:32)
[2020-07-15] MEDS: hydrOXYzine 10 MG TAB PO PRN (23:32)
[2020-07-15] MEDS: Heparin 5,000 UNITS/ML VIAL SC SCH (23:32)
[2020-07-15] MEDS: Famotidine/PF 20 mg/2ml Vial SLOW IVP SCH (23:33)
[2020-07-15] MEDS: Calcium Carbonate 500 MG ChewTAB PO SCH (23:39)
[2020-07-16 01:43] LABS: Troponin I 0.141 ng/mL (< 0.028)
[2020-07-16 04:16] LABS: SARS-CoV-2 PCR by NAA Not Detected (NotDetected)
[2020-07-16] MEDS: Atorvastatin Calcium 40 MG TAB PO SCH (08:59)
[2020-07-16] MEDS: Calcium Carbonate 500 MG ChewTAB PO SCH ×3 (08:59→16:09)
[2020-07-16] MEDS: Heparin 5,000 UNITS/ML VIAL SC SCH ×2 (09:00→21:29)
[2020-07-16] MEDS: Furosemide 40 MG TAB PO SCH ×2 (09:00→21:28)
[2020-07-16] MEDS: Carvedilol 6.25 MG TAB PO SCH ×2 (09:00→16:09)
[2020-07-16] MEDS: glipiZIDE 5 MG TAB PO SCH (09:00)
[2020-07-16] MEDS: Famotidine/PF 20 mg/2ml Vial SLOW IVP SCH ×2 (09:00→21:28)
[2020-07-16] MEDS: Aspirin Chewable 81 MG TAB PO SCH (09:00)
[2020-07-16 10:35] LABS: #Eosinphils 0.1 thou/uL (0.0-0.7); #Lymphocytes 1.3 thou/uL (1.20-3.40); #Monocytes 0.4 thou/uL (0.11-0.59); #Neutrophils 2.2 thou/uL (1.40-6.50); %Basophils 0.5 % (0.0-1.0); %Eosinophils 2.3 % (0.0-10.0); %Lymphocytes 31.6 % (21.0-51.0); %Monocytes 11.2 % (0.0-10.0); %Neutrophils 54.5 % (42.0-75.0); Hemoglobin 9.8 g/dL (12.0-16.0); Mean Corpuscular HGB CONC 31.5 g/dL (32.0-36.0); Mean Corpuscular Hemoglobin 30.5 pg (27.0-31.0); Mean Corpuscular Volume 96.8 fL (78.0-98.0); Mean Platelet Volume 11.9 fL (7.4-10.4); Platelet Count 166 thou/uL (130-400); RBC Distribution Width 17.6 % (11.5-14.5); Red Blood Cell (RBC) Count 3.21 mill/uL (4.20-5.40)
[2020-07-16 10:48] LABS: Anion Gap 16 mmol/L (10-20); BUN (Urea Nitrogen) 33 mg/dL (9.8-20.1); Calc. Creatinine Clearance 14 mL/min (70-130); Calcium 8.8 mg/dL (7.8-10.44); Carbon Dioxide 27 mmol/L (23-31); Chloride 100 mmol/L (98-107); Glucose 155 mg/dL (80-115); Potassium 4.1 mmol/L (3.5-5.1); Sodium 139 mmol/L (136-145)
--- NOTE | 2020-07-16 11:26 | PRG ---
DATE OF SERVICE: 07/16/2020 SUBJECTIVE: A 65-year-old female being seen for end-stage renal disease. The patient denies nausea, vomiting, or chest pain. OBJECTIVE: GENERAL: The patient is awake and alert. VITAL SIGNS: Afebrile, pulse 75, breathing at 16, blood pressure 148/78. HEENT: Head normocephalic and atraumatic. Eyes intact, no ulcers. Nose intact, no ulcers. Ears intact, no ulcers. NECK: Supple. No JVD. CHEST: Symmetrical and clear. CARDIOVASCULAR: Shows S1 and S2, no rub, no murmur. GASTROINTESTINAL: Abdomen is soft, bowel sounds positive. EXTREMITIES: Show no edema or ulcers. SKIN: Shows no rash or petechiae. MUSCULOSKELETAL: Shows no joint swelling or stiffness. GENITOURINARY: Shows no Fry or CVA tenderness. NEUROLOGIC: Motor intact. Cranial nerves intact. LABORATORY DATA: Shows hemoglobin 9.8. ASSESSMENT AND PLAN: 1. Stage 6 chronic kidney disease. Continue hemodialysis. 2. Hypertension, stable. 3. Anemia, stable. 4. Medication based on GFR, appropriate. Job ID: [id number]
--- NOTE | 2020-07-16 16:08 | CON ---
DATE OF CONSULTATION: 07/16/2020 REASON FOR CONSULTATION: Chest pain, unstable angina. PRIMARY INTAKE NURSE: El Dey MD HISTORY OF PRESENT ILLNESS: Ms. Gillis is a very pleasant 65-year-old woman with end-stage renal disease. She has a history of chest pain in the past with some abnormalities on stress testing. The patient underwent cardiac catheterization recently at the [facility] in [facility]. She told that she had "2 vessels blockages blocked." She was scheduled physician in [facility] next week to schedule bypass surgery. The patient was admitted with prolonged episode of pain in the left arm in the upper area, left shoulder, left side of her chest with slight increased troponin. She is pain-free now. PAST MEDICAL HISTORY: 1. Longstanding dialysis, on hemodialysis. 2. End-stage renal disease. 3. Cataract surgery. 4. Tonsillectomy. SOCIAL HISTORY: No tobacco or alcohol. ALLERGIES: TO TRAMADOL. REVIEW OF SYSTEMS: 10-point review of systems otherwise negative. PHYSICAL EXAMINATION: GENERAL: This is a very pleasant 65-year-old female, resting comfortably without chest pain now. VITAL SIGNS: Blood pressure 123/61, pulse 70. NECK: Veins are normal. Carotid, normal upstrokes. LUNGS: Clear. CARDIAC: Normal S1, normal S2. I do not hear murmur, rub, or gallop. ABDOMEN: Soft and nontender. No hepatosplenomegaly. EXTREMITIES: Warm, dry. No clubbing, no cyanosis. There is no significant edema. Pedal pulses are diminished. LABORATORY DATA: Troponin levels peak was 0.17, creatinine 5.69. Hemoglobin is 9.8. EKG; sinus rhythm with premature atrial contractions and some nonspecific T-wave changes. ASSESSMENT: 1. Unstable angina. 2. End-stage renal disease. 3. Mild anemia, probably related to renal failure. PLAN: 1. Subcutaneous heparin. 2. Continue aspirin. 3. Nitroglycerin if needed. 4. May need to stay the weekend to make sure she is safe to go home. Ideally, we get information from [place] to see what their coronary anatomy is. Discussed with the patient that if we got the catheterization films, we could consider doing surgery here, but she says she has family in the [place] and preferred to have that done. Job ID: [id number]
[2020-07-16] MEDS ORDERED: Dextrose 50% Abboject 50 ML SYRINGE SLOW IVP PRN (18:26)
[2020-07-16] MEDS ORDERED: HumaLOG 300 UNITS/3 ML VIAL SC PRN (18:26)
[2020-07-16] MEDS ORDERED: Dextrose 5% in Water 1,000 ML IV PRN (18:26)
--- NOTE | 2020-07-16 19:43 | PDOC.HOSPP ---
- Subjective Encounter Date: 07/16/20 Subjective: Patient was sleeping but awakened. Denied any specific concerns today. - Objective Vital Signs & Weight: Vital Signs (12 hours) Temp Pulse Resp BP Pulse Ox 07/16/20 16:17 97.1 F L 77 16 118/95 H 96 07/16/20 11:51 98.2 F 71 16 123/61 95 07/16/20 07:43 97.9 F 85 16 174/88 H 98 Weight Weight 200 lb I&O: 07/15/20 07/16/20 07/17/20 06:59 06:59 06:59 Intake Total 120 Output Total 50 Balance 70 Result Diagrams: 07/16/20 10:23 07/16/20 10:23 Additional Labs: Accuchecks 07/16/20 07/16/20 07/16/20 16:50 10:37 05:47 POC Glucose 168 H 144 H 210 H 07/15/20 21:47 POC Glucose 93 Hospitalist ROS - Medication Medications: Active Medications Generic Name Dose Route Start Last Admin Trade Name Lane PRN Reason Stop Dose Admin Aspirin 81 mg 07/16/20 09:00 07/16/20 09:00 Aspirin Chewable 81 Mg Tab PO 81 mg DAILY NINO Administration Atorvastatin Calcium 40 mg 07/16/20 09:00 07/16/20 08:59 Atorvastatin Calcium 40 Mg Tab PO 40 mg DAILY NINO Administration Calcium Carbonate 500 mg 07/15/20 17:00 07/16/20 16:09 Calcium Carbonate 500 Mg Chewtab PO 500 mg TID- NINO Administration Carvedilol 6.25 mg 07/15/20 17:00 07/16/20 16:09 Carvedilol 6.25 Mg Tab PO 6.25 mg BID-WM NINO Administration Famotidine 20 mg 07/15/20 21:00 07/16/20 09:00 Famotidine/Pf 20 Mg/2ml Vial SLOW IVP 20 mg Q12HR NINO Administration Furosemide 40 mg 07/15/20 21:00 07/16/20 09:00 Furosemide 40 Mg Tab PO 40 mg BID NINO Administration Glipizide 5 mg 07/16/20 09:00 07/16/20 09:00 Glipizide 5 Mg Tab PO 5 mg DAILY NINO Administration Heparin Sodium (Porcine) 5,000 units 07/15/20 21:00 07/16/20 09:00 Heparin 5,000 Units/Ml Vial SC 5,000 units BID NINO Administration Hydroxyzine HCl 10 mg 07/15/20 16:58 07/15/20 23:32 Hydroxyzine 10 Mg Tab PO 10 mg BID PRN Administration Rash/Topical Irritation - Exam General Appearance: NAD Heart: RRR, no murmur, no gallops, no rubs, normal peripheral pulses Respiratory: CTAB, no wheezes, no rales, no ronchi, normal chest expansion, no tachypnea, normal percussion Gastrointestinal: soft, non-tender, non-distended, normal bowel sounds, no palpable masses, no hepatomegaly, no splenomegaly, no bruit Extremities: no cyanosis, no clubbing, no edema Hosp A/P (1) Chest pain Code(s): R07.9 - CHEST PAIN, UNSPECIFIED Status: Acute (2) ESRD (end stage renal disease) Code(s): N18.6 - END STAGE RENAL DISEASE Status: Acute (3) CAD (coronary artery disease) Code(s): I25.10 - ATHSCL HEART DISEASE OF [place] CORONARY ARTERY W/O ANG PCTRS Status: Chronic Qualifiers: (4) DM2 (diabetes mellitus, type 2) Status: Chronic (5) Dyslipidemia Code(s): E78.5 - HYPERLIPIDEMIA, UNSPECIFIED Status: Chronic (6) HTN (hypertension) Code(s): I10 - ESSENTIAL (PRIMARY) HYPERTENSION Status: Chronic (7) History of DVT (deep vein thrombosis) Code(s): Z86.718 - PERSONAL HISTORY OF OTHER VENOUS THROMBOSIS AND EMBOLISM Status: Chronic (8) JAQUAN (obstructive sleep apnea) Code(s): G47.33 - OBSTRUCTIVE SLEEP APNEA (ADULT) (PEDIATRIC) Status: Chronic (9) Obesity (BMI 30-39.9) Code(s): E66.9 - OBESITY, UNSPECIFIED Status: Chronic (10) Anemia of renal disease Code(s): N18.9 - CHRONIC KIDNEY DISEASE, UNSPECIFIED; D63.1 - ANEMIA IN CHRONIC KIDNEY DISEASE Status: Chronic - Plan Angina: Discussed cardiology. Patient has known coronary disease previously diagnosed. Plan was for follow-up coronary bypass surgery. We will need to try to obtain that information on Saturday in order to determine appropriate treatment plan. Cardiology consulted. Continue aspirin and statin. Continue heparin. End-stage renal disease: Continue dialysis per nephrology. Diabetes mellitus: Continue sliding scale insulin. Blood sugars reasonably well controlled. Anemia of chronic kidney disease: At baseline. Hypertension: Continue usual home regimen. Hyperlipidemia: Continue statin.
[2020-07-17] MEDS: hydrOXYzine 10 MG TAB PO PRN (00:34)
[2020-07-17] MEDS: Benzonatate 100 MG CAP PO PRN ×2 (01:21→17:03)
[2020-07-17] MEDS: Aspirin Chewable 81 MG TAB PO SCH (09:06)
[2020-07-17] MEDS: Calcium Carbonate 500 MG ChewTAB PO SCH ×3 (09:06→17:03)
[2020-07-17] MEDS: Furosemide 40 MG TAB PO SCH (09:06)
[2020-07-17] MEDS: Atorvastatin Calcium 40 MG TAB PO SCH (09:06)
[2020-07-17] MEDS: Famotidine/PF 20 mg/2ml Vial SLOW IVP SCH (09:06)
[2020-07-17] MEDS: Carvedilol 6.25 MG TAB PO SCH ×2 (09:06→17:03)
[2020-07-17] MEDS: Heparin 5,000 UNITS/ML VIAL SC SCH (09:06)
[2020-07-17] MEDS: glipiZIDE 5 MG TAB PO SCH (09:06)
--- NOTE | 2020-07-17 10:16 | PDOC.HOSPP ---
- Subjective Encounter Date: 07/17/20 Subjective: Patient feels well. She is very eager to go home and she has a daughter with cerebral palsy at home that she needs to attend to. She reports to me today that she actually never had chest pain prior to her diagnosis of the coronary artery disease. She actually went to [place] in order to investigate having a better dialysis access with a graft as she has had several fistulas fail. During the preop work-up they found the coronary disease and did a heart cath. She believes she has 2 vessels that are occluded. She reported that she had one episode of chest pain that resolved with dialysis. She has had none since. - Objective Vital Signs & Weight: Vital Signs (12 hours) Temp Pulse Resp BP Pulse Ox 07/17/20 07:30 98.3 F 81 16 136/71 96 07/17/20 04:00 97.7 F 76 20 144/66 H 93 L Weight Weight 201 lb 14.4 oz I&O: 07/16/20 07/17/20 07/18/20 06:59 06:59 06:59 Intake Total 120 160 Output Total 50 Balance 70 160 Result Diagrams: 07/16/20 10:23 07/16/20 10:23 Additional Labs: Accuchecks 07/17/20 07/16/20 07/16/20 06:05 19:53 16:50 POC Glucose 201 H 158 H 168 H 07/16/20 10:37 POC Glucose 144 H Hospitalist ROS - Medication Medications: Active Medications Generic Name Dose Route Start Last Admin Trade Name Freq PRN Reason Stop Dose Admin Aspirin 81 mg 07/16/20 09:00 07/17/20 09:06 Aspirin Chewable 81 Mg Tab PO 81 mg DAILY NINO Administration Atorvastatin Calcium 40 mg 07/16/20 09:00 07/17/20 09:06 Atorvastatin Calcium 40 Mg Tab PO 40 mg DAILY NINO Administration Benzonatate 100 mg 07/17/20 00:39 07/17/20 01:21 Benzonatate 100 Mg Cap PO 100 mg TIDPRN PRN Administration Cough Calcium Carbonate 500 mg 07/15/20 17:00 07/17/20 09:06 Calcium Carbonate 500 Mg Chewtab PO 500 mg TID-WM NINO Administration Carvedilol 6.25 mg 07/15/20 17:00 07/17/20 09:06 Carvedilol 6.25 Mg Tab PO 6.25 mg BID-WM NINO Administration Famotidine 20 mg 07/15/20 21:00 07/17/20 09:06 Famotidine/Pf 20 Mg/2ml Vial SLOW IVP 20 mg Q12HR NINO Administration Furosemide 40 mg 07/15/20 21:00 07/17/20 09:06 Furosemide 40 Mg Tab PO 40 mg BID NINO Administration Glipizide 5 mg 07/16/20 09:00 07/17/20 09:06 Glipizide 5 Mg Tab PO 5 mg DAILY NINO Administration Heparin Sodium (Porcine) 5,000 units 07/15/20 21:00 07/17/20 09:06 Heparin 5,000 Units/Ml Vial SC 5,000 units BID NINO Administration Hydroxyzine HCl 10 mg 07/15/20 16:58 07/17/20 00:34 Hydroxyzine 10 Mg Tab PO 10 mg BID PRN Administration Rash/Topical Irritation Insulin Human Lispro 0 units 07/16/20 18:26 07/17/20 07:03 Humalog 300 Units/3 Ml Vial SC 3 unit .MILD SLIDING SCALE PRN Administration Mild Correctional Scale Tramadol HCl 50 mg 07/15/20 16:58 07/17/20 05:57 Tramadol Hcl 50 Mg Tab PO 50 mg BID PRN Administration Pain - Exam General Appearance: NAD, awake alert General - other findings: Obese Heart: RRR, no murmur, no gallops, no rubs, normal peripheral pulses Respiratory: CTAB, no wheezes, no rales, no ronchi, normal chest expansion, no tachypnea, normal percussion Gastrointestinal: soft, non-tender, non-distended, normal bowel sounds, no palpable masses, no hepatomegaly, no splenomegaly, no bruit Extremities: no cyanosis, no clubbing, no edema Skin: normal turgor Skin - other findings: Very dry with some superficial excoriations. Hosp A/P (1) Chest pain Code(s): R07.9 - CHEST PAIN, UNSPECIFIED Status: Acute (2) ESRD (end stage renal disease) Code(s): N18.6 - END STAGE RENAL DISEASE Status: Acute (3) CAD (coronary artery disease) Code(s): I25.10 - ATHSCL HEART DISEASE OF [place] CORONARY ARTERY W/O ANG PCTRS Status: Chronic Qualifiers: (4) DM2 (diabetes mellitus, type 2) Status: Chronic (5) Dyslipidemia Code(s): E78.5 - HYPERLIPIDEMIA, UNSPECIFIED Status: Chronic (6) HTN (hypertension) Code(s): I10 - ESSENTIAL (PRIMARY) HYPERTENSION Status: Chronic (7) History of DVT (deep vein thrombosis) Code(s): Z86.718 - PERSONAL HISTORY OF OTHER VENOUS THROMBOSIS AND EMBOLISM St atus: Chronic (8) JAQUAN (obstructive sleep apnea) Code(s): G47.33 - OBSTRUCTIVE SLEEP APNEA (ADULT) (PEDIATRIC) Status: Chronic (9) Obesity (BMI 30-39.9) Code(s): E66.9 - OBESITY, UNSPECIFIED Status: Chronic (10) Anemia of renal disease Code(s): N18.9 - CHRONIC KIDNEY DISEASE, UNSPECIFIED; D63.1 - ANEMIA IN CHRONIC KIDNEY DISEASE Status: Chronic - Plan Angina: Patient has known coronary disease previously diagnosed in [place].. Plan was for follow-up coronary bypass surgery. She reported she has an appointment to go to [place] of this week. Cardiology consulted. Continue aspirin and statin. Continue heparin. Will discuss again with cardiology. Question of whether the patient can safely be discharged without evidence of recurrent chest pains and have her scheduled follow-up in [place]. End-stage renal disease: Continue dialysis per nephrology. Diabetes mellitus: Continue sliding scale insulin. Blood sugars reasonably well controlled. Anemia of chronic kidney disease: At baseline. Hypertension: Continue usual home regimen. Hyperlipidemia: Continue statin.
[2020-07-17 12:01] VITALS: TEMP 97.2
[2020-07-17 16:08] VITALS: BP 142/68
--- NOTE | 2020-07-17 16:14 | PRG ---
DATE OF SERVICE: 07/17/2020 SUBJECTIVE: A 65-year-old female, being seen for end-stage renal disease. The patient denies any nausea, vomiting, or chest pain. OBJECTIVE: GENERAL: The patient is awake and alert. VITAL SIGNS: Afebrile, pulse 81, breathing at 16, blood pressure 136/71. HEENT: Head normocephalic and atraumatic. Eyes intact, no ulcers. Nose intact, no ulcers. Ears intact, no ulcers. NECK: Supple. No JVD. CHEST: Symmetrical and clear. CARDIOVASCULAR: Shows S1 and S2, no rub, no murmur. GASTROINTESTINAL: Abdomen is soft, bowel sounds positive. EXTREMITIES: Show no edema or ulcers. SKIN: Shows no rash or petechiae. MUSCULOSKELETAL: Shows no joint swelling or stiffness. GENITOURINARY: Shows no Fry or CVA tenderness. NEUROLOGIC: Motor intact. Cranial nerves intact. LABORATORY DATA: Reviewed. ASSESSMENT AND PLAN: 1. Stage 6 chronic kidney disease. Plan dialysis as scheduled. 2. Hypertension, stable. 3. Anemia, stable. 4. Medication based on GFR appropriate. Job ID: [id number]
--- NOTE | 2020-07-21 12:41 | PDOC.DS.DS ---
Provider - Provider Date of Admission: 07/15/20 16:47 Date of Discharge: 07/17/20 Admitting Provider: Gauri Pryor MD Primary Care Physician: [facility] Course - Hospital Course Hospital Course: Angina: Patient initially presented with chest pain. Patient has known coronary disease previously diagnosed in [place].. Plan was for follow-up coronary bypass surgery. She reported she has an appointment to go to [place] of this week. Cardiology consulted. Continue aspirin and statin. Continue heparin. Troponins remained indeterminate but did not follow any physiologic pattern. Plan was to await Saturday morning and try to communicate with her providers in [place] to determine the best course of action. In discussing the situation with the patient she indicated that she never had chest pain prior to her diagnosis of coronary disease. She in [place] to have her dialysis fistula revised. They had her go through full work-up including cardiac screening. That is when she had a heart cath revealing significant two-vessel disease and had the heart bypass recommended. Patient remained completely asymptomatic in the hospital. She was eager to get home because she had a special needs daughter who was dependent on her. Discussed with cardiology and ultimately felt like it was safe to discharge the patient home to have follow-up as previously scheduled in [place]. End-stage renal disease: Continue dialysis per nephrology. Diabetes mellitus: Continue sliding scale insulin. Blood sugars reasonably well controlled. Anemia of chronic kidney disease: At baseline. Hypertension: Continue usual home regimen. Hyperlipidemia: Continue statin. - Labs Lab Results: 07/16/20 10:23 07/16/20 10:23 - Physical Exam Vitals: Weight Weight 201 lb 14.4 oz Physical Exam: The patient was seen and examined on the day of discharge. Problem - Problem (1) Chest pain Code(s): R07.9 - CHEST PAIN, UNSPECIFIED Status: Acute (2) ESRD (end stage renal disease) Code(s): N18.6 - END STAGE RENAL DISEASE Status: Acute (3) CAD (coronary artery disease) Code(s): I25.10 - ATHSCL HEART DISEASE OF [place] CORONARY ARTERY W/O ANG PCTRS Status: Chronic Qualifiers: (4) DM2 (diabetes mellitus, type 2) Status: Chronic (5) Dyslipidemia Code(s): E78.5 - HYPERLIPIDEMIA, UNSPECIFIED Status: Chronic (6) HTN (hypertension) Code(s): I10 - ESSENTIAL (PRIMARY) HYPERTENSION Status: Chronic (7) History of DVT (deep vein thrombosis) Code(s): Z86.718 - PERSONAL HISTORY OF OTHER VENOUS THROMBOSIS AND EMBOLISM Status: Chronic (8) JAQUAN (obstructive sleep apnea) Code(s): G47.33 - OBSTRUCTIVE SLEEP APNEA (ADULT) (PEDIATRIC) Status: Chronic (9) Obesity (BMI 30-39.9) Code(s): E66.9 - OBESITY, UNSPECIFIED Status: Chronic (10) Anemia of renal disease Code(s): N18.9 - CHRONIC KIDNEY DISEASE, UNSPECIFIED; D63.1 - ANEMIA IN CHRONIC KIDNEY DISEASE Status: Chronic - Time spent with Patient (mins): 32 Plan - Discharge Medications Prescriptions: Nitroglycerin 0.4 mg SL Q5MIN #30 tab.subl Home Medications: Medication Instructions Recorded Confirmed Type Carvedilol 6.25 tab PO BID- 12/21/18 07/16/20 History hydrOXYzine [Atarax] 10 mg PO BID PRN 12/21/18 07/16/20 History Aspirin Chewable [Aspirin Chewable 81 mg PO DAILY #30 tab 12/25/18 07/16/20 Rx Tablet] Atorvastatin Calcium [Lipitor] 40 mg PO HS 05/13/20 07/16/20 History Furosemide [Lasix] 40 mg PO BID 05/13/20 07/16/20 History traMADol HCl [Tramadol HCl] 50 mg PO BID PRN 05/13/20 07/16/20 History Acetaminophen [Tylenol Regular 650 mg PO Q6HR PRN 07/16/20 07/16/20 History Strength] Calcium Carbonate [Tums] 750 mg PO TID- 07/16/20 07/16/20 History Esomeprazole Magnesium [NexIUM] 20 mg PO DAILY 07/16/20 07/16/20 History Pantoprazole [Protonix] 1 tab PO DAILY 07/16/20 07/16/20 History Nitroglycerin 0.4 mg SL Q5MIN #30 tab.subl 07/17/20 Rx glipiZIDE [Glucotrol] 5 mg PO DAILY tab 07/17/20 Rx Allergies: No Known Allergies Allergy (Verified 07/16/20 00:19) - Discharge Instructions Activity:: Activity as Tolerated Nourishment:: Diabetic Diet, Heart Healthy Diet - Follow up Plan Referrals: [facility] [Primary Care Provider] - 7 Days (call to make an appointment within 7 days!) Disposition: HOME Quality - Care Measures CORE MEASURES:: N/A
--- NOTE | 2020-08-06 22:47 | EKG ---
Test Reason : Blood Pressure : / mmHG Vent. Rate : 083 BPM Atrial Rate : 258 BPM P-R Int : 000 ms QRS Dur : 084 ms QT Int : 398 ms P-R-T Axes : 084 046 137 degrees QTc Int : 467 ms Atrial flutter with variable A-V block Nonspecific T wave abnormality Abnormal ECG Confirmed by YESI PEGUERO, LATRICE ([id number]), sports editor BELKIS SIMPSON ([id number]) on 08/06/2020 10:46:56 PM Referred By: Confirmed By:LATRICE KEY MD
== END 2020-07-17 18:15 | disposition home or self-care (01) | DRG 302 ==
LOC: ERS 14:42 → 2NO 16:47
PROVIDERS: ADMIT Internal Medicine; ATTEND Internal Medicine
PROC: 5A1D70Z Performance of Urinary Filtration, Intermittent, Less than 6 Hours Per Day (ICD-10-PCS; principal; 2020-07-15)
DX: I25.110 Atherosclerotic heart disease of native coronary artery with unstable angina pectoris (principal); N18.6 End stage renal disease; I13.2 Hypertensive heart and chronic kidney disease with heart failure and with stage 5 chronic kidney disease, or end stage renal disease; Z68.41 Body mass index [BMI] 40.0-44.9, adult; Z20.822 Contact with and (suspected) exposure to COVID-19; D63.1 Anemia in chronic kidney disease; K21.9 Gastro-esophageal reflux disease without esophagitis; E11.22 Type 2 diabetes mellitus with diabetic chronic kidney disease; I07.1 Rheumatic tricuspid insufficiency; I87.8 Other specified disorders of veins; E78.5 Hyperlipidemia, unspecified; I50.9 Heart failure, unspecified; E66.9 Obesity, unspecified; G47.33 Obstructive sleep apnea (adult) (pediatric); Z99.2 Dependence on renal dialysis; Z90.49 Acquired absence of other specified parts of digestive tract; Z98.51 Tubal ligation status; Z79.899 Other long term (current) drug therapy; Z95.1 Presence of aortocoronary bypass graft; Z86.718 Personal history of other venous thrombosis and embolism; Z79.01 Long term (current) use of anticoagulants; Z98.42 Cataract extraction status, left eye; Z98.41 Cataract extraction status, right eye; Z79.82 Long term (current) use of aspirin; Z79.84 Long term (current) use of oral hypoglycemic drugs
CPT/HCPCS: 36415; 36416; 80048; 82553; 85025; 87635; 90935; 93005; G0257; J1644; S0028; U0003; U0005

== ENCOUNTER 2020-07-27 15:50 | Emergency (ER) | payer MEDICARE ==
[2020-07-27 16:45] LABS: #Eosinphils 0.1 thou/uL (0.0-0.7); #Lymphocytes 1.3 thou/uL (1.20-3.40); #Monocytes 0.5 thou/uL (0.11-0.59); #Neutrophils 2.9 thou/uL (1.40-6.50); %Basophils 0.7 % (0.0-1.0); %Eosinophils 2.4 % (0.0-10.0); %Lymphocytes 27.4 % (21.0-51.0); %Monocytes 10.8 % (0.0-10.0); %Neutrophils 58.7 % (42.0-75.0); Mean Corpuscular HGB CONC 30.7 g/dL (32.0-36.0); Mean Corpuscular Hemoglobin 29.6 pg (27.0-31.0); Mean Corpuscular Volume 96.4 fL (78.0-98.0); Mean Platelet Volume 10.1 fL (7.4-10.4); Platelet Count 205 thou/uL (130-400); RBC Distribution Width 17.5 % (11.5-14.5); Red Blood Cell (RBC) Count 3.38 mill/uL (4.20-5.40); White Blood Cell (WBC) Count 4.9 thou/uL (4.8-10.8)
[2020-07-27 17:04] LABS: ALT (SGPT) 9 U/L (8-55); AST (SGOT) 13 U/L (5-34); Albumin 3.6 g/dL (3.4-4.8); Alkaline Phosphatase 126 U/L (40-110); Anion Gap 14 mmol/L (10-20); BUN (Urea Nitrogen) 38 mg/dL (9.8-20.1); Bilirubin, Total 0.9 mg/dL (0.2-1.2); Calc. Creatinine Clearance 0 mL/min (70-130); Calcium 8.5 mg/dL (7.8-10.44); Carbon Dioxide 29 mmol/L (23-31); Chloride 96 mmol/L (98-107); Globulin 3.9 g/dL (2.4-3.5); Glucose 130 mg/dL (80-115); Potassium 3.7 mmol/L (3.5-5.1); Protein, Total 7.5 g/dL (5.8-8.1); Sodium 135 mmol/L (136-145)
== END 2020-07-27 19:25 | disposition home or self-care (01) ==
LOC: ERS 15:50
DX: I95.9 Hypotension, unspecified (principal); G47.30 Sleep apnea, unspecified; E11.9 Type 2 diabetes mellitus without complications; I11.0 Hypertensive heart disease with heart failure; I50.9 Heart failure, unspecified; K21.9 Gastro-esophageal reflux disease without esophagitis
CPT/HCPCS: 36415; 71045; 80053; 84484; 85025; 93005

== ENCOUNTER 2020-08-05 06:53 | Emergency (ER) | payer MEDICARE ==
--- NOTE | 2020-08-05 08:33 | RAD ---
CHEST 1 VIEW: Date: 08/05/2020 INDICATION: History of port pain. COMPARISON: Prior exam dated 07/27/2020. IMPRESSION: There is cardiomegaly and pulmonary vascular congestion. There is a right IJ central venous catheter. No definite consolidation, pleural effusion, or pneumothorax evident. Osseous structures unchanged. POS: BH
[2020-08-05] MEDS ORDERED: Lidocaine 4% Cream 5 GM TUBE w/ Tegaderm ONE (09:09)
== END 2020-08-05 10:00 | disposition home or self-care (01) ==
LOC: ERS 06:53
DX: T82.848A Pain due to vascular prosthetic devices, implants and grafts, initial encounter (principal); G47.30 Sleep apnea, unspecified; I50.9 Heart failure, unspecified; E11.9 Type 2 diabetes mellitus without complications; K21.9 Gastro-esophageal reflux disease without esophagitis; Z79.01 Long term (current) use of anticoagulants; Z86.718 Personal history of other venous thrombosis and embolism
CPT/HCPCS: 71045; 94760